=== PATIENT | female | born 1980 | race Caucasian/White ===

== ENCOUNTER 2017-07-16 12:34 | Emergency (ER) | END 2017-07-16 17:19 | disposition home or self-care (01) ==

== ENCOUNTER 2017-07-24 15:13 | Emergency (ER) | END 2017-07-25 06:53 | disposition home or self-care (01) ==

== ENCOUNTER 2017-08-10 16:30 | Inpatient (IN) | END 2017-08-13 14:40 | disposition home or self-care (01) | DRG 291 ==

== ENCOUNTER 2018-06-13 16:13 | Inpatient (IN) | payer OTHER ==
[~2018-06-13] VITALS: Ht 172.7 cm; Wt 102.1 kg
[~2018-06-13 16:13] MED LIST: BUME1TAB PO; CARV3.1260 PO; LISI-313 PO
[2018-06-13 18:35] VITALS: BP 118/83; PULSE 107; PULSE 109; RESP 19; Ht 172.7 cm; Wt 102.1 kg
[2018-06-13 20:00] VITALS: BP 113/80; PULSE 102; PULSE 103; RESP 18
[2018-06-13] MEDS ORDERED: ACETAMINOPHEN 325 MG TAB PO PRN (21:30)
[2018-06-13] MEDS ORDERED: ZOLPIDEM 5 MG TAB PO PRN (21:30)
[2018-06-13] MEDS ORDERED: traMADol 50 MG TAB PO PRN (21:30)
[2018-06-14] VITALS (10 sets, daily range): BP systolic 100–116; BP diastolic 61–76; PULSE 68–104; RESP 16–20
[2018-06-14] MEDS: BUMETANIDE 1 MG INJ IV SCH ×2 (05:51→18:11)
[2018-06-14] MEDS: ASPIRIN 81 MG TAB PO SCH (08:52)
[2018-06-14] MEDS: LISINOPRIL 5 MG TAB PO SCH (08:53)
[2018-06-14] MEDS: ENOXAPARIN 40 MG/0.4 ML SYG SC SCH (08:58)
--- NOTE | 2018-06-14 15:08 | QN ---
Documentation Comment [id number] EDDIE KANG MD Jun 14, 2018 15:08
--- NOTE | 2018-06-14 15:38 | HP ---
DATE OF ADMISSION: 06/13/2018 HISTORY OF PRESENT ILLNESS: The patient is a 38-year-old female with history of CHF, history of drug abuse, previously was discharged with diagnosis of acute on chronic systolic and diastolic heart sheron lure, ejection fraction of 40%, severe tricuspid regurgitation, severe right-sided enlargement heart failure from underlying pulmonary hypertension. The patient also has some artery pressure of 50 mmHg , history of methamphetamine use. Last use was 2 days ago. Previously, the patient went home on Bum ex 1 p.o. daily, Coreg 3.125 twice a day ____ daily, presented with anasarca, short of breath. Denie s any chest pain, palpitation and was transferred here for further management. The patient's pulse o x was recorded as 98. The patient's WBC was 6.7, hematocrit 37, amphetamine positive. The patient's rhythm strip is done which shows sinus rhythm. PAST MEDICAL HISTORY: As mentioned above, hypertension, anasarca, CHF systolic and diastolic, pulmon syd hypertension, ejection fraction of 40%. ALLERGY HISTORY: NEGATIVE. FAMILY HISTORY: Negative. SOCIAL HISTORY: Positive smoking, using drugs. Last use was 2 days ago. MEDICATIONS AT HOME: 1. Bumex. 2. Coreg. 3. Lisinopril. REVIEW OF SYSTEMS: HEENT: Unremarkable. RESPIRATORY: Short of breath, orthopnea, dyspnea, wheezing positive. ABDOMEN: Increasing abdominal size per patient. EXTREMITIES: Worsening edema. CENTRAL NERVOUS SYSTEMS: Unremarkable. PHYSICAL EXAMINATION: GENERAL: Anasarcic looking female. VITAL SIGNS: With pulse 95, blood pressure ____. HEENT: Head is atraumatic and normocephalic. Pupils are equal, reactive to light. NECK: Supple. JVD positive. LUNGS: Basilar rales, rhonchi noted. CARDIOVASCULAR: S1, S2 normal. ABDOMEN: Soft, obese. Bowel sounds positive. Ascites appreciated. EXTREMITIES: There is no cyanosis, clubbing. A 2+ edema of both lower extremities. CENTRAL NERVOUS SYSTEMS: The patient is awake, alert, moving both upper and lower extremities. LABORATORY DATA: Hematocrit 35. Sodium 141, potassium 3.8, BUN 22. IMPRESSION: 1. Anasarca. 2. Possible systolic and diastolic heart failure. 3. Lower extremity edema. 4. Drug abuse. 5. Cardiomyopathy with ejection fraction of 40%, systolic and diastolic heart failure. 6. Pulmonary hypertension. 7. Noncompliance. 8. Anemia. 9. Obesity. 10. Dyslipidemia. PLAN: Continue oxygen, diuretics, cardiac diet. Cardiology consultation. The patient will also hav e 2D echo. Dr. Alba has been notified to see this patient in consultation. Dictated By: EDDIE KANG MD BS/NTS Conf#: [id number] DID#: [id number]
[2018-06-14] MEDS ORDERED: NITROGLYCERIN (SL) 0.4 MG TAB SL PRN (17:30)
--- NOTE | 2018-06-14 18:11 | CONS ---
DATE OF ADMISSION: 06/13/2018 DATE OF CONSULTATION: 06/14/2018 TYPE OF CONSULTATION: Cardiology. REASON FOR CONSULTATION: Congestive heart failure exacerbation. REQUESTING PHYSICIAN: Jacobo Kang MD HISTORY OF PRESENT ILLNESS: Ms. Zuniga is a 38-year-old female with a history of congestive heart f ailure, hypertension, cardiomyopathy, decreased left ventricular ejection fraction, last known to be approximately 40% by echo in 08/2017, ongoing substance abuse with methamphetamines, last use approxi mately 2 days prior as well as cannabinoids and ongoing tobacco usage, who presents with complaints o f edema, shortness of breath. Denies chest pains. The patient initially went to outside hospital at [place] and over there was noted to have a tox screen positive for THC and amphetamines. The pat ient's chest x-ray revealed enlarged cardiac silhouette, no focal consolidation. The patient was roger ated with Bumex and transferred to [facility] due to insurance reasons. Additional ly, it was noted that patient had negative troponin x1. Since arrival here at [facility], the patient has stable vital signs with mild tach ycardia to low 100s, most recently 90s. The patient continues to complain of stabbing chest pain and ongoing shortness of breath. PAST MEDICAL HISTORY: As above in HPI. MEDICATIONS CURRENTLY IN HOSPITAL: 1. Aspirin 81 mg daily. 2. Carvedilol 3.125 mg p.o. b.i.d. 3. Zestril 5 mg daily. 4. Bumex 1 mg IV b.i.d. ALLERGIES: NO KNOWN DRUG ALLERGIES. SOCIAL HISTORY: Positive tobacco, positive substance abuse of methamphetamines and marijuana. FAMILY HISTORY: No history of sudden cardiac or early CAD. REVIEW OF SYSTEMS: As above in HPI. CONSTITUTIONAL: No fevers, chills. PULMONARY: Shortness of breath. CARDIOVASCULAR: Congestive heart failure, cardiomyopathy. GASTROINTESTINAL: No vomiting. GENITOURINARY: No hematuria. MUSCULOSKELETAL: Degenerative joint disease. PSYCHIATRIC: The patient denies depression. NEUROLOGIC: No documented history of CVA. PHYSICAL EXAMINATION: VITAL SIGNS: Temperature 97.9, blood pressure 105/65, pulse 93, respiratory rate 18, satting 100%. GENERAL: The patient is alert, awake, complaining of shortness of breath. NECK: JVP approximately is 9 to 10 cm water. CHEST: Decreased breath sounds at bases bilaterally. HEART: Regular rate and rhythm. Normal S1, S2, laterally displaced PMI. ABDOMEN: Positive bowel sounds, soft. EXTREMITIES: A 1+ edema bilaterally, 1+ pulses bilateral posterior tibial. LABORATORY DATA: As above in HPI with most recently from today, white blood cell count of 6.3, hemog lobin 11.6, platelet count of 221. Sodium 141, potassium 3.8, creatinine 0.9, BUN 22. Troponin nega tive. LDL 50, HDL 29. IMAGING STUDIES: No further imaging studies for my review at this time. ELECTROCARDIOGRAM: No further electrocardiograms for my review at this time. IMPRESSION: 1. Congestive heart failure exacerbation, systolic, acute on chronic by most recent echo. 2. Cardiomyopathy with decreased left ventricular ejection fraction, last EF approximately 40% by [facility] in 08/2017. 3. Hypertension. 4. Substance abuse of methamphetamines and marijuana. 5. Ongoing tobacco usage. 6. Chest pain, atypical with negative troponin x3 at this time. RECOMMENDATIONS: 1. At this time, we would maintain the patient on telemetry monitoring to follow rhythm and rate con trol closely. 2. Continue the patient's baseline carvedilol and lisinopril following blood pressure and heart rate closely. 3. We will write the patient for sublingual nitroglycerin for any recurrent episodes of chest pain. 4. Continue the patient's Bumex diuresis, following strict I's and O's to grade diuresis closely. 5. Check a 2D echo for reassessment of patient's ejection fraction, wall motion or rule out any jayjay r abnormalities. 6. Check a fasting lipid panel for general risk stratification and initiate lipid lowering medicatio ns as necessary. 7. Continue the patient's aspirin for prophylaxis against cardiovascular events. Thank you for allowing me to take part in the care of this patient. I will continue to follow her ve ry closely with you with further recommendations will be made as the patient progresses through her [facility] clinical course. Dictated By: JEFF MACKEY/NTS Conf#: [id number] DID#: [id number] CC: JACOBO KANG MD;*EndCC*
--- NOTE | 2018-06-14 18:20 | RADRPT ---
Echocardiogram Report Patient Name: Rebecca ED LA ROSAnt ID: [id number] : [id number] (38y 3m)Study Date: 06/14/2018 8:19:58 AM Gender: FAccession #: [id number] Tech: LE Location: Ref.Physician: EDDIE KANG Height(Cm): BSA: Weight(Kg): Quality: GoodAccount #: Procedures: Echocardiographic Report: Transthoracic echocardiogram with complete 2D, M-Mode, and doppler examination. Indications: Shortness of breath. Measurements: 2D/M Mode Doppler Measurement Value Normal Range Measurement Value Normal Range LVIDd 2D 4.1 [ 3.8 - 5.2 ] cm VIVIANA Vmax 2.4 [ 2.0 - 4.0 ] cm2 LVIDs 2D 3.0 [ 2.2 - 3.5 ] cm AV Mean Barry 0.7 [ 70.0 - 90.0 ] cm/sec LVPWd 2D 1.0 [ 0.6 - 0.9 ] cm AV Mean PG 2.0 [ 2.0 - 4.0 ] mmHg IVSd 2D 1.0 [ 0.6 - 0.9 ] cm AV Peak Barry 0.9 [ 100.0 - 170.0 ] cm/sec IVS/LVPW 2D 0.9 ratio AV Peak PG 4.0 [ 2.0 - 9.0 ] mmHg LVOT Diam 2.0 [ 2.1 - 2.5 ] cm AV VTI 13.9 cm LVOT Area 3.1 cm2 LVOT Peak Barry 0.7 [ 70.0 - 110.0 ] cm/sec LVOT Peak PG 2.0 [ 2.0 - 6.0 ] mmHg MV E Peak Barry 0.6 [ 60.0 - 130.0 ] cm/sec MV A Peak Barry 0.8 [ 100.0 - 120.0 ] cm/sec MV E/A 0.7 [ 0.8 - 1.5 ] ratio MV Decel Time 151 [ 104 - 258 ] msec Lat E` Barry 0.1 [ 10.0 - 15.0 ] cm/sec Med E` Barry 0.1 cm/sec MV E/A 0.7 [ 0.8 - 1.5 ] ratio TR Peak Barry 2.8 [ 100.0 - 280.0 ] cm/sec TR Peak PG 32.0 mmHg PV Peak Barry 0.6 [ 40.0 - 80.0 ] cm/sec PV Peak PG 1.0 mmHg Findings: Left Ventricle: Lower limits of normal systolic function. Normal left ventricular cavity size. Normal left ventricular wall thickness. Ejection fraction is visually estimated at 40-45 %. Tissue Doppler/Mitral Doppler indices are consistent with impaired relaxation (Stage I diastolic dysfunction). Right Ventricle: Moderate right ventricular systolic dysfunction. Severe enlargement of right ventricle. Left Atrium: Upper limit of normal left atrial size. Right Atrium: There is severe enlargement of right atrium. Mitral Valve: Normal appearance of the mitral valve. Mild mitral annular calcification. There is trace to mild mitral valve regurgitation. Aortic Valve: Normal appearance of the aortic valve. No significant aortic stenosis or insufficiency. Tricuspid Valve: Normal appearance of the tricuspid valve. Right ventricular systolic pressure is consistent with moderate pulmonary hypertension. Estimated peak PA systolic pressure 47 mmHg. There is severe tricuspid regurgitation. Pulmonic Valve: Normal pulmonic valve appearance. There is mild pulmonic regurgitation. Pericardium: Trivial pericardial effusion. No pleural effusion noted. Aorta: Normal aortic root. IVC: Dilated inferior vena cava with poor inspiratory collapse consistent with elevated right atrial pressures. Conclusions: Lower limits of normal systolic function. Normal left ventricular cavity size. Normal left ventricular wall thickness. Ejection fraction is visually estimated at 40-45 %. Tissue Doppler/Mitral Doppler indices are consistent with impaired relaxation (Stage I diastolic dysfunction). Moderate right ventricular systolic dysfunction. Severe enlargement of right ventricle. There is severe enlargement of right atrium. Normal appearance of the mitral valve. Mild mitral annular calcification. There is trace to mild mitral valve regurgitation. Normal appearance of the tricuspid valve. Right ventricular systolic pressure is consistent with moderate pulmonary hypertension. Estimated peak PA systolic pressure 47 mmHg. There is severe tricuspid regurgitation. Normal pulmonic valve appearance. There is mild pulmonic regurgitation. n. Trivial pericardial effusion. No pleural effusion noted. Electronically Signed By: Alexis Alba 2018-06-14 18:20:06 PDT
[2018-06-15] VITALS (12 sets, daily range): BP systolic 96–108; BP diastolic 57–76; PULSE 78–98; RESP 18–20
[2018-06-15] MEDS: BUMETANIDE 1 MG INJ IV SCH ×2 (05:39→17:58)
[2018-06-15] MEDS: ASPIRIN 81 MG TAB PO SCH (09:33)
[2018-06-15] MEDS: LISINOPRIL 5 MG TAB PO SCH (09:33)
[2018-06-15] MEDS: ENOXAPARIN 40 MG/0.4 ML SYG SC SCH (09:37)
--- NOTE | 2018-06-15 10:56 | PN ---
Date/Time of Note Date/Time of Note DATE: 06/15/18 TIME: 10:52 Assessment/Plan VTE Prophylaxis Risk score (from Ns)>0 risk: 3 SCD applied (from [facility] [place] No SCD contraindicated: low risk/ambulating Pharmacological prophylaxis: NA/contraindicated Pharm contraindication: low risk/ambulating Lines/Catheters IV [facility]from [facility] Saline Lock Assessment/Plan Assessment/Plan 38 y/o with 1 Anasarca. with LE edema 2. Congestive heart failure exacerbation, systolic, acute on chronic by most recent echo. 3 Drug abuse. 5. Cardiomyopathy with ejection fraction of 40%, systolic and diastolic heart failure. 6. Pulmonary hypertension. 7. Noncompliance. 8. Anemia. 9. Obesity. 10. Dyslipidemia. Plan - cw IV Bumex 1 twice daily -cw with aspirin statin Coreg, lisnopril -repeat chest x-ray -I's and O's -Follow with cardiac recs -Was advised against substance abuse cessation DC home soon Result Diagram: 06/14/18 0637 06/15/18 0629 Results 24hrs Laboratory Tests Test 06/14/18 12:18 06/15/18 06:29 Troponin I < 0.012 Sodium Level 139 Potassium Level 3.8 Chloride Level 99 Carbon Dioxide Level 30 Anion Gap 10 Blood Urea Nitrogen 26 H Creatinine 0.94 Est Glomerular Filtrat Rate mL/min > 60 Glucose Level 81 # Calcium Level 9.6 Triglycerides Level 52 Cholesterol Level 99 L LDL Cholesterol, Calculated 58 HDL Cholesterol 31 L Cholesterol/HDL Ratio 3.1 Subjective 24 Hr Interval Summary Free Text/Dictation A lot better today. Feels that the swelling has much improved Exam/Review of Systems Exam Vitals Vital Signs Date Temp Pulse Resp B/P (MAP) Pulse Ox O2 O2 Flow FiO2 Time Delivery Rate 06/15/18 94 08:44 06/15/18 97.6 18 108/76 94 Room Air 07:25 (87) 06/14/18 2.0 05:11 Intake and Output 06/14/18 06/14/18 06/15/18 1414:59 22:59 06:59 IntakeIntake Total 1200 ml BalanceBalance 1200 ml Exam GENERAL: The patient is alert, awake, complaining of shortness of breath. NECK: JVP +. CHEST: Decreased breath sounds at bases bilaterally. HEART: Regular rate and rhythm. Normal S1, S2, laterally displaced PMI. ABDOMEN: Positive bowel sounds, soft. EXTREMITIES: A 1+ edema bilaterally, 1+ pulses bilateral posterior tibial. Results Results 24hrs Laboratory Tests Test 06/14/18 12:18 06/15/18 06:29 Troponin I < 0.012 Sodium Level 139 Potassium Level 3.8 Chloride Level 99 Carbon Dioxide Level 30 Anion Gap 10 Blood Urea Nitrogen 26 H Creatinine 0.94 Est Glomerular Filtrat Rate mL/min > 60 Glucose Level 81 # Calcium Level 9.6 Triglycerides Level 52 Cholesterol Level 99 L LDL Cholesterol, Calculated 58 HDL Cholesterol 31 L Cholesterol/HDL Ratio 3.1 Medications Medication Current Medications Zolpidem Tartrate (Ambien) 5 mg HS PRN PO INSOMNIA; Start 06/13/18 at 21:30 Aspirin (Aspirin) 81 mg DAILY PO Last administered on 06/15/18at 09:33; Admin Dose 81 MG; Start 06/14/18 at 09:00 Bumetanide (Bumex) 1 mg BID DIURETICS IV Last administered on 06/15/18at 05:39; Admin Dose 1 MG; Start 06/14/18 at 06:00 Acetaminophen (Tylenol Tab) 650 mg Q6H PRN PO MILD PAIN(1-3)OR ELEVATED TEMP; Start 06/13/18 at 21:30 Enoxaparin Sodium (Lovenox) 40 mg DAILY SC Last administered on 06/15/18at 09:37; Admin Dose 40 MG; Start 06/14/18 at 09:00 Carvedilol (Coreg) 3.125 mg BID PO Last administered on 06/15/18at 09:33; Admin Dose 3.125 MG; Start 06/14/18 at 09:00 Lisinopril (Zestril) 5 mg DAILY PO Last administered on 06/15/18at 09:33; Admin Dose 5 MG; Start 06/14/18 at 09:00 Nitroglycerin (Nitroglycerin (Sl Tab) 0.4 Mg) 1 tab Q5M PRN SL ANGINA; Start 06/14/18 at 17:30 SHIN HAN MD Jun 15, 2018 10:56
--- NOTE | 2018-06-15 14:01 | CONS ---
Assessment/Plan Assessment/Plan Hospital Course (Demo Recall) IMPRESSION: 1. Congestive heart failure exacerbation, systolic, acute on chronic by most recent echo. 2. Cardiomyopathy with decreased left ventricular ejection fraction, last EF approximately 40% by echo in 08/2017. LVEF 40-45% by echo this admit with also dilated hypokinetic moderately RV 3. Hypertension. 4. Substance abuse of methamphetamines and marijuana. 5. Ongoing tobacco usage. 6. Chest pain, atypical with negative troponin x3 at this time. REcc: -Tele -serial ecg's -Continue BB/ACEI -Continue asa -Contineu bumex diuresis and follow volume status clsoely -Follow volume status and consider initiation of aldactone Consultation Date/Type/Reason Admit Date/Time Jun 13, 2018 at 18:10 Initial Consult Date 06/14/18 Type of Consult Cardiology Reason for Consultation CHF Requesting Provider: EDDIE KANG Date/Time of Note DATE: 06/15/18 TIME: 13:57 Exam/Review of Systems Vital Signs Vitals Vital Signs Date Temp Pulse Resp B/P (MAP) Pulse Ox O2 O2 Flow FiO2 Time Delivery Rate 06/15/18 93 12:26 06/15/18 98.2 18 99/64 (76) 95 Room Air 11:09 06/14/18 2.0 05:11 Intake and Output 06/14/18 06/14/18 06/15/18 1515:00 23:00 07:00 IntakeIntake Total 1200 ml BalanceBalance 1200 ml Exam Exam Review of Systems: CONSTITUTIONAL: No fevers, chills. PULMONARY: mild sob ongoing CARDIOVASCULAR: No chest pain/palpitations GASTROINTESTINAL: No nausea/vomiting. GENITOURINARY: No hematuria/dysuria. MUSCULOSKELETAL: No myagias/arthalgias. PSYCHIATRIC: The patient denies depression. NEUROLOGIC: No weakness Constitutional: alert Psych: no complaints Head: normocephalic ENMT: mucosa pink and moist Neck: supple, jvd (9 cm water) Respiratory: clear to auscultation Cardiovascular: regular rate and rhythm Gastrointestinal: soft, non-tender Musculoskeletal: muscle weakness (mild generalized) Extremities: edema (none) Labs Result Diagram: 06/14/18 0637 06/15/18 0629 Results 24hrs Laboratory Tests Test 06/15/18 06:29 Sodium Level 139 Potassium Level 3.8 Chloride Level 99 Carbon Dioxide Level 30 Anion Gap 10 Blood Urea Nitrogen 26 H Creatinine 0.94 Est Glomerular Filtrat Rate mL/min > 60 Glucose Level 81 # Calcium Level 9.6 Triglycerides Level 52 Cholesterol Level 99 L LDL Cholesterol, Calculated 58 HDL Cholesterol 31 L Cholesterol/HDL Ratio 3.1 Medications Medications Current Medications Zolpidem Tartrate (Ambien) 5 mg HS PRN PO INSOMNIA; Start 06/13/18 at 21:30 Aspirin (Aspirin) 81 mg DAILY PO Last administered on 06/15/18at 09:33; Admin Dose 81 MG; Start 06/14/18 at 09:00 Bumetanide (Bumex) 1 mg BID DIURETICS IV Last administered on 06/15/18at 05:39; Admin Dose 1 MG; Start 06/14/18 at 06:00 Acetaminophen (Tylenol Tab) 650 mg Q6H PRN PO MILD PAIN(1-3)OR ELEVATED TEMP; Start 06/13/18 at 21:30 Enoxaparin Sodium (Lovenox) 40 mg DAILY SC Last administered on 06/15/18at 09:37; Admin Dose 40 MG; Start 06/14/18 at 09:00 Carvedilol (Coreg) 3.125 mg BID PO Last administered on 06/15/18at 09:33; Admin Dose 3.125 MG; Start 06/14/18 at 09:00 Lisinopril (Zestril) 5 mg DAILY PO Last administered on 06/15/18 09:33; Admin Dose 5 MG; Start 06/14/18 at 09:00 Nitroglycerin (Nitroglycerin (Sl Tab) 0.4 Mg) 1 tab Q5M PRN SL ANGINA; Start 06/14/18 at 17:30 JEFF HARMON Jun 15, 2018 14:01
[2018-06-16] VITALS (11 sets, daily range): BP systolic 105–114; BP diastolic 60–79; PULSE 82–98; RESP 18–20
[2018-06-16] MEDS: BUMETANIDE 1 MG INJ IV SCH ×2 (06:15→18:25)
[2018-06-16] MEDS: ENOXAPARIN 40 MG/0.4 ML SYG SC SCH ×2 (09:00→10:13)
--- NOTE | 2018-06-16 09:03 | CONS ---
Consult Date/Type/Reason Admit Date/Time Jun 13, 2018 at 18:10 Initial Consult Date Requesting Provider: EDDIE KANG MD Date/Time of Note DATE: 06/16/18 TIME: 09:01 Subjective NO acute events - no CP - r/o Mi, improved SOB ROS: No fever, no chills, no nausea, no vomiting, no diarrhea/constipation No recent weight changes No chest pain, no PND, no orthopnea + SOB, chronic No dizziness, blurred vision No thirst, no heat or cold intolerance Objective Vitals Vital Signs Date Temp Pulse Resp B/P (MAP) Pulse Ox O2 O2 Flow FiO2 Time Delivery Rate 06/16/18 91 08:14 06/16/18 98.4 20 112/62 94 Room Air 07:25 (79) 06/14/18 2.0 05:11 Intake and Output 06/15/18 06/15/18 06/16/18 1515:00 23:00 07:00 OutputOutput Total 1000 ml 2000 ml BalanceBalance -1000 ml -2000 ml Exam General: WN/WD/NAD, AOx comfortbale HEENT: Unicetric/atraumatic/EOMI ( follow commands) NECK: JVD elevated, no thyromegaly Lymph: no lymphadenopathy HEART: regular with no S3, II/ systolic murmur at apex, PMI L LUNGS: Coarse sounds ABD: soft, NT, ND, +BS : Intact Neuro: non focal SKIN: chronic changes EXT: trace edema Results/Medications Result Diagram: 06/14/18 0637 06/16/18 0624 Results 24 hrs Laboratory Tests Test 06/16/18 06:24 Sodium Level 139 Potassium Level 3.9 Chloride Level 100 Carbon Dioxide Level 30 Anion Gap 9 Blood Urea Nitrogen 27 H Creatinine 0.91 Est Glomerular Filtrat Rate mL/min > 60 Glucose Level 89 Calcium Level 9.3 Home Meds Active Scripts Bumetanide* (Bumetanide*) 1 Mg Tablet, 1 MG PO DAILY for 30 Days, TAB Prov:SHIN HAN MD 08/13/17 Lisinopril* (Lisinopril*) 5 Mg Tablet, 5 MG PO DAILY for 30 Days, TAB Prov:SHIN HAN MD 08/13/17 Carvedilol* (Carvedilol*) 3.125 Mg Tablet, 3.125 MG PO BID for 30 Days, TAB Prov:SHIN HAN MD 08/13/17 Medications Current Medications Zolpidem Tartrate (Ambien) 5 mg HS PRN PO INSOMNIA; Start 06/13/18 at 21:30 Aspirin (Aspirin) 81 mg DAILY PO Last administered on 06/15/18at 09:33; Admin Dose 81 MG; Start 06/14/18 at 09:00 Bumetanide (Bumex) 1 mg BID DIURETICS IV Last administered on 06/16/18at 06:15; Admin Dose 1 MG; Start 06/14/18 at 06:00 Acetaminophen (Tylenol Tab) 650 mg Q6H PRN PO MILD PAIN(1-3)OR ELEVATED TEMP; Start 06/13/18 at 21:30 Enoxaparin Sodium (Lovenox) 40 mg DAILY SC Last administered on 06/15/18at 09:37; Admin Dose 40 MG; Start 06/14/18 at 09:00 Carvedilol (Coreg) 3.125 mg BID PO Last administered on 06/15/18at 21:00; Admin Dose 3.125 MG; Start 06/14/18 at 09:00 Lisinopril (Zestril) 5 mg DAILY PO Last administered on 06/15/18 09:33; Admin Dose 5 MG; Start 06/14/18 at 09:00 Nitroglycerin (Nitroglycerin (Sl Tab) 0.4 Mg) 1 tab Q5M PRN SL ANGINA; Start 06/14/18 at 17:30 Assessment/Plan Hospital Course (Demo Recall) 1. Congestive heart failure exacerbation, systolic, acute on chronic by most recent echo - no indication for ICD EF > 35%. 2. Cardiomyopathy with decreased left ventricular ejection fraction, last EF approximately 40% by echo in 08/2017. LVEF 040-45% by echo this admit with also dilated hypokinetic moderately RV - med rX and drug d/c advised 3. Hypertension - well mainatined now. 4. Substance abuse of methamphetamines and marijuana. 5. Ongoing tobacco usage. 6. Chest pain, atypical with negative troponin x3 at this time - r/o GA, doubt ischemia. SKYLAR BANUELOS MD Jun 16, 2018 09:03
[2018-06-16] MEDS: ASPIRIN 81 MG TAB PO SCH (09:39)
[2018-06-16] MEDS: LISINOPRIL 5 MG TAB PO SCH (09:40)
--- NOTE | 2018-06-16 11:51 | PN ---
Date/Time of Note Date/Time of Note DATE: 06/16/18 TIME: 11:48 Assessment/Plan VTE Prophylaxis Risk score (from Ns)>0 risk: 4 [place] [facility] [place] contraindicated: low risk/ambulating Pharmacological prophylaxis: NA/contraindicated Pharm contraindication: low risk/ambulating Lines/Catheters IV [facility]ter Type (from [facility] Saline Lock Assessment/Plan Hospital Course 1 Anasarca. with LE edema 2. Congestive heart failure exacerbation, systolic, acute on chronic by most recent echo. 3 Drug abuse. 5. Cardiomyopathy with ejection fraction of 40%, systolic and diastolic heart failure. 6. Pulmonary hypertension. 7. Noncompliance. 8. Anemia. 9. Obesity. 10. Dyslipidemia. Plan - cw bumex -cw with aspirin statin Coreg, lisnopril -repeat chest x-ray neg -I's and O's -Follow with cardiac recs -Was advised against substance abuse cessation Abdominal ultrasound if ascites is present might need paracentesis DC planning Result Diagram: 06/14/18 0637 06/16/18 0624 Results 24hrs Laboratory Tests Test 06/16/18 06:24 Sodium Level 139 Potassium Level 3.9 Chloride Level 100 Carbon Dioxide Level 30 Anion Gap 9 Blood Urea Nitrogen 27 H Creatinine 0.91 Est Glomerular Filtrat Rate mL/min > 60 Glucose Level 89 Calcium Level 9.3 Subjective 24 Hr Interval Summary Free Text/Dictation Feels better neg 3 l abdominal distention however according to the patient has always been there Exam/Review of Systems Exam Vitals Vital Signs Date Temp Pulse Resp B/P (MAP) Pulse Ox O2 O2 Flow FiO2 Time Delivery Rate 06/16/18 97.7 95 18 114/70 96 Room Air 11:45 (85) 06/14/18 2.0 05:11 Intake and Output 06/15/18 06/15/18 06/16/18 1515:00 23:00 07:00 OutputOutput Total 1000 ml 2000 ml BalanceBalance -1000 ml -2000 ml Exam GENERAL: The patient is alert, awake, complaining of shortness of breath. NECK: JVP +. CHEST: Decreased breath sounds at bases bilaterally. HEART: Regular rate and rhythm. Normal S1, S2, laterally displaced PMI. ABDOMEN: abdominal distension ? ascites EXTREMITIES: A 1+ edema bilaterally, 1+ pulses bilateral posterior tibial. Results Results 24hrs Laboratory Tests Test 06/16/18 06:24 Sodium Level 139 Potassium Level 3.9 Chloride Level 100 Carbon Dioxide Level 30 Anion Gap 9 Blood Urea Nitrogen 27 H Creatinine 0.91 Est Glomerular Filtrat Rate mL/min > 60 Glucose Level 89 Calcium Level 9.3 Medications Medication Current Medications Zolpidem Tartrate (Ambien) 5 mg HS PRN PO INSOMNIA; Start 06/13/18 at 21:30 Aspirin (Aspirin) 81 mg DAILY PO Last administered on 06/16/18at 09:39; Admin Dose 81 MG; Start 06/14/18 at 09:00 Bumetanide (Bumex) 1 mg BID DIURETICS IV Last administered on 06/16/18at 06:15; Admin Dose 1 MG; Start 06/14/18 at 06:00 Acetaminophen (Tylenol Tab) 650 mg Q6H PRN PO MILD PAIN(1-3)OR ELEVATED TEMP; Start 06/13/18 at 21:30 Enoxaparin Sodium (Lovenox) 40 mg DAILY SC Last administered on 06/16/18at 10:13; Admin Dose 40 MG; Start 06/14/18 at 09:00 Carvedilol (Coreg) 3.125 mg BID PO Last administered on 06/16/18at 09:39; Admin Dose 3.125 MG; Start 06/14/18 at 09:00 Lisinopril (Zestril) 5 mg DAILY PO Last administered on 06/16/18at 09:40; Admin Dose 5 MG; Start 06/14/18 at 09:00 Nitroglycerin (Nitroglycerin (Sl Tab) 0.4 Mg) 1 tab Q5M PRN SL ANGINA; Start 06/14/18 at 17:30 SHIN HAN MD Jun 16, 2018 11:51
[2018-06-16] MEDS ORDERED: ASPI-831 PO (11:53)
[2018-06-16] MEDS ORDERED: BUME1TAB PO (11:53)
--- NOTE | 2018-06-16 11:53 | PDOCDIS ---
Discharge Instructions DIAGNOSIS Discharge Diagnosis CHF rt sided heart failure, moderate pul htn CONDITION [id number] Patient Condition: Muhsu8k Fair HOME CARE INSTRUCTIONS: [id number] Diet Instructions: [id number] Modified Fat ACTIVITY: [id number] Activity Restrictions: [id number] Slowly Increase Activity Rest between Activity Avoid heavy lifting FOLLOW UP/APPOINTMENTS Follow-up Plan f/u PCP 1-2 weeks Follow-up with cardiology Dr. Alba in 1-2 weeks Patient will need an outpatient follow-up with pulmonary in 2-3 weeks for pulmonary hypertension SHIN HAN MD Jun 16, 2018 11:52
[2018-06-16] MEDS ORDERED: LIDOCAINE 1% (MPF) 5 ML VIAL ONE (18:14)
--- NOTE | 2018-06-17 19:00 | DS ---
DATE OF ADMISSION: 06/16/2018 DATE OF DISCHARGE: 06/16/2018 HISTORY OF PRESENT ILLNESS AND HOSPITAL COURSE: A 38-year-old female with a history of CHF, history of drug abuse. Previously discharged diagnoses are acute on chronic systolic and diastolic heart sheron lure, severe TR, EF of 40%, severe and right-sided enlargement from pulmonary hypertension, methamphe tamine use, presented to the emergency department at outside hospital secondary to shortness of breat h and lower extremity edema. The patient's last methamphetamine use was 2 days ago. According to th e patient, she ran out of her medications. On arrival, the patient had anasarca. Patient had bibasi lar rales and 2+ edema on the lower extremities. Sodium 141, potassium 3.8, BUN of 22. The patient was started on IV Bumex. Cardiology was consulted. Echocardiogram was done that showed EF of 40% to 45%, a severe TR, right ventricular systolic pressure is consider moderate pulmonary hypertension, s evere MR enlargement of right ventricle, moderate right ventricular systolic function. The patient w as seen by cardiology and their recommendations were followed. The patient was feeling better and sy mptomatically every day. The patient also had an abdominal ultrasound had showed some small to moder ate appearing ascites; however, the patient was scheduled for paracentesis, but only a small amount o f fluid was able to be aspirated. The patient was feeling much better. Vital signs are all stable a nd is stable to be discharged per cardiology recommendations. FINAL DISCHARGE DIAGNOSES: 1. Anasarca with lower extremity edema secondary to congestive heart failure, systolic, acute on chr onic. 2. Congestive heart failure, systolic, acute on chronic. 3. Drug abuse with amphetamine use. 4. Cardiomyopathy with ejection fraction of 40%. 5. Pulmonary hypertension. 6. Noncompliant. 7. Obesity. 8. Ascites. 9. Dyslipidemia. DISCHARGE CONDITION: Stable. The patient was instructed to follow up with PCP in 1 to 2 weeks, card iology in 1 to 2 weeks, also pulmonary 2 to 3 weeks. DISCHARGE MEDICATIONS: 1. Aspirin 81. 2. Bumex 1 mg p.o. daily. 3. Coreg 3.125 b.i.d. 4. Lisinopril. Dictated By: SHIN BARRETT/FARHAD Conf#: [id number] DID#: [id number] CC: EDDIE KANG MD;*EndCC*
== END 2018-06-16 19:43 | disposition home or self-care (01) | DRG 293 ==
LOC: TEL 18:10 → INTOOBSV 18:10 → OBSVTOIN 06-16 14:14
PROVIDERS: ADMIT Internal Medicine Nephrology; ATTEND Internal Medicine Nephrology
PROC: 0W9G3ZZ Drainage of Peritoneal Cavity, Percutaneous Approach (ICD-10-PCS; principal; 2018-06-16)
DX: I11.0 Hypertensive heart disease with heart failure (principal); I50.23 Acute on chronic systolic (congestive) heart failure; F17.210 Nicotine dependence, cigarettes, uncomplicated; I42.9 Cardiomyopathy, unspecified; E78.5 Hyperlipidemia, unspecified; I27.20 Pulmonary hypertension, unspecified; D64.9 Anemia, unspecified; F15.10 Other stimulant abuse, uncomplicated; F12.10 Cannabis abuse, uncomplicated; E66.9 Obesity, unspecified; Z68.34 Body mass index [BMI] 34.0-34.9, adult; Z79.82 Long term (current) use of aspirin; Z91.19 Patient's noncompliance with other medical treatment and regimen
CPT/HCPCS: 71045; 76705; 80048; 80061; 84484; 85025; 85049; 85610; 85670; 85730; 93306; 99217; G0378; J1650

== ENCOUNTER 2018-07-16 15:58 | Emergency (ER) | payer OTHER ==
[~2018-07-16] VITALS: Ht 170.2 cm; Wt 90.9 kg
[~2018-07-16 15:58] MED LIST changes: +ASPI-831 PO
[2018-07-16 16:03] VITALS: Ht 170.2 cm; Wt 90.9 kg
[2018-07-16] MEDS ORDERED: ONDANSETRON 4 MG INJ IV STA (16:23)
--- NOTE | 2018-07-16 16:29 | ERD ---
ER Documentation Chief Complaint Chief Complaint PT BIB AMBULANCE WITH C/O N/V/D, ONSET THIS AM, FLU-SYMPTOMS HPI 38-year-old female history of substance abuse, cardiomyopathy with EF of 40% who presents to the emergency room with less than 12 hours of symptoms that include nonbloody nonbilious emesis, loose watery stool and cramping abdominal discomfort. Patient also describes a baseline shortness of breath that is unchanged. Lower extremity pitting edema that is unchanged from baseline. She had a recent admission in June for CHF exacerbation. Occasionally she gets chest pain but none in the past 24 hours. She denies any exertional symptoms. ROS All systems reviewed and are negative except as per history of present illness. Medications Home Meds Active Scripts Dicyclomine HCl (Dicyclomine HCl) 10 Mg Capsule, 10 MG PO TID PRN for ABDOMINAL CRAMPING, #20 CAP Prov:JANET GONZALES MD 07/16/18 Ondansetron (Ondansetron Odt) 4 Mg Tab.rapdis, 4 MG PO Q6H PRN for NAUSEA AND/OR VOMITING, #20 TAB Prov:JANET GONZALES MD 07/16/18 Bumetanide* (Bumetanide*) 1 Mg Tablet, 1 MG PO DAILY for 30 Days, TAB Prov:SHIN HAN MD 06/16/18 Reported Medications Lisinopril* (Lisinopril*) 5 Mg Tablet, 5 MG PO DAILY, #30 TAB 07/16/18 Carvedilol* (Carvedilol*) 3.125 Mg Tablet, 3.125 MG PO BID, #60 TAB 07/16/18 Discontinued Scripts Aspirin (Aspirin) 81 Mg Chew, 81 MG PO DAILY for 30 Days, TAB Prov:SHIN HAN MD 06/16/18 Lisinopril* (Lisinopril*) 5 Mg Tablet, 5 MG PO DAILY for 30 Days, TAB Prov:SHIN HAN MD 08/13/17 Carvedilol* (Carvedilol*) 3.125 Mg Tablet, 3.125 MG PO BID for 30 Days, TAB Prov:SHIN HAN MD 08/13/17 Allergies Allergies: Coded Allergies: No Known Drug Allergies (Unverified Allergy, Unknown, 07/16/18) PMhx/Soc History of Surgery: Yes (APPY) Anesthesia Reaction: No Hx Neurological Disorder: No Hx Respiratory Disorders: No Hx Cardiac Disorders: Yes (HEART MURMUR) Hx Psychiatric Problems: No Hx Miscellaneous Medical Probl: No Hx Alcohol Use: No Hx Substance Use: Yes Hx Tobacco Use: Yes Smoking Status: Current every day smoker FmHx Family History: No diabetes Physical Exam Vitals Vital Signs Date Temp Pulse Resp B/P (MAP) Pulse Ox O2 O2 Flow FiO2 Time Delivery Rate 07/16/18 Nasal 2 16:53 Cannula 07/16/18 98.6 117 20 107/63 97 16:03 (78) Physical Exam General: Well developed, well nourished, no acute distress Head: Normocephalic, atraumatic. Eyes: Pupils equally reactive, EOM intact ENT: Moist mucous membranes Neck: Supple, no lymphadenopathy Respiratory: Lungs clear bilaterally, no distress Cardiovascular: RRR, no murmurs, rubs, or gallops Abdominal: Soft, protuberant, no fluid wave, nontender, no focal rebound or guarding, no tenderness to McBurney's point : Deferred MSK: Bilateral lower extremity pitting edema, no unilateral swelling, 5/5 strength Neurologic: Alert and oriented, moving all extremities, normal speech, no focal weakness, no cerebellar signs Skin: No rash Psych: Normal mood Result Diagram: 07/16/18 1634 07/16/18 1634 Results 24 hrs Laboratory Tests Test 07/16/18 16:34 07/16/18 16:57 White Blood Count 15.1 10^3/ul Red Blood Count 4.06 10^6/ul Hemoglobin 13.3 g/dl Hematocrit 39.9 % Mean Corpuscular Volume 98.3 fl Mean Corpuscular Hemoglobin 32.8 pg Mean Corpuscular Hemoglobin Concent 33.3 g/dl Red Cell Distribution Width 15.2 % Platelet Count 242 10^3/UL Mean Platelet Volume 10.4 fl Immature Granulocytes % 0.700 % Neutrophils % 89.1 % Lymphocytes % 4.8 % Monocytes % 5.0 % Eosinophils % 0.1 % Basophils % 0.3 % Nucleated Red Blood Cells % 0.0 /100WBC Immature Granulocytes # 0.100 10^3/ul Neutrophils # 13.5 10^3/ul Lymphocytes # 0.7 10^3/ul Monocytes # 0.8 10^3/ul Eosinophils # 0.0 10^3/ul Basophils # 0.1 10^3/ul Nucleated Red Blood Cells # 0.0 10^3/ul Sodium Level 141 mmol/L Potassium Level 4.9 mmol/L Chloride Level 101 mmol/L Carbon Dioxide Level 28 mmol/L Anion Gap 12 Blood Urea Nitrogen 18 mg/dl Creatinine 0.97 mg/dl Est Glomerular Filtrat Rate mL/min > 60 mL/min Glucose Level 110 mg/dl Calcium Level 9.9 mg/dl Troponin I < 0.012 ng/ml B-Type Natriuretic Peptide 4240 PG/ML POC Beta HCG, Qualitative NEGATIVE Current Medications Medications Dose Sig/Екатерина Start Time Status Last (Trade) Ordered Route PRN Stop Time Admin Dose Reason Admin Ondansetron 4 mg ONCE STAT 07/16/18 DC 07/16/18 HCl (Zofran IV 16:23 16:38 Inj) 07/16/18 16:25 Dicyclomine 10 mg ONCE ONCE 07/16/18 DC 07/16/18 HCl IM 16:30 16:54 (Bentyl) 07/16/18 16:31 Furosemide 40 mg ONCE ONCE 07/16/18 UNV (Lasix) PO 18:30 07/16/18 18:31 Procedures/MDM EKG, MONITORS, & DIAGNOSTIC IMAGING: EKG: I reviewed and interpreted a 12-lead EKG. Rhythm: Slight sinus tachycardia ST Changes: No contiguous ST segment elevations T waves: No contiguous T wave inversions Impression: No evidence of acute cardiac ischemia Chest x-ray: Chest x-ray: I reviewed and interpreted a 1 view of the chest Mediastinum: No enlargement Cardiac silhouette: Stable cardiomegaly Airspace: Clear lung holder bilaterally without evidence of pneumothorax Bones: No evidence of fracture LAB INTERPRETATION: I reviewed the laboratory testing and it shows BNP in the 4000 range but consistent with prior value, slight leukocytosis MEDICAL DECISION MAKING: The patient's presentation is consistent with likely viral process causing gastroenteritis. The patient is a mostly benign abdominal examination and is otherwise well-appearing in the ER setting. She however does have comorbidities including CHF. She does describe some shortness of breath that appears to be at her baseline. The patient does have some very mild evidence of volume overload but no significant rales at the bases or respiratory distress. Patient currently takes a diuretic. Screening for cardiac ischemia will be reasonable but low concern and low pretest probability for the process at this time. Given the patient's benign abdominal exam I do not believe CT imaging of the abdomen pelvis is necessary. Symptom control be appropriate. I will avoid IV fluids to prevent more significant volume overload. ER COURSE: * The patient's BMP is consistent with baseline. No evidence of significant volume overload or pulmonary edema that would warrant hospitalization. Single dose of Lasix provided. * Patient was slight leukocytosis but to be expected with the patient's nausea vomiting and diarrhea. Pain is well controlled. No indication for CT imaging. * At this point I believe outpatient management be most appropriate. The patient understands return precautions. CONSULTATION: None DISPOSITION PLAN: The patient does not have an identifiable emergent medical condition that warrants inpatient hospitalization at this time. The patient is deemed safe for discharge with outpatient follow-up. We discussed follow up with the patient's primary care doctor within 24 to 48 hours as needed. We also discussed return to the emergency room for worsening symptoms or worsening condition. Outpatient referral: None required Discharge Medications: Zofran and Bentyl Departure Diagnosis: Primary Impression: History of CHF (congestive heart failure) Additional Impressions: Nausea vomiting and diarrhea Anasarca Condition: Stable JANET GONZALES MD Jul 16, 2018 16:29
[2018-07-16] MEDS ORDERED: DICYCLOMINE 20 MG INJ IM ONE (16:30)
[2018-07-16] MEDS ORDERED: CARV3.1260 PO (17:22)
[2018-07-16] MEDS ORDERED: LISI-313 PO (17:22)
[2018-07-16] MEDS ORDERED: ONDA4TAB14 PO (18:13)
[2018-07-16] MEDS ORDERED: DICY10CA40 PO (18:13)
[2018-07-16] MEDS ORDERED: FUROSEMIDE 20 MG TAB PO ONE (18:30)
[2018-07-16 18:35] VITALS: BP 117/80; PULSE 102; RESP 20
== END 2018-07-16 18:36 | disposition home or self-care (01) ==
LOC: E/R 15:58
DX: I50.9 Heart failure, unspecified (principal); F17.210 Nicotine dependence, cigarettes, uncomplicated; R19.7 Diarrhea, unspecified; R07.9 Chest pain, unspecified
CPT/HCPCS: 36415; 71045; 80048; 81025; 83880; 84484; 85025; 93005; 96372; 96374; J0500; J2405; Z7502; Z7610

== ENCOUNTER 2018-08-17 20:19 | Inpatient (IN) | payer OTHER ==
[~2018-08-17] VITALS: Ht 165.1 cm; Wt 81.0 kg
[~2018-08-17 20:19] MED LIST changes: -ASPI-831 PO; +DICY10CA40 PO; +ONDA4TAB14 PO
[2018-08-17 21:19] VITALS: PULSE 103
[2018-08-17 22:00] VITALS: BP 100/64; PULSE 104; RESP 18; Ht 165.1 cm; Wt 81.0 kg
[2018-08-17] MEDS ORDERED: BISACODYL (EC) 5 MG TAB PO PRN ×2 (23:00→23:30)
[2018-08-17] MEDS ORDERED: ONDANSETRON 4 MG INJ IV PRN (23:30)
[2018-08-17] MEDS ORDERED: DEXTROSE 50% 50 ML SYRINGE IV PRN ×2 (23:45)
[2018-08-17] MEDS ORDERED: GLUCOSE GEL 15 GRAM TUBE PO PRN ×2 (23:45)
[2018-08-17] MEDS ORDERED: GLUCOSE GEL 15 GRAM TUBE BUCCAL PRN (23:45)
[2018-08-17] MEDS ORDERED: GLUCAGON 1 MG INJ IM PRN (23:45)
[2018-08-18] VITALS (12 sets, daily range): BP systolic 90–112; BP diastolic 59–75; PULSE 98–108; RESP 17–20
[2018-08-18] MEDS: ACCU-CHEK XX SCH (02:00)
[2018-08-18] MEDS: GUAIFENESIN/DM 5ML CUP PO PRN ×4 (02:18→15:22)
[2018-08-18] MEDS: ACETAMINOPHEN 325 MG TAB PO PRN ×4 (02:19→20:46)
[2018-08-18] MEDS: ALBUTEROL/IPRATROPIUM (NEB) 3 ML AMP HHN PRN ×4 (02:51→21:21)
[2018-08-18] MEDS: PANTOPRAZOLE (EC) 40 MG TAB PO SCH (05:51)
[2018-08-18] MEDS: INSULIN ASPART [NOVOLOG] 3 ML PEN SC SCH ×7 (08:00→20:56)
[2018-08-18] MEDS: ASPIRIN 81 MG TAB PO SCH (09:40)
[2018-08-18] MEDS: MUPIROCIN 2% 22 GM OINT TOP SCH ×2 (09:40→20:48)
[2018-08-18] MEDS: FUROSEMIDE 40 MG INJ IV SCH ×2 (09:41→20:48)
[2018-08-18] MEDS: ENOXAPARIN 40 MG/0.4 ML SYG SC SCH (09:50)
--- NOTE | 2018-08-18 17:13 | HP ---
Date/Time of Note Date/Time of Note DATE: 08/18/18 TIME: 16:33 Assessment/Plan VTE Prophylaxis [place] [facility] [place] risk: 1 SCD applied [place] [facility] [place] SCD contraindicated: other Pharmacological prophylaxis: NA/contraindicated Pharm contraindication: low risk/ambulating Lines/Catheters [facility] Saline Lock Urinary Cath still in place: No Assessment/Plan Assessment/Plan 1. Acute on chronic systolic heart failure - Cardiology consultation appreciated and repeat ECHO ordered - ECHO from [place] reviewed with EF 60% and severe right atrial enlargement, right ventricle dilation with reduced systolic function, severe TR - Continue on Lasix IV BID - Coreg and Antonio on board - monitor I/O and daily weights - supplemental O2 as needed 2. Severe pulmonary HTN - O2 as needed 3. h/o Large right pleural effusion - had thoracentesis with 1L removal on 08/14 at OSH - will recheck CXR given patient with new nonproductive cough - will consult Pulmonology 4. h/o Meth use - seen by student education specialist at [facility] - consulted for resources 5. Diet - Cardiac 6. Disposition - Admit to Telemetry for treatment of acute systolic heart failure and work up for possible recurrent pleural effusion Result Diagram: 08/18/18 0455 08/18/18 0455 Results 24hrs Laboratory Tests Test 08/18/18 04:55 08/18/18 08:06 08/18/18 11:34 White Blood Count 9.7 # Red Blood Count 3.85 L Hemoglobin 12.5 Hematocrit 37.2 Mean Corpuscular Volume 96.6 Mean Corpuscular Hemoglobin 32.5 Mean Corpuscular Hemoglobin Concent 33.6 Red Cell Distribution Width 16.0 H Platelet Count 231 Mean Platelet Volume 11.3 H Immature Granulocytes % 0.400 Neutrophils % 65.1 Lymphocytes % 23.8 Monocytes % 9.0 Eosinophils % 1.3 Basophils % 0.4 Nucleated Red Blood Cells % 0.0 Immature Granulocytes # 0.040 H Neutrophils # 6.3 Lymphocytes # 2.3 Monocytes # 0.9 Eosinophils # 0.1 Basophils # 0.0 Nucleated Red Blood Cells # 0.0 Sodium Level 138 Potassium Level 3.8 Chloride Level 97 Carbon Dioxide Level 27 Anion Gap 14 H Blood Urea Nitrogen 34 H Creatinine 0.89 Est Glomerular Filtrat Rate mL/min > 60 Glucose Level 107 Hemoglobin A1c 6.3 H Calcium Level 9.2 Bedside Glucose 104 123 HPI/ROS Admit Date/Time Admit Date/Time August 17, 2018 at 20:53 Hx of Present Illness 38 yo F with PMH meth use, systolic heart failure, cardiomyopathy secondary to substance abuse, obesity, and HLD presented as direct admission from [place]. Records from OSH were reviewed. Patient was admitted to [facility] on 08/13/18 for worsening shortness of breath and found with large right sided pleural effusion. She was taken for right thoracentesis on 08/14/18 with 1L removed. Fluid studies were negative. She was transferred to ICU given worsening shortness of breath and intolerance to diuretics given hypotension. She was started on pressor support and lasix infusion. At time of admission, she was found with +Utox for THC, methamphetamines, opiates, and amphetamines. Of note she was recently admitted to [facility] prior to presenting to [facility] after being treated for SOB, had thoracentesis performed, and discharged on diuretics which she did not take. Patient currently complains of nonproductive cough and states she feels like fluid may be building up. She is unable to "produce sputum" but denies any fevers, chills, nausea, vomiting, abdominal pain, or urinary issues. She was experiencing constipation but has resolved since admission. ROS All 12 systems reviewed and pertinent positives as per HPI. All others negative. Constitutional: No chills, No fatigue, No nausea Eyes: No discharge ENT: No congestion Respiratory: cough, shortness of breath, other (congestion); No sputum, No wheezing Cardiovascular: edema, lightheadedness; No chest pain, No palpitations Gastrointestinal: No pain, No constipation, No diarrhea, No nausea, No vomiting Genitourinary: no complaints Musculoskeletal: No restricted range of motion Skin: No bruising, No laceration, No rash Neurologic: No confusion, No focal-weakness, No syncope Endocrine: no complaints Lymphatic: no complaints Psychological: nl mood/affect Immunologic: no complaints PMH/Family/Social Past Medical History Medical History: congestive heart failure, high cholesterol, other (meth use) Medications Current Medications Furosemide (Lasix) 40 mg BID IV Last administered on 08/18/18at 09:41; Admin Dose 40 MG; Start 08/18/18 at 09:00 Acetaminophen (Tylenol Tab) 650 mg Q6H PRN PO MILD PAIN(1-3)OR ELEVATED TEMP Last administered on 08/18/18 16:19; Admin Dose 650 MG; Start 08/17/18 at 23:00 Pantoprazole (Protonix Tab) 40 mg DAILY@06 PO Last administered on 08/18/18at 05:51; Admin Dose 40 MG; Start 08/18/18 at 06:00 Aspirin (Aspirin) 81 mg DAILY PO Last administered on 08/18/18 09:40; Admin Dose 81 MG; Start 08/18/18 at 09:00 Zolpidem Tartrate (Ambien) 5 mg HS MAY REPEAT X 1 PRN PO INSOMNIA; Start 08/17/18 at 23:00 Enoxaparin Sodium (Lovenox) 40 mg DAILY SC Last administered on 08/18/18at 09:50; Admin Dose 40 MG; Start 08/18/18 at 09:00 Guaifenesin/ Dextromethorphan (Robitussin Dm Liquid Cup) 10 ml Q4H PRN PO COUGH Last administered on 08/18/18at 15:22; Admin Dose 10 ML; Start 08/17/18 at 23:30 Ondansetron HCl (Zofran Inj) 4 mg Q6H PRN IV NAUSEA AND/OR VOMITING; Start 08/17/18 at 23:30 Mupirocin (Bactroban) 1 applic BID TOP Last administered on 08/18/18at 09:40; Admin Dose 1 APPLIC; Start 08/18/18 at 09:00 Albuterol/ Ipratropium (Duoneb) 3 ml Q4H RESP THERAPY PRN HHN SHORTNESS OF TERRELL TH Last administered on 08/18/18at 13:50; Admin Dose 3 ML; Start 08/17/18 at 23:30 Bisacodyl (Dulcolax) 10 mg DAILY PRN PO CONSTIPATION; Start 08/17/18 at 23:30 Diagnostic Test (Pha) (Accu-Chek) 1 ea 02 XX ; Start 08/18/18 at 02:00 Insulin Aspart (Novolog Insulin Pen) 4 unit WITH MEALS SC ; Start 08/18/18 at 08:00 Miscellaneous Information 1 ea NOTE XX ; Start 08/17/18 at 23:45 Glucose (Glutose) 15 gm Q15M PRN PO DECREASED GLUCOSE; Start 08/17/18 at 23:45 Glucose (Glutose) 22.5 gm Q15M PRN PO DECREASED GLUCOSE; Start 08/17/18 at 23:45 Dextrose (D50w Syringe) 25 ml Q15M PRN IV DECREASED GLUCOSE; Start 08/17/18 at 23:45 Dextrose (D50w Syringe) 50 ml Q15M PRN IV DECREASED GLUCOSE; Start 08/17/18 at 23:45 Glucagon (Glucagen) 1 mg Q15M PRN IM DECREASED GLUCOSE; Start 08/17/18 at 23:45 Glucose (Glutose) 15 gm Q15M PRN BUCCAL DECREASED GLUCOSE; Start 08/17/18 at 23:45 Insulin Aspart (Novolog Insulin Pen) NOVOLOG *MILD* ALGORITHM WITH MEALS BEDTIME SC ; Start 08/18/18 at 08:00 Carvedilol (Coreg) 3.125 mg BID PO ; Start 08/18/18 at 21:00 Lisinopril (Zestril) 2.5 mg DAILY PO ; Start 08/19/18 at 09:00 Guaifenesin (Mucinex) 600 mg BID PO ; Start 08/18/18 at 21:00; Status UNV Coded Allergies: No Known Drug Allergies (Unverified Allergy, Unknown, 07/16/18) Past Surgical History Past Surgical Hx: appendectomy Family History Significant Family History: no pertinent family hx Social History Alcohol Use: none Smoking Status: Never smoker Drug Use: marijuana, other (methamphetamines) Exam/Review of Systems Vital Signs Vitals Vital Signs Date Temp Pulse Resp B/P (MAP) Pulse Ox O2 O2 Flow FiO2 Time Delivery Rate 08/18/18 97.4 98 20 112/75 100 15:50 (87) 08/18/18 3.0 13:54 08/18/18 Nasal 13:53 Cannula 08/18/18 10:09 Intake and Output 08/17/18 08/17/18 08/18/18 1515:00 23:00 07:00 IntakeIntake Total 360 ml OutputOutput Total 6 ml BalanceBalance 354 ml Exam Exam General: Patient is sitting up in chair at bedside. mild distress secondary to cough Mentation: Patient is alert and oriented 4, Head: Normocephalic atraumatic Eyes: EOMI, pupils reactive to light Neck: Supple, nontender, midline Respiratory: Diminished on RLL, no wheezing or crackles appreciated Cardiovascular: S1, S2, regular rate and rhythm, no obvious murmurs Gastrointestinal: soft, nontender to palpation, nondistended, bowel sounds heard. no rebound or guarding Ext: Moves all extremities spontaneously. trace edema lower extremities with tenderness to palpation bilaterally Skin: No new skin lesions Additional Comments Home medications reviewed DARINEL TURNER MD August 18, 2018 16:53
--- NOTE | 2018-08-18 17:18 | CONS ---
DATE OF ADMISSION: 08/17/2018 DATE OF CONSULTATION: 08/18/2018 TYPE OF CONSULTATION: Cardiology. REASON FOR CONSULTATION: Congestive heart failure exacerbation. REQUESTING PHYSICIAN: Fartun Han MD, from nephrology service and Daniela Turner MD, from the hosp italist service. HISTORY OF PRESENT ILLNESS: Ms. Zuniga is a very pleasant 38-year-old female with a history of mult iple medical problems including methamphetamine abuse, ongoing tobacco usage, recurrent bouts of augie estive heart failure, who had initially presented to an outside hospital with complaints of shortness of breath. The patient was discharged and transferred to [place] and presented on 08/13/2018 at [facility]. The patient on chest x-ray had large right pleural effusion. She underwent right thoracentesis removing 1 liter. She was transferred to the ICU on 08/16/2018 for vasopressor support with dopamine and had more diuresis and made significant improvement and has been transferred to [facility] on 08/18/2018 with ongoing shortness of breath. Additionally at outside hospital, the [facility] labs on 08/17/2018 showed creatinine of 0.84, potassium 4.3, sodium 137, a BNP of 529. The [facility] urine drug screen is positive for THC, methamphetamines, opiates. The patient underwent 2D echo interpreted as having preserved EF of 60% to 65% with severe mitral enlargement and right ventri cular dysfunction and RVSP of 62. Additionally, the patient has severe TR. Since arrival here at [facility], the patient with ongoing shortness of breath and orthopnea, but denies ch est pain or prior syncopal episodes. PAST MEDICAL HISTORY: As above in HPI. MEDICATIONS CURRENTLY IN HOSPITAL: 1. Lasix 40 mg IV b.i.d. 2. Aspirin 81 mg daily. 3. Lovenox 40 mg subcutaneously daily. 4. Bactroban. 5. Insulin. 6. Dulcolax. 7. Tylenol. 8. Ambien. ALLERGIES: NO KNOWN DRUG ALLERGIES. SOCIAL HISTORY: Positive tobacco. No EtOH. Positive illicit drug use, methamphetamines, marijuana. FAMILY HISTORY: No history of sudden cardiac or early CAD. REVIEW OF SYSTEMS: As above in HPI. CONSTITUTIONAL: No fevers, chills. PULMONARY: No current shortness of breath. CARDIOVASCULAR: No current chest pain. GASTROINTESTINAL: No vomiting. GENITOURINARY: No hematuria. MUSCULOSKELETAL: Degenerative joint disease. PSYCHIATRIC: Possible psych history. NEUROLOGIC: No documented history of CVA. ENDOCRINE: Positive history of diabetes mellitus. PHYSICAL EXAMINATION: VITAL SIGNS: Temperature 97.4, blood pressure 112/75, pulse 98, respiratory rate 20, satting 93%. GENERAL: The patient is alert, awake, complaining of shortness of breath. NECK: JVP is approximately 9 cm water. CHEST: Fair movement throughout with decreased breath sounds bilaterally. HEART: Regular rate and rhythm. Normal S1, S2. I/ systolic murmur. Nondisplaced PMI. ABDOMEN: Positive bowel sounds, soft. EXTREMITIES: A 1+ edema, 1+ pulses bilateral posterior tibial. LABORATORIES: Most recently from here: White blood cell count 9.7, hemoglobin 12.5, platelet count of 231. Sodium 138, potassium 3.8, creatinine 0.89, BUN 34. Hemoglobin A1c of 6.3. IMAGING STUDIES: As above in HPI. No further imaging studies for my review at this time. ELECTROCARDIOGRAM: No electrocardiograms for my review at this time. IMPRESSION: 1. Congestive heart failure exacerbation by outside hospital echo will be diastolic, acute on chroni c. 2. Right heart failure by outside hospital echo. 3. Tricuspid regurgitation, severe by outside hospital echo. 4. Shortness of breath and orthopnea secondary to #1. 5. Polysubstance abuse with marijuana and methamphetamines. 6. Tachycardia, borderline. 7. Pleural effusion at outside hospital, right-sided status post thoracentesis. RECOMMENDATIONS: 1. At this time, we would maintain the patient on telemetry monitoring to follow rhythm and rate con trol closely. 2. We would initiate patient on treatment with low dose beta tommy at this time and CINTHIA inhibitor as tolerated. 3. We will reassess the patient's EF on 2D echo. 4. We will continue the patient's Lasix diuresis. 5. Check fasting lipid panel for general risk stratification. 6. Check serial EKGs, assess for ongoing changes, EKG in the morning, EKG for any complaints of ches t pain or change in rhythm. 7. We will complete the patient's rule out for myocardial infarction. Thank you for allowing me to take part in the care of this patient. I will continue to follow her ve ry closely with you with further recommendations to be made as the [facility]. Dictated By: JEFF MACKEY/FARHAD Conf#: [id number] DID#: [id number] CC: EDDIE KANG MD; FARTUN HAN; DANIELA TURNER MD;*End*
[2018-08-18] MEDS: GUAIFENESIN LA 600 MG TABSR PO SCH (20:46)
[2018-08-18] MEDS: ZOLPIDEM 5 MG TAB PO PRN (20:46)
[2018-08-19] VITALS (10 sets, daily range): BP systolic 95–117; BP diastolic 55–72; PULSE 81–107; RESP 17–20
[2018-08-19] MEDS: ACCU-CHEK XX SCH (02:00)
[2018-08-19] MEDS ORDERED: BENZONATATE 100 MG CAP PO PRN (04:00)
[2018-08-19] MEDS: PANTOPRAZOLE (EC) 40 MG TAB PO SCH (05:40)
[2018-08-19] MEDS: GUAIFENESIN/DM 5ML CUP PO PRN ×2 (05:40→17:53)
[2018-08-19] MEDS: ACETAMINOPHEN 325 MG TAB PO PRN ×3 (05:41→17:53)
[2018-08-19] MEDS: ALBUTEROL/IPRATROPIUM (NEB) 3 ML AMP HHN PRN ×3 (05:46→23:04)
[2018-08-19] MEDS: INSULIN ASPART [NOVOLOG] 3 ML PEN SC SCH ×7 (08:00→20:11)
[2018-08-19] MEDS: FUROSEMIDE 40 MG INJ IV SCH ×2 (08:30→20:10)
[2018-08-19] MEDS: LISINOPRIL 5 MG TAB PO SCH (08:31)
[2018-08-19] MEDS: GUAIFENESIN LA 600 MG TABSR PO SCH ×2 (08:31→20:10)
[2018-08-19] MEDS: ASPIRIN 81 MG TAB PO SCH (08:31)
[2018-08-19] MEDS: ENOXAPARIN 40 MG/0.4 ML SYG SC SCH (09:15)
[2018-08-19] MEDS: MUPIROCIN 2% 22 GM OINT TOP SCH ×2 (09:45→20:11)
--- NOTE | 2018-08-19 10:15 | PN ---
Date/Time of Note Date/Time of Note DATE: 08/19/18 TIME: 10:15 Assessment/Plan VTE Prophylaxis Risk score (from [facility])>0 risk: 1 SCD applied (from [facility]): No SCD contraindicated: low risk/ambulating Pharmacological prophylaxis: NA/contraindicated Pharm contraindication: low risk/ambulating Lines/Catheters IV Catheter Type (from [facility]): Saline Lock Urinary Cath still in place: No Assessment/Plan Assessment/Plan 1. Acute on chronic systolic heart failure- improving - Cardiology consultation appreciated and will continue diuresing - ECHO results pending - ECHO from [place] reviewed with EF 60% and severe right atrial enlargement, right ventricle dilation with reduced systolic function, severe TR - Continue on Lasix IV BID - Coreg and Antonio on board - monitor I/O and daily weights - supplemental O2 as needed 2. Severe pulmonary HTN - O2 as needed - pulmonology consultation placed 3. h/o Large right pleural effusion - had thoracentesis with 1L removal on 08/14 at OSH - will order repeat thora given moderate effusion on CXR 4. h/o Meth use - seen by patient registration specialist at [place] - consulted for resources 5. Disposition - Plans for thoracentesis today for moderate right pleural effusion - continue current diuretics and may need to have medications delivered prior to discharge to ensure compliance Result Diagram: 08/19/18 0537 08/19/18 0536 Results 24hrs Laboratory Tests Test 08/18/18 11:34 08/18/18 17:18 08/18/18 17:45 08/18/18 20:53 Bedside Glucose 123 136 125 Troponin I < 0.012 B-Type Natriuretic 2440 H Peptide Test 08/19/18 00:41 08/19/18 05:36 08/19/18 05:37 08/19/18 08:27 Troponin I < 0.012 < 0.012 Sodium Level 139 Potassium Level 4.1 Chloride Level 97 Carbon Dioxide Level 30 Anion Gap 12 Blood Urea Nitrogen 36 H Creatinine 0.94 Glucose Level 107 Calcium Level 9.3 Phosphorus Level 4.9 Magnesium Level 2.2 Albumin 3.7 Triglycerides Level 132 Cholesterol Level 111 LDL Cholesterol, 63 Calculated HDL Cholesterol 22 L Cholesterol/HDL 5.0 Ratio White Blood Count 7.9 Red Blood Count 3.74 L Hemoglobin 12.1 Hematocrit 37.1 Mean Corpuscular 99.2 Volume Mean Corpuscular 32.4 Hemoglobin Mean Corpuscular 32.6 Hemoglobin Concent Red Cell 15.9 H Distribution Width Platelet Count 217 Mean Platelet Volume 10.7 H Immature 0.300 Granulocytes % Neutrophils % 61.9 Lymphocytes % 24.1 Monocytes % 11.2 H Eosinophils % 2.1 Basophils % 0.4 Nucleated Red Blood 0.0 Cells % Immature 0.020 Granulocytes # Neutrophils # 4.9 Lymphocytes # 1.9 Monocytes # 0.9 Eosinophils # 0.2 Basophils # 0.0 Nucleated Red Blood 0.0 Cells # Bedside Glucose 133 Subjective 24 Hr Interval Summary Free Text/Dictation Patient is complaining of pain in right hand at site of IV access. No acute overnight events. Plans for thoracentesis today. Exam/Review of Systems Exam Vitals Vital Signs Date Temp Pulse Resp B/P (MAP) Pulse Ox O2 O2 Flow FiO2 Time Delivery Rate 08/19/18 100 08:08 08/19/18 97.3 20 117/72 94 Room Air 07:12 (87) 08/19/18 2.0 05:46 08/19/18 21 05:46 Intake and Output 08/18/18 08/18/18 08/19/18 1515:00 23:00 07:00 IntakeIntake Total 1200 ml BalanceBalance 1200 ml Exam General: Patient is laying in bed, no acute distress Mentation: Patient is alert and oriented 4, Neck: Supple, nontender, midline Respiratory: Diminished on RLL, no wheezing or crackles appreciated Cardiovascular: S1, S2, regular rate and rhythm, no obvious murmurs Gastrointestinal: soft, nontender to palpation, nondistended, bowel sounds heard. no rebound or guarding Ext: Moves all extremities spontaneously. Skin: No new skin lesions Results Results 24hrs Laboratory Tests Test 08/18/18 11:34 08/18/18 17:18 08/18/18 17:45 08/18/18 20:53 Bedside Glucose 123 136 125 Troponin I < 0.012 B-Type Natriuretic 2440 H Peptide Test 08/19/18 00:41 08/19/18 05:36 08/19/18 05:37 08/19/18 08:27 Troponin I < 0.012 < 0.012 Sodium Level 139 Potassium Level 4.1 Chloride Level 97 Carbon Dioxide Level 30 Anion Gap 12 Blood Urea Nitrogen 36 H Creatinine 0.94 Glucose Level 107 Calcium Level 9.3 Phosphorus Level 4.9 Magnesium Level 2.2 Albumin 3.7 Triglycerides Level 132 Cholesterol Level 111 LDL Cholesterol, 63 Calculated HDL Cholesterol 22 L Cholesterol/HDL 5.0 Ratio White Blood Count 7.9 Red Blood Count 3.74 L Hemoglobin 12.1 Hematocrit 37.1 Mean Corpuscular 99.2 Volume Mean Corpuscular 32.4 Hemoglobin Mean Corpuscular 32.6 Hemoglobin Concent Red Cell 15.9 H Distribution Width Platelet Count 217 Mean Platelet Volume 10.7 H Immature 0.300 Granulocytes % Neutrophils % 61.9 Lymphocytes % 24.1 Monocytes % 11.2 H Eosinophils % 2.1 Basophils % 0.4 Nucleated Red Blood 0.0 Cells % Immature 0.020 Granulocytes # Neutrophils # 4.9 Lymphocytes # 1.9 Monocytes # 0.9 Eosinophils # 0.2 Basophils # 0.0 Nucleated Red Blood 0.0 Cells # Bedside Glucose 133 Medications Medication Current Medications Furosemide (Lasix) 40 mg BID IV Last administered on 08/19/18 08:30; Admin Dose 40 MG; Start 08/18/18 at 09:00 Acetaminophen (Tylenol Tab) 650 mg Q6H PRN PO MILD PAIN(1-3)OR ELEVATED TEMP Last administered on 08/19/18 05:41; Admin Dose 650 MG; Start 08/17/18 at 23:00 Pantoprazole (Protonix Tab) 40 mg DAILY@06 PO Last administered on 08/19/18 05:40; Admin Dose 40 MG; Start 08/18/18 at 06:00 Aspirin (Aspirin) 81 mg DAILY PO Last administered on 08/19/18 08:31; Admin Dose 81 MG; Start 08/18/18 at 09:00 Zolpidem Tartrate (Ambien) 5 mg HS MAY REPEAT X 1 PRN PO INSOMNIA Last administered on 08/18/18 20:46; Admin Dose 5 MG; Start 08/17/18 at 23:00 Enoxaparin Sodium (Lovenox) 40 mg DAILY SC Last administered on 08/19/18 09:15; Admin Dose 40 MG; Start 08/18/18 at 09:00 Guaifenesin/ Dextromethorphan (Robitussin Dm Liquid Cup) 10 ml Q4H PRN PO COUGH Last administered on 08/19/18 05:40; Admin Dose 10 ML; Start 08/17/18 at 23:30 Ondansetron HCl (Zofran Inj) 4 mg Q6H PRN IV NAUSEA AND/OR VOMITING; Start 08/17/18 at 23:30 Mupirocin (Bactroban) 1 applic BID TOP Last administered on 08/19/18at 09:45; Admin Dose 1 APPLIC; Start 08/18/18 at 09:00 Albuterol/ Ipratropium (Duoneb) 3 ml Q4H RESP THERAPY PRN HHN SHORTNESS OF BREATH Last administered on 08/19/18at 05:46; Admin Dose 3 ML; Start 08/17/18 at 23:30 Bisacodyl (Dulcolax) 10 mg DAILY PRN PO CONSTIPATION; Start 08/17/18 at 23:30 Diagnostic Test (Pha) (Accu-Chek) 1 ea 02 XX ; Start 08/18/18 at 02:00 Insulin Aspart (Novolog Insulin Pen) 4 unit WITH MEALS SC Last administered on 08/18/18at 17:23; Admin Dose 4 UNIT; Start 08/18/18 at 08:00 Miscellaneous Information 1 ea NOTE XX ; Start 08/17/18 at 23:45 Glucose (Glutose) 15 gm Q15M PRN PO DECREASED GLUCOSE; Start 08/17/18 at 23:45 Glucose (Glutose) 22.5 gm Q15M PRN PO DECREASED GLUCOSE; Start 08/17/18 at 23:45 Dextrose (D50w Syringe) 25 ml Q15M PRN IV DECREASED GLUCOSE; Start 08/17/18 at 23:45 Dextrose (D50w Syringe) 50 ml Q15M PRN IV DECREASED GLUCOSE; Start 08/17/18 at 23:45 Glucagon (Glucagen) 1 mg Q15M PRN IM DECREASED GLUCOSE; Start 08/17/18 at 23:45 Glucose (Glutose) 15 gm Q15M PRN BUCCAL DECREASED GLUCOSE; Start 08/17/18 at 23:45 Insulin Aspart (Novolog Insulin Pen) NOVOLOG *MILD* ALGORITHM WITH MEALS BEDTIME SC ; Start 08/18/18 at 08:00 Carvedilol (Coreg) 3.125 mg BID PO Last administered on 08/19/18at 08:31; Admin Dose 3.125 MG; Start 08/18/18 at 21:00 Lisinopril (Zestril) 2.5 mg DAILY PO Last administered on 08/19/18at 08:31; Admin Dose 2.5 MG; Start 08/19/18 at 09:00 Guaifenesin (Mucinex) 600 mg BID PO Last administered on 08/19/18at 08:31; Admin Dose 600 MG; Start 08/18/18 at 21:00 Benzonatate (Tessalon) 200 mg TID PRN PO COUGH; Start 08/19/18 at 04:00 DARINEL TURNER MD August 19, 2018 10:15
--- NOTE | 2018-08-19 14:16 | CONS ---
Assessment/Plan Assessment/Plan Hospital Course (Demo Recall) IMPRESSION: 1. Congestive heart failure exacerbation by most recent echo, diastolic, acute on chronic by OSH echo 2. Atrial fibrillation, rate controlled. 3. Positive troponin in the setting of renal failure, respiratory distress, likely type 2 demand infarct. 4. Chronic obstructive pulmonary disease. 5. Hypertension. 6. Hyponatremia. 7. Elevated BNP. 8. Leukocytosis. 9. RV failure-by OSH echo 10. PLeural effusion-r sided recurrent Recc: -Tele -serial ecg's -Continue asa -Continue coreg/zestril -Will f/u echo -pnding thoracentesis R side Consultation Date/Type/Reason Admit Date/Time August 19, 2018 at 10:15 Initial Consult Date 08/18/18 Type of Consult Cardiology Reason for Consultation CHF Requesting Provider: DARINEL TURNER MD Date/Time of Note DATE: 08/19/18 TIME: 14:12 Exam/Review of Systems Vital Signs Vitals Vital Signs Date Temp Pulse Resp B/P (MAP) Pulse Ox O2 O2 Flow FiO2 Time Delivery Rate 08/19/18 92 12:57 08/19/18 97.5 18 96/57 (70) 97 Nasal 11:04 Cannula 08/19/18 2.0 05:46 08/19/18 21 05:46 Intake and Output 08/18/18 08/18/18 08/19/18 1515:00 23:00 07:00 IntakeIntake Total 1200 ml BalanceBalance 1200 ml Exam Exam Review of Systems: CONSTITUTIONAL: No fevers, chills. PULMONARY: No sob CARDIOVASCULAR: No chest pain/palpitations GASTROINTESTINAL: No nausea/vomiting. GENITOURINARY: No hematuria/dysuria. MUSCULOSKELETAL: No myagias/arthalgias. PSYCHIATRIC: The patient denies depression. NEUROLOGIC: No weakness Constitutional: alert Psych: no complaints Head: normocephalic ENMT: mucosa pink and moist Neck: supple, jvd (9 cm water) Respiratory: diminished breath sounds (at bases/B) Cardiovascular: regular rate and rhythm Gastrointestinal: soft, non-tender Musculoskeletal: muscle tone (mormal) Extremities: pitting pedal edema (bilateral LE) Neurological: other (No focal deficits) Labs Result Diagram: 08/19/18 0537 08/19/18 0536 Results 24hrs Laboratory Tests Test 08/18/18 17:18 08/18/18 17:45 08/18/18 20:53 08/19/18 00:41 Bedside Glucose 136 125 Troponin I < 0.012 < 0.012 B-Type Natriuretic 2440 H Peptide Test 08/19/18 05:36 08/19/18 05:37 08/19/18 08:27 08/19/18 12:01 Sodium Level 139 Potassium Level 4.1 Chloride Level 97 Carbon Dioxide Level 30 Anion Gap 12 Blood Urea Nitrogen 36 H Creatinine 0.94 Glucose Level 107 Calcium Level 9.3 Phosphorus Level 4.9 Magnesium Level 2.2 Troponin I < 0.012 Albumin 3.7 Triglycerides Level 132 Cholesterol Level 111 LDL Cholesterol, 63 Calculated HDL Cholesterol 22 L Cholesterol/HDL 5.0 Ratio White Blood Count 7.9 Red Blood Count 3.74 L Hemoglobin 12.1 Hematocrit 37.1 Mean Corpuscular 99.2 Volume Mean Corpuscular 32.4 Hemoglobin Mean Corpuscular 32.6 Hemoglobin Concent Red Cell 15.9 H Distribution Width Platelet Count 217 Mean Platelet Volume 10.7 H Immature 0.300 Granulocytes % Neutrophils % 61.9 Lymphocytes % 24.1 Monocytes % 11.2 H Eosinophils % 2.1 Basophils % 0.4 Nucleated Red Blood 0.0 Cells % Immature 0.020 Granulocytes # Neutrophils # 4.9 Lymphocytes # 1.9 Monocytes # 0.9 Eosinophils # 0.2 Basophils # 0.0 Nucleated Red Blood 0.0 Cells # Bedside Glucose 133 Prothrombin Time 14.5 Prothrombin Time 1.1 Ratio INR International 1.12 Normalized Ratio Activated 36.8 H Partial Thromboplast Time Test 08/19/18 12:19 Bedside Glucose 103 Medications Medications Current Medications Furosemide (Lasix) 40 mg BID IV Last administered on 08/19/18at 08:30; Admin Dose 40 MG; Start 08/18/18 at 09:00 Acetaminophen (Tylenol Tab) 650 mg Q6H PRN PO MILD PAIN(1-3)OR ELEVATED TEMP Last administered on 08/19/18at 05:41; Admin Dose 650 MG; Start 08/17/18 at 23:00 Pantoprazole (Protonix Tab) 40 mg DAILY@06 PO Last administered on 08/19/18at 05:40; Admin Dose 40 MG; Start 08/18/18 at 06:00 Aspirin (Aspirin) 81 mg DAILY PO Last administered on 08/19/18 08:31; Admin Dose 81 MG; Start 08/18/18 at 09:00 Zolpidem Tartrate (Ambien) 5 mg HS MAY REPEAT X 1 PRN PO INSOMNIA Last administered on 08/18/18 20:46; Admin Dose 5 MG; Start 08/17/18 at 23:00 Enoxaparin Sodium (Lovenox) 40 mg DAILY SC Last administered on 08/19/18 09:15; Admin Dose 40 MG; Start 08/18/18 at 09:00 Guaifenesin/ Dextromethorphan (Robitussin Dm Liquid Cup) 10 ml Q4H PRN PO COUGH Last administered on 08/19/18 05:40; Admin Dose 10 ML; Start 08/17/18 at 23:30 Ondansetron HCl (Zofran Inj) 4 mg Q6H PRN IV NAUSEA AND/OR VOMITING; Start 08/17/18 at 23:30 Mupirocin (Bactroban) 1 applic BID TOP Last administered on 08/19/18 09:45; Admin Dose 1 APPLIC; Start 08/18/18 at 09:00 Albuterol/ Ipratropium (Duoneb) 3 ml Q4H RESP THERAPY PRN HHN SHORTNESS OF BREATH Last administered on 08/19/18 05:46; Admin Dose 3 ML; Start 08/17/18 at 23:30 Bisacodyl (Dulcolax) 10 mg DAILY PRN PO CONSTIPATION; Start 08/17/18 at 23:30 Diagnostic Test (Pha) (Accu-Chek) 1 ea 02 XX ; Start 08/18/18 at 02:00 Insulin Aspart (Novolog Insulin Pen) 4 unit WITH MEALS SC Last administered on 08/18/18at 17:23; Admin Dose 4 UNIT; Start 08/18/18 at 08:00 Miscellaneous Information 1 ea NOTE XX ; Start 08/17/18 at 23:45 Glucose (Glutose) 15 gm Q15M PRN PO DECREASED GLUCOSE; Start 08/17/18 at 23:45 Glucose (Glutose) 22.5 gm Q15M PRN PO DECREASED GLUCOSE; Start 08/17/18 at 23:45 Dextrose (D50w Syringe) 25 ml Q15M PRN IV DECREASED GLUCOSE; Start 08/17/18 at 23:45 Dextrose (D50w Syringe) 50 ml Q15M PRN IV DECREASED GLUCOSE; Start 08/17/18 at 23:45 Glucagon (Glucagen) 1 mg Q15M PRN IM DECREASED GLUCOSE; Start 08/17/18 at 23:45 Glucose (Glutose) 15 gm Q15M PRN BUCCAL DECREASED GLUCOSE; Start 08/17/18 at 23:45 Insulin Aspart (Novolog Insulin Pen) NOVOLOG *MILD* ALGORITHM WITH MEALS BEDTIME SC ; Start 08/18/18 at 08:00 Carvedilol (Coreg) 3.125 mg BID PO Last administered on 08/19/18 08:31; Admin Dose 3.125 MG; Start 08/18/18 at 21:00 Lisinopril (Zestril) 2.5 mg DAILY PO Last administered on 08/19/18 08:31; Admin Dose 2.5 MG; Start 08/19/18 at 09:00 Guaifenesin (Mucinex) 600 mg BID PO Last administered on 08/19/18 08:31; Admin Dose 600 MG; Start 08/18/18 at 21:00 Benzonatate (Tessalon) 200 mg TID PRN PO COUGH; Start 08/19/18 at 04:00 JEFF HARMON August 19, 2018 14:16
[2018-08-19] MEDS ORDERED: LIDOCAINE 1% (MPF) 5 ML VIAL ONE (16:44)
--- NOTE | 2018-08-19 17:33 | RADRPT ---
Echocardiogram Report Patient Name: Rebecca DE LA ROSAnt ID: [id number] : 1980 (38y 5m)Study Date: 08/19/2018 8:33:56 AM Gender: FAccession #: [id number] Tech: Merry Hsu [facility] Location: [facility] Ref.Physician: JEFF ALBA Height(Cm): BSA: Weight(Kg): Quality: AdequateOrder Physician: JEFF ALBA Account #: Procedures: Echocardiographic Report: Transthoracic echocardiogram with complete 2D, M-Mode, and doppler examination. Indications: Congestive Heart Failure. Measurements: 2D/M Mode Doppler Measurement Value Normal Range Measurement Value Normal Range LVIDd 2D 3.7 [ 3.8 - 5.2 ] cm AV Peak Barry 0.8 [ 100.0 - 170.0 ] cm/sec LVIDs 2D 1.9 [ 2.2 - 3.5 ] cm AV Peak PG 2.0 [ 2.0 - 9.0 ] mmHg LVPWd 2D 1.0 [ 0.6 - 0.9 ] cm LVOT Peak Barry 0.7 [ 70.0 - 110.0 ] cm/sec IVSd 2D 0.9 [ 0.6 - 0.9 ] cm LVOT Peak PG 2.0 [ 2.0 - 6.0 ] mmHg AoR Diam 2D 2.7 [ 2.3 - 3.1 ] cm MV E Peak Barry 0.4 [ 60.0 - 130.0 ] cm/sec EDV 2D 57.4 [ 46.0 - 106.0 ] ml MV A Peak Barry 0.6 [ 100.0 - 120.0 ] cm/sec ESV 2D 11.5 [ 14.0 - 42.0 ] ml MV E/A 0.7 [ 0.8 - 1.5 ] ratio EF 2D 80.0 [ 54.0 - 74.0 ] percent MV Decel Time 95 [ 104 - 258 ] msec LA Dimen 2D 2.9 [ 2.7 - 3.8 ] cm Lat E` Barry 0.1 [ 10.0 - 15.0 ] cm/sec Lateral E/E` 5.5 [ 1.0 - 2.0 ] ratio MV E/A 0.7 [ 0.8 - 1.5 ] ratio TR Peak Barry 3.6 [ 100.0 - 280.0 ] cm/sec TR Peak PG 52.0 mmHg RVSP 67.0 [ 10.0 - 36.0 ] mmHg RA Pressure 15.0 mmHg Findings: Left Ventricle: Lower limits of normal systolic function. Normal left ventricular cavity size. Normal left ventricular wall thickness. Ejection fraction is visually estimated at 50-55 %. Tissue Doppler/Mitral Doppler indices are consistent with impaired relaxation (Stage I diastolic dysfunction). Right Ventricle: Moderate right ventricular systolic dysfunction. Severe enlargement of right ventricle. Moderate right ventricular hypokinesis. Flattened septum in systole consistent with RV pressure overload. Left Atrium: The left atrium is normal in size. Right Atrium: There is severe enlargement of right atrium. Chiari network visualized in right atrium (normal variant). Mitral Valve: Mitral valve leaflets appear mildly thickened. Mild mitral annular calcification. Trace mitral regurgitation. Aortic Valve: No significant aortic stenosis or insufficiency. Aortic cusps appear mildly calcified. Tricuspid Valve: Normal appearance of the tricuspid valve. Estimated peak PA systolic pressure 67 mmHg. There is severe tricuspid regurgitation. Pulmonic Valve: Normal pulmonic valve appearance. There is mild pulmonic regurgitation. Pericardium: Normal pericardium with no significant pericardial effusion. Pleural effusion seen. Aorta: Normal aortic root. IVC: Dilated IVC without respiratory collapse consistent with elevated right atrial pressure. Conclusions: Lower limits of normal systolic function. Normal left ventricular cavity size. Normal left ventricular wall thickness. Ejection fraction is visually estimated at 50-55 %. Tissue Doppler/Mitral Doppler indices are consistent with impaired relaxation (Stage I diastolic dysfunction). Moderate right ventricular systolic dysfunction. Severe enlargement of right ventricle. Moderate right ventricular hypokinesis. Flattened septum in systole consistent with RV pressure overload. There is severe enlargement of right atrium. Chiari network visualized in right atrium (normal variant). Mitral valve leaflets appear mildly thickened. Mild mitral annular calcification. Trace mitral regurgitation. Normal appearance of the tricuspid valve. Estimated peak PA systolic pressure 67 mmHg. There is severe tricuspid regurgitation. Normal pulmonic valve appearance. There is mild pulmonic regurgitation. n. Electronically Signed By: Jeff Alba 2018-08-19 17:31:46 PDT
--- NOTE | 2018-08-19 17:36 | CONS ---
DATE OF ADMISSION: 08/19/2018 DATE OF CONSULTATION: TYPE OF CONSULTATION: Pulmonary. REASON FOR CONSULTATION: Shortness of breath, pleural effusion. Thank you, Dr. Betancourt, for this consultation. HISTORY OF PRESENT ILLNESS: This is an unfortunate 38-year-old lady with a history of methamphetamin e use and previous illicit substance abuse and subsequent diastolic heart failure with pulmonary hype rtension and tricuspid regurgitation. She was previously seen at [facility] and was found to obrien ve a large right pleural effusion on this admission. States she has had pleural effusion in the past . The patient is, however, a poor historian. PAST MEDICAL HISTORY: As above. MEDICATIONS: Include: 1. Lasix. 2. Aspirin. 3. Lovenox. 4. Bactroban. 5. Insulin. 6. Ambien. SOCIAL HISTORY: She has a positive tobacco history and history of illicit substance abuse including methamphetamines. SYSTEMS REVIEW: A 12-point review of systems was negative other than mentioned above. PHYSICAL EXAMINATION: GENERAL: Well-nourished, well-developed lady, comfortable at rest, in no acute distress. VITAL SIGNS: Currently afebrile, pulse is 92, blood pressure 95/57, O2 saturation 97% on room air. NECK: Supple. No JVD or lymphadenopathy. CARDIAC: S1, S2. No added sounds or murmurs. CHEST: Diminished air entry bilaterally. ABDOMEN: Soft, nontender. No guarding or rebound. EXTREMITIES: No cyanosis, clubbing, edema. NEUROLOGIC: Grossly intact. No focal deficits. LABORATORY DATA: White count 7.9, hemoglobin 12.1, platelets 217. BUN 36, creatinine 0.94. INR was 1.12. DIAGNOSTIC DATA: Chest x-ray shows moderate right pleural effusions. IMPRESSION AND PLAN: 1. History of valvular heart disease. 2. Pulmonary hypertension. 3. Possible diastolic dysfunction. 4. Moderate right pleural effusion. The patient will require ultrasound-guided thoracentesis with pleural fluid studies. Continue diuret ics and antihypertensives. Continue supplemental O2 as needed and advice on prior history of substan ce abuse cannabis. Dictated By: RAMIN JIMENEZ MD SV/NTS Conf#: [id number] DID#: [id number] CC: DARINEL BETANCOURT MD; EDDIE KANG MD; JEFF HARMON MD;*End*
--- NOTE | 2018-08-19 17:44 | RADRPT ---
Vent Rate: 98 bpm RR Interval: 616 msec RI Interval: 155 msec QRS Duration: 153 msec QT Interval: 415 msec QTC Interval: 529 msec P-R-T [place]: 82 - 7 - [id number] degrees Sinus rhythm...normal P axis, V-rate 50- 99 Right bundle branch block...QRSd>120, terminal axis(90,270) Electronically Signed By: Isma Flynn
[2018-08-19] MEDS: ZOLPIDEM 5 MG TAB PO PRN (22:25)
[2018-08-20] VITALS: BP 101/65; PULSE 78; PULSE 91; RESP 20
[2018-08-20] MEDS: ZOLPIDEM 5 MG TAB PO PRN (00:21)
[2018-08-20] MEDS: ACETAMINOPHEN 325 MG TAB PO PRN (00:21)
[2018-08-20] MEDS: ACCU-CHEK XX SCH (02:00)
[2018-08-20 04:00] VITALS: BP 105/64; PULSE 82; PULSE 95; RESP 20
[2018-08-20] MEDS: PANTOPRAZOLE (EC) 40 MG TAB PO SCH (05:43)
[2018-08-20 07:36] VITALS: BP 110/72; PULSE 83; RESP 18
[2018-08-20 08:00] VITALS: PULSE 92
[2018-08-20] MEDS: INSULIN ASPART [NOVOLOG] 3 ML PEN SC SCH ×4 (09:13→11:56)
[2018-08-20] MEDS: ASPIRIN 81 MG TAB PO SCH (10:01)
[2018-08-20] MEDS: FUROSEMIDE 40 MG INJ IV SCH (10:01)
[2018-08-20] MEDS: LISINOPRIL 5 MG TAB PO SCH (10:02)
[2018-08-20] MEDS: GUAIFENESIN LA 600 MG TABSR PO SCH (10:02)
[2018-08-20] MEDS: ENOXAPARIN 40 MG/0.4 ML SYG SC SCH (10:04)
[2018-08-20] MEDS: MUPIROCIN 2% 22 GM OINT TOP SCH (10:05)
--- NOTE | 2018-08-20 11:51 | CONS ---
Consult Date/Type/Reason Admit Date/Time August 19, 2018 at 10:15 Initial Consult Date Type of Consult Pulmonary Requesting Provider: DARINEL TURNER MD Date/Time of Note DATE: 08/20/18 TIME: 11:50 Subjective Comfortable following thoracentesis 1 L removed. No shortness of breath at present. Objective Vital Signs Date Temp Pulse Resp B/P (MAP) Pulse Ox O2 O2 Flow FiO2 Time Delivery Rate 08/20/18 98 2.0 10:30 08/20/18 94 18 Nasal 10:30 Cannula 08/20/18 98.7 110/72 07:36 (85) 08/19/18 21 23:04 Intake and Output 08/19/18 08/19/18 08/20/18 1515:00 23:00 07:00 IntakeIntake Total 800 ml 1200 ml 900 ml OutputOutput Total 1000 ml BalanceBalance 800 ml 200 ml 900 ml Vent Setting Fraction of Inspired Oxygen pe: 21 Results/Medications Result Diagram: 08/20/18 0543 08/20/18 0543 Results 24 hrs Laboratory Tests Test 08/19/18 12:01 08/19/18 12:19 08/19/18 16:30 08/19/18 18:00 Prothrombin Time 14.5 Prothrombin Time 1.1 Ratio INR International 1.12 Normalized Ratio Activated 36.[address] Time Bedside Glucose 103 136 Pathologist YES Review (Hematology ) Body Fluid Type PLEURAL FLUID Body Fluid Volume 1100.0 Body Fluid Color ORANGE Body Fluid SLIGHTLY CLOUDY Appearance Body Fluid WBC 964 Body Fluid RBC 83679 (Auto) Body Fluid 6.1 Polynuclear WBCs (%) Body Fluid 93.9 Mononuclear Cells % Auto Body Fluid Glucose 92 Body Fluid Total 5.0 Protein Body Fluid 563 Lactate Dehydrogen ase Test 08/19/18 20:06 08/20/18 05:43 08/20/18 08:14 Bedside Glucose 101 158 White Blood Count 9.0 Red Blood Count 3.87 L Hemoglobin 12.4 Hematocrit 37.8 Mean Corpuscular 97.7 Volume Mean Corpuscular 32.0 Hemoglobin Mean Corpuscular 32.8 Hemoglobin Concent Red Cell 15.9 H Distribution Width Platelet Count 213 Mean Platelet 10.9 H Volume Immature 0.300 Granulocytes % Neutrophils % 66.1 Lymphocytes % 21.7 Monocytes % 8.6 Eosinophils % 3.0 Basophils % 0.3 Nucleated Red 0.0 Blood Cells % Immature 0.030 Granulocytes # Neutrophils # 6.0 Lymphocytes # 2.0 Monocytes # 0.8 Eosinophils # 0.3 Basophils # 0.0 Nucleated Red 0.0 Blood Cells # Sodium Level 138 Potassium Level 3.9 Chloride Level 96 L Carbon Dioxide 31 Level Anion Gap 11 Blood Urea 48 #H Nitrogen Creatinine 1.02 H Glucose Level 93 Calcium Level 9.0 Phosphorus Level 4.4 Magnesium Level 2.2 Albumin 3.7 Medications Current Medications Furosemide (Lasix) 40 mg BID IV Last administered on 08/20/18 10:01; Admin Dose 40 MG; Start 08/18/18 at 09:00 Acetaminophen (Tylenol Tab) 650 mg Q6H PRN PO MILD PAIN(1-3)OR ELEVATED TEMP Last administered on 08/20/18 00:21; Admin Dose 650 MG; Start 08/17/18 at 23:00 Pantoprazole (Protonix Tab) 40 mg DAILY@06 PO Last administered on 08/20/18 05:43; Admin Dose 40 MG; Start 08/18/18 at 06:00 Aspirin (Aspirin) 81 mg DAILY PO Last administered on 08/20/18 10:01; Admin Dose 81 MG; Start 08/18/18 at 09:00 Zolpidem Tartrate (Ambien) 5 mg HS MAY REPEAT X 1 PRN PO INSOMNIA Last administered on 08/20/18 00:21; Admin Dose 5 MG; Start 08/17/18 at 23:00 Enoxaparin Sodium (Lovenox) 40 mg DAILY SC Last administered on 08/20/18 10:04; Admin Dose 40 MG; Start 08/18/18 at 09:00 Guaifenesin/ Dextromethorphan (Robitussin Dm Liquid Cup) 10 ml Q4H PRN PO COUGH Last administered on 08/19/18 17:53; Admin Dose 10 ML; Start 08/17/18 at 23:30 Ondansetron HCl (Zofran Inj) 4 mg Q6H PRN IV NAUSEA AND/OR VOMITING Last administered on 08/19/18 13:17; Admin Dose 4 MG; Start 08/17/18 at 23:30 Mupirocin (Bactroban) 1 applic BID TOP Last administered on 08/20/18 10:05; Admin Dose 1 APPLIC; Start 08/18/18 at 09:00 Albuterol/ Ipratropium (Duoneb) 3 ml Q4H RESP THERAPY PRN HHN SHORTNESS OF BREATH Last administered on 08/19/18at 23:04; Admin Dose 3 ML; Start 08/17/18 at 23:30 Bisacodyl (Dulcolax) 10 mg DAILY PRN PO CONSTIPATION; Start 08/17/18 at 23:30 Diagnostic Test (Pha) (Accu-Chek) 1 ea 02 XX ; Start 08/18/18 at 02:00 Insulin Aspart (Novolog Insulin Pen) 4 unit WITH MEALS SC Last administered on 08/20/18at 09:13; Admin Dose 4 UNIT; Start 08/18/18 at 08:00 Miscellaneous Information 1 ea NOTE XX ; Start 08/17/18 at 23:45 Glucose (Glutose) 15 gm Q15M PRN PO DECREASED GLUCOSE; Start 08/17/18 at 23:45 Glucose (Glutose) 22.5 gm Q15M PRN PO DECREASED GLUCOSE; Start 08/17/18 at 23:45 Dextrose (D50w Syringe) 25 ml Q15M PRN IV DECREASED GLUCOSE; Start 08/17/18 at 23:45 Dextrose (D50w Syringe) 50 ml Q15M PRN IV DECREASED GLUCOSE; Start 08/17/18 at 23:45 Glucagon (Glucagen) 1 mg Q15M PRN IM DECREASED GLUCOSE; Start 08/17/18 at 23:45 Glucose (Glutose) 15 gm Q15M PRN BUCCAL DECREASED GLUCOSE; Start 08/17/18 at 23:45 Insulin Aspart (Novolog Insulin Pen) NOVOLOG *MILD* ALGORITHM WITH MEALS BEDTIME SC Last administered on 08/20/18at 09:15; Admin Dose 1 UNIT; Start 08/18/18 at 08:00 Carvedilol (Coreg) 3.125 mg BID PO Last administered on 08/20/18 10:02; Admin Dose 3.125 MG; Start 08/18/18 at 21:00 Lisinopril (Zestril) 2.5 mg DAILY PO Last administered on 08/20/18 10:02; Admin Dose 2.5 MG; Start 08/19/18 at 09:00 Guaifenesin (Mucinex) 600 mg BID PO Last administered on 5/16/19at 10:02; Admin Dose 600 MG; Start 08/18/18 at 21:00 Benzonatate (Tessalon) 200 mg TID PRN PO COUGH Last administered on 08/19/18at 17:53; Admin Dose 200 MG; Start 08/19/18 at 04:00 Assessment/Plan Hospital Course (Demo Recall) IMPRESSION AND PLAN: 1. History of valvular heart disease. 2. Pulmonary hypertension. 3. Possible diastolic dysfunction. 4. Moderate right pleural effusion. Status post thoracentesis with almost complete resolution DC planning okay from pulmonary standpoint RAMIN JIMENEZ MD, [facility] August 20, 2018 11:51
[2018-08-20 12:00] VITALS: BP 101/65; PULSE 89; PULSE 93; RESP 16
--- NOTE | 2018-08-20 13:09 | CONS ---
Assessment/Plan Assessment/Plan Hospital Course (Demo Recall) IMPRESSION: 1. Congestive heart failure exacerbation by most recent echo, diastolic, acute on chronic by OSH echo. Echo here with NL LVEF but r sided systolic dysfunction and severe TR 2. Atrial fibrillation, rate controlled. 3. Positive troponin in the setting of renal failure, respiratory distress, likely type 2 demand infarct. 4. Chronic obstructive pulmonary disease. 5. Hypertension. 6. Hyponatremia. 7. Elevated BNP. 8. Leukocytosis. 9. RV failure-by OSH echo 10. PLeural effusion-r sided recurrent s/p thoracentesis 11.Dyslipidemia-low HDL Recc: -Tele -serial ecg's -Continue asa -Continue coreg/zestril -Continue lasix. OK to change to PO and continue as outpatient Consultation Date/Type/Reason Admit Date/Time August 19, 2018 at 10:15 Initial Consult Date 08/18/18 Type of Consult Cardiology Reason for Consultation CHF Requesting Provider: DARINEL TURNER MD Date/Time of Note DATE: 08/20/18 TIME: 13:06 Exam/Review of Systems Vital Signs Vitals Vital Signs Date Temp Pulse Resp B/P (MAP) Pulse Ox O2 O2 Flow FiO2 Time Delivery Rate 08/20/18 98.7 89 16 101/65 98 Nasal 12:00 (77) Cannula 08/20/18 2.0 10:30 08/19/18 21 23:04 Intake and Output 08/19/18 08/19/18 08/20/18 1515:00 23:00 07:00 IntakeIntake Total 800 ml 1200 ml 900 ml OutputOutput Total 1000 ml BalanceBalance 800 ml 200 ml 900 ml Exam Exam Review of Systems: CONSTITUTIONAL: No fevers, chills. PULMONARY: mild sob CARDIOVASCULAR: No chest pain/palpitations GASTROINTESTINAL: No nausea/vomiting. GENITOURINARY: No hematuria/dysuria. MUSCULOSKELETAL: No myagias/arthalgias. PSYCHIATRIC: The patient denies depression. NEUROLOGIC: No weakness Constitutional: alert Psych: no complaints Head: normocephalic ENMT: mucosa pink and moist Neck: supple, jvd (9 cm water) Respiratory: clear to auscultation Cardiovascular: regular rate and rhythm Gastrointestinal: soft, non-tender Musculoskeletal: muscle tone (normal) Extremities: pitting pedal edema (bilateral) Neurological: other (no focal deficits) Labs Result Diagram: 08/20/18 0543 08/20/18 0543 Results 24hrs Laboratory Tests Test 08/19/18 16:30 08/19/18 18:00 08/19/18 20:06 08/20/18 05:43 Pathologist YES Review (Hematology ) Body Fluid Type PLEURAL FLUID Body Fluid Volume 1100.0 Body Fluid Color ORANGE Body Fluid SLIGHTLY CLOUDY Appearance Body Fluid WBC 964 Body Fluid RBC 37349 (Auto) Body Fluid 6.1 Polynuclear WBCs (%) Body Fluid 93.9 Mononuclear Cells % Auto Body Fluid Glucose 92 Body Fluid Total 5.0 Protein Body Fluid 563 Lactate Dehydrogen ase Bedside Glucose 136 101 White Blood Count 9.0 Red Blood Count 3.87 L Hemoglobin 12.4 Hematocrit 37.8 Mean Corpuscular 97.7 Volume Mean Corpuscular 32.0 Hemoglobin Mean Corpuscular 32.8 Hemoglobin Concent Red Cell 15.9 H Distribution Width Platelet Count 213 Mean Platelet 10.9 H Volume Immature 0.300 Granulocytes % Neutrophils % 66.1 Lymphocytes % 21.7 Monocytes % 8.6 Eosinophils % 3.0 Basophils % 0.3 Nucleated Red 0.0 Blood Cells % Immature 0.030 Granulocytes # Neutrophils # 6.0 Lymphocytes # 2.0 Monocytes # 0.8 Eosinophils # 0.3 Basophils # 0.0 Nucleated Red 0.0 Blood Cells # Sodium Level 138 Potassium Level 3.9 Chloride Level 96 L Carbon Dioxide 31 Level Anion Gap 11 Blood Urea 48 #H Nitrogen Creatinine 1.02 H Glucose Level 93 Calcium Level 9.0 Phosphorus Level 4.4 Magnesium Level 2.2 Albumin 3.7 Test 08/20/18 08:14 08/20/18 11:50 Bedside Glucose 158 104 Medications Medications Current Medications Furosemide (Lasix) 40 mg BID IV Last administered on 08/20/18at 10:01; Admin Dose 40 MG; Start 08/18/18 at 09:00 Acetaminophen (Tylenol Tab) 650 mg Q6H PRN PO MILD PAIN(1-3)OR ELEVATED TEMP Last administered on 08/20/18at 00:21; Admin Dose 650 MG; Start 08/17/18 at 23:00 Pantoprazole (Protonix Tab) 40 mg DAILY@06 PO Last administered on 08/20/18at 05:43; Admin Dose 40 MG; Start 08/18/18 at 06:00 Aspirin (Aspirin) 81 mg DAILY PO Last administered on 08/20/18 10:01; Admin Dose 81 MG; Start 08/18/18 at 09:00 Zolpidem Tartrate (Ambien) 5 mg HS MAY REPEAT X 1 PRN PO INSOMNIA Last administered on 08/20/18 00:21; Admin Dose 5 MG; Start 08/17/18 at 23:00 Enoxaparin Sodium (Lovenox) 40 mg DAILY SC Last administered on 08/20/18at 10:04; Admin Dose 40 MG; Start 08/18/18 at 09:00 Guaifenesin/ Dextromethorphan (Robitussin Dm Liquid Cup) 10 ml Q4H PRN PO COUGH Last administered on 08/19/18 17:53; Admin Dose 10 ML; Start 08/17/18 at 23:30 Ondansetron HCl (Zofran Inj) 4 mg Q6H PRN IV NAUSEA AND/OR VOMITING Last administered on 08/19/18 13:17; Admin Dose 4 MG; Start 08/17/18 at 23:30 Mupirocin (Bactroban) 1 applic BID TOP Last administered on 08/20/18 10:05; A dmin Dose 1 APPLIC; Start 08/18/18 at 09:00 Albuterol/ Ipratropium (Duoneb) 3 ml Q4H RESP THERAPY PRN HHN SHORTNESS OF BREATH Last administered on 08/19/18 23:04; Admin Dose 3 ML; Start 08/17/18 at 23:30 Bisacodyl (Dulcolax) 10 mg DAILY PRN PO CONSTIPATION; Start 08/17/18 at 23:30 Diagnostic Test (Pha) (Accu-Chek) 1 ea 02 XX ; Start 08/18/18 at 02:00 Insulin Aspart (Novolog Insulin Pen) 4 unit WITH MEALS SC Last administered on 08/20/18at 11:56; Admin Dose 4 UNIT; Start 08/18/18 at 08:00 Miscellaneous Information 1 ea NOTE XX ; Start 08/17/18 at 23:45 Glucose (Glutose) 15 gm Q15M PRN PO DECREASED GLUCOSE; Start 08/17/18 at 23:45 Glucose (Glutose) 22.5 gm Q15M PRN PO DECREASED GLUCOSE; Start 08/17/18 at 23:45 Dextrose (D50w Syringe) 25 ml Q15M PRN IV DECREASED GLUCOSE; Start 08/17/18 at 23:45 Dextrose (D50w Syringe) 50 ml Q15M PRN IV DECREASED GLUCOSE; Start 08/17/18 at 23:45 Glucagon (Glucagen) 1 mg Q15M PRN IM DECREASED GLUCOSE; Start 08/17/18 at 23:45 Glucose (Glutose) 15 gm Q15M PRN BUCCAL DECREASED GLUCOSE; Start 08/17/18 at 23:45 Insulin Aspart (Novolog Insulin Pen) NOVOLOG *MILD* ALGORITHM WITH MEALS BEDTIME SC Last administered on 08/20/18 09:15; Admin Dose 1 UNIT; Start 08/18/18 at 08:00 Carvedilol (Coreg) 3.125 mg BID PO Last administered on 08/20/18at 10:02; Admin Dose 3.125 MG; Start 08/18/18 at 21:00 Lisinopril (Zestril) 2.5 mg DAILY PO Last administered on 08/20/18at 10:02; Admin Dose 2.5 MG; Start 08/19/18 at 09:00 Guaifenesin (Mucinex) 600 mg BID PO Last administered on 08/20/18 10:02; Admin Dose 600 MG; Start 08/18/18 at 21:00 Benzonatate (Tessalon) 200 mg TID PRN PO COUGH Last administered on 08/19/18at 17:53; Admin Dose 200 MG; Start 08/19/18 at 04:00 JEFF HARMON August 20, 2018 13:09
[2018-08-20] MEDS: ALBUTEROL/IPRATROPIUM (NEB) 3 ML AMP HHN PRN (13:11)
[2018-08-20] MEDS ORDERED: FURO-109 PO ×2 (13:44→15:50)
[2018-08-20] MEDS ORDERED: LISI2.5T59 PO ×2 (13:44→15:50)
[2018-08-20] MEDS ORDERED: CARV3.1260 PO ×2 (13:44→15:50)
--- NOTE | 2018-08-20 14:07 | PN ---
Date/Time of Note Date/Time of Note DATE: 08/20/18 TIME: 14:03 Assessment/Plan VTE Prophylaxis Risk score (from [facility])>0 risk: 3 SCD applied (from [facility]): No SCD contraindicated: low risk/ambulating Pharmacological prophylaxis: NA/contraindicated Pharm contraindication: low risk/ambulating Lines/Catheters IV C[facility]ter Type [facility]from [facility]): Saline Lock Urinary Cath still in place: No Assessment/Plan Assessment/Plan 1. Acute on chronic systolic heart failure- improving - Cardiology consultation appreciated and will transition to PO lasix - ECHO results noted - ECHO from [place] reviewed with EF 60% and severe right atrial enlargement, right ventricle dilation with reduced systolic function, severe TR - Coreg and Antonio on board - monitor I/O and daily weights 2. Severe pulmonary HTN - O2 as needed - pulmonology consultation appreciated 3. h/o Large right pleural effusion s/p thoracentesis - had thoracentesis on 08/19 with improvement in respiratory status 4. h/o Meth use - seen by appointment specialist at [place] - consulted for resources 5. Disposition - Medically stable for discharge after delivery of medications Result Diagram: 08/20/18 0543 08/20/18 0543 Results 24hrs Laboratory Tests Test 08/19/18 16:30 08/19/18 18:00 08/19/18 20:06 08/20/18 05:43 Pathologist YES Review (Hematology ) Body Fluid Type PLEURAL FLUID Body Fluid Volume 1100.0 Body Fluid Color ORANGE Body Fluid SLIGHTLY CLOUDY Appearance Body Fluid WBC 964 Body Fluid RBC 45704 (Auto) Body Fluid 6.1 Polynuclear WBCs (%) Body Fluid 93.9 Mononuclear Cells % Auto Body Fluid Glucose 92 Body Fluid Total 5.0 Protein Body Fluid 563 Lactate Dehydrogen ase Bedside Glucose 136 101 White Blood Count 9.0 Red Blood Count 3.87 L Hemoglobin 12.4 Hematocrit 37.8 Mean Corpuscular 97.7 Volume Mean Corpuscular 32.0 Hemoglobin Mean Corpuscular 32.8 Hemoglobin Concent Red Cell 15.9 H Distribution Width Platelet Count 213 Mean Platelet 10.9 H Volume Immature 0.300 Granulocytes % Neutrophils % 66.1 Lymphocytes % 21.7 Monocytes % 8.6 Eosinophils % 3.0 Basophils % 0.3 Nucleated Red 0.0 Blood Cells % Immature 0.030 Granulocytes # Neutrophils # 6.0 Lymphocytes # 2.0 Monocytes # 0.8 Eosinophils # 0.3 Basophils # 0.0 Nucleated Red 0.0 Blood Cells # Sodium Level 138 Potassium Level 3.9 Chloride Level 96 L Carbon Dioxide 31 Level Anion Gap 11 Blood Urea 48 #H Nitrogen Creatinine 1.02 H Glucose Level 93 Calcium Level 9.0 Phosphorus Level 4.4 Magnesium Level 2.2 Albumin 3.7 Test 08/20/18 08:14 08/20/18 11:50 Bedside Glucose 158 104 Subjective 24 Hr Interval Summary Free Text/Dictation Patient states shes feeling better and ready to go home. No acute overnight events. Exam/Review of Systems Exam Vitals Vital Signs Date Temp Pulse Resp B/P (MAP) Pulse Ox O2 O2 Flow FiO2 Time Delivery Rate 08/20/18 95 13:11 08/20/18 93 20 21 13:11 08/20/18 98.7 101/65 Nasal 12:00 (77) Cannula 08/20/18 2.0 10:30 Intake and Output 08/19/18 08/19/18 08/20/18 1515:00 23:00 07:00 IntakeIntake Total 800 ml 1200 ml 900 ml OutputOutput Total 1000 ml BalanceBalance 800 ml 200 ml 900 ml Exam General: Patient is laying in bed, no acute distress Mentation: Patient is alert and oriented 4, Neck: Supple, nontender, midline Respiratory: Clear bilaterally, improved aeration RLL, no wheezing or crackles appreciated Cardiovascular: S1, S2, regular rate and rhythm, no obvious murmurs Gastrointestinal: soft, nontender to palpation, nondistended, bowel sounds heard. no rebound or guarding Ext: Moves all extremities spontaneously. Skin: No new skin lesions Results Results 24hrs Laboratory Tests Test 08/19/18 16:30 08/19/18 18:00 08/19/18 20:06 08/20/18 05:43 Pathologist YES Review (Hematology ) Body Fluid Type PLEURAL FLUID Body Fluid Volume 1100.0 Body Fluid Color ORANGE Body Fluid SLIGHTLY CLOUDY Appearance Body Fluid WBC 964 Body Fluid RBC 42817 (Auto) Body Fluid 6.1 Polynuclear WBCs (%) Body Fluid 93.9 Mononuclear Cells % Auto Body Fluid Glucose 92 Body Fluid Total 5.0 Protein Body Fluid 563 Lactate Dehydrogen ase Bedside Glucose 136 101 White Blood Count 9.0 Red Blood Count 3.87 L Hemoglobin 12.4 Hematocrit 37.8 Mean Corpuscular 97.7 Volume Mean Corpuscular 32.0 Hemoglobin Mean Corpuscular 32.8 Hemoglobin Concent Red Cell 15.9 H Distribution Width Platelet Count 213 Mean Platelet 10.9 H Volume Immature 0.300 Granulocytes % Neutrophils % 66.1 Lymphocytes % 21.7 Monocytes % 8.6 Eosinophils % 3.0 Basophils % 0.3 Nucleated Red 0.0 Blood Cells % Immature 0.030 Granulocytes # Neutrophils # 6.0 Lymphocytes # 2.0 Monocytes # 0.8 Eosinophils # 0.3 Basophils # 0.0 Nucleated Red 0.0 Blood Cells # Sodium Level 138 Potassium Level 3.9 Chloride Level 96 L Carbon Dioxide 31 Level Anion Gap 11 Blood Urea 48 #H Nitrogen Creatinine 1.02 H Glucose Level 93 Calcium Level 9.0 Phosphorus Level 4.4 Magnesium Level 2.2 Albumin 3.7 Test 08/20/18 08:14 08/20/18 11:50 Bedside Glucose 158 104 Medications Medication Current Medications Furosemide (Lasix) 40 mg BID IV Last administered on 08/20/18 10:01; Admin Dose 40 MG; Start 08/18/18 at 09:00 Acetaminophen (Tylenol Tab) 650 mg Q6H PRN PO MILD PAIN(1-3)OR ELEVATED TEMP Last administered on 08/20/18 00:21; Admin Dose 650 MG; Start 08/17/18 at 23:00 Pantoprazole (Protonix Tab) 40 mg DAILY@06 PO Last administered on 08/20/18 05:43; Admin Dose 40 MG; Start 08/18/18 at 06:00 Aspirin (Aspirin) 81 mg DAILY PO Last administered on 08/20/18 10:01; Admin Dose 81 MG; Start 08/18/18 at 09:00 Zolpidem Tartrate (Ambien) 5 mg HS MAY REPEAT X 1 PRN PO INSOMNIA Last administered on 08/20/18 00:21; Admin Dose 5 MG; Start 08/17/18 at 23:00 Enoxaparin Sodium (Lovenox) 40 mg DAILY SC Last administered on 08/20/18 10:04; Admin Dose 40 MG; Start 08/18/18 at 09:00 Guaifenesin/ Dextromethorphan (Robitussin Dm Liquid Cup) 10 ml Q4H PRN PO COUGH Last administered on 08/19/18 17:53; Admin Dose 10 ML; Start 08/17/18 at 23:30 Ondansetron HCl (Zofran Inj) 4 mg Q6H PRN IV NAUSEA AND/OR VOMITING Last administered on 08/19/18at 13:17; Admin Dose 4 MG; Start 08/17/18 at 23:30 Mupirocin (Bactroban) 1 applic BID TOP Last administered on 08/20/18at 10:05; Admin Dose 1 APPLIC; Start 08/18/18 at 09:00 Albuterol/ Ipratropium (Duoneb) 3 ml Q4H RESP THERAPY PRN HHN SHORTNESS OF BREATH Last administered on 08/20/18 13:11; Admin Dose 3 ML; Start 08/17/18 at 23:30 Bisacodyl (Dulcolax) 10 mg DAILY PRN PO CONSTIPATION; Start 08/17/18 at 23:30 Diagnostic Test (Pha) (Accu-Chek) 1 ea 02 XX ; Start 08/18/18 at 02:00 Insulin Aspart (Novolog Insulin Pen) 4 unit WITH MEALS SC Last administered on 08/20/18at 11:56; Admin Dose 4 UNIT; Start 08/18/18 at 08:00 Miscellaneous Information 1 ea NOTE XX ; Start 08/17/18 at 23:45 Glucose (Glutose) 15 gm Q15M PRN PO DECREASED GLUCOSE; Start 08/17/18 at 23:45 Glucose (Glutose) 22.5 gm Q15M PRN PO DECREASED GLUCOSE; Start 08/17/18 at 23:45 Dextrose (D50w Syringe) 25 ml Q15M PRN IV DECREASED GLUCOSE; Start 08/17/18 at 23:45 Dextrose (D50w Syringe) 50 ml Q15M PRN IV DECREASED GLUCOSE; Start 08/17/18 at 23:45 Glucagon (Glucagen) 1 mg Q15M PRN IM DECREASED GLUCOSE; Start 08/17/18 at 23:45 Glucose (Glutose) 15 gm Q15M PRN BUCCAL DECREASED GLUCOSE; Start 08/17/18 at 23:45 Insulin Aspart (Novolog Insulin Pen) NOVOLOG *MILD* ALGORITHM WITH MEALS BEDTIME SC Last administered on 08/20/18at 09:15; Admin Dose 1 UNIT; Start 08/18/18 at 08:00 Carvedilol (Coreg) 3.125 mg BID PO Last administered on 08/20/18 10:02; Admin Dose 3.125 MG; Start 08/18/18 at 21:00 Lisinopril (Zestril) 2.5 mg DAILY PO Last administered on 08/20/18 10:02; Admin Dose 2.5 MG; Start 08/19/18 at 09:00 Guaifenesin (Mucinex) 600 mg BID PO Last administered on 08/20/18 10:02; Admin Dose 600 MG; Start 08/18/18 at 21:00 Benzonatate (Tessalon) 200 mg TID PRN PO COUGH Last administered on 08/19/18at 17:53; Admin Dose 200 MG; Start 08/19/18 at 04:00 DARINEL TURNER MD August 20, 2018 14:07
--- NOTE | 2018-08-20 14:10 | PDOCDIS ---
Discharge Instructions DIAGNOSIS Discharge Diagnosis 1. Acute on chronic right sided heart failure- improving 2. Severe pulmonary HTN- stable 3. h/o Large right pleural effusion- resolved 4. Substance abuse CONDITION [id number] Patient Condition: [id number] Stable HOME CARE INSTRUCTIONS: [id number] Diet Instructions: [id number] Regular ACTIVITY: [id number] Activity Restrictions: [id number] No Restrictions FOLLOW UP/APPOINTMENTS Follow-up Plan 1. Follow up with your primary care physician in 1- 2 weeks 2. You will need to continue on Lasix twice a day to prevent build up of fluid in your lungs and legs 3. Take Coreg and Lisinopril to keep blood pressure and heart rate controlled 4. It is important to no longer use any substances given it will affect your heart function 5. If experiencing any worsening symptoms, please go to your nearest emergency department for evaluation DARINEL TURNER MD August 20, 2018 14:10
--- NOTE | 2018-08-20 15:53 | DS ---
Date/Time of Note Date/Time of Note DATE: 08/20/18 TIME: 15:50 Discharge Summary Admission/Discharge Info Admit Date/Time August 19, 2018 at 10:15 Discharge Date/Time August 20, 2018 at 15:33 Discharge Diagnosis 1. Acute on chronic right sided heart failure- improving 2. Severe pulmonary HTN- stable 3. h/o Large right pleural effusion- resolved 4. Substance abuse Patient Condition: Stable Consults Cardiology- Dr. Alba Interventional Radiology Procedures PROCEDURE: US guided right thoracentesis. CLINICAL INDICATION: Shortness of breath. Right pleural effusion. TECHNIQUE: Prior to the procedure, informed consent was obtained. The risks, benefits, and alternatives were explained to the patient or the patient's family, including but not limited to bleeding, infection, pain, visceral or vascular damage, shock, pneumothorax, chest tube placement, air embolism, and . The patient or the patient's family understood the risks and the alternatives and wished to proceed with the study. Informed written consent was obtained. A procedural pause was performed. The patient's name, date of , and procedure to be performed were verified. Ultrasound of the right hemithorax was performed in the axial and sagittal planes. A right pleural effusion is noted. Utilizing ultrasound guidance, optimal location for entry to the pleural cavity was ascertained. The overlying skin was prepped and draped in the usual sterile fashion. Approximately 10 ml of 1% Xylocaine was injected locally for pain control. Using ultrasound guidance, a 5-Guyanese Yueh catheter was introduced into the right pleural space without difficulty. Fluid was aspirated. COMPARISON: None. FINDINGS: Initial ultrasound demonstrates fluid in the right pleural space. Approximately 1.0 liters of serous fluid was aspirated and sent to the laboratory. Specimens: Pleural fluid. Blood loss: 1 ml. Complications: None. Electrical Construction Project Manager: None. Anesthesia: Local. Graft/Implant: None. IMPRESSION: Satisfactory ultrasound-guided right thoracentesis. 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 Records from OSH were reviewed. Patient was admitted to [place] on 08/13/18 for worsening shortness of breath and found with large right sided pleural effusion. She was taken for right thoracentesis on 08/14/18 with 1L removed. Fluid studies were negative. She was transferred to ICU given worsening shortness of breath and intolerance to diuretics given hypotension. She was started on pressor support and lasix infusion. At time of admission, she was found with +Utox for THC, methamphetamines, opiates, and amphetamines. Of note she was recently admitted to [facility] prior to presenting to [place] after being treated for SOB, had thoracentesis performed, and discharged on diuretics which she did not take. Patient currently complains of nonproductive cough and states she feels like fluid may be building up. She is unable to "produce sputum" but denies any fevers, chills, nausea, vomiting, abdominal pain, or urinary issues. She was experiencing constipation but has resolved since admission. Hospital Course Patient was monitored in Telemetry for continued treatment of acute respiratory failure secondary to pleural effusions due to right sided heart failure. Cardiology was consulted for management of diuretics and started on lasix BID. Patient also underwent thoracentesis with 1L of fluid removed. ECHO findings reveals severe pulmonary HTN and pulmonology consultation was placed for further recommendations. Patients respiratory status improved after thoracentesis and vitals remained stable. Patient was given scripts for medications and discharged home in good condition Home Meds Active Scripts Furosemide* (Lasix*) 40 Mg Tablet, 40 MG PO BID for 30 Days, #60 TAB 1 Refill Prov:DARINEL TURNER MD 08/20/18 Lisinopril* (Lisinopril*) 2.5 Mg Tablet, 2.5 MG PO DAILY for 30 Days, #30 TAB 1 Refill Prov:DARINEL TURNER MD 08/20/18 Carvedilol* (Carvedilol*) 3.125 Mg Tablet, 3.125 MG PO BID for 30 Days, #60 TAB 1 Refill Prov:DARINEL TURNER MD 08/20/18 Discontinued Reported Medications Lisinopril* (Lisinopril*) 5 Mg Tablet, 5 MG PO DAILY, #30 TAB 07/16/18 Carvedilol* (Carvedilol*) 3.125 Mg Tablet, 3.125 MG PO BID, #60 TAB 07/16/18 Discontinued Scripts Dicyclomine HCl (Dicyclomine HCl) 10 Mg Capsule, 10 MG PO TID PRN for ABDOMINAL CRAMPING, #20 CAP Prov:JANET GONZALES MD 07/16/18 Ondansetron (Ondansetron Odt) 4 Mg Tab.rapdis, 4 MG PO Q6H PRN for NAUSEA AND/OR VOMITING, #20 TAB Prov:JANET GONZALES MD 07/16/18 Bumetanide* (Bumetanide*) 1 Mg Tablet, 1 MG PO DAILY for 30 Days, TAB Prov:SHIN HAN MD 06/16/18 Follow-up Plan 1. Follow up with your primary care physician in 1- 2 weeks 2. You will need to continue on Lasix twice a day to prevent build up of fluid in your lungs and legs 3. Take Coreg and Lisinopril to keep blood pressure and heart rate controlled 4. It is important to no longer use any substances given it will affect your heart function 5. If experiencing any worsening symptoms, please go to your nearest emergency department for evaluation Primary Care Provider Kyle Arteaga MD Time spent on discharge: > 30 minutes Pending Labs Laboratory Tests Test 08/19/18 16:30 08/19/18 18:00 08/19/18 20:06 08/20/18 05:43 Pathologist YES Review (Hematol ogy) Body Fluid Type PLEURAL FLUID Body Fluid 1100.0 ml Volume Body Fluid ORANGE Color Body Fluid SLIGHTLY CLOUDY Appearance Body Fluid WBC 964 /cmm Body Fluid RBC 56737 /uL (Auto) Body Fluid 6.1 % Polynuclear WBCs (%) Body Fluid 93.9 % Mononuclear Cells % Auto Body Fluid 92 mg/dl Glucose Body Fluid 5.0 g/dl Total Protein Body Fluid 563 U/L Lactate Dehydro genase Bedside 136 101 Glucose mg/dL (70-220) mg/dL (70-220) White Blood 9.0 Count 10^3/ul (4.8-1 0.8) Red Blood 3.87 Count 10^6/ul (4.20- 5.40) Hemoglobin 12.4 g/dl (12.0-16. 0) Hematocrit 37.8 % (37.0-47.0) Mean 97.7 Corpuscular fl (82.0-101.0 Volume ) Mean 32.0 Corpuscular pg (29.0-33.0) Hemoglobin Mean 32.8 Corpuscular g/dl (32.0-37. Hemoglobin Conc 0) ent Red Cell 15.9 Distribution % (11.5-14.5) Width Platelet Count 213 10^3/UL (140-4 15) Mean Platelet 10.9 Volume fl (7.4-10.4) Immature 0.300 Granulocytes % % (0.001-0.429 ) Neutrophils % 66.1 % (39.0-77.0) Lymphocytes % 21.7 % (15.0-51.0) Monocytes % 8.6 % (0.0-11.0) Eosinophils % 3.0 % (0.0-7.0) Basophils % 0.3 % (0.0-2.0) Nucleated Red 0.0 Blood Cells % /100WBC (0.0-0 .0) Immature 0.030 Granulocytes # 10^3/ul (0.0-0 .031) Neutrophils # 6.0 10^3/ul (1.6-7 .5) Lymphocytes # 2.0 10^3/ul (0.8-2 .9) Monocytes # 0.8 10^3/ul (0.3-0 .9) Eosinophils # 0.3 10^3/ul (0.0-0 .5) Basophils # 0.0 10^3/ul (0.0-0 .1) Nucleated Red 0.0 Blood Cells # 10^3/ul (0.0-0 .0) Sodium Level 138 mmol/L (135-14 4) Potassium 3.9 Level mmol/L (3.5-5. 1) Chloride Level 96 mmol/L (97-110 ) Carbon Dioxide 31 Level mmol/L (21-31) Anion Gap 11 (5-13) Blood Urea 48 Nitrogen mg/dl (7-20) Creatinine 1.02 mg/dl (0.44-1. 00) Glucose Level 93 mg/dl (70-220) Calcium Level 9.0 mg/dl (8.4-10. 2) Phosphorus 4.4 Level mg/dl (2.5-4.9 ) Magnesium 2.2 Level mg/dl (1.7-2.5 ) Albumin 3.7 g/dl (3.3-4.9) Test 08/20/18 08:14 08/20/18 11:50 Bedside 158 104 Glucose mg/dL (70-220) mg/dL (70-220) Microbiology Date/Time Source Procedure Growth Status 08/19/18 16:30 Thoracentesis Fluid Gram Stain - Final Resulted 08/19/18 16:30 Thoracentesis Fluid Body Fluid Culture - Preliminary Resulted DARINEL TURNER MD August 20, 2018 15:53
== END 2018-08-20 15:33 | disposition home or self-care (01) | DRG 281 ==
LOC: INTOOBSV 20:53 → 6WM 20:53 → OBSVTOIN 08-19 10:15
PROVIDERS: ADMIT Internal Medicine Nephrology; ATTEND Internal Medicine
PROC: 0W993ZZ Drainage of Right Pleural Cavity, Percutaneous Approach (ICD-10-PCS; principal; 2018-08-19)
DX: I11.0 Hypertensive heart disease with heart failure (principal); I21.A1 Myocardial infarction type 2; J90 Pleural effusion, not elsewhere classified; E87.1 Hypo-osmolality and hyponatremia; I50.33 Acute on chronic diastolic (congestive) heart failure; I27.20 Pulmonary hypertension, unspecified; F15.10 Other stimulant abuse, uncomplicated; I48.91 Unspecified atrial fibrillation; J44.9 Chronic obstructive pulmonary disease, unspecified; Z72.0 Tobacco use
CPT/HCPCS: 71045; 71046; 76942; 80048; 80061; 80069; 82945; 82962; 83036; 83615; 83735; 83880; 84157; 84484; 85025; 85610; 85730; 87070; 87102; 87116; 88104; 88305; 89051; 93005; 93306; 94640; 94664; 99217; G0378; J1650; J1815; J1940; J2405

== ENCOUNTER 2018-10-05 18:00 | Inpatient (IN) | payer OTHER ==
[~2018-10-05] VITALS: Ht 170.2 cm; Wt 90.0 kg
[~2018-10-05 18:00] MED LIST changes: -BUME1TAB PO; -DICY10CA40 PO; +FURO-109 PO; -LISI-313 PO; +LISI2.5T59 PO; -ONDA4TAB14 PO
--- NOTE | 2018-10-05 18:09 | ERD ---
ER Documentation Chief Complaint Chief Complaint sob HPI The patient is an 38-year-old female, presenting to the ER because of acute d yspnea, orthopnea, paroxysmal nocturnal dyspnea for the last couple days, had similar symptoms previously, denies fever, chills, complains of cough for the last 3 days, denies chest pain with vomiting/radiation/exertion/diaphoresis, complains of dyspnea on exertion, denies abdominal pain, vomiting, dysuria, diarrhea. She does smoke, denies drinking, has history of substance abuse She normally uses 4 L at bedtime but for the last couple days he has been using oxygen more frequently Past medical history: Hypertension, history of CHF, pulmonary hypertension, history of right pleural effusion, atrial fibrillation, COPD, dyslipidemia Past surgical history: Appendectomy, right thoracentesis ROS All systems reviewed and are negative except as per history of present illness. Medications Home Meds Active Scripts Furosemide* (Lasix*) 40 Mg Tablet, 40 MG PO BID for 30 Days, #60 TAB 1 Refill Prov:DARINEL TURNER MD 08/20/18 Lisinopril* (Lisinopril*) 2.5 Mg Tablet, 2.5 MG PO DAILY for 30 Days, #30 TAB 1 Refill Prov:DARINEL TURNER MD 08/20/18 Carvedilol* (Carvedilol*) 3.125 Mg Tablet, 3.125 MG PO BID for 30 Days, #60 TAB 1 Refill Prov:DARINEL TURNER MD 08/20/18 Allergies Allergies: Coded Allergies: No Known Drug Allergies (Unverified Allergy, Unknown, 07/16/18) PMhx/Soc History of Surgery: Yes (APPY) Anesthesia Reaction: No Hx Neurological Disorder: No Hx Respiratory Disorders: No Hx Cardiac Disorders: Yes (HEART MURMUR) Hx Psychiatric Problems: No Hx Miscellaneous Medical Probl: No Hx Alcohol Use: No Hx Substance Use: No Hx Tobacco Use: Yes Physical Exam Vitals Vital Signs Date Temp Pulse Resp B/P (MAP) Pulse Ox O2 O2 Flow FiO2 Time Delivery Rate 10/05/18 97.5 92 31 111/82 97 Nasal 2.0 19:01 (92) Cannula 10/05/18 Nasal 2 18:40 Cannula 10/05/18 Nasal 2.0 18:13 Cannula 10/05/18 97.5 94 16 106/71 94 18:08 (83) Physical Exam Const: No acute distress. Head: Atraumatic. Eyes: Normal Conjunctiva. ENT: Normal External Ears, Nose and Mouth. Neck: Full range of motion. No meningismus. Resp: Decreased breath sounds at the right base Cardio: Regular rate and rhythm. Abd: Soft, non distended, normal bowel sounds, non tender. Skin: No petechiae or rashes. Back: No midline or flank tenderness. Ext: Bilateral leg edema, no calf tenderness Neur: Awake and alert. No focal deficit Psych: Normal Mood and Affect. Result Diagram: 10/05/18183310/05/181833 Results 24 hrs Laboratory Tests Test 10/05/18 18:34 10/05/18 18:37 10/05/18 18:46 White Blood Count 7.2 10^3/ul Red Blood Count 4.42 10^6/ul Hemoglobin 14.4 g/dl Hematocrit 42.4 % Mean Corpuscular Volume 95.9 fl Mean Corpuscular Hemoglobin 32.6 pg Mean Corpuscular Hemoglobin Concent 34.0 g/dl Red Cell Distribution Width 14.7 % Platelet Count 245 10^3/UL Mean Platelet Volume 10.4 fl Immature Granulocytes % 0.300 % Neutrophils % 51.0 % Lymphocytes % 38.8 % Monocytes % 7.8 % Eosinophils % 1.8 % Basophils % 0.3 % Nucleated Red Blood Cells % 0.0 /100WBC Immature Granulocytes # 0.020 10^3/ul Neutrophils # 3.7 10^3/ul Lymphocytes # 2.8 10^3/ul Monocytes # 0.6 10^3/ul Eosinophils # 0.1 10^3/ul Basophils # 0.0 10^3/ul Nucleated Red Blood Cells # 0.0 10^3/ul Prothrombin Time 14.5 Sec Prothrombin Time Ratio 1.1 INR International Normalized Ratio 1.12 Activated Partial Thromboplast Time 29.2 Sec Sodium Level 141 mmol/L Potassium Level 3.4 mmol/L Chloride Level 103 mmol/L Carbon Dioxide Level 27 mmol/L Anion Gap 11 Blood Urea Nitrogen 14 mg/dl Creatinine 0.77 mg/dl Est Glomerular Filtrat Rate mL/min > 60 mL/min Glucose Level 114 mg/dl Calcium Level 9.2 mg/dl Magnesium Level 1.6 mg/dl Troponin I < 0.012 ng/ml B-Type Natriuretic Peptide 2470 PG/ML Ethyl Alcohol Level < 10.0 mg/dl Urine Opiates Screen Negative Urine Barbiturates Negative Urine Amphetamines Screen Positive Urine Benzodiazepines Screen Negative Urine Cocaine Screen Negative Urine Cannabinoids Negative POC Beta HCG, Qualitative NEGATIVE Current Medications Medications Dose Sig/Екатерина Start Time Status Last (Trade) Ordered Route PRN Stop Time Admin Dose Reason Admin Furosemide 20 mg ONCE ONCE 10/05/18 DC (Lasix) IV 19:30 10/05/18 19:31 Magnesium 800 mg ONCE ONCE 10/05/18 DC Oxide PO 19:30 10/05/18 (Mag-Ox 400) 19:31 Potassium 40 meq ONCE STAT 10/05/18 DC Chloride PO 19:29 10/05/18 (Klor-Con 20) 19:31 Procedures/MDM Portable chest x-ray radiologist's report is pending EKG: Read by emergency physician Rate/Rhythm: Normal Sinus Rhythm 100 beats/min QRS, ST, T-waves: No ST elevation, no T inversion, LAD, RBBB Impression: Abnormal EKG MEDICAL MAKING DECISION: The patient is a 38-year-old female, presenting with acute CHF exacerbation, acute recurrent right pleural effusion, acute hy pomagnesemia, acute hypokalemia, amphetamine abuse. She was treated with Lasix 20 mg IV for acute CHF exacerbation, magnesium oxide 800 mg p.o. for acute hypomagnesemia, potassium chloride 40 mEq p.o. for acute hypokalemia The differential diagnoses considered include but are not limited to asthma, COPD, pneumonia, pulmonary embolus, pleural effusion, congestive heart failure. Departure Diagnosis: Primary Impression: CHF (congestive heart failure) Additional Impressions: Recurrent pleural effusion on right Hypokalemia Hypomagnesemia Amphetamine abuse Condition: Stable Comments I discussed the findings with the patient. I discussed the patient with the hospitalist Dr. Moses at 7:30 PM, who was made aware of the lab, the treatment, the patient condition. The patient is admitted to [facility] Disclaimer: Inadvertent spelling and grammatical errors are likely due to EHR/dictation software use and do not reflect on the overall quality of patient care. Also, please note that the electronic time recorded on this note does not necessarily reflect the actual time of the patient encounter. NEERAJ ROLLINS MD Oct 05, 2018 18:09
[2018-10-05] MEDS ORDERED: POTASSIUM CHLORIDE (SR) 20 MEQ TAB PO STA (19:29)
[2018-10-05] MEDS ORDERED: MAGNESIUM OXIDE 400 MG TAB PO ONE (19:30)
[2018-10-05] MEDS ORDERED: FUROSEMIDE 20 MG INJ IV ONE (19:30)
[2018-10-06] MEDS: HYDROCODONE/APAP (5/325) TAB PO PRN ×3 (00:56→19:47)
[2018-10-06] MEDS ORDERED: ONDANSETRON 4 MG INJ IV PRN (01:00)
[2018-10-06] MEDS ORDERED: NITROGLYCERIN (SL) 0.4 MG TAB SL PRN (01:00)
[2018-10-06] MEDS ORDERED: ACETAMINOPHEN 325 MG TAB PO PRN (01:00)
[2018-10-06] MEDS ORDERED: NACL 0.9% 3 ML SYG IV SCH (01:00)
--- NOTE | 2018-10-06 05:49 | HP ---
Date/Time of Note Date/Time of Note DATE: 10/06/18 TIME: 05:44 Assessment/Plan VTE Prophylaxis Pharmacological prophylaxis: heparin Lines/Catheters IV Catheter Type (from Nrsg): Peripheral IV Assessment/Plan Assessment/Plan 38-year-old female with a history of cardiomyopathy with right-sided heart failure, pulmonary hypertension, polysubstance abuse, large right-sided pleural effusion status post thoracentesis about 6 weeks ago presents with shortness of breath and found to have large right-sided pleural effusion, significantly worsening from prior study PLAN -Telemetry monitoring -Will diurese with IV Lasix -Ultrasound-guided thoracentesis ordered -Continue cardiac meds -Cardiology consult Result Diagram: 10/06/18 0527 10/05/18 1834 Results 24hrs Laboratory Tests Test 10/05/18 18:34 10/05/18 18:37 10/05/18 18:46 10/06/18 05:27 White Blood Count 7.2 7.8 Red Blood Count 4.42 4.43 Hemoglobin 14.4 14.1 Hematocrit 42.4 42.8 Mean Corpuscular Volume 95.9 96.6 Mean Corpuscular 32.6 31.8 Hemoglobin Mean Corpuscular 34.0 32.9 Hemoglobin Concent Red Cell Distribution 14.7 H 14.8 H Width Platelet Count 245 237 Mean Platelet Volume 10.4 10.1 Immature Granulocytes % 0.300 0.300 Neutrophils % 51.0 50.9 Lymphocytes % 38.8 38.0 Monocytes % 7.8 8.4 Eosinophils % 1.8 2.0 Basophils % 0.3 0.4 Nucleated Red Blood 0.0 0.0 Cells % Immature Granulocytes # 0.020 0.020 Neutrophils # 3.7 4.0 Lymphocytes # 2.8 3.0 H Monocytes # 0.6 0.7 Eosinophils # 0.1 0.2 Basophils # 0.0 0.0 Nucleated Red Blood 0.0 0.0 Cells # Prothrombin Time 14.5 Prothrombin Time Ratio 1.1 INR International 1.12 Normalized Ratio Activated 29.2 Partial Thromboplast Time Sodium Level 141 Potassium Level 3.4 L Chloride Level 103 Carbon Dioxide Level 27 Anion Gap 11 Blood Urea Nitrogen 14 Creatinine 0.77 Est Glomerular Filtrat > 60 Rate mL/min Glucose Level 114 Calcium Level 9.2 Magnesium Level 1.6 L Troponin I < 0.012 B-Type Natriuretic 2470 H Peptide Ethyl Alcohol Level < 10.0 H Urine Opiates Screen Negative Urine Barbiturates Negative Urine Amphetamines Positive Screen Urine Benzodiazepines Negative Screen Urine Cocaine Screen Negative Urine Cannabinoids Negative POC Beta HCG, NEGATIVE Qualitative HPI/ROS Admit Date/Time Admit Date/Time Hx of Present Illness Patient is a 38-year-old female with a history of cardiomyopathy with right- sided heart failure, pulmonary hypertension, polysubstance abuse, large right- sided pleural effusion status post thoracentesis. Patient presented to ER complaining of shortness of breath worsening for the past 2 to 3 days. She was admitted here in August of this year for shortness of breath. At that time 2D echo shows EF of 50 to 55% with right heart dysfunction as well as pulmonary hypertension. She she was found to have a large right-sided pleural effusion and as such she underwent thoracentesis with removal of 1 L. When she presented to the ER today, she was at times tachypneic with a respiratory rate as high as 31 otherwise vitals were stable. EKG without ST elevation or depression. First troponin negative. Chest x-ray shows the following. 1. The cardiomediastinal silhouette remains moderately enlarged and somewhat globular in configuration compatible with cardiomyopathy or possibly pericardial effusion. There is a prominent main pulmonary artery but the peripheral pulmonary vasculature appears unremarkable. 2. Large right pleural fluid accumulation, significantly increased over the previous. Underlying infiltrate or atelectasis involving the right mid to lower lung zone is suspected. No pneumothorax is identified. PMH/Family/Social Past Medical History Medical History: other Medications Current Medications IV Flush (NS 3 ml) 3 ml PER PROTOCOL IV ; Start 10/06/18 at 01:00 Ondansetron HCl (Zofran Inj) 4 mg Q6H PRN IV NAUSEA/VOMITING; Start 10/06/18 at 01:00 Nitroglycerin (Nitroglycerin (Sl Tab) 0.4 Mg) 1 tab Q5M PRN SL .CHEST PAIN; Start 10/06/18 at 01:00 Acetaminophen (Tylenol Tab) 650 mg Q6H PRN PO .PAIN 1-3 OR TEMP; Start 10/06/18 at 01:00 Acetaminophen/ Hydrocodone Bitart ([place] (5/325)) 1 tab Q6H PRN PO .PAIN 4-6 Last administered on 10/06/18at 00:56; Admin Dose 1 TAB; Start 10/06/18 at 01:00 Albuterol/ Ipratropium (Duoneb) 3 ml Q2H RESP THERAPY PRN HHN SHORTNESS OF BREATH; Start 10/06/18 at 01:00 Carvedilol (Coreg) 3.125 mg BID PO ; Start 10/06/18 at 09:00 Furosemide (Lasix) 40 mg BID DIURETICS PO ; Start 10/06/18 at 09:00 Lisinopril (Zestril) 2.5 mg DAILY PO ; Start 10/06/18 at 09:00 Coded Allergies: No Known Drug Allergies (Unverified Allergy, Unknown, 10/05/18) Past Surgical History Past Surgical Hx: appendectomy Family History Significant Family History: no pertinent family hx Social History Smoking Status: Current every day smoker Exam/Review of Systems Vital Signs Vitals Vital Signs Date Temp Pulse Resp B/P (MAP) Pulse Ox O2 O2 Flow FiO2 Time Delivery Rate 10/06/18 82 18 110/86 96 Nasal 2.0 05:23 (94) Cannula 10/05/18 97.5 19:01 Intake and Output 10/05/18 10/05/18 10/06/18 1515:00 23:00 07:00 OutputOutput Total 400 ml BalanceBalance -400 ml Exam Exam Constitutional: other (No acute distress) Head: normocephalic, atraumatic Eyes: EOMI, PERRL Respiratory: clear to auscultation, normal air movement Cardiovascular: regular rate and rhythm Gastrointestinal: soft Extremities: normal pulses MICHEAL STEVENS MD Oct 06, 2018 05:49
[2018-10-06] MEDS: FUROSEMIDE 40 MG TAB PO SCH ×2 (10:44→18:57)
[2018-10-06] MEDS: LISINOPRIL 5 MG TAB PO SCH (10:45)
[2018-10-06] MEDS ORDERED: CEPASTAT LOZENGE MT PRN (12:00)
--- NOTE | 2018-10-06 12:00 | PN ---
Date/Time of Note Date/Time of Note DATE: 10/06/18 TIME: 11:55 Assessment/Plan VTE Prophylaxis SCD applied (from Nsg): Yes Pharmacological prophylaxis: other Lines/Catheters IV Catheter Type (from Nrsg): Peripheral IV Assessment/Plan Hospital Course S: Patient having occasional coughing, still waiting for thoracentesis to be performed. Still on supplemental oxygen but with good saturations 3 L nasal cannula. O: VS- see below PE: Gen: Lying in bed, no acute distress. Head: Atraumatic. Eyes: Normal Conjunctiva. ENT: Normal External Ears, Nose and Mouth. Neck: Full range of motion. No meningismus. Resp: Decreased breath sounds at the right base Cardio: Regular rate and rhythm. Abd: Soft, non distended, normal bowel sounds, non tender. Ext: Bilateral leg edema, no calf tenderness Neuro: Awake and alert. No focal deficit Assessment/Plan: 38-year-old female with a history of cardiomyopathy with right- sided heart failure, pulmonary hypertension, polysubstance abuse, large right- sided pleural effusion status post thoracentesis about 6 weeks ago presents with shortness of breath and found to have large right-sided pleural effusion, s ignificantly worsening from prior study PLAN -For now continue telemetry monitoring -Will diurese with Lasix -Again, awaiting ultrasound-guided thoracentesis ordered -Continue cardiac meds -Follow-up further recommendations from cardiology consult Result Diagram: 10/06/18 0527 10/06/1827 Results 24hrs Laboratory Tests Test 10/05/18 18:34 10/05/18 18:37 10/05/18 18:46 10/06/18 05:27 White Blood Count 7.2 7.8 Red Blood Count 4.42 4.43 Hemoglobin 14.4 14.1 Hematocrit 42.4 42.8 Mean Corpuscular Volume 95.9 96.6 Mean Corpuscular 32.6 31.8 Hemoglobin Mean Corpuscular 34.0 32.9 Hemoglobin Concent Red Cell Distribution 14.7 H 14.8 H Width Platelet Count 245 237 Mean Platelet Volume 10.4 10.1 Immature Granulocytes % 0.300 0.300 Neutrophils % 51.0 50.9 Lymphocytes % 38.8 38.0 Monocytes % 7.8 8.4 Eosinophils % 1.8 2.0 Basophils % 0.3 0.4 Nucleated Red Blood 0.0 0.0 Cells % Immature Granulocytes # 0.020 0.020 Neutrophils # 3.7 4.0 Lymphocytes # 2.8 3.0 H Monocytes # 0.6 0.7 Eosinophils # 0.1 0.2 Basophils # 0.0 0.0 Nucleated Red Blood 0.0 0.0 Cells # Prothrombin Time 14.5 Prothrombin Time Ratio 1.1 INR International 1.12 Normalized Ratio Activated 29.2 Partial Thromboplast Time Sodium Level 141 143 Potassium Level 3.4 L 3.7 Chloride Level 103 105 Carbon Dioxide Level 27 26 Anion Gap 11 12 Blood Urea Nitrogen 14 16 Creatinine 0.77 0.90 Est Glomerular Filtrat > 60 > 60 Rate mL/min Glucose Level 114 81 Calcium Level 9.2 8.8 Magnesium Level 1.6 L 1.7 Troponin I < 0.012 B-Type Natriuretic 2470 H Peptide Ethyl Alcohol Level < 10.0 H Urine Opiates Screen Negative Urine Barbiturates Negative Urine Amphetamines Positive Screen Urine Benzodiazepines Negative Screen Urine Cocaine Screen Negative Urine Cannabinoids Negative POC Beta HCG, NEGATIVE Qualitative Total Bilirubin 0.8 Direct Bilirubin 0.00 Indirect Bilirubin 0.8 Aspartate Amino 57 H Transf (AST/SGOT) Alanine 31 Aminotransferase (ALT/SG PT) Alkaline Phosphatase 139 H Total Protein 7.2 Albumin 3.7 Globulin 3.50 H Albumin/Globulin Ratio 1.05 Exam/Review of Systems Exam Vitals Vital Signs Date Temp Pulse Resp B/P (MAP) Pulse Ox O2 O2 Flow FiO2 Time Delivery Rate 10/06/18 82 18 110/86 96 Nasal 2.0 05:23 (94) Cannula 10/05/18 97.5 19:01 Intake and Output 10/05/18 10/05/18 10/06/18 1515:00 23:00 07:00 OutputOutput Total 400 ml BalanceBalance -400 ml Results Results 24hrs Laboratory Tests Test 10/05/18 18:34 10/05/18 18:37 10/05/18 18:46 10/06/18 05:27 White Blood Count 7.2 7.8 Red Blood Count 4.42 4.43 Hemoglobin 14.4 14.1 Hematocrit 42.4 42.8 Mean Corpuscular Volume 95.9 96.6 Mean Corpuscular 32.6 31.8 Hemoglobin Mean Corpuscular 34.0 32.9 Hemoglobin Concent Red Cell Distribution 14.7 H 14.8 H Width Platelet Count 245 237 Mean Platelet Volume 10.4 10.1 Immature Granulocytes % 0.300 0.300 Neutrophils % 51.0 50.9 Lymphocytes % 38.8 38.0 Monocytes % 7.8 8.4 Eosinophils % 1.8 2.0 Basophils % 0.3 0.4 Nucleated Red Blood 0.0 0.0 Cells % Immature Granulocytes # 0.020 0.020 Neutrophils # 3.7 4.0 Lymphocytes # 2.8 3.0 H Monocytes # 0.6 0.7 Eosinophils # 0.1 0.2 Basophils # 0.0 0.0 Nucleated Red Blood 0.0 0.0 Cells # Prothrombin Time 14.5 Prothrombin Time Ratio 1.1 INR International 1.12 Normalized Ratio Activated 29.2 Partial Thromboplast Time Sodium Level 141 143 Potassium Level 3.4 L 3.7 Chloride Level 103 105 Carbon Dioxide Level 27 26 Anion Gap 11 12 Blood Urea Nitrogen 14 16 Creatinine 0.77 0.90 Est Glomerular Filtrat > 60 > 60 Rate mL/min Glucose Level 114 81 Calcium Level 9.2 8.8 Magnesium Level 1.6 L 1.7 Troponin I < 0.012 B-Type Natriuretic 2470 H Peptide Ethyl Alcohol Level < 10.0 H Urine Opiates Screen Negative Urine Barbiturates Negative Urine Amphetamines Positive Screen Urine Benzodiazepines Negative Screen Urine Cocaine Screen Negative Urine Cannabinoids Negative POC Beta HCG, NEGATIVE Qualitative Total Bilirubin 0.8 Direct Bilirubin 0.00 Indirect Bilirubin 0.8 Aspartate Amino 57 H Transf (AST/SGOT) Alanine 31 Aminotransferase (ALT/SG PT) Alkaline Phosphatase 139 H Total Protein 7.2 Albumin 3.7 Globulin 3.50 H Albumin/Globulin Ratio 1.05 Medications Medication Current Medications IV Flush (NS 3 ml) 3 ml PER PROTOCOL IV ; Start 10/06/18 at 01:00 Ondansetron HCl (Zofran Inj) 4 mg Q6H PRN IV NAUSEA/VOMITING; Start 10/06/18 at 01:00 Nitroglycerin (Nitroglycerin (Sl Tab) 0.4 Mg) 1 tab Q5M PRN SL .CHEST PAIN; Start 10/06/18 at 01:00 Acetaminophen (Tylenol Tab) 650 mg Q6H PRN PO .PAIN 1-3 OR TEMP; Start 10/06/18 at 01:00 Acetaminophen/ Hydrocodone Bitart ([place] (5/325)) 1 tab Q6H PRN PO .PAIN 4-6 Last administered on 10/06/18at 07:04; Admin Dose 1 TAB; Start 10/06/18 at 01:00 Albuterol/ Ipratropium (Duoneb) 3 ml Q2H RESP THERAPY PRN HHN SHORTNESS OF BREATH; Start 10/06/18 at 01:00 Carvedilol (Coreg) 3.125 mg BID PO ; Start 10/06/18 at 09:00 Furosemide (Lasix) 40 mg BID DIURETICS PO ; Start 10/06/18 at 09:00 Lisinopril (Zestril) 2.5 mg DAILY PO ; Start 10/06/18 at 09:00 SHAKIRA LEGGETT Oct 06, 2018 12:00
[2018-10-06] MEDS ORDERED: LIDOCAINE 1% (MPF) 5 ML VIAL ONE (16:40)
[2018-10-06 17:35] VITALS: BP 119/79; PULSE 81; RESP 17
[2018-10-06 17:45] VITALS: Ht 170.2 cm; Wt 90.0 kg
[2018-10-06 19:19] VITALS: BP 115/79; PULSE 84; RESP 18
[2018-10-07] VITALS (7 sets, daily range): BP systolic 94–111; BP diastolic 55–79; PULSE 75–85; RESP 18–20
[2018-10-07] MEDS: HYDROCODONE/APAP (5/325) TAB PO PRN ×3 (04:11→22:39)
[2018-10-07] MEDS: FUROSEMIDE 40 MG TAB PO SCH ×2 (05:59→18:58)
[2018-10-07] MEDS: ALBUTEROL/IPRATROPIUM (NEB) 3 ML AMP HHN PRN ×2 (08:49→22:16)
[2018-10-07] MEDS: LISINOPRIL 5 MG TAB PO SCH (09:26)
--- NOTE | 2018-10-07 10:17 | PN ---
Date/Time of Note Date/Time of Note DATE: 10/07/18 TIME: 10:16 Assessment/Plan VTE Prophylaxis Risk score (from Nsg)>0 risk: 3 SCD applied (from Nsg): Yes Pharmacological prophylaxis: other Lines/Catheters IV Catheter Type (from Nrsg): Saline Lock Urinary Cath still in place: No Assessment/Plan Hospital Course S: Patient had thoracentesis performed, has slightly less shortness of breath symptoms now. Still on 3 L oxygen nasal cannula with good saturations. O: VS- see below PE: Gen: Lying in bed, no acute distress. Head: Atraumatic. Eyes: Normal Conjunctiva. ENT: Normal External Ears, Nose and Mouth. Neck: Full range of motion. No meningismus. Resp: Decreased breath sounds at the right base Cardio: Regular rate and rhythm. Abd: Soft, non distended, normal bowel sounds, non tender. Ext: Bilateral leg edema, no calf tenderness Neuro: Awake and alert. No focal deficit Assessment/Plan: 38-year-old female with a history of cardiomyopathy with right- sided heart failure, pulmonary hypertension, polysubstance abuse, large right- sided pleural effusion status post thoracentesis about 6 weeks ago presents with shortness of breath and found to have large right-sided pleural effusion, significantly worsening from prior study PLAN -Again status post thoracentesis yesterday for right pleural effusion, for now continue telemetry monitoring -Will diurese with Lasix -Continue cardiac meds -We will obtain PT evaluation -Drug screen positive for methamphetamine: Counseled on cessation Result Diagram: 10/07/18 0510 10/07/18 0510 Results 24hrs Laboratory Tests Test 10/07/18 05:10 White Blood Count 7.3 Red Blood Count 4.13 L Hemoglobin 13.4 Hematocrit 39.9 Mean Corpuscular Volume 96.6 Mean Corpuscular Hemoglobin 32.4 Mean Corpuscular Hemoglobin Concent 33.6 Red Cell Distribution Width 14.8 H Platelet Count 239 Mean Platelet Volume 10.6 H Immature Granulocytes % 0.300 Neutrophils % 46.4 Lymphocytes % 41.8 Monocytes % 8.6 Eosinophils % 2.5 Basophils % 0.4 Nucleated Red Blood Cells % 0.0 Immature Granulocytes # 0.020 Neutrophils # 3.4 Lymphocytes # 3.0 H Monocytes # 0.6 Eosinophils # 0.2 Basophils # 0.0 Nucleated Red Blood Cells # 0.0 Sodium Level 139 Potassium Level 4.0 Chloride Level 103 Carbon Dioxide Level 26 Anion Gap 10 Blood Urea Nitrogen 22 H Creatinine 0.83 Est Glomerular Filtrat Rate mL/min > 60 Glucose Level 112 Calcium Level 8.7 Phosphorus Level 4.4 Magnesium Level 1.5 L Exam/Review of Systems Exam Vitals Vital Signs Date Temp Pulse Resp B/P (MAP) Pulse Ox O2 O2 Flow FiO2 Time Delivery Rate 10/07/18 93 3.0 08:40 10/07/18 85 20 Nasal 08:40 Cannula 10/07/18 98.4 111/77 07:39 (88) Intake and Output 10/06/18 10/06/18 10/07/18 1515:00 23:00 07:00 IntakeIntake Total 320 ml 450 ml BalanceBalance 320 ml 450 ml Results Results 24hrs Laboratory Tests Test 10/07/18 05:10 White Blood Count 7.3 Red Blood Count 4.13 L Hemoglobin 13.4 Hematocrit 39.9 Mean Corpuscular Volume 96.6 Mean Corpuscular Hemoglobin 32.4 Mean Corpuscular Hemoglobin Concent 33.6 Red Cell Distribution Width 14.8 H Platelet Count 239 Mean Platelet Volume 10.6 H Immature Granulocytes % 0.300 Neutrophils % 46.4 Lymphocytes % 41.8 Monocytes % 8.6 Eosinophils % 2.5 Basophils % 0.4 Nucleated Red Blood Cells % 0.0 Immature Granulocytes # 0.020 Neutrophils # 3.4 Lymphocytes # 3.0 H Monocytes # 0.6 Eosinophils # 0.2 Basophils # 0.0 Nucleated Red Blood Cells # 0.0 Sodium Level 139 Potassium Level 4.0 Chloride Level 103 Carbon Dioxide Level 26 Anion Gap 10 Blood Urea Nitrogen 22 H Creatinine 0.83 Est Glomerular Filtrat Rate mL/min > 60 Glucose Level 112 Calcium Level 8.7 Phosphorus Level 4.4 Magnesium Level 1.5 L Medications Medication Current Medications IV Flush (NS 3 ml) 3 ml PER PROTOCOL IV ; Start 10/06/18 at 01:00 Ondansetron HCl (Zofran Inj) 4 mg Q6H PRN IV NAUSEA/VOMITING; Start 10/06/18 at 01:00 Nitroglycerin (Nitroglycerin (Sl Tab) 0.4 Mg) 1 tab Q5M PRN SL .CHEST PAIN; Start 10/06/18 at 01:00 Acetaminophen (Tylenol Tab) 650 mg Q6H PRN PO .PAIN 1-3 OR TEMP; Start 10/06/18 at 01:00 Acetaminophen/ Hydrocodone Bitart ([place] (5/325)) 1 tab Q6H PRN PO .PAIN 4-6 Last administered on 10/07/18at 04:11; Admin Dose 1 TAB; Start 10/06/18 at 01:00 Albuterol/ Ipratropium (Duoneb) 3 ml Q2H RESP THERAPY PRN HHN SHORTNESS OF BREATH Last administered on 10/07/18at 08:49; Admin Dose 3 ML; Start 10/06/18 at 01:00 Carvedilol (Coreg) 3.125 mg BID PO Last administered on 10/07/18at 09:28; Admin Dose 3.125 MG; Start 10/06/18 at 09:00 Furosemide (Lasix) 40 mg BID DIURETICS PO Last administered on 10/07/18at 05:59; Admin Dose 40 MG; Start 10/06/18 at 09:00 Lisinopril (Zestril) 2.5 mg DAILY PO Last administered on 10/07/18at 09:26; Admin Dose 2.5 MG; Start 10/06/18 at 09:00 Phenol (Cepastat Lozenge) 1 lozenge Q1H PRN MT COUGH; Start 10/06/18 at 12:00 Guaifenesin (Robitussin Liquid Cup) 200 mg Q4H PRN PO COUGH; Start 10/06/18 at 12:00 Magnesium Sulfate 50 ml @ 25 mls/hr ONCE ONCE IVPB ; Start 10/07/18 at 10:30; Stop 10/07/18 at 12:29 SHAKIRA LEGGETT Oct 07, 2018 10:17
[2018-10-07] MEDS ORDERED: MAGNESIUM SULFATE 2 GM/50 ML 50 ML IVPB ONE (10:30)
[2018-10-08 00:20] VITALS: BP 99/68; PULSE 70; RESP 20
[2018-10-08 04:11] VITALS: BP 115/64; PULSE 83; RESP 20
[2018-10-08] MEDS: HYDROCODONE/APAP (5/325) TAB PO PRN ×2 (05:40→13:47)
[2018-10-08] MEDS: FUROSEMIDE 40 MG TAB PO SCH (05:41)
[2018-10-08 08:09] VITALS: BP 119/76; PULSE 94
[2018-10-08] MEDS: LISINOPRIL 5 MG TAB PO SCH (08:30)
--- NOTE | 2018-10-08 10:23 | PN ---
Date/Time of Note Date/Time of Note DATE: 10/08/18 TIME: 10:22 Assessment/Plan VTE Prophylaxis Risk score (from Nsg)>0 risk: 1 SCD applied (from Nsg): Yes Pharmacological prophylaxis: other Lines/Catheters IV Catheter Type (from Nrsg): Saline Lock Urinary Cath still in place: No Assessment/Plan Hospital Course S: Patient states she is having less shortness of breath symptoms overall since admission. No acute events overnight. O: VS- see below PE: Gen: Lying in bed, no acute distress. Head: Atraumatic. Eyes: Normal Conjunctiva. ENT: Normal External Ears, Nose and Mouth. Neck: Full range of motion. No meningismus. Resp: Decreased breath sounds at the right base Cardio: Regular rate and rhythm. Abd: Soft, non distended, normal bowel sounds, non tender. Ext: Trace bilateral leg edema to mid calves, no calf tenderness Neuro: Awake and alert. No focal deficits Assessment/Plan: 38-year-old female with a history of cardiomyopathy with right- sided heart failure, pulmonary hypertension, polysubstance abuse, large right- sided pleural effusion status post thoracentesis about 6 weeks ago presents with shortness of breath and found to have large right-sided pleural effusion, significantly worsening from prior study PLAN -Again status post thoracentesis 2 days ago for right pleural effusion, for now continue telemetry monitoring, of note patient states she uses home oxygen, continue current settings for now -Will diurese with today IV Lasix -Continue cardiac meds -Follow-up further recommendations from PT evaluation -Drug screen positive for methamphetamine: Counseled on cessation Result Diagram: 10/07/18 0510 10/07/18 0510 Exam/Review of Systems Exam Vitals Vital Signs Date Temp Pulse Resp B/P (MAP) Pulse Ox O2 O2 Flow FiO2 Time Delivery Rate 10/08/18 98.8 94 119/76 97 Room Air 08:09 (90) 10/08/18 3.0 08:02 10/08/18 20 04:11 10/07/18 36 22:17 Intake and Output 10/07/18 10/07/18 10/08/18 1515:00 23:00 07:00 IntakeIntake Total 550 ml 360 ml BalanceBalance 550 ml 360 ml Medications Medication Current Medications IV Flush (NS 3 ml) 3 ml PER PROTOCOL IV ; Start 10/06/18 at 01:00 Ondansetron HCl (Zofran Inj) 4 mg Q6H PRN IV NAUSEA/VOMITING; Start 10/06/18 at 01:00 Nitroglycerin (Nitroglycerin (Sl Tab) 0.4 Mg) 1 tab Q5M PRN SL .CHEST PAIN; Start 10/06/18 at 01:00 Acetaminophen (Tylenol Tab) 650 mg Q6H PRN PO .PAIN 1-3 OR TEMP; Start 10/06/18 at 01:00 Acetaminophen/ Hydrocodone Bitart ([place] (5/325)) 1 tab Q6H PRN PO .PAIN 4-6 Last administered on 10/08/18at 05:40; Admin Dose 1 TAB; Start 10/06/18 at 01:00 Albuterol/ Ipratropium (Duoneb) 3 ml Q2H RESP THERAPY PRN HHN SHORTNESS OF BREATH Last administered on 10/07/18at 22:16; Admin Dose 3 ML; Start 10/06/18 at 01:00 Carvedilol (Coreg) 3.125 mg BID PO Last administered on 10/08/18at 08:30; Admin Dose 3.125 MG; Start 10/06/18 at 09:00 Lisinopril (Zestril) 2.5 mg DAILY PO Last administered on 10/08/18at 08:30; Admin Dose 2.5 MG; Start 10/06/18 at 09:00 Phenol (Cepastat Lozenge) 1 lozenge Q1H PRN MT COUGH; Start 10/06/18 at 12:00 Guaifenesin (Robitussin Liquid Cup) 200 mg Q4H PRN PO COUGH; Start 10/06/18 at 12:00 Furosemide (Lasix) 10 mg ONCE ONCE IV ; Start 10/08/18 at 10:30; Stop 10/08/18 at 10:31; Status UNV Furosemide (Lasix) 40 mg BID DIURETICS IV ; Start 10/08/18 at 18:00; Status UNV SHAKIRA LEGGETT Oct 08, 2018 10:23
[2018-10-08] MEDS ORDERED: FUROSEMIDE 20 MG INJ IV ONE (10:30)
[2018-10-08 10:52] VITALS: BP 86/53; PULSE 86
[2018-10-08] MEDS ORDERED: MAGNESIUM SULFATE 2 GM/50 ML 50 ML IVPB ONE (12:00)
[2018-10-08] MEDS: GUAIFENESIN 20 MG/ML 5ML CUP PO PRN ×2 (13:44→21:24)
[2018-10-08 15:18] VITALS: BP 89/78; PULSE 78; RESP 20
[2018-10-08] MEDS: FUROSEMIDE 40 MG INJ IV SCH (17:26)
[2018-10-08 20:00] VITALS: BP 101/94; PULSE 87
[2018-10-08] MEDS: ALBUTEROL/IPRATROPIUM (NEB) 3 ML AMP HHN PRN (21:01)
[2018-10-09] VITALS: BP 103/68; PULSE 86; RESP 18
[2018-10-09] MEDS: HYDROCODONE/APAP (5/325) TAB PO PRN ×2 (01:53→15:58)
[2018-10-09 04:23] VITALS: BP 101/58; PULSE 84; RESP 20
[2018-10-09] MEDS: FUROSEMIDE 40 MG INJ IV SCH ×2 (06:00→17:21)
[2018-10-09 07:34] VITALS: BP 111/69; PULSE 98; RESP 20
[2018-10-09] MEDS: LISINOPRIL 5 MG TAB PO SCH (08:26)
--- NOTE | 2018-10-09 09:27 | PN ---
Date/Time of Note Date/Time of Note DATE: 10/09/18 TIME: 09:24 Assessment/Plan VTE Prophylaxis Risk score (from Nsg)>0 risk: 3 SCD applied (from Nsg): Yes Pharmacological prophylaxis: other Lines/Catheters IV Catheter Type (from Nrsg): Saline Lock Urinary Cath still in place: No Assessment/Plan Hospital Course S: Patient asking for chest x-ray, but denies any significant shortness of breath. IV Lasix not given today because of low blood pressure. Otherwise tolerating diet. O: VS- see below PE: Gen: Lying in bed, no acute distress. Head: Atraumatic. Eyes: Normal Conjunctiva. ENT: Normal External Ears, Nose and Mouth. Neck: Full range of motion. No meningismus. Resp: Decreased breath sounds at the right base Cardio: Regular rate and rhythm. Abd: Soft, non distended, normal bowel sounds, non tender. Ext: Trace bilateral leg edema to mid calves, no calf tenderness Neuro: Awake and alert. No focal deficits Assessment/Plan: 38-year-old female with a history of cardiomyopathy with right-sided heart failure, pulmonary hypertension, polysubstance abuse, large right-sided pleural effusion status post thoracentesis about 6 weeks ago presents with shortness of breath and found to have large right-sided pleural effusion, significantly worsening from prior study PLAN -Again status post thoracentesis 3 days ago for right pleural effusion, for now continue telemetry monitoring, of note patient states she uses home oxygen, continue current settings for now -Will recheck chest x-ray today -Continue for now IV Lasix -Because of slight abdominal distention will check abdominal ultrasound. Apparently patient has had paracentesis in the past for a ascites. -Continue cardiac meds -Follow-up further recommendations from PT evaluation -Drug screen positive for methamphetamine: Counseled on cessation Result Diagram: 10/08/18 1031 10/08/18 1031 Results 24hrs Laboratory Tests Test 10/08/18 10:31 White Blood Count 8.0 Red Blood Count 4.07 L Hemoglobin 13.0 Hematocrit 39.6 Mean Corpuscular Volume 97.3 Mean Corpuscular Hemoglobin 31.9 Mean Corpuscular Hemoglobin Concent 32.8 Red Cell Distribution Width 15.1 H Platelet Count 259 Mean Platelet Volume 10.1 Immature Granulocytes % 0.400 Neutrophils % 59.4 Lymphocytes % 29.9 Monocytes % 8.0 Eosinophils % 1.9 Basophils % 0.4 Nucleated Red Blood Cells % 0.0 Immature Granulocytes # 0.030 Neutrophils # 4.8 Lymphocytes # 2.4 Monocytes # 0.6 Eosinophils # 0.2 Basophils # 0.0 Nucleated Red Blood Cells # 0.0 Sodium Level 139 Potassium Level 4.0 Chloride Level 100 Carbon Dioxide Level 29 Anion Gap 10 Blood Urea Nitrogen 20 Creatinine 0.83 Est Glomerular Filtrat Rate mL/min > 60 Glucose Level 81 Calcium Level 8.5 Phosphorus Level 4.5 Magnesium Level 1.5 L Exam/Review of Systems Exam Vitals Vital Signs Date Temp Pulse Resp B/P (MAP) Pulse Ox O2 O2 Flow FiO2 Time Delivery Rate 10/09/18 Nasal 3.0 07:39 Cannula 10/09/18 98.0 98 20 111/69 92 07:34 (83) 10/08/18 21 21:01 Intake and Output 10/08/18 10/08/18 10/09/18 1515:00 23:00 07:00 IntakeIntake Total 410 ml 800 ml 600 ml BalanceBalance 410 ml 800 ml 600 ml Results Results 24hrs Laboratory Tests Test 10/08/18 10:31 White Blood Count 8.0 Red Blood Count 4.07 L Hemoglobin 13.0 Hematocrit 39.6 Mean Corpuscular Volume 97.3 Mean Corpuscular Hemoglobin 31.9 Mean Corpuscular Hemoglobin Concent 32.8 Red Cell Distribution Width 15.1 H Platelet Count 259 Mean Platelet Volume 10.1 Immature Granulocytes % 0.400 Neutrophils % 59.4 Lymphocytes % 29.9 Monocytes % 8.0 Eosinophils % 1.9 Basophils % 0.4 Nucleated Red Blood Cells % 0.0 Immature Granulocytes # 0.030 Neutrophils # 4.8 Lymphocytes # 2.4 Monocytes # 0.6 Eosinophils # 0.2 Basophils # 0.0 Nucleated Red Blood Cells # 0.0 Sodium Level 139 Potassium Level 4.0 Chloride Level 100 Carbon Dioxide Level 29 Anion Gap 10 Blood Urea Nitrogen 20 Creatinine 0.83 Est Glomerular Filtrat Rate mL/min > 60 Glucose Level 81 Calcium Level 8.5 Phosphorus Level 4.5 Magnesium Level 1.5 L Medications Medication Current Medications IV Flush (NS 3 ml) 3 ml PER PROTOCOL IV ; Start 10/06/18 at 01:00 Ondansetron HCl (Zofran Inj) 4 mg Q6H PRN IV NAUSEA/VOMITING; Start 10/06/18 at 01:00 Nitroglycerin (Nitroglycerin (Sl Tab) 0.4 Mg) 1 tab Q5M PRN SL .CHEST PAIN; Start 10/06/18 at 01:00 Acetaminophen (Tylenol Tab) 650 mg Q6H PRN PO .PAIN 1-3 OR TEMP; Start 10/06/18 at 01:00 Acetaminophen/ Hydrocodone Bitart ([place] (5/325)) 1 tab Q6H PRN PO .PAIN 4-6 Last administered on 10/09/18 01:53; Admin Dose 1 TAB; Start 10/06/18 at 01:00 Albuterol/ Ipratropium (Duoneb) 3 ml Q2H RESP THERAPY PRN HHN SHORTNESS OF BREATH Last administered on 10/08/18 21:01; Admin Dose 3 ML; Start 10/06/18 at 01:00 Carvedilol (Coreg) 3.125 mg BID PO Last administered on 10/08/18 08:30; Admin Dose 3.125 MG; Start 10/06/18 at 09:00 Lisinopril (Zestril) 2.5 mg DAILY PO Last administered on 10/09/18 08:26; Admin Dose 2.5 MG; Start 10/06/18 at 09:00 Phenol (Cepastat Lozenge) 1 lozenge Q1H PRN MT COUGH; Start 10/06/18 at 12:00 Guaifenesin (Robitussin Liquid Cup) 200 mg Q4H PRN PO COUGH Last administered on 10/08/18 21:24; Admin Dose 200 MG; Start 10/06/18 at 12:00 Furosemide (Lasix) 40 mg BID DIURETICS IV Last administered on 10/08/18 17:26; Admin Dose 40 MG; Start 10/08/18 at 18:00 Furosemide (Lasix) 20 mg ONCE ONCE IV ; Start 10/09/18 at 09:30; Stop 10/09/18 at 09:31; Status SHAKIAR ARMAS. Oct 09, 2018 09:27
[2018-10-09] MEDS ORDERED: FUROSEMIDE 20 MG INJ IV ONE (09:30)
[2018-10-09 11:32] VITALS: BP 108/74; PULSE 94; RESP 20
[2018-10-09 15:45] VITALS: BP 114/59; PULSE 85; RESP 20
[2018-10-09] MEDS: GUAIFENESIN 20 MG/ML 5ML CUP PO PRN (15:58)
[2018-10-09 19:55] VITALS: BP 100/58; PULSE 84; RESP 18
[2018-10-10] MEDS: HYDROCODONE/APAP (5/325) TAB PO PRN (00:38)
[2018-10-10 00:44] VITALS: BP 95/51; PULSE 81; RESP 18
[2018-10-10] MEDS: ALBUTEROL/IPRATROPIUM (NEB) 3 ML AMP HHN PRN (00:50)
[2018-10-10 04:11] VITALS: BP 96/53; PULSE 84; RESP 18
[2018-10-10] MEDS: FUROSEMIDE 40 MG INJ IV SCH (06:39)
[2018-10-10 07:30] VITALS: BP 122/80; PULSE 88; RESP 20
[2018-10-10] MEDS: LISINOPRIL 5 MG TAB PO SCH (08:37)
--- NOTE | 2018-10-10 10:18 | PDOCDIS ---
Discharge Instructions CONDITION [id number] Patient Condition: [id number] Stable HOME CARE INSTRUCTIONS: [id number] Diet Instructions: [id number] Low Fat /Cholesterol ACTIVITY: [id number] Activity Restrictions: [id number] Slowly Increase Activity Rest between Activity Avoid heavy lifting FOLLOW UP/APPOINTMENTS Follow-up Plan Please take your medications as prescribed, see your doctor in the clinic in the next 1 to 2 weeks. SHAKIRA LEGGETT Oct 10, 2018 10:18
--- NOTE | 2018-10-10 10:22 | DS ---
Date/Time of Note Date/Time of Note DATE: 10/10/18 TIME: 10:19 Discharge Summary Admission/Discharge Info Admit Date/Time Oct 05, 2018 at 19:33 Discharge Date/Time 1. Acute on chronic right sided heart failure 2. Severe pulmonary HTN 3. h/o Large right pleural effusion-ordered for thoracentesis this admission 4. Substance abuse -counseled on cessation Patient Condition: Stable Hx of Present Illness 38-year-old female with a history of cardiomyopathy with right-sided heart failure, pulmonary hypertension, polysubstance abuse, large right-sided pleural effusion status post thoracentesis. Patient presented to ER complaining of shortness of breath worsening for the past 2 to 3 days. She was admitted here in August of this year for shortness of breath. At that time 2D echo shows EF of 50 to 55% with right heart dysfunction as well as pulmonary hypertension. She she was found to have a large right-sided pleural effusion and as such she underwent thoracentesis with removal of 1 L. When she presented to the ER today, she was at times tachypneic with a respiratory rate as high as 31 otherwise vitals were stable. EKG without ST elevation or depression. First troponin negative. Chest x-ray shows the following. 1. The cardiomediastinal silhouette remains moderately enlarged and somewhat globular in configuration compatible with cardiomyopathy or possibly pericardial effusion. There is a prominent main pulmonary artery but the peripheral pulmonary vasculature appears unremarkable. 2. Large right pleural fluid accumulation, significantly increased over the previous. Underlying infiltrate or atelectasis involving the right mid to lower lung zone is suspected. No pneumothorax is identified. Hospital Course Patient was admitted and underwent thoracentesis successfully. Afterwards she was placed on diuresis for her heart failure symptoms. She was continued on low dose beta-tommy as well. Over the course of her hospital stay she was continued on low flow oxygen as well, she was able to ambulate, tolerated p.o. diet. After shortness of breath symptoms improved and her labs and vital signs are stable, she will be discharged home today improved condition. She is encouraged to follow-up with her regular doctor in clinic in the next 1 week. See below for full list of discharge medications. Home Meds Active Scripts Furosemide* (Lasix*) 40 Mg Tablet, 40 MG PO BID for 30 Days, #60 TAB 1 Refill Prov:DARINEL TURNER MD 08/20/18 Lisinopril* (Lisinopril*) 2.5 Mg Tablet, 2.5 MG PO DAILY for 30 Days, #30 TAB 1 Refill Prov:DARINEL TURNER MD 08/20/18 Carvedilol* (Carvedilol*) 3.125 Mg Tablet, 3.125 MG PO BID for 30 Days, #60 TAB 1 Refill Prov:DARINEL TURNER MD 08/20/18 Follow-up Plan Please take your medications as prescribed, see your doctor in the clinic in the next 1 to 2 weeks. Primary Care Provider Kyle Arteaga MD Time spent on discharge: > 30 minutes SHAKIRA LEGGETT Oct 10, 2018 10:22
[2018-10-10 11:03] VITALS: BP 110/68; PULSE 55; RESP 19
== END 2018-10-10 11:54 | disposition home or self-care (01) | DRG 292 ==
LOC: E/R 18:00 → 6WM 19:33
PROVIDERS: ADMIT Internal Medicine; ATTEND Hospitalist
PROC: 0W993ZX Drainage of Right Pleural Cavity, Percutaneous Approach, Diagnostic (ICD-10-PCS; principal; 2018-10-06)
DX: I11.0 Hypertensive heart disease with heart failure (principal); J90 Pleural effusion, not elsewhere classified; I27.20 Pulmonary hypertension, unspecified; Z99.81 Dependence on supplemental oxygen; E83.42 Hypomagnesemia; I42.9 Cardiomyopathy, unspecified; I50.813 Acute on chronic right heart failure; E87.6 Hypokalemia; F17.200 Nicotine dependence, unspecified, uncomplicated; F15.10 Other stimulant abuse, uncomplicated
CPT/HCPCS: 36415; 71045; 76705; 76942; 80048; 80053; 80307; 81025; 83735; 83880; 84100; 84484; 85025; 85610; 85730; 93005; 94640; 94664; 97161; J1940; J3475

== ENCOUNTER 2018-10-28 18:04 | Inpatient (IN) | payer OTHER ==
[~2018-10-28] VITALS: Ht 172.7 cm; Wt 88.2 kg
[~2018-10-28 18:04] MED LIST changes: +BUME1TAB PO; +CARV12.579 PO; +CEPH500C PO; +GABA300C16 PO; +POTA20TA15 PO
--- NOTE | 2018-10-28 19:10 | ERD ---
ER Documentation Chief Complaint Chief Complaint EDGAR NELSON SINCE THIS AM, HX OF CHF, O2 SAT=90%; GIVEN NEBULIZER BY EMS HPI History of CHF and pulmonary hypertension with recent thoracentesis of right lung presenting with acute shortness of breath brought in by ambulance. Patient denies any infectious symptoms. Denies any chest pain. No recent travel, surgery, estrogen use. No history of coagulopathy. Patient states this is similar to her previous presentation when she had a pleural effusion on the right side. Is compliant with her medications including 80 mg of Lasix per day . decreased urine output over the past 24 hours. ROS All systems reviewed and are negative except as per history of present illness. Medications Home Meds Active Scripts Furosemide* (Lasix*) 40 Mg Tablet, 40 MG PO BID for 30 Days, #60 TAB 1 Refill Prov:DARINEL TURNER MD 08/20/18 Lisinopril* (Lisinopril*) 2.5 Mg Tablet, 2.5 MG PO DAILY for 30 Days, #30 TAB 1 Refill Prov:DARINEL TURNER MD 08/20/18 Carvedilol* (Carvedilol*) 3.125 Mg Tablet, 3.125 MG PO BID for 30 Days, #60 TAB 1 Refill Prov:DARINEL TURNER MD 08/20/18 Allergies Allergies: Coded Allergies: No Known Drug Allergies (Unverified Allergy, Unknown, 10/05/18) PMhx/Soc History of Surgery: Yes (appendicitis) Anesthesia Reaction: No Hx Neurological Disorder: No Hx Respiratory Disorders: Yes Hx Cardiac Disorders: Yes (CHF) Hx Psychiatric Problems: No Hx Miscellaneous Medical Probl: Yes (cardiomyopathy with R-sided heart failure, pulmonary HTN, polysubstance abu) Hx Alcohol Use: No Hx Substance Use: Yes (in the past) Hx Tobacco Use: Yes Smoking Status: Never smoker Physical Exam Vitals Vital Signs Date Temp Pulse Resp B/P (MAP) Pulse Ox O2 O2 Flow FiO2 Time Delivery Rate 10/28/18 25 100 40 18:26 10/28/18 Non 18:20 Rebreather 10/28/18 98.7 97 20 116/105 93 18:10 (109) Physical Exam Const: mild acute distress Head: Atraumatic Eyes: Normal Conjunctiva ENT: Normal External Ears, Nose and Mouth. Neck: Full range of motion. No meningismus. Resp: Diminished lung sounds to the right side crackles to the left. Tripoding. Cardio: Regular tachycardia and rhythm, no murmurs Abd: Soft, non tender, non distended. Normal bowel sounds Skin: No petechiae or rashes Back: No midline or flank tenderness Ext: No cyanosis, or edema Neur: Awake and alert Psych: Normal Mood and Affect Result Diagram: 10/28/18 1820 10/28/18 1820 Results 24 hrs Laboratory Tests Test 10/28/18 18:16 10/28/18 18:20 Blood Gas Specimen Source Blood venous Arterial Blood Date Drawn 10/28/2018 6:30:53 PM Arterial Blood Gas Puncture Site VENOUS LINE Luke Test N/A Venous Blood pH 7.422 Venous Blood pCO2 (Temp Corrected) 34.4 mmHG Venous Blood pO2 (Temp Corrected) 71.6 mmHG Venous Blood HCO3 21.9 mmol/L Venous Blood Oxygen Saturation 93.4 mmHG Venous Blood Base Excess -1.8 mmol/L Venous Blood Total Hemoglobin 14.6 g/dl Venous Blood Oxyhemoglobin 92.7 % Venous Blood Methemoglobin 0.2 % Carboxyhemoglobin 0.6 % Blood Gas Temperature 37.0 C Blood Gas Respiration Rate 14.0 Blood Gas Actual Respiration Rate 25 Blood Gas Modality MASK - BIPAP FiO2 40.0 % Blood Gas Inspiratory Time 0.9 Blood Gas Pressure Support 10 Blood Gas IPAP/EPAP Ratio 15/5 Blood Gas Notified Jana Pastrana Blood Gas Notified Time 10/28/2018 6:40:02 PM White Blood Count 9.5 10^3/ul Red Blood Count 4.21 10^6/ul Hemoglobin 13.7 g/dl Hematocrit 41.6 % Mean Corpuscular Volume 98.8 fl Mean Corpuscular Hemoglobin 32.5 pg Mean Corpuscular Hemoglobin Concent 32.9 g/dl Red Cell Distribution Width 15.9 % Platelet Count 336 10^3/UL Mean Platelet Volume 10.1 fl Immature Granulocytes % 0.400 % Neutrophils % 61.9 % Lymphocytes % 27.2 % Monocytes % 8.3 % Eosinophils % 1.7 % Basophils % 0.5 % Nucleated Red Blood Cells % 0.0 /100WBC Immature Granulocytes # 0.040 10^3/ul Neutrophils # 5.9 10^3/ul Lymphocytes # 2.6 10^3/ul Monocytes # 0.8 10^3/ul Eosinophils # 0.2 10^3/ul Basophils # 0.1 10^3/ul Nucleated Red Blood Cells # 0.0 10^3/ul Prothrombin Time 14.8 Sec Prothrombin Time Ratio 1.2 INR International Normalized Ratio 1.15 Activated Partial Thromboplast Time 28.4 Sec Sodium Level 139 mmol/L Potassium Level 3.7 mmol/L Chloride Level 107 mmol/L Carbon Dioxide Level 22 mmol/L Anion Gap 10 Blood Urea Nitrogen 20 mg/dl Creatinine 0.73 mg/dl Est Glomerular Filtrat Rate mL/min > 60 mL/min Glucose Level 136 mg/dl Calcium Level 9.0 mg/dl Troponin I Pending Procedures/MDM Patient's history of CHF presenting with shortness of breath. Low suspicion for PE given no major risk factors. Chest x-ray is consistent with pulmonary edema and pleural effusion on the right side as etiology of shortness of breath. Will admit patient for thoracentesis. Patient is on BiPAP and has had improvement in symptoms. Lasix also administered. Otherwise vitals are stable. Chest X-ray 1V Interpreted by me: Soft Tissue: No acute abnormalities Bones: No acute abnormalities Mediastinum/Cardiac Silhouette/Lungs: significant right-sided pleural effusion Impression: Right-sided pleural effusion NEERAJ MCKEON MD Oct 28, 2018 19:10
[2018-10-28] MEDS ORDERED: FUROSEMIDE 40 MG INJ IV ONE (19:30)
[2018-10-28] MEDS ORDERED: ACETAMINOPHEN 325 MG TAB PO PRN (20:00)
[2018-10-28] MEDS ORDERED: ONDANSETRON 4 MG INJ IV PRN ×2 (20:00→22:30)
[2018-10-28 21:42] VITALS: PULSE 102
[2018-10-28 21:46] VITALS: BP 101/69; PULSE 102; RESP 20
[2018-10-28] MEDS: ACETAMINOPHEN 325 MG TAB PO PRN (22:24)
[2018-10-28 22:25] VITALS: BMI 29.6
--- NOTE | 2018-10-28 23:21 | QN ---
Documentation Comment [id number] EDDIE KANG MD Oct 28, 2018 23:21
[2018-10-28 23:45] VITALS: PULSE 98
[2018-10-29] VITALS (14 sets, daily range): BP systolic 93–124; BP diastolic 60–81; PULSE 77–99; RESP 14–24; Ht 172.7 cm; Wt 88.2 kg
[2018-10-29] MEDS: CEFTRIAXONE 500 MG in SOD CHLORIDE 0.9% 50 ML IVPB SCH ×2 (01:05→22:20)
[2018-10-29] MEDS: PANTOPRAZOLE (EC) 40 MG TAB PO SCH (05:09)
[2018-10-29] MEDS ORDERED: FUROSEMIDE 40 MG TAB PO SCH (06:00)
--- NOTE | 2018-10-29 07:04 | HP ---
DATE OF ADMISSION: 10/28/2018 HISTORY OF PRESENT ILLNESS: The patient, Pierre Zuniga is a 38-year-old female who was recently admitted. The patient has history of acute and chronic right-sided heart failure, severe pulmonary hypertension, history of large right pleural effusion, history of thoracentesis, substance abuse. The patient presented again with recurrent pleural effusion and is being admitted for further management. The patient is denying any chest pain, palpitation at this point, ____. PAST MEDICAL HISTORY: As mentioned above. Positive for acute and chronic right heart failure, pul hypertension, pleurocentesis, substance abuse history. ALLERGIES: NEGATIVE. FAMILY HISTORY: Negative. SOCIAL HISTORY: Positive for drug abuse per patien MEDICATION HISTORY: Includes: 1. Coreg. 2. Lisinopril. REVIEW OF SYSTEMS: RESPIRATORY: Cough, short of breath. CARDIOVASCULAR: No chest pain. ABDOMEN: Dyspepsia. edema legs PHYSICAL EXAMINATION: GENERAL: Anasarcic female. VITAL SIGNS: Pulse 102, blood pressure 101/69. HEAD: Atraumatic, normocephalic. Pupils are equal, reactive to light. NECK: Supple. JVD positive. LUNGS: Decreased air entry both bases, with dullness to percussion. CARDIOVASCULAR: S1, S2 is normal. Systolic murmur noted. ABDOMEN: Soft, positive bowel sounds, ____ palpable. EXTREMITIES: ____ or clubbing. Edema positive. CENTRAL NERVOUS SYSTEM: The patient is awake, alert with no focal deficits. LABORATORY DATA: IMPRESSION: 1. The patient has recurrent pleural effusions, rule out lung infiltrate, pulmonary hypertension, status post thoracentesis, history of drug abuse. s/p thoracentesis _ plan . Continue o2. antibiotics.,diuretic and thoracentesis Dictated By: EDDIE KANG MD BS/NTS Conf#: [id number] DID#: [id number] MTDD
[2018-10-29] MEDS: LISINOPRIL 5 MG TAB PO SCH (09:00)
[2018-10-29] MEDS: ENOXAPARIN 40 MG/0.4 ML SYG SC SCH (09:00)
[2018-10-29] MEDS ORDERED: LIDOCAINE 1% (MPF) 5 ML VIAL ONE (09:49)
[2018-10-29] MEDS ORDERED: POTASSIUM CHLORIDE (SR) 20 MEQ TAB PO STA (11:30)
[2018-10-29] MEDS: ACETAMINOPHEN 325 MG TAB PO PRN (13:47)
--- NOTE | 2018-10-29 15:42 | PN ---
Date/Time of Note Date/Time of Note DATE: 10/29/18 TIME: 15:39 Assessment/Plan VTE Prophylaxis Risk score (from [facility] [place])>0 risk: 1 SCD applied (from [facility] [place]): No SCD contraindicated: low risk/ambulating Pharmacological prophylaxis: NA/contraindicated Pharm contraindication: low risk/ambulating Lines/Catheters IV Catheter Type (from [facility]): Saline Lock Assessment/Plan Assessment/Plan assessment/Plan 1. Acute on chronic systolic heart failure-- ECHO reviewed with EF 60% and severe right atrial enlargement, right ventricle dilation with reduced systolic function, severe TR 2. Severe pulmonary HTN 3. Large right pleural effusion s/p thoracentesis 4. h/o Meth use Plan -change lasix to bumex for diureiss -cards and pul consult - cw mTP and lisnopril - CT chest ? mass - drug sessation - on BIPAP - -Potassium replacement Result Diagram: 10/29/18 0448 10/29/18 0448 Results 24hrs Laboratory Tests Test 10/28/18 18:16 10/28/18 18:20 10/29/18 04:48 10/29/18 09:30 Blood Gas Blood venous Specimen Source Arterial Blood 10/28/2018 6:30: Date Drawn 53 PM Arterial Blood VENOUS LINE Gas Puncture Site Luke Test N/A Venous Blood pH 7.422 Venous Blood 34.4 L pCO2 (Temp Corrected) Venous Blood pO2 71.6 H (Temp Corrected) Venous Blood 21.9 L HCO3 Venous Blood 93.4 H Oxygen Saturation Venous Blood -1.8 Base Excess Venous Blood 14.6 Total Hemoglobin Venous Blood 92.7 Oxyhemoglobin Venous Blood 0.2 Methemoglobin Carboxyhemoglobi 0.6 n Blood Gas 37.0 Temperature Blood Gas 14.0 Respiration Rate Blood Gas Actual 25 Respiration Rate Blood Gas MASK - BIPAP Modality FiO2 40.0 Blood Gas 0.9 Inspiratory Time Blood Gas 10 Pressure Support Blood Gas 15/5 IPAP/EPAP Ratio Blood Gas M.D. Notified Whom Blood Gas 10/28/2018 6:40: Notified Time 02 PM White Blood 9.5 9.4 Count Red Blood Count 4.21 4.09 L Hemoglobin 13.7 13.3 Hematocrit 41.6 40.2 Mean Corpuscular 98.8 98.3 Volume Mean Corpuscular 32.5 32.5 Hemoglobin Mean Corpuscular 32.9 33.1 Hemoglobin Dara nt Red Cell 15.9 H 15.9 H Distribution Width Platelet Count 336 # 319 Mean Platelet 10.1 10.0 Volume Immature 0.400 0.300 Granulocytes % Neutrophils % 61.9 56.1 Lymphocytes % 27.2 31.0 Monocytes % 8.3 10.0 Eosinophils % 1.7 2.1 Basophils % 0.5 0.5 Nucleated Red 0.0 0.0 Blood Cells % Immature 0.040 H 0.030 Granulocytes # Neutrophils # 5.9 5.3 Lymphocytes # 2.6 2.9 Monocytes # 0.8 0.9 Eosinophils # 0.2 0.2 Basophils # 0.1 0.1 Nucleated Red 0.0 0.0 Blood Cells # Prothrombin Time 14.8 Prothrombin Time 1.2 Ratio INR 1.15 International Normalized Ratio Activated 28.4 Partial Thrombop last Time Sodium Level 139 141 Potassium Level 3.7 3.4 L Chloride Level 107 104 Carbon Dioxide 22 28 Level Anion Gap 10 9 Blood Urea 20 19 Nitrogen Creatinine 0.73 0.91 Est Glomerular > 60 > 60 Filtrat Rate mL/min Glucose Level 136 105 Calcium Level 9.0 8.9 Troponin I < 0.012 Total Bilirubin 0.7 Direct Bilirubin 0.00 Indirect 0.7 Bilirubin Aspartate Amino 46 Transf (AST/SGOT ) Alanine 34 Aminotransferase (ALT/SGPT) Alkaline 148 H Phosphatase Total Protein 6.8 Albumin 3.3 Globulin 3.50 H Albumin/Globulin 0.94 Ratio Pathologist YES Review (Hematolo gy) Body Fluid Type THORACENTESIS F LUID Body Fluid 1050.0 Volume Body Fluid Color YELLOW Body Fluid CLOUDY Appearance Body Fluid WBC 355 Body Fluid RBC 7000 (Auto) Body Fluid 10.7 Polynuclear WBCs (%) Body Fluid 89.3 Mononuclear Cells % Auto Body Fluid 103 Glucose Body Fluid Total 4.3 Protein Body Fluid 301 Lactate Dehydrog enase Subjective 24 Hr Interval Summary Free Text/Dictation This post thoracentesis today with removal of 1 L still on BiPAP BLateral lower extremity edema Exam/Review of Systems Exam Vitals Vital Signs Date Temp Pulse Resp B/P (MAP) Pulse Ox O2 O2 Flow FiO2 Time Delivery Rate 10/29/18 98.0 77 14 117/81 94 BIPAP 15:18 (93) 10/29/18 3.0 07:32 10/29/18 40 05:34 Exam Awake alert oriented on BiPAP Neck supple + JVD decreased breath sounds on rt RRR 2+edema Results Results 24hrs Laboratory Tests Test 10/28/18 18:16 10/28/18 18:20 10/29/18 04:48 10/29/18 09:30 Blood Gas Blood venous Specimen Source Arterial Blood 10/28/2018 6:30: Date Drawn 53 PM Arterial Blood VENOUS LINE Gas Puncture Site Luke Test N/A Venous Blood pH 7.422 Venous Blood 34.4 L pCO2 (Temp Corrected) Venous Blood pO2 71.6 H (Temp Corrected) Venous Blood 21.9 L HCO3 Venous Blood 93.4 H Oxygen Saturation Venous Blood -1.8 Base Excess Venous Blood 14.6 Total Hemoglobin Venous Blood 92.7 Oxyhemoglobin Venous Blood 0.2 Methemoglobin Carboxyhemoglobi 0.6 n Blood Gas 37.0 Temperature Blood Gas 14.0 Respiration Rate Blood Gas Actual 25 Respiration Rate Blood Gas MASK - BIPAP Modality FiO2 40.0 Blood Gas 0.9 Inspiratory Time Blood Gas 10 Pressure Support Blood Gas 15/5 IPAP/EPAP Ratio Blood Gas M.D. Notified Whom Blood Gas 10/28/2018 6:40: Notified Time 02 PM White Blood 9.5 9.4 Count Red Blood Count 4.21 4.09 L Hemoglobin 13.7 13.3 Hematocrit 41.6 40.2 Mean Corpuscular 98.8 98.3 Volume Mean Corpuscular 32.5 32.5 Hemoglobin Mean Corpuscular 32.9 33.1 Hemoglobin Adra nt Red Cell 15.9 H 15.9 H Distribution Width Platelet Count 336 # 319 Mean Platelet 10.1 10.0 Volume Immature 0.400 0.300 Granulocytes % Neutrophils % 61.9 56.1 Lymphocytes % 27.2 31.0 Monocytes % 8.3 10.0 Eosinophils % 1.7 2.1 Basophils % 0.5 0.5 Nucleated Red 0.0 0.0 Blood Cells % Immature 0.040 H 0.030 Granulocytes # Neutrophils # 5.9 5.3 Lymphocytes # 2.6 2.9 Monocytes # 0.8 0.9 Eosinophils # 0.2 0.2 Basophils # 0.1 0.1 Nucleated Red 0.0 0.0 Blood Cells # Prothrombin Time 14.8 Prothrombin Time 1.2 Ratio INR 1.15 International Normalized Ratio Activated 28.4 Partial Thrombop last Time Sodium Level 139 141 Potassium Level 3.7 3.4 L Chloride Level 107 104 Carbon Dioxide 22 28 Level Anion Gap 10 9 Blood Urea 20 19 Nitrogen Creatinine 0.73 0.91 Est Glomerular > 60 > 60 Filtrat Rate mL/min Glucose Level 136 105 Calcium Level 9.0 8.9 Troponin I < 0.012 Total Bilirubin 0.7 Direct Bilirubin 0.00 Indirect 0.7 Bilirubin Aspartate Amino 46 Transf (AST/SGOT ) Alanine 34 Aminotransferase (ALT/SGPT) Alkaline 148 H Phosphatase Total Protein 6.8 Albumin 3.3 Globulin 3.50 H Albumin/Globulin 0.94 Ratio Pathologist YES Review (Hematolo gy) Body Fluid Type THORACENTESIS F LUID Body Fluid 1050.0 Volume Body Fluid Color YELLOW Body Fluid CLOUDY Appearance Body Fluid WBC 355 Body Fluid RBC 7000 (Auto) Body Fluid 10.7 Polynuclear WBCs (%) Body Fluid 89.3 Mononuclear Cells % Auto Body Fluid 103 Glucose Body Fluid Total 4.3 Protein Body Fluid 301 Lactate Dehydrog enase Medications Medication Current Medications Carvedilol (Coreg) 3.125 mg BID PO ; Start 10/29/18 at 09:00 Lisinopril (Zestril) 2.5 mg DAILY PO ; Start 10/29/18 at 09:00 Pantoprazole (Protonix Tab) 40 mg DAILY@06 PO Last administered on 10/29/18at 05:09; Admin Dose 40 MG; Start 10/29/18 at 06:00 Enoxaparin Sodium (Lovenox) 40 mg DAILY SC ; Start 10/29/18 at 09:00 Acetaminophen (Tylenol Tab) 650 mg Q6H PRN PO MILD PAIN(1-3)OR ELEVATED TEMP Last administered on 10/29/18at 13:47; Admin Dose 650 MG; Start 10/28/18 at 22:30 Ondansetron HCl (Zofran Inj) 4 mg Q6H PRN IV NAUSEA AND/OR VOMITING; Start 10/28/18 at 22:30 Albuterol/ Ipratropium (Duoneb) 3 ml Q6H RESP THERAPY PRN HHN SHORTNESS OF BREATH; Start 10/28/18 at 22:30 Ceftriaxone Sodium 500 mg/ Sodium Chloride 50 ml @ 100 mls/hr Q24H IVPB Last administered on 10/29/18at 01:05; Admin Dose 100 MLS/HR; Start 10/28/18 at 23:30 Bumetanide (Bumex) 1 mg BID DIURETICS IV ; Start 10/29/18 at 18:00 SHIN HAN MD Oct 29, 2018 15:42
[2018-10-29] MEDS: ALBUTEROL/IPRATROPIUM (NEB) 3 ML AMP HHN PRN (16:29)
[2018-10-29] MEDS: BUMETANIDE 1 MG INJ IV SCH (17:07)
--- NOTE | 2018-10-29 22:38 | CONS ---
DATE OF ADMISSION: 10/28/2018 DATE OF CONSULTATION: 10/29/2018 REASON FOR CONSULTATION: Congestive heart failure exacerbation, shortness of breath. REQUESTING PHYSICIAN: Fartun Combs MD HISTORY OF PRESENT ILLNESS: This is a 38-year-old female with a history of right-sided congestive heart failure, acute on chronic. 1. Pulmonary hypertension, last RVSP of 67 with severe tricuspid regurgitation, polysubstance abuse. Notably with methamphetamines, who states that she was just admitted to an outside hospital and discharged to outpatient followup. Returned home and noted that she continued to have problems breathing and symptoms consistent with orthopnea, significant lower extremity edema. Upon arrival, temperature 98.7, blood pressure 116/105, pulse 93, respiratory rate 20, satting 98%. The patient's labs, a white count 9.5, hemoglobin 13.7, platelet count 336. Sodium 139, potassium 3.7, creatinine 0.7, BUN 20, AST 46, ALT 34. Troponin negative. INR 1.1. ABG revealing a pH of 7.422, a PaO2 of 71, a pCO2 of 34, and a venous line. Patient's chest x-ray revealed a large right pleural effusion with right middle lobe and right upper lobe collapse. The patient does not have electrocardiogram in chart for my review at this time. The patient is admitted to the floor and since admit to floor, underwent thoracentesis -1 liter of fluid. PAST MEDICAL HISTORY: As above in HPI. MEDICATIONS CURRENTLY IN HOSPITAL: 1. Azmacort daily. 2. Bumex 1 mg IV b.i.d. 3. Carvedilol 3.125 mg p.o. b.i.d. 4. Lisinopril 2.5 mg daily. 5. Lovenox subQ daily. 6. Protonix 40 mg daily. 8. Ceftriaxone. 9. Tylenol. 10. Zofran. 11. DuoNeb. ALLERGIES: NO KNOWN DRUG ALLERGIES. SOCIAL HISTORY: Positive history of polysubstance abuse per patient, has not used methamphetamines since before her last hospitalization, so several weeks. FAMILY HISTORY: No history of sudden cardiac or early CAD. REVIEW OF SYSTEMS: As above in HPI. CONSTITUTIONAL: No fevers, chills. PULMONARY: Shortness of breath. CARDIOVASCULAR: Congestive heart failure. GASTROINTESTINAL: No vomiting. GENITOURINARY: No hematuria, dysuria. MUSCULOSKELETAL: No significant myalgias or arthralgias. ENDOCRINE: No documented diagnosed thyroid disease. PHYSICAL EXAMINATION: VITAL SIGNS: Temperature of 98, blood pressure most recently 117/81, pulse 77, respiratory rate 14, satting 94%, off BiPAP. GENERAL: The patient is alert, awake, complaining of shortness of breath. NECK: JVP approximately 10 to 11 cm water but also has a large V wave therefore causing some discrepancy with the assessment of jugular venous distention. HEART: Regular rate and rhythm. Normal S1, increased S2, 1/6 systolic murmur. CHEST: Decreased breath sounds at bases bilaterally. ABDOMEN: Positive bowel sounds, soft. EXTREMITIES: 2 to 3+ edema bilaterally. LABORATORY DATA: Most recently from today, sodium 141, potassium 3.4, creatinine of 5.9, BUN 19. Troponin negative x2. White blood cell count of 9.4, hemoglobin 13.3, platelet count 319. IMAGING STUDIES: Chest x-ray from today revealing large right pleural effusion, associated right upper lobe field consolidation, there may be a layering left pleural effusion. ECG: No electrocardiograms for my review at this time. IMPRESSION: 1. Congestive heart failure exacerbation. Patient with both left and right- sided findings with the left having at least by previous echo, preserved EF and the right having significant RV dysfunction. 2. Tricuspid regurgitation, severe. 3. Hypotension, borderline. 4. Shortness of breath secondary to #1. 5. Pleural effusion, right side large, status post thoracentesis -1 liter. 6. Polysubstance abuse, most notably with methamphetamines. RECOMMENDATIONS: 1. At this time, we would maintain the patient on telemetry monitoring to follow rhythm and rate control closely. 2. We would continue the patient's Bumex diuresis, following strict I's and O's to grade diuresis closely and for now, will continue the patient's low dose carvedilol and lisinopril and will write for hold parameters. They have been held today and patient with actually reasonable blood pressures should tolerate them. 3. Continue patient's antibiotics and follow up all culture data. 4. Will consider a repeat echo to reassess patient's left ventricular ejection fraction and reassess the pulmonary pressures. 5. After significant diuresis when patient's volume status is near euvolemia would reassess patient's right ventricular systolic pressure and if found to be elevated and more consistent with true primary pulmonary hypertension then will treat the patient for pulmonary hypertension and to possibly improve her right- sided failure. Thank you for allowing me to take part in the care of this patient. I will continue to follow her very closely with you with recommendations to be made as the patient progresses through her inpatient hospital course. Dictated By: JEFF MACKEY/FARHAD Conf#: [id number] DID#: [id number] CC: FARTUN COMBS; EDDIE KANG MD;*EndCC* MTDD
[2018-10-30] VITALS (10 sets, daily range): BP systolic 89–119; BP diastolic 54–74; PULSE 70–100; RESP 17–20
[2018-10-30] MEDS: ACETAMINOPHEN 325 MG TAB PO PRN ×2 (02:54→20:18)
[2018-10-30] MEDS: PANTOPRAZOLE (EC) 40 MG TAB PO SCH (05:38)
[2018-10-30] MEDS: BUMETANIDE 1 MG INJ IV SCH ×2 (05:38→17:08)
[2018-10-30] MEDS: POTASSIUM CHLORIDE (SR) 20 MEQ TAB PO SCH (08:08)
[2018-10-30] MEDS: LISINOPRIL 5 MG TAB PO SCH (08:08)
[2018-10-30] MEDS: ENOXAPARIN 40 MG/0.4 ML SYG SC SCH (08:18)
[2018-10-30] MEDS ORDERED: BUMETANIDE 1 MG INJ IV ONE (10:00)
--- NOTE | 2018-10-30 12:40 | CONS ---
Assessment/Plan Assessment/Plan Hospital Course (Demo Recall) IMPRESSION: 1. Congestive heart failure exacerbation. Patient with both left and right-sided findings with the left having at least by previous echo, preserved EF and the right having significant RV dysfunction. 2. Tricuspid regurgitation, severe. 3. Hypotension, borderline. 4. Shortness of breath secondary to #1. 5. Pleural effusion, right side large, status post thoracentesis -1 liter. 6. Polysubstance abuse, most notably with methamphetamines. Recc: -Tele -Continue coreg/.ACEI -Contineu bumex and follow volume status -Continue abx's and f/u cx data Consultation Date/Type/Reason Admit Date/Time Oct 28, 2018 at 19:39 Initial Consult Date Lauryn Type of Consult Cardiology Reason for Consultation CHF Requesting Provider: SHIN HAN MD Date/Time of Note DATE: 10/30/18 TIME: 12:31 Exam/Review of Systems Vital Signs Vitals Vital Signs Date Temp Pulse Resp B/P (MAP) Pulse Ox O2 O2 Flow FiO2 Time Delivery Rate 10/30/18 98.0 99 20 119/71 99 Nasal 11:25 (87) Cannula 10/30/18 6.0 10:08 10/30/18 30 03:09 Intake and Output 10/29/18 10/29/18 10/30/18 1515:00 23:00 07:00 IntakeIntake Total 400 ml 1700 ml 400 ml OutputOutput Total 7 ml BalanceBalance 400 ml 1693 ml 400 ml Exam Exam Review of Systems: CONSTITUTIONAL: No fevers, chills. PULMONARY: No sob CARDIOVASCULAR: No chest pain/palpitations GASTROINTESTINAL: No nausea/vomiting. GENITOURINARY: No hematuria/dysuria. MUSCULOSKELETAL: No myagias/arthalgias. PSYCHIATRIC: The patient denies depression. NEUROLOGIC: No weakness Constitutional: alert Psych: no complaints Head: normocephalic ENMT: mucosa pink and moist Neck: supple, jvd (9) Respiratory: diminished breath sounds Cardiovascular: regular rate and rhythm Gastrointestinal: soft, non-tender Musculoskeletal: muscle tone (normal) Extremities: pitting pedal edema (bilateral LE) Labs Result Diagram: 10/29/18 0448 10/30/18 0440 Results 24hrs Laboratory Tests Test 10/29/18 16:40 10/29/18 17:10 10/30/18 04:40 Troponin I < 0.012 < 0.012 Urine Color JOSEFINA Urine Clarity CLEAR Urine pH 5.0 Urine Specific [place] 1.019 Urine Ketones NEGATIVE Urine Nitrite NEGATIVE Urine Bilirubin NEGATIVE Urine Urobilinogen 2+ H Urine Leukocyte Esterase NEGATIVE Urine Hemoglobin NEGATIVE Urine Glucose NEGATIVE Urine Total Protein NEGATIVE Sodium Level 141 Potassium Level 4.3 Chloride Level 102 Carbon Dioxide Level 28 Anion Gap 11 Blood Urea Nitrogen 15 Creatinine 0.77 Est Glomerular Filtrat Rate mL/min > 60 Glucose Level 88 Calcium Level 9.0 Triglycerides Level 88 Cholesterol Level 122 LDL Cholesterol, Calculated 81 HDL Cholesterol 23 L Cholesterol/HDL Ratio 5.3 Medications Medications Current Medications Carvedilol (Coreg) 3.125 mg BID PO Last administered on 10/30/18 08:08; Admin Dose 3.125 MG; Start 10/29/18 at 09:00 Lisinopril (Zestril) 2.5 mg DAILY PO Last administered on 10/30/18 08:08; Admin Dose 2.5 MG; Start 10/29/18 at 09:00 Pantoprazole (Protonix Tab) 40 mg DAILY@06 PO Last administered on 10/30/18at 05:38; Admin Dose 40 MG; Start 10/29/18 at 06:00 Enoxaparin Sodium (Lovenox) 40 mg DAILY SC Last administered on 10/30/18at 08:18; Admin Dose 40 MG; Start 10/29/18 at 09:00 Acetaminophen (Tylenol Tab) 650 mg Q6H PRN PO MILD PAIN(1-3)OR ELEVATED TEMP Last administered on 10/30/18at 02:54; Admin Dose 650 MG; Start 10/28/18 at 22:30 Ondansetron HCl (Zofran Inj) 4 mg Q6H PRN IV NAUSEA AND/OR VOMITING; Start 10/28/18 at 22:30 Albuterol/ Ipratropium (Duoneb) 3 ml Q6H RESP THERAPY PRN HHN SHORTNESS OF BREATH Last administered on 10/29/18at 16:29; Admin Dose 3 ML; Start 10/28/18 at 22:30 Ceftriaxone Sodium 500 mg/ Sodium Chloride 50 ml @ 100 mls/hr Q24H IVPB Last administered on 10/29/18at 22:20; Admin Dose 100 MLS/HR; Start 10/28/18 at 23:30 Potassium Chloride (Klor-Con 20) 20 meq DAILY PO Last administered on 10/30/18at 08:08; Admin Dose 20 MEQ; Start 10/30/18 at 09:00 Bumetanide (Bumex) 2 mg BID DIURETICS IV ; Start 10/30/18 at 18:00 JEFF HARMON Oct 30, 2018 12:40
--- NOTE | 2018-10-30 13:04 | CONS ---
DATE OF ADMISSION: 10/28/2018 DATE OF CONSULTATION: 10/30/2018 REASON FOR CONSULTATION: Shortness of breath. Thank you, Dr. Kang, for this consultation. HISTORY OF PRESENT ILLNESS: This is a 38-year-old lady with history of severe pulmonary hypertension , right heart failure, who presented with increasing shortness of breath, orthopnea, PND. In [facility], has a history of methamphetamine abuse, found to have moderate to large pleural effusion and under went thoracentesis, 1 liter removed. States she is still sort of breath. Denies any fever, chills, chest pain, no palpitations are present. PAST MEDICAL HISTORY: 1. Methamphetamine abuse. 2. Right heart failure. 3. Incomplete data. MEDICATIONS: Per chart. ALLERGIES: NONE. SOCIAL HISTORY: She is a current nonsmoker. ETOH and illicit drug history as above. PHYSICAL EXAMINATION: GENERAL: Well-nourished, well-developed lady, comfortable at rest, no acute distress. VITAL SIGNS: Currently afebrile, pulse is 95, blood pressure 109/74, O2 saturation 96%, FIO2 of 4 li ters. NECK: Supple. No JVD or lymphadenopathy. CARDIAC: S1, S2, no added sounds or murmurs. CHEST: Diminished air entry bilaterally. No rales or wheezes. ABDOMEN: Soft, nontender. No guarding or rebound. EXTREMITIES: No cyanosis, clubbing or edema. NEUROLOGIC: Grossly intact. No focal deficits. IMPRESSION AND PLAN: 1. Right pleural effusion. Initial pleural fluid studies consistent with an exudative effusion. 2. History of right heart failure. 3. History of substance abuse with methamphetamine. The patient will require: 1. Repeat chest x-ray. 2. Agree with increasing diuretics. 3. Possibly repeat thoracentesis to remove remaining fluid. 4. Close and tighter management of her heart failure. Dictated By: RAMIN JIMENEZ MD SV/NTS Conf#: [id number] DID#: [id number] CC: EDDIE KANG MD;*EndCC*
--- NOTE | 2018-10-30 16:19 | PN ---
Date/Time of Note Date/Time of Note DATE: 10/30/18 TIME: 16:02 Assessment/Plan VTE Prophylaxis Risk score (from [facility] [place])>0 risk: 2 SCD applied (from [facility] [place]): No SCD contraindicated: patient refusal Pharmacological prophylaxis: LMWH Lines/Catheters IV Catheter Type (from [facility]): Saline Lock Assessment/Plan Hospital Course 1. Acute on chronic systolic heart failure-- ECHO reviewed with EF 60% and severe right atrial enlargement, right ventricle dilation with reduced systolic function, severe TR 2. Severe pulmonary HTN 3. Large right pleural effusion s/p thoracentesis 07/30/2018. Pathology: Left thoracentesis fluid for cytology: -- Negative for malignant cells. 4. h/o Meth use 5. Overweight 6. hyperlipidemia 7. Hypotension 8. S.p appendectomy 9. Back pain Assessment/Plan -DVT proph. Lovenox -GI proph. Protonix -for hypotension start Midodrine and Albumin 12.5 G prn -c/w bumex for diuresis BID -cards and pul consult are appreciated. - cw MTP and Lisinopril. - CT chest ? mass - drug cessation. -pain control - supplemental oxygen --Potassium replacement Result Diagram: 10/29/188 10/30/18 0440 Results 24hrs Laboratory Tests Test 10/29/18 16:40 10/29/18 17:10 10/30/18 04:40 Troponin I < 0.012 < 0.012 Urine Color JOSEFINA Urine Clarity CLEAR Urine pH 5.0 Urine Specific [place] 1.019 Urine Ketones NEGATIVE Urine Nitrite NEGATIVE Urine Bilirubin NEGATIVE Urine Urobilinogen 2+ H Urine Leukocyte Esterase NEGATIVE Urine Hemoglobin NEGATIVE Urine Glucose NEGATIVE Urine Total Protein NEGATIVE Sodium Level 141 Potassium Level 4.3 Chloride Level 102 Carbon Dioxide Level 28 Anion Gap 11 Blood Urea Nitrogen 15 Creatinine 0.77 Est Glomerular Filtrat Rate mL/min > 60 Glucose Level 88 Calcium Level 9.0 Triglycerides Level 88 Cholesterol Level 122 LDL Cholesterol, Calculated 81 HDL Cholesterol 23 L Cholesterol/HDL Ratio 5.3 Subjective 24 Hr Interval Summary Free Text/Dictation Constitutional: No fever, cough or chills. EYE: No eye disease. No visual problems. CARDIOVASCULAR: No chest pain. No tachycardia. No Palpitation. RESPIRATORY: SOB, on oxygen GASTROINTESTINAL: painLLQ Endocrine: No excessive thirst, No polyuria, No hot intolerance. No cold intolerance. MUSCULO-SKELETAL: . Feet are tight when standing, back pain 5.10 NEUROLOGICAL: Alert oriented in person, place, time and situation. No Headache, Confusion. No Seizures. No problem with balance. unable to feel lower extremities some places, Exam/Review of Systems Exam Vitals Vital Signs Date Temp Pulse Resp B/P (MAP) Pulse Ox O2 O2 Flow FiO2 Time Delivery Rate 10/30/18 98.0 73 19 89/57 (68) 99 Nasal 15:33 Cannula 10/30/18 3.0 12:42 10/30/18 30 03:09 Intake and Output 10/29/18 10/29/18 10/30/18 1515:00 23:00 07:00 IntakeIntake Total 400 ml 1700 ml 400 ml OutputOutput Total 7 ml BalanceBalance 400 ml 1693 ml 400 ml Exam No acute distress, no events overnight. Eyes: anicteric, EOM's intact, no pallor Nose: no rhinorrhea Neck: supple, no thyromegaly, no carotid bruits, JVD 3-4 cm Lungs: rales bilaterally, decreased., on oxygen via nasal cannula 4 l/min CVS: regular rate and rhythm, no murmurs Abdomen: distended, LLQ painful on palpation Rectal: differed. External genitalia: no lesions. Extremities: DP pulses are palpable, weak Neuro: alert and oriented x 3 Gait: abnormal, need help Motor strenght: 5+/5+ Sensory exam: BLE are decreased in sensation, has spots of decreased sensation Deep tendon reflexes: normal, Babisky reflexes are absent bilaterally Skin: no lesions, Anasarca, edema 2+ Results Results 24hrs Laboratory Tests Test 10/29/18 16:40 10/29/18 17:10 10/30/18 04:40 Troponin I < 0.012 < 0.012 Urine Color JOSEFINA Urine Clarity CLEAR Urine pH 5.0 Urine Specific [place] 1.019 Urine Ketones NEGATIVE Urine Nitrite NEGATIVE Urine Bilirubin NEGATIVE Urine Urobilinogen 2+ H Urine Leukocyte Esterase NEGATIVE Urine Hemoglobin NEGATIVE Urine Glucose NEGATIVE Urine Total Protein NEGATIVE Sodium Level 141 Potassium Level 4.3 Chloride Level 102 Carbon Dioxide Level 28 Anion Gap 11 Blood Urea Nitrogen 15 Creatinine 0.77 Est Glomerular Filtrat Rate mL/min > 60 Glucose Level 88 Calcium Level 9.0 Triglycerides Level 88 Cholesterol Level 122 LDL Cholesterol, Calculated 81 HDL Cholesterol 23 L Cholesterol/HDL Ratio 5.3 Medications Medication Current Medications Carvedilol (Coreg) 3.125 mg BID PO Last administered on 10/30/18 08:08; Admin Dose 3.125 MG; Start 10/29/18 at 09:00 Lisinopril (Zestril) 2.5 mg DAILY PO Last administered on 10/30/18 08:08; Admin Dose 2.5 MG; Start 10/29/18 at 09:00 Pantoprazole (Protonix Tab) 40 mg DAILY@06 PO Last administered on 10/30/18 05:38; Admin Dose 40 MG; Start 10/29/18 at 06:00 Enoxaparin Sodium (Lovenox) 40 mg DAILY SC Last administered on 10/30/18 08:18; Admin Dose 40 MG; Start 10/29/18 at 09:00 Acetaminophen (Tylenol Tab) 650 mg Q6H PRN PO MILD PAIN(1-3)OR ELEVATED TEMP Last administered on 10/30/18 02:54; Admin Dose 650 MG; Start 10/28/18 at 22:30 Ondansetron HCl (Zofran Inj) 4 mg Q6H PRN IV NAUSEA AND/OR VOMITING; Start 10/28/18 at 22:30 Albuterol/ Ipratropium (Duoneb) 3 ml Q6H RESP THERAPY PRN HHN SHORTNESS OF BREATH Last administered on 10/29/18 16:29; Admin Dose 3 ML; Start 10/28/18 at 22:30 Ceftriaxone Sodium 500 mg/ Sodium Chloride 50 ml @ 100 mls/hr Q24H IVPB Last administered on 10/29/18 22:20; Admin Dose 100 MLS/HR; Start 10/28/18 at 23:30 Potassium Chloride (Klor-Con 20) 20 meq DAILY PO Last administered on 10/30/18 08:08; Admin Dose 20 MEQ; Start 10/30/18 at 09:00 Bumetanide (Bumex) 2 mg BID DIURETICS IV ; Start 10/30/18 at 18:00 VEGA TEIXEIRA NP Oct 30, 2018 16:12
[2018-10-30] MEDS: MIDODRINE 2.5 MG TAB PO SCH (17:08)
[2018-10-30] MEDS: ALBUMIN HUMAN 25% 100 ML IV SCH ×2 (17:08→23:55)
[2018-10-30] MEDS: CEFTRIAXONE 500 MG in SOD CHLORIDE 0.9% 50 ML IVPB SCH (22:59)
[2018-10-31 04:00] VITALS: BP 107/65; PULSE 96; RESP 19
[2018-10-31] MEDS: PANTOPRAZOLE (EC) 40 MG TAB PO SCH (06:06)
[2018-10-31] MEDS: BUMETANIDE 1 MG INJ IV SCH ×2 (06:06→16:53)
[2018-10-31 07:27] VITALS: BP 98/57; PULSE 60; RESP 20
[2018-10-31] MEDS: LISINOPRIL 5 MG TAB PO SCH (07:35)
[2018-10-31] MEDS: MIDODRINE 2.5 MG TAB PO SCH (08:10)
[2018-10-31] MEDS: ALBUMIN HUMAN 25% 100 ML IV SCH (08:10)
[2018-10-31] MEDS: POTASSIUM CHLORIDE (SR) 20 MEQ TAB PO SCH (08:10)
[2018-10-31] MEDS: ENOXAPARIN 40 MG/0.4 ML SYG SC SCH (08:30)
[2018-10-31] MEDS: ACETAMINOPHEN 325 MG TAB PO PRN ×3 (10:44→20:50)
[2018-10-31 11:07] VITALS: BP 102/70; PULSE 89; RESP 18
--- NOTE | 2018-10-31 14:41 | CONS ---
Assessment/Plan Assessment/Plan Hospital Course (Demo Recall) IMPRESSION: 1. Congestive heart failure exacerbation. Patient with both left and right-sided findings with the left having at least by previous echo, preserved EF and the right having significant RV dysfunction. 2. Tricuspid regurgitation, severe. 3. Hypotension, borderline. 4. Shortness of breath secondary to #1. 5. Pleural effusion, right side large, status post thoracentesis -1 liter. 6. Polysubstance abuse, most notably with methamphetamines. Recc: -Tele -Continue coreg/ACEI as tolerated only -Contineu bumex s/p increase and follow volume status -Continue abx's and f/u cx data -? need for repeat thoracentesis and then consider pleurodesis/decortication as necessary -will repeat echo after diuresis to reassess PAP and need for treament -would hold on midodrine at this time and continue ACEI/BB as tolearted only Consultation Date/Type/Reason Admit Date/Time Oct 28, 2018 at 19:39 Initial Consult Date Lauryn Type of Consult Cardiology Reason for Consultation CHF Requesting Provider: SHIN HAN MD Date/Time of Note DATE: 10/31/18 TIME: 14:38 Exam/Review of Systems Vital Signs Vitals Vital Signs Date Temp Pulse Resp B/P (MAP) Pulse Ox O2 O2 Flow FiO2 Time Delivery Rate 10/31/18 98.0 89 18 102/70 93 Nasal 11:07 (81) Cannula 10/31/18 6.0 07:37 10/30/18 30 23:47 Intake and Output 10/30/18 10/30/18 10/31/18 1515:00 23:00 07:00 IntakeIntake Total 1000 ml 840 ml OutputOutput Total 4100 ml 1700 ml 700 ml BalanceBalance -4100 ml -700 ml 140 ml Exam Exam Review of Systems: CONSTITUTIONAL: No fevers, chills. PULMONARY: ongoing sob CARDIOVASCULAR: No chest pain/palpitations GASTROINTESTINAL: No nausea/vomiting. GENITOURINARY: No hematuria/dysuria. MUSCULOSKELETAL: No myagias/arthalgias. PSYCHIATRIC: The patient denies depression. NEUROLOGIC: No weakness Constitutional: alert Psych: no complaints Head: normocephalic ENMT: mucosa pink and moist Neck: supple, jvd (9 cm water) Respiratory: diminished breath sounds (at bases R>L) Cardiovascular: regular rate and rhythm Gastrointestinal: soft, non-tender Musculoskeletal: muscle tone (normal) Extremities: pitting pedal edema (bilateral LE) Neurological: other (No focal deficits) Labs Result Diagram: 10/31/1844610/31/18446 Results 24hrs Laboratory Tests Test 10/31/18 04:47 White Blood Count 7.5 # Red Blood Count 3.90 L Hemoglobin 12.7 Hematocrit 38.6 Mean Corpuscular Volume 99.0 Mean Corpuscular Hemoglobin 32.6 Mean Corpuscular Hemoglobin Concent 32.9 Red Cell Distribution Width 15.9 H Platelet Count 312 Mean Platelet Volume 10.3 Immature Granulocytes % 0.300 Neutrophils % 56.1 Lymphocytes % 30.4 Monocytes % 10.3 Eosinophils % 2.4 Basophils % 0.5 Nucleated Red Blood Cells % 0.0 Immature Granulocytes # 0.020 Neutrophils # 4.2 Lymphocytes # 2.3 Monocytes # 0.8 Eosinophils # 0.2 Basophils # 0.0 Nucleated Red Blood Cells # 0.0 Sodium Level 140 Potassium Level 3.6 Chloride Level 99 Carbon Dioxide Level 32 H Anion Gap 9 Blood Urea Nitrogen 20 Creatinine 0.85 Est Glomerular Filtrat Rate mL/min > 60 Glucose Level 82 Calcium Level 9.2 Medications Medications Current Medications Carvedilol (Coreg) 3.125 mg BID PO Last administered on 10/30/18at 08:08; Admin Dose 3.125 MG; Start 10/29/18 at 09:00 Lisinopril (Zestril) 2.5 mg DAILY PO Last administered on 10/30/18at 08:08; Admin Dose 2.5 MG; Start 10/29/18 at 09:00 Pantoprazole (Protonix Tab) 40 mg DAILY@06 PO Last administered on 10/31/18at 06:06; Admin Dose 40 MG; Start 10/29/18 at 06:00 Enoxaparin Sodium (Lovenox) 40 mg DAILY SC Last administered on 10/31/18at 08:30; Admin Dose 40 MG; Start 10/29/18 at 09:00 Acetaminophen (Tylenol Tab) 650 mg Q6H PRN PO MILD PAIN(1-3)OR ELEVATED TEMP Last administered on 10/31/18at 10:44; Admin Dose 650 MG; Start 10/28/18 at 22:30 Ondansetron HCl (Zofran Inj) 4 mg Q6H PRN IV NAUSEA AND/OR VOMITING; Start 10/28/18 at 22:30 Albuterol/ Ipratropium (Duoneb) 3 ml Q6H RESP THERAPY PRN HHN SHORTNESS OF BREATH Last administered on 10/29/18 16:29; Admin Dose 3 ML; Start 10/28/18 at 22:30 Ceftriaxone Sodium 500 mg/ Sodium Chloride 50 ml @ 100 mls/hr Q24H IVPB Last administered on 10/30/18at 22:59; Admin Dose 100 MLS/HR; Start 10/28/18 at 23:30 Potassium Chloride (Klor-Con 20) 20 meq DAILY PO Last administered on 10/31/18 08:10; Admin Dose 20 MEQ; Start 10/30/18 at 09:00 Bumetanide (Bumex) 2 mg BID DIURETICS IV Last administered on 10/31/18 06:06; Admin Dose 2 MG; Start 10/30/18 at 18:00 Midodrine (Proamatine) 2.5 mg BID@09,17 PO Last administered on 10/31/18 08:10; Admin Dose 2.5 MG; Start 10/30/18 at 17:00 JEFF HARMON Oct 31, 2018 14:41
[2018-10-31 15:20] VITALS: BP 100/59; PULSE 93; RESP 18
[2018-10-31] MEDS: ALBUTEROL/IPRATROPIUM (NEB) 3 ML AMP HHN PRN (15:51)
--- NOTE | 2018-10-31 16:30 | PN ---
Date/Time of Note Date/Time of Note DATE: 10/31/18 TIME: 16:25 Assessment/Plan VTE Prophylaxis Risk score (from Ns)>0 risk: 2 SCD applied (from [facility]): No SCD contraindicated: other (edema) Pharmacological prophylaxis: LMWH Lines/Catheters IV [facility] (from [facility] Saline Lock Assessment/Plan Hospital Course 1. Acute on chronic systolic heart failure-- ECHO reviewed with EF 60% and severe right atrial enlargement, right ventricle dilation with reduced systolic function, severe TR 2. Severe pulmonary HTN 3. Large right pleural effusion s/p thoracentesis 07/30/2018. Pathology: Left thoracentesis fluid for cytology: -- Negative for malignant cells.. Pt might need pleurodesis. 4. h/o Meth use 5. Overweight 6. hyperlipidemia 7. Hypotension, resolved 8. S.p appendectomy 9. Back pain 10. dyslipidemia Assessment/Plan -per nursing pt is non compliant with fluid restriction -no hypotension -negative balance -DVT proph. Lovenox -GI proph. Protonix -for hypotension c/w Midodrine prn and Albumin 12.5 G prn -c/w bumex for diuresis BID -cards and pul consult are appreciated. - cw MTP and Lisinopril , they are on hold sometimes -pain control - supplemental oxygen --Potassium replacement Result Diagram: 10/31/1844610/31/18446 Results 24hrs Laboratory Tests Test 10/31/18 04:47 White Blood Count 7.5 # Red Blood Count 3.90 L Hemoglobin 12.7 Hematocrit 38.6 Mean Corpuscular Volume 99.0 Mean Corpuscular Hemoglobin 32.6 Mean Corpuscular Hemoglobin Concent 32.9 Red Cell Distribution Width 15.9 H Platelet Count 312 Mean Platelet Volume 10.3 Immature Granulocytes % 0.300 Neutrophils % 56.1 Lymphocytes % 30.4 Monocytes % 10.3 Eosinophils % 2.4 Basophils % 0.5 Nucleated Red Blood Cells % 0.0 Immature Granulocytes # 0.020 Neutrophils # 4.2 Lymphocytes # 2.3 Monocytes # 0.8 Eosinophils # 0.2 Basophils # 0.0 Nucleated Red Blood Cells # 0.0 Sodium Level 140 Potassium Level 3.6 Chloride Level 99 Carbon Dioxide Level 32 H Anion Gap 9 Blood Urea Nitrogen 20 Creatinine 0.85 Est Glomerular Filtrat Rate mL/min > 60 Glucose Level 82 Calcium Level 9.2 Subjective 24 Hr Interval Summary Free Text/Dictation Constitutional: No fever, cough or chills. CARDIOVASCULAR: No chest pain. No tachycardia. No Palpitation. RESPIRATORY: SOB, on oxygen GASTROINTESTINAL: No Nausea. No Vomiting. No constipation. Endocrine: feel thirsty all the time. MUSCULO-SKELETAL: decreased sensation LE, pain sometimes, back pain NEUROLOGICAL: Alert oriented in person, place, time and situation. No Headache, Confusion. No Seizures. No problem with balance. Exam/Review of Systems Exam Vitals Vital Signs Date Temp Pulse Resp B/P (MAP) Pulse Ox O2 O2 Flow FiO2 Time Delivery Rate 10/31/18 97 4.0 15:51 10/31/18 97 20 Nasal 15:51 Cannula 10/31/18 98.0 100/59 15:20 (73) 10/30/18 30 23:47 Intake and Output 10/30/18 10/30/18 10/31/18 1515:00 23:00 07:00 IntakeIntake Total 1000 ml 840 ml OutputOutput Total 4100 ml 1700 ml 700 ml BalanceBalance -4100 ml -700 ml 140 ml Exam pt is on fluid rest 1.1 l Eyes: anicteric, EOM's intact, no pallor Nose: no rhinorrhea Neck: supple, no thyromegaly Lungs: clear bilaterally, decreased. CVS: regular rate and rhythm, no murmurs Abdomen: soft, bowel sounds present, no hepatosplenomegally, no masses, no rebound or guarding. Rectal: differed. External genitalia: no lesions. Extremities: no edema, DP pulses are palpable Neuro: alert and oriented x 3 Gait: normal Motor strenght: 5+/5+ Sensory exam: decreased sensation lower extr. Deep tendon reflexes: normal, Babisky reflexes are absent bilaterally Skin: no lesions Results Results 24hrs Laboratory Tests Test 10/31/18 04:47 White Blood Count 7.5 # Red Blood Count 3.90 L Hemoglobin 12.7 Hematocrit 38.6 Mean Corpuscular Volume 99.0 Mean Corpuscular Hemoglobin 32.6 Mean Corpuscular Hemoglobin Concent 32.9 Red Cell Distribution Width 15.9 H Platelet Count 312 Mean Platelet Volume 10.3 Immature Granulocytes % 0.300 Neutrophils % 56.1 Lymphocytes % 30.4 Monocytes % 10.3 Eosinophils % 2.4 Basophils % 0.5 Nucleated Red Blood Cells % 0.0 Immature Granulocytes # 0.020 Neutrophils # 4.2 Lymphocytes # 2.3 Monocytes # 0.8 Eosinophils # 0.2 Basophils # 0.0 Nucleated Red Blood Cells # 0.0 Sodium Level 140 Potassium Level 3.6 Chloride Level 99 Carbon Dioxide Level 32 H Anion Gap 9 Blood Urea Nitrogen 20 Creatinine 0.85 Est Glomerular Filtrat Rate mL/min > 60 Glucose Level 82 Calcium Level 9.2 Medications Medication Current Medications Carvedilol (Coreg) 3.125 mg BID PO Last administered on 10/30/18 08:08; Admin Dose 3.125 MG; Start 10/29/18 at 09:00 Lisinopril (Zestril) 2.5 mg DAILY PO Last administered on 10/30/18 08:08; Admin Dose 2.5 MG; Start 10/29/18 at 09:00 Pantoprazole (Protonix Tab) 40 mg DAILY@06 PO Last administered on 10/31/18 06:06; Admin Dose 40 MG; Start 10/29/18 at 06:00 Enoxaparin Sodium (Lovenox) 40 mg DAILY SC Last administered on 10/31/18 08:30; Admin Dose 40 MG; Start 10/29/18 at 09:00 Acetaminophen (Tylenol Tab) 650 mg Q6H PRN PO MILD PAIN(1-3)OR ELEVATED TEMP Last administered on 10/31/18 10:44; Admin Dose 650 MG; Start 10/28/18 at 22:30 Ondansetron HCl (Zofran Inj) 4 mg Q6H PRN IV NAUSEA AND/OR VOMITING; Start 10/28/18 at 22:30 Albuterol/ Ipratropium (Duoneb) 3 ml Q6H RESP THERAPY PRN HHN SHORTNESS OF BREATH Last administered on 10/31/18 15:51; Admin Dose 3 ML; Start 10/28/18 at 22:30 Ceftriaxone Sodium 500 mg/ Sodium Chloride 50 ml @ 100 mls/hr Q24H IVPB Last administered on 10/30/18 22:59; Admin Dose 100 MLS/HR; Start 10/28/18 at 23:30 Potassium Chloride (Klor-Con 20) 20 meq DAILY PO Last administered on 10/31/18 08:10; Admin Dose 20 MEQ; Start 10/30/18 at 09:00 Bumetanide (Bumex) 2 mg BID DIURETICS IV Last administered on 10/31/18at 06:06; Admin Dose 2 MG; Start 10/30/18 at 18:00 Midodrine (Proamatine) 2.5 mg BID@09,17 PRN PO SBP>85; Start 10/31/18 at 17:00 VEGA TEIXEIRA NP Oct 31, 2018 16:30
[2018-10-31] MEDS ORDERED: MIDODRINE 2.5 MG TAB PO PRN (17:00)
--- NOTE | 2018-10-31 17:12 | CONS ---
Consult Date/Type/Reason Admit Date/Time Oct 28, 2018 at 19:39 Initial Consult Date Type of Consultation: Pulm Requesting Provider: SHIN HAN MD Date/Time of Note DATE: 10/31/18 TIME: 17:07 Subjective Patient feels dyspneic though maybe slightly improved. Objective Vitals Vital Signs Date Temp Pulse Resp B/P (MAP) Pulse Ox O2 O2 Flow FiO2 Time Delivery Rate 10/31/18 97 4.0 15:51 10/31/18 97 20 Nasal 15:51 Cannula 10/31/18 98.0 100/59 15:20 (73) 10/30/18 30 23:47 Intake and Output 10/30/18 10/30/18 10/31/18 1515:00 23:00 07:00 IntakeIntake Total 1000 ml 840 ml OutputOutput Total 4100 ml 1700 ml 700 ml BalanceBalance -4100 ml -700 ml 140 ml Exam HEENT: Neck supple; no JVD; no LAD CVS: RRR, S1 and S2, loud P2 CHEST: Decreased BS left base ABD: Soft, NT, + BS EXT: No c/c; + edema Results/Medications Result Diagram: 10/31/1844610/31/18446 Results 24 hrs Laboratory Tests Test 10/31/18 04:47 White Blood Count 7.5 # Red Blood Count 3.90 L Hemoglobin 12.7 Hematocrit 38.6 Mean Corpuscular Volume 99.0 Mean Corpuscular Hemoglobin 32.6 Mean Corpuscular Hemoglobin Concent 32.9 Red Cell Distribution Width 15.9 H Platelet Count 312 Mean Platelet Volume 10.3 Immature Granulocytes % 0.300 Neutrophils % 56.1 Lymphocytes % 30.4 Monocytes % 10.3 Eosinophils % 2.4 Basophils % 0.5 Nucleated Red Blood Cells % 0.0 Immature Granulocytes # 0.020 Neutrophils # 4.2 Lymphocytes # 2.3 Monocytes # 0.8 Eosinophils # 0.2 Basophils # 0.0 Nucleated Red Blood Cells # 0.0 Sodium Level 140 Potassium Level 3.6 Chloride Level 99 Carbon Dioxide Level 32 H Anion Gap 9 Blood Urea Nitrogen 20 Creatinine 0.85 Est Glomerular Filtrat Rate mL/min > 60 Glucose Level 82 Calcium Level 9.2 Home Meds Active Scripts Furosemide* (Lasix*) 40 Mg Tablet, 40 MG PO BID for 30 Days, #60 TAB 1 Refill Prov:DARINEL TURNER MD 08/20/18 Lisinopril* (Lisinopril*) 2.5 Mg Tablet, 2.5 MG PO DAILY for 30 Days, #30 TAB 1 Refill Prov:DARINEL TURNER MD 08/20/18 Carvedilol* (Carvedilol*) 3.125 Mg Tablet, 3.125 MG PO BID for 30 Days, #60 TAB 1 Refill Prov:DARINEL TURNER MD 08/20/18 Medications Current Medications Carvedilol (Coreg) 3.125 mg BID PO Last administered on 10/30/18 08:08; Admin Dose 3.125 MG; Start 10/29/18 at 09:00 Lisinopril (Zestril) 2.5 mg DAILY PO Last administered on 10/30/18 08:08; Admin Dose 2.5 MG; Start 10/29/18 at 09:00 Pantoprazole (Protonix Tab) 40 mg DAILY@06 PO Last administered on 10/31/18 06:06; Admin Dose 40 MG; Start 10/29/18 at 06:00 Enoxaparin Sodium (Lovenox) 40 mg DAILY SC Last administered on 10/31/18at 0 8:30; Admin Dose 40 MG; Start 10/29/18 at 09:00 Acetaminophen (Tylenol Tab) 650 mg Q6H PRN PO MILD PAIN(1-3)OR ELEVATED TEMP Last administered on 10/31/18 16:53; Admin Dose 650 MG; Start 10/28/18 at 22:30 Ondansetron HCl (Zofran Inj) 4 mg Q6H PRN IV NAUSEA AND/OR VOMITING; Start 10/28/18 at 22:30 Albuterol/ Ipratropium (Duoneb) 3 ml Q6H RESP THERAPY PRN HHN SHORTNESS OF BREATH Last administered on 10/31/18 15:51; Admin Dose 3 ML; Start 10/28/18 at 22:30 Ceftriaxone Sodium 500 mg/ Sodium Chloride 50 ml @ 100 mls/hr Q24H IVPB Last administered on 10/30/18 22:59; Admin Dose 100 MLS/HR; Start 10/28/18 at 23:30 Potassium Chloride (Klor-Con 20) 20 meq DAILY PO Last administered on 7/27/19at 08:10; Admin Dose 20 MEQ; Start 10/30/18 at 09:00 Bumetanide (Bumex) 2 mg BID DIURETICS IV Last administered on 10/31/18at 16:53; Admin Dose 2 MG; Start 10/30/18 at 18:00 Midodrine (Proamatine) 2.5 mg BID@09,17 PRN PO SBP>85; Start 10/31/18 at 17:00 Assessment/Plan Assessment/Plan (Daily) IMP: 1. Recurrent large left-sided lymphocytic predominant exudative pleural effusion--etiology remains unclear. Can represent multifactorial processes though malignancy cannot be excluded. 2. ADHF 3. 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 Add triglycerides to pleural fluid in lab 2. Would discuss in a multidisciplinary setting possible left VATS pleural biopsy and pleurodesis. High PA pressures make her a moderate to high risk surgical candidate and would benefit from tertiary care center with RHC and pulm vasodilators perioperatively. Will discuss with PMD. DONALDO MIXON MD Oct 31, 2018 17:12
[2018-10-31 19:56] VITALS: BP 100/62; PULSE 98; RESP 19
[2018-10-31] MEDS: CEFTRIAXONE 500 MG in SOD CHLORIDE 0.9% 50 ML IVPB SCH (22:49)
[2018-11-01 04:00] VITALS: BP 101/53; PULSE 65; RESP 18
[2018-11-01] MEDS: BUMETANIDE 1 MG INJ IV SCH (05:52)
[2018-11-01] MEDS: PANTOPRAZOLE (EC) 40 MG TAB PO SCH (05:52)
[2018-11-01 07:17] VITALS: BP 90/58; PULSE 90; RESP 20
[2018-11-01] MEDS: LISINOPRIL 5 MG TAB PO SCH (08:07)
[2018-11-01] MEDS: POTASSIUM CHLORIDE (SR) 20 MEQ TAB PO SCH (08:07)
[2018-11-01] MEDS: ENOXAPARIN 40 MG/0.4 ML SYG SC SCH (09:46)
--- NOTE | 2018-11-01 11:15 | CONS ---
Assessment/Plan Assessment/Plan Hospital Course (Demo Recall) IMPRESSION: 1. Congestive heart failure exacerbation. Patient with both left and right-sided findings with the left having at least by previous echo, preserved EF and the right having significant RV dysfunction. 2. Tricuspid regurgitation, severe. 3. Hypotension, borderline. 4. Shortness of breath secondary to #1. 5. Pleural effusion, right side large, status post thoracentesis -1 liter. 6. Polysubstance abuse, most notably with methamphetamines. Recc: -Tele -Continue coreg/ACEI as tolerated only -Contineu bumex s/p increase and follow volume status -Continue abx's and f/u cx data -? need for repeat thoracentesis and then would consider VATS/pleurodesis/decortication as necessary -will repeat echo after diuresis to reassess PAPressures and need for treatment -midodrine PRN only at this time Consultation Date/Type/Reason Admit Date/Time Oct 28, 2018 at 19:39 Initial Consult Date Lauryn Type of Consult Cardiology Reason for Consultation CHF Requesting Provider: SHIN HAN MD Date/Time of Note DATE: 11/01/18 TIME: 11:11 Exam/Review of Systems Vital Signs Vitals Vital Signs Date Temp Pulse Resp B/P (MAP) Pulse Ox O2 O2 Flow FiO2 Time Delivery Rate 11/01/18 Nasal 2.0 07:24 Cannula 11/01/18 98.5 90 20 90/58 (69) 98 07:17 10/30/18 30 23:47 Intake and Output 10/31/18 10/31/18 11/01/18 1515:00 23:00 07:00 IntakeIntake Total 800 ml 650 ml OutputOutput Total 3000 ml 300 ml BalanceBalance -3000 ml 500 ml 650 ml Exam Exam Review of Systems: CONSTITUTIONAL: No fevers, chills. PULMONARY: ongoing sob CARDIOVASCULAR: No chest pain/palpitations GASTROINTESTINAL: No nausea/vomiting. GENITOURINARY: No hematuria/dysuria. MUSCULOSKELETAL: No myagias/arthalgias. PSYCHIATRIC: The patient denies depression. NEUROLOGIC: No weakness Constitutional: alert Psych: no complaints Head: normocephalic ENMT: mucosa pink and moist Neck: supple, jvd (9 cm water) Respiratory: diminished breath sounds (at bases/B) Cardiovascular: regular rate and rhythm Gastrointestinal: soft, non-tender Musculoskeletal: muscle tone (normal) Extremities: edema (trace/B LE) Neurological: other (NO focal deficits) Labs Result Diagram: 11/01/1845411/01/18454 Results 24hrs Laboratory Tests Test 11/01/18 04:55 White Blood Count 7.9 Red Blood Count 3.90 L Hemoglobin 12.5 Hematocrit 38.8 Mean Corpuscular Volume 99.5 Mean Corpuscular Hemoglobin 32.1 Mean Corpuscular Hemoglobin Concent 32.2 Red Cell Distribution Width 15.9 H Platelet Count 296 Mean Platelet Volume 10.1 Immature Granulocytes % 0.300 Neutrophils % 59.0 Lymphocytes % 28.8 Monocytes % 9.9 Eosinophils % 1.7 Basophils % 0.3 Nucleated Red Blood Cells % 0.0 Immature Granulocytes # 0.020 Neutrophils # 4.6 Lymphocytes # 2.3 Monocytes # 0.8 Eosinophils # 0.1 Basophils # 0.0 Nucleated Red Blood Cells # 0.0 Sodium Level 140 Potassium Level 3.6 Chloride Level 96 L Carbon Dioxide Level 35 H Anion Gap 9 Blood Urea Nitrogen 22 H Creatinine 0.83 Est Glomerular Filtrat Rate mL/min > 60 Glucose Level 72 Calcium Level 9.5 Medications Medications Current Medications Carvedilol (Coreg) 3.125 mg BID PO Last administered on 10/30/18at 08:08; Admin Dose 3.125 MG; Start 10/29/18 at 09:00 Lisinopril (Zestril) 2.5 mg DAILY PO Last administered on 10/30/18at 08:08; Admin Dose 2.5 MG; Start 10/29/18 at 09:00 Pantoprazole (Protonix Tab) 40 mg DAILY@06 PO Last administered on 11/01/18at 05:52; Admin Dose 40 MG; Start 10/29/18 at 06:00 Enoxaparin Sodium (Lovenox) 40 mg DAILY SC Last administered on 11/01/18at 09:46; Admin Dose 40 MG; Start 10/29/18 at 09:00 Acetaminophen (Tylenol Tab) 650 mg Q6H PRN PO MILD PAIN(1-3)OR ELEVATED TEMP Last administered on 10/31/18at 20:50; Admin Dose 650 MG; Start 10/28/18 at 22:30 Ondansetron HCl (Zofran Inj) 4 mg Q6H PRN IV NAUSEA AND/OR VOMITING; Start 10/28/18 at 22:30 Albuterol/ Ipratropium (Duoneb) 3 ml Q6H RESP THERAPY PRN HHN SHORTNESS OF BREATH Last administered on 10/31/18at 15:51; Admin Dose 3 ML; Start 10/28/18 at 22:30 Ceftriaxone Sodium 500 mg/ Sodium Chloride 50 ml @ 100 mls/hr Q24H IVPB Last administered on 10/31/18at 22:49; Admin Dose 100 MLS/HR; Start 10/28/18 at 23:30 Potassium Chloride (Klor-Con 20) 20 meq DAILY PO Last administered on 11/01/18at 08:07; Admin Dose 20 MEQ; Start 10/30/18 at 09:00 Bumetanide (Bumex) 2 mg BID DIURETICS IV Last administered on 11/01/18at 05:52; Admin Dose 2 MG; Start 10/30/18 at 18:00 Midodrine (Proamatine) 2.5 mg BID@09,17 PRN PO SBP>85; Start 10/31/18 at 17:00 JEFF HARMON Nov 01, 2018 11:15
[2018-11-01 11:16] VITALS: BP 100/72; PULSE 67; RESP 20
[2018-11-01] MEDS: ACETAMINOPHEN 325 MG TAB PO PRN ×2 (13:45→21:57)
[2018-11-01 15:11] VITALS: BP 97/70; PULSE 60; RESP 20
--- NOTE | 2018-11-01 15:22 | CONS ---
Consult Date/Type/Reason Admit Date/Time Oct 28, 2018 at 19:39 Initial Consult Date Type of Consultation: Pulm Requesting Provider: SHIN HAN MD Date/Time of Note DATE: 11/01/18 TIME: 15:20 Subjective No events. Increasing dyspnea noted. Objective Vitals Vital Signs Date Temp Pulse Resp B/P (MAP) Pulse Ox O2 O2 Flow FiO2 Time Delivery Rate 11/01/18 98.2 60 20 97/70 (79) 97 15:11 11/01/18 Nasal 2.0 07:24 Cannula 10/30/18 30 23:47 Intake and Output 10/31/18 10/31/18 11/01/18 1515:00 23:00 07:00 IntakeIntake Total 800 ml 650 ml OutputOutput Total 3000 ml 300 ml BalanceBalance -3000 ml 500 ml 650 ml Exam HEENT: Neck supple; no JVD; no LAD CVS: RRR, S1 and S2, loud P2 CHEST: Decreased BS left base ABD: Soft, NT, + BS EXT: No c/c; + edema Results/Medications Result Diagram: 11/01/18 0455 11/01/18 0455 Results 24 hrs Laboratory Tests Test 11/01/18 04:55 White Blood Count 7.9 Red Blood Count 3.90 L Hemoglobin 12.5 Hematocrit 38.8 Mean Corpuscular Volume 99.5 Mean Corpuscular Hemoglobin 32.1 Mean Corpuscular Hemoglobin Concent 32.2 Red Cell Distribution Width 15.9 H Platelet Count 296 Mean Platelet Volume 10.1 Immature Granulocytes % 0.300 Neutrophils % 59.0 Lymphocytes % 28.8 Monocytes % 9.9 Eosinophils % 1.7 Basophils % 0.3 Nucleated Red Blood Cells % 0.0 Immature Granulocytes # 0.020 Neutrophils # 4.6 Lymphocytes # 2.3 Monocytes # 0.8 Eosinophils # 0.1 Basophils # 0.0 Nucleated Red Blood Cells # 0.0 Sodium Level 140 Potassium Level 3.6 Chloride Level 96 L Carbon Dioxide Level 35 H Anion Gap 9 Blood Urea Nitrogen 22 H Creatinine 0.83 Est Glomerular Filtrat Rate mL/min > 60 Glucose Level 72 Calcium Level 9.5 Home Meds Active Scripts Furosemide* (Lasix*) 40 Mg Tablet, 40 MG PO BID for 30 Days, #60 TAB 1 Refill Prov:DARINEL TURNER MD 5/16/19 Lisinopril* (Lisinopril*) 2.5 Mg Tablet, 2.5 MG PO DAILY for 30 Days, #30 TAB 1 Refill Prov:DARINEL TURNER MD 08/20/18 Carvedilol* (Carvedilol*) 3.125 Mg Tablet, 3.125 MG PO BID for 30 Days, #60 TAB 1 Refill Prov:DARINEL TURNER MD 08/20/18 Medications Current Medications Carvedilol (Coreg) 3.125 mg BID PO Last administered on 10/30/18 08:08; Admin Dose 3.125 MG; Start 10/29/18 at 09:00 Lisinopril (Zestril) 2.5 mg DAILY PO Last administered on 10/30/18 08:08; Admin Dose 2.5 MG; Start 10/29/18 at 09:00 Pantoprazole (Protonix Tab) 40 mg DAILY@06 PO Last administered on 11/01/18 05:52; Admin Dose 40 MG; Start 10/29/18 at 06:00 Enoxaparin Sodium (Lovenox) 40 mg DAILY SC Last administered on 11/01/18 09:46; Admin Dose 40 MG; Start 10/29/18 at 09:00 Acetaminophen (Tylenol Tab) 650 mg Q6H PRN PO MILD PAIN(1-3)OR ELEVATED TEMP Last administered on 11/01/18at 13:45; Admin Dose 650 MG; Start 10/28/18 at 22:30 Ondansetron HCl (Zofran Inj) 4 mg Q6H PRN IV NAUSEA AND/OR VOMITING; Start 10/28/18 at 22:30 Albuterol/ Ipratropium (Duoneb) 3 ml Q6H RESP THERAPY PRN HHN SHORTNESS OF BREATH Last administered on 10/31/18at 15:51; Admin Dose 3 ML; Start 10/28/18 at 22:30 Ceftriaxone Sodium 500 mg/ Sodium Chloride 50 ml @ 100 mls/hr Q24H IVPB Last administered on 10/31/18 22:49; Admin Dose 100 MLS/HR; Start 10/28/18 at 23:30 Potassium Chloride (Klor-Con 20) 20 meq DAILY PO Last administered on 11/01/18 08:07; Admin Dose 20 MEQ; Start 7/26/19 at 09:00 Bumetanide (Bumex) 2 mg BID DIURETICS IV Last administered on 11/01/18at 05:52; Admin Dose 2 MG; Start 10/30/18 at 18:00 Midodrine (Proamatine) 2.5 mg BID@09,17 PRN PO SBP>85; Start 10/31/18 at 17:00 Assessment/Plan Assessment/Plan (Daily) IMP: 1. Recurrent large left-sided lymphocytic predominant exudative pleural effusion--etiology remains unclear. Can represent multifactorial processes though malignancy cannot be excluded. 2. ADHF 3. 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 Add triglycerides to pleural fluid in lab 2. Would discuss in a multidisciplinary setting possible left VATS pleural biopsy and pleurodesis. High PA pressures make her a moderate to high risk surgical candidate and would benefit from tertiary care center with RHC and pulm vasodilators perioperatively. Will discuss with PMD. DONALDO MIXON MD Nov 01, 2018 15:22
--- NOTE | 2018-11-01 16:01 | PN ---
Date/Time of Note Date/Time of Note DATE: 11/01/18 TIME: 15:57 Assessment/Plan VTE Prophylaxis Risk score (from Ns)>0 risk: 3 [place] [facility] [place] contraindicated: low risk/ambulating Pharmacological prophylaxis: LMWH Lines/Catheters IV Catheter Type (from [facility] Saline Lock Assessment/Plan Hospital Course 1. Acute on chronic systolic heart failure-- ECHO reviewed with EF 60% and severe right atrial enlargement, right ventricle dilation with reduced systolic function, severe TR 2. Severe pulmonary HTN 3. Large right pleural effusion s/p thoracentesis 07/30/2018. Pathology: Left thoracentesis fluid for cytology: -- Negative for malignant cells.. Pt might need pleurodesis. 4. h/o Meth use 5. Overweight 6. hyperlipidemia 7. Hypotension, resolved 8. S.p appendectomy 9. Back pain 10. dyslipidemia Assessment/Plan -keep fluid restriction -c/w LAsix -no hypotensive episode -increased uremia Result Diagram: 11/01/18 0455 11/01/18 0455 Results 24hrs Laboratory Tests Test 11/01/18 04:55 White Blood Count 7.9 Red Blood Count 3.90 L Hemoglobin 12.5 Hematocrit 38.8 Mean Corpuscular Volume 99.5 Mean Corpuscular Hemoglobin 32.1 Mean Corpuscular Hemoglobin Concent 32.2 Red Cell Distribution Width 15.9 H Platelet Count 296 Mean Platelet Volume 10.1 Immature Granulocytes % 0.300 Neutrophils % 59.0 Lymphocytes % 28.8 Monocytes % 9.9 Eosinophils % 1.7 Basophils % 0.3 Nucleated Red Blood Cells % 0.0 Immature Granulocytes # 0.020 Neutrophils # 4.6 Lymphocytes # 2.3 Monocytes # 0.8 Eosinophils # 0.1 Basophils # 0.0 Nucleated Red Blood Cells # 0.0 Sodium Level 140 Potassium Level 3.6 Chloride Level 96 L Carbon Dioxide Level 35 H Anion Gap 9 Blood Urea Nitrogen 22 H Creatinine 0.83 Est Glomerular Filtrat Rate mL/min > 60 Glucose Level 72 Calcium Level 9.5 Subjective 24 Hr Interval Summary Free Text/Dictation pt requested more pain meds Exam/Review of Systems Exam Vitals Vital Signs Date Temp Pulse Resp B/P (MAP) Pulse Ox O2 O2 Flow FiO2 Time Delivery Rate 11/01/18 98.2 60 20 97/70 (79) 97 15:11 11/01/18 Nasal 2.0 07:24 Cannula 10/30/18 30 23:47 Intake and Output 10/31/18 10/31/18 11/01/18 1515:00 23:00 07:00 IntakeIntake Total 800 ml 650 ml OutputOutput Total 3000 ml 300 ml BalanceBalance -3000 ml 500 ml 650 ml Constitutional: alert, oriented Head: normocephalic Eyes: nl conjunctiva ENMT: nl external ears & nose, nl lips & teeth Neck: supple, masses, thyromegaly; No non-tender, No jvd, No bruits, No nuchal rigidity, No other Respiratory: normal air movement, crackles/rales, diminished breath sounds Cardiovascular: regular rate and rhythm, edema (LE) Gastrointestinal: soft Genitourinary - Female: CMT; No nl adnexae, No nl external genitalia, No CVA tenderness, No uterus, No other Neurological: C[employer] II-XII intact, nl mental status Results Results 24hrs Laboratory Tests Test 11/01/18 04:55 White Blood Count 7.9 Red Blood Count 3.90 L Hemoglobin 12.5 Hematocrit 38.8 Mean Corpuscular Volume 99.5 Mean Corpuscular Hemoglobin 32.1 Mean Corpuscular Hemoglobin Concent 32.2 Red Cell Distribution Width 15.9 H Platelet Count 296 Mean Platelet Volume 10.1 Immature Granulocytes % 0.300 Neutrophils % 59.0 Lymphocytes % 28.8 Monocytes % 9.9 Eosinophils % 1.7 Basophils % 0.3 Nucleated Red Blood Cells % 0.0 Immature Granulocytes # 0.020 Neutrophils # 4.6 Lymphocytes # 2.3 Monocytes # 0.8 Eosinophils # 0.1 Basophils # 0.0 Nucleated Red Blood Cells # 0.0 Sodium Level 140 Potassium Level 3.6 Chloride Level 96 L Carbon Dioxide Level 35 H Anion Gap 9 Blood Urea Nitrogen 22 H Creatinine 0.83 Est Glomerular Filtrat Rate mL/min > 60 Glucose Level 72 Calcium Level 9.5 Medications Medication Current Medications Carvedilol (Coreg) 3.125 mg BID PO Last administered on 10/30/18at 08:08; Admin Dose 3.125 MG; Start 10/29/18 at 09:00 Lisinopril (Zestril) 2.5 mg DAILY PO Last administered on 10/30/18at 08:08; Admin Dose 2.5 MG; Start 10/29/18 at 09:00 Pantoprazole (Protonix Tab) 40 mg DAILY@06 PO Last administered on 11/01/18 05:52; Admin Dose 40 MG; Start 10/29/18 at 06:00 Enoxaparin Sodium (Lovenox) 40 mg DAILY SC Last administered on 11/01/18 09:46; Admin Dose 40 MG; Start 10/29/18 at 09:00 Acetaminophen (Tylenol Tab) 650 mg Q6H PRN PO MILD PAIN(1-3)OR ELEVATED TEMP Last administered on 11/01/18 13:45; Admin Dose 650 MG; Start 10/28/18 at 22:30 Ondansetron HCl (Zofran Inj) 4 mg Q6H PRN IV NAUSEA AND/OR VOMITING; Start 10/28/18 at 22:30 Albuterol/ Ipratropium (Duoneb) 3 ml Q6H RESP THERAPY PRN HHN SHORTNESS OF BREATH Last administered on 10/31/18 15:51; Admin Dose 3 ML; Start 10/28/18 at 22:30 Ceftriaxone Sodium 500 mg/ Sodium Chloride 50 ml @ 100 mls/hr Q24H IVPB Last administered on 10/31/18 22:49; Admin Dose 100 MLS/HR; Start 10/28/18 at 23:30 Potassium Chloride (Klor-Con 20) 20 meq DAILY PO Last administered on 11/01/18 08:07; Admin Dose 20 MEQ; Start 10/30/18 at 09:00 Bumetanide (Bumex) 2 mg BID DIURETICS IV Last administered on 11/01/18 05:52; Admin Dose 2 MG; Start 10/30/18 at 18:00 Midodrine (Proamatine) 2.5 mg BID@09,17 PRN PO SBP>85; Start 10/31/18 at 17:00 VEGA TEIXEIRA NP Nov 01, 2018 16:01
[2018-11-01] MEDS: BUMETANIDE 1 MG TAB PO SCH (17:26)
[2018-11-01 19:33] VITALS: BP 105/63; PULSE 81; RESP 21
[2018-11-01] MEDS: GABAPENTIN 100 MG CAP PO SCH (20:05)
[2018-11-01] MEDS: CEFTRIAXONE 500 MG in SOD CHLORIDE 0.9% 50 ML IVPB SCH (21:57)
[2018-11-01 23:36] VITALS: BP 101/61; PULSE 69; RESP 18
[2018-11-02 03:51] VITALS: BP 95/53; PULSE 98; RESP 21
[2018-11-02] MEDS: BUMETANIDE 1 MG TAB PO SCH ×2 (05:41→18:42)
[2018-11-02] MEDS: PANTOPRAZOLE (EC) 40 MG TAB PO SCH (05:41)
[2018-11-02 07:21] VITALS: BP 110/70; PULSE 94; RESP 20
--- NOTE | 2018-11-02 09:12 | RADRPT ---
Vent Rate: 89 bpm RR Interval: 672 msec MS Interval: 124 msec QRS Duration: 157 msec QT Interval: 413 msec QTC Interval: 504 msec P-R-T [place]: 96 - 6 - 241 degrees Sinus rhythm...normal P axis, V-rate 50- 99 Right bundle branch block...QRSd>120, terminal axis(90,270) Electronically Signed By: Castillo Winslow
[2018-11-02] MEDS: POTASSIUM CHLORIDE (SR) 20 MEQ TAB PO SCH (09:43)
[2018-11-02] MEDS: GABAPENTIN 100 MG CAP PO SCH ×3 (09:43→21:22)
[2018-11-02] MEDS: LISINOPRIL 5 MG TAB PO SCH (09:44)
[2018-11-02] MEDS: ENOXAPARIN 40 MG/0.4 ML SYG SC SCH (10:07)
[2018-11-02 11:38] VITALS: BP 90/58; PULSE 86; RESP 20
--- NOTE | 2018-11-02 11:38 | PN ---
Date/Time of Note Date/Time of Note DATE: 11/02/18 TIME: 11:35 Assessment/Plan VTE Prophylaxis Risk score (from Ns)>0 risk: 1 SCD applied (from [facility] [place]): No SCD contraindicated: low risk/ambulating Pharmacological prophylaxis: NA/contraindicated Pharm contraindication: low risk/ambulating Lines/Catheters IV Catheter Type (from [facility]): Saline Lock Assessment/Plan Assessment/Plan 38 y/o with 1 Acute on chronic systolic heart failure-- ECHO reviewed with EF 60% and severe right atrial enlargement, right ventricle dilation with reduced systolic function, severe TR 2. pulmonary HTN 3. Large right pleural effusion s/p thoracentesis 07/30/2018. Pathology: Left thoracentesis fluid for cytology: -- Negative for malignant cells.. Pt might need pleurodesis. 4. h/o Meth use 5. Overweight 6. hyperlipidemia 7. Hypotension, resolved 8. S.p appendectomy 9. Back pain 10. dyslipidemia Assessment/Plan -keep fluid restriction -Patient was switched to Bumex p.o. 2 mg p.o. twice daily -Repeat chest x-ray and labs today -cw with Coreg/lisinopril -Repeat echo to check for PA pressures -Patient keeps on having recurrent right-sided pleural effusion which is exudative in nature. Spoke to the patient about possible Pleurx which she adamantly refused. Had a multi-discussion with Dr. Celeste , and Dr. Alba will check echo for PA pressures, patient will likely needs VATS/pl eurodesis/pleural biopsy, left a message for Dr. Singh to see the patient -cw with Midodrin per cards Result Diagram: 11/01/18 0455 11/01/18 0455 Subjective 24 Hr Interval Summary Free Text/Dictation Patient feels better today. Oxygenation is better Exam/Review of Systems Exam Vitals Vital Signs Date Temp Pulse Resp B/P (MAP) Pulse Ox O2 O2 Flow FiO2 Time Delivery Rate 11/02/18 Nasal 2.0 08:05 Cannula 11/02/18 97.4 94 20 110/70 97 07:21 (83) 10/30/18 30 23:47 Intake and Output 11/01/18 11/01/18 11/02/18 1515:00 23:00 07:00 IntakeIntake Total 760 ml 500 ml 700 ml OutputOutput Total 607 ml 530 ml BalanceBalance 153 ml -30 ml 700 ml Exam Constitutional: alert Head: normocephalic ENMT: mucosa pink and moist Neck: supple, jvd (9 cm water) Respiratory: diminished breath sounds (at bases/B more on right Cardiovascular: regular rate and rhythm Gastrointestinal: soft, non-tender Musculoskeletal: muscle tone (normal) Extremities: edema (trace/B LE) Neurological: other (NO focal deficits) Medications Medication Current Medications Carvedilol (Coreg) 3.125 mg BID PO Last administered on 11/02/18 09:44; Admin Dose 3.125 MG; Start 10/29/18 at 09:00 Lisinopril (Zestril) 2.5 mg DAILY PO Last administered on 11/02/18 09:44; Admin Dose 2.5 MG; Start 10/29/18 at 09:00 Pantoprazole (Protonix Tab) 40 mg DAILY@06 PO Last administered on 11/02/18 05:41; Admin Dose 40 MG; Start 10/29/18 at 06:00 Enoxaparin Sodium (Lovenox) 40 mg DAILY SC Last administered on 11/02/18 10:07; Admin Dose 40 MG; Start 10/29/18 at 09:00 Acetaminophen (Tylenol Tab) 650 mg Q6H PRN PO MILD PAIN(1-3)OR ELEVATED TEMP Last administered on 11/01/18 21:57; Admin Dose 650 MG; Start 10/28/18 at 22:30 Ondansetron HCl (Zofran Inj) 4 mg Q6H PRN IV NAUSEA AND/OR VOMITING; Start 10/28/18 at 22:30 Albuterol/ Ipratropium (Duoneb) 3 ml Q6H RESP THERAPY PRN HHN SHORTNESS OF BREATH Last administered on 10/31/18 15:51; Admin Dose 3 ML; Start 10/28/18 at 22:30 Ceftriaxone Sodium 500 mg/ Sodium Chloride 50 ml @ 100 mls/hr Q24H IVPB Last administered on 11/01/18 21:57; Admin Dose 100 MLS/HR; Start 10/28/18 at 23:30 Potassium Chloride (Klor-Con 20) 20 meq DAILY PO Last administered on 11/02/18 09:43; Admin Dose 20 MEQ; Start 10/30/18 at 09:00 Midodrine (Proamatine) 2.5 mg BID@09,17 PRN PO SBP>85; Start 10/31/18 at 17:00 Gabapentin (Neurontin) 100 mg TID PO Last administered on 11/02/18at 09:43; Admin Dose 100 MG; Start 11/01/18 at 21:00 Bumetanide (Bumex) 2 mg BID DIURETICS PO Last administered on 11/02/18at 05:41; Admin Dose 2 MG; Start 11/01/18 at 18:00 SHIN HAN MD Nov 02, 2018 11:38
--- NOTE | 2018-11-02 11:41 | CONS ---
Consult Date/Type/Reason Admit Date/Time Oct 28, 2018 at 19:39 Initial Consult Date Type of Consult Pulmonary Requesting Provider: SHIN HAN MD Date/Time of Note DATE: 11/02/18 TIME: 11:40 Subjective Patient comfortable this morning no respiratory distress. Objective Vital Signs Date Temp Pulse Resp B/P (MAP) Pulse Ox O2 O2 Flow FiO2 Time Delivery Rate 11/02/18 98.0 86 20 90/58 (69) 98 11:38 11/02/18 Nasal 2.0 08:05 Cannula 10/30/18 30 23:47 Intake and Output 11/01/18 11/01/18 11/02/18 1515:00 23:00 07:00 IntakeIntake Total 760 ml 500 ml 700 ml OutputOutput Total 607 ml 530 ml BalanceBalance 153 ml -30 ml 700 ml Exam GENERAL: Well-nourished well-developed lady comfortable at rest VITAL SIGNS: per chart NECK: Supple. No JVD or lymphadenopathy. CARDIAC EXAM: S1, S2. No added sounds or murmurs. CHEST: Diminished air entry bilaterally ABDOMEN: Soft, nontender. No guarding or rebound. EXTREMITIES: No cyanosis, clubbing or edema. NEUROLOGIC: Generalized weakness. No focal deficits. Results/Medications Result Diagram: 11/01/1845411/01/18 045 Medications Current Medications Carvedilol (Coreg) 3.125 mg BID PO Last administered on 11/02/18 09:44; Admin Dose 3.125 MG; Start 10/29/18 at 09:00 Lisinopril (Zestril) 2.5 mg DAILY PO Last administered on 11/02/18 09:44; Admin Dose 2.5 MG; Start 10/29/18 at 09:00 Pantoprazole (Protonix Tab) 40 mg DAILY@06 PO Last administered on 11/02/18 05:41; Admin Dose 40 MG; Start 10/29/18 at 06:00 Enoxaparin Sodium (Lovenox) 40 mg DAILY SC Last administered on 11/02/18 10:07; Admin Dose 40 MG; Start 10/29/18 at 09:00 Acetaminophen (Tylenol Tab) 650 mg Q6H PRN PO MILD PAIN(1-3)OR ELEVATED TEMP Last administered on 7/28/19at 21:57; Admin Dose 650 MG; Start 10/28/18 at 22:30 Ondansetron HCl (Zofran Inj) 4 mg Q6H PRN IV NAUSEA AND/OR VOMITING; Start 10/28/18 at 22:30 Albuterol/ Ipratropium (Duoneb) 3 ml Q6H RESP THERAPY PRN HHN SHORTNESS OF BREATH Last administered on 10/31/18at 15:51; Admin Dose 3 ML; Start 10/28/18 at 22:30 Ceftriaxone Sodium 500 mg/ Sodium Chloride 50 ml @ 100 mls/hr Q24H IVPB Last administered on 11/01/18at 21:57; Admin Dose 100 MLS/HR; Start 10/28/18 at 23:30 Potassium Chloride (Klor-Con 20) 20 meq DAILY PO Last administered on 11/02/18at 09:43; Admin Dose 20 MEQ; Start 10/30/18 at 09:00 Midodrine (Proamatine) 2.5 mg BID@09,17 PRN PO SBP>85; Start 10/31/18 at 17:00 Gabapentin (Neurontin) 100 mg TID PO Last administered on 11/02/18at 09:43; Admin Dose 100 MG; Start 11/01/18 at 21:00 Bumetanide (Bumex) 2 mg BID DIURETICS PO Last administered on 11/02/18at 05:41; Admin Dose 2 MG; Start 11/01/18 at 18:00 Assessment/Plan Hospital Course (Demo Recall) IMP: 1. Recurrent large left-sided lymphocytic predominant exudative pleural effusion--etiology remains unclear. Can represent multifactorial processes though malignancy cannot be excluded. 2. ADHF 3. 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 Add triglycerides to pleural fluid in lab 2. Thoracic surgery evaluation for possible pleural biopsy and pleurodesis. RAMIN JIMENEZ MD, [facility] Nov 02, 2018 11:41
--- NOTE | 2018-11-02 11:42 | CONS ---
Assessment/Plan Assessment/Plan Hospital Course (Demo Recall) IMPRESSION: 1. Congestive heart failure exacerbation. Patient with both left and right-sided findings with the left having at least by previous echo, preserved EF and the right having significant RV dysfunction. 2. Tricuspid regurgitation, severe. 3. Hypotension, borderline. 4. Shortness of breath secondary to #1. 5. Pleural effusion, right side large, status post thoracentesis -1 liter. Now recurrent 6. Polysubstance abuse, most notably with methamphetamines. Recc: -Tele -Continue coreg/ACEI as tolerated only -Contineu bumex now PO and follow volume status -Continue abx's and f/u cx data -? need for repeat thoracentesis and then would consider VATS/pleurodesis/decortication as necessary -will repeat echo after to reassess PAPressures and need for treatment -midodrine PRN only at this time Consultation Date/Type/Reason Admit Date/Time Oct 28, 2018 at 19:39 Initial Consult Date Lauryn Type of Consult Cardiology Reason for Consultation CHF Requesting Provider: SHIN HAN MD Date/Time of Note DATE: 11/02/18 TIME: 11:40 Exam/Review of Systems Vital Signs Vitals Vital Signs Date Temp Pulse Resp B/P (MAP) Pulse Ox O2 O2 Flow FiO2 Time Delivery Rate 11/02/18 98.0 86 20 90/58 (69) 98 11:38 11/02/18 Nasal 2.0 08:05 Cannula 10/30/18 30 23:47 Intake and Output 11/01/18 11/01/18 11/02/18 1515:00 23:00 07:00 IntakeIntake Total 760 ml 500 ml 700 ml OutputOutput Total 607 ml 530 ml BalanceBalance 153 ml -30 ml 700 ml Exam Exam Review of Systems: CONSTITUTIONAL: No fevers, chills. PULMONARY: ongoing sob CARDIOVASCULAR: No chest pain/palpitations GASTROINTESTINAL: No nausea/vomiting. GENITOURINARY: No hematuria/dysuria. MUSCULOSKELETAL: No myagias/arthalgias. PSYCHIATRIC: The patient denies depression. NEUROLOGIC: No weakness Constitutional: alert, oriented Psych: no complaints Head: normocephalic ENMT: mucosa pink and moist Neck: supple, jvd (9 cm water) Respiratory: clear to auscultation Cardiovascular: regular rate and rhythm Gastrointestinal: soft, non-tender Musculoskeletal: muscle tone (normal) Extremities: edema (trace/B) Neurological: other (No focal deficits) Labs Result Diagram: 11/01/1845411/01/18454 Medications Medications Current Medications Carvedilol (Coreg) 3.125 mg BID PO Last administered on 11/02/18 09:44; Admin Dose 3.125 MG; Start 10/29/18 at 09:00 Lisinopril (Zestril) 2.5 mg DAILY PO Last administered on 11/02/18 09:44; Admin Dose 2.5 MG; Start 10/29/18 at 09:00 Pantoprazole (Protonix Tab) 40 mg DAILY@06 PO Last administered on 11/02/18 05:41; Admin Dose 40 MG; Start 10/29/18 at 06:00 Enoxaparin Sodium (Lovenox) 40 mg DAILY SC Last administered on 11/02/18 10:07; Admin Dose 40 MG; Start 10/29/18 at 09:00 Acetaminophen (Tylenol Tab) 650 mg Q6H PRN PO MILD PAIN(1-3)OR ELEVATED TEMP Last administered on 11/01/18 21:57; Admin Dose 650 MG; Start 10/28/18 at 22:30 Ondansetron HCl (Zofran Inj) 4 mg Q6H PRN IV NAUSEA AND/OR VOMITING; Start 10/28/18 at 22:30 Albuterol/ Ipratropium (Duoneb) 3 ml Q6H RESP THERAPY PRN HHN SHORTNESS OF BREATH Last administered on 10/31/18 15:51; Admin Dose 3 ML; Start 10/28/18 at 22:30 Ceftriaxone Sodium 500 mg/ Sodium Chloride 50 ml @ 100 mls/hr Q24H IVPB Last administered on 11/01/18 21:57; Admin Dose 100 MLS/HR; Start 10/28/18 at 23:30 Potassium Chloride (Klor-Con 20) 20 meq DAILY PO Last administered on 11/02/18 09:43; Admin Dose 20 MEQ; Start 10/30/18 at 09:00 Midodrine (Proamatine) 2.5 mg BID@09,17 PRN PO SBP>85; Start 10/31/18 at 17:00 Gabapentin (Neurontin) 100 mg TID PO Last administered on 11/02/18at 09:43; Admin Dose 100 MG; Start 11/01/18 at 21:00 Bumetanide (Bumex) 2 mg BID DIURETICS PO Last administered on 11/02/18at 05:41; Admin Dose 2 MG; Start 11/01/18 at 18:00 JEFF HARMON Nov 02, 2018 11:42
[2018-11-02 15:47] VITALS: BP 85/52; PULSE 65; RESP 20
[2018-11-02] MEDS: ACETAMINOPHEN 325 MG TAB PO PRN (18:42)
[2018-11-02 20:17] VITALS: BP 98/56; PULSE 89; RESP 18
--- NOTE | 2018-11-02 22:03 | CONS ---
DATE OF ADMISSION: 10/28/2018 DATE OF CONSULTATION: 11/02/2018 TYPE OF CONSULTATION: Infectious Disease. REASON FOR CONSULTATION: Antibiotic management. HISTORY OF PRESENT ILLNESS: Pierre Zuniga is a 38-year-old black female who comes in with shortn ess of breath with oxygen saturation at 98%. The patient has a history of CHF, pulmonary hypertensio n with recent thoracentesis of the right lung. She presents with acute shortness of breath, brought in by ambulance. She denies any infectious symptoms. She presented with a large right pleural effus ion, was compliant with her medication of 80 mg of Lasix per day. She is a patient of Dr. Jacobo bartlett and Dr. Hassan. She has cardiomyopathy with a right-sided heart failure, pulmonary hypertension, p olysubstance abuse. SURGICAL HISTORY: Positive for appendicitis. FAMILY HISTORY: Noncontributory. SOCIAL HISTORY: She may have smoked in the past, but she does not smoke now, and she does not abuse drugs. She did abuse drugs in the past. She does not use alcohol. ANCILLARY LABORATORY DATA: On admission, the , her white count was 9.5, H and H of 13.7 and 41.6 , platelet count 336,000. BUN and creatinine 20/0.73, glucose of 136. The patient has recurrent pleural effusions, rule out infiltrate, pulmonary hypertension, status post thoracentesis. She was seen by Dr. Jacobo Kurtz and then by Dr. Fartun Combs, acute on chronic sy stolic heart failure. Echo reviewed with ejection fraction of 60%, severe right atrial enlargement, right ventricular dilatation with reduced systolic function, severe tricuspid regurgitation, severe p ulmonary hypertension, large pleural effusion, status post thoracentesis. The thoracentesis on the 05 12 yielded 1050 mL, 355 white cells, 89% mononuclear, glucose 103, protein 4.3, clearly an exudate. Cultures are pending. No organisms were seen. Cytology is negative for malignant cells. Chest x-r ay: Large right pleural effusion with right middle lobe and right lower lobe collapse, partial colla pse of the right upper lobe. A CT scan of the chest showed large right pleural effusion, moderate to severe cardiomegaly, no pericardial effusion. She had a thoracentesis and then subsequently today s he has a large pleural effusion still which is unchanged. The etiology of her pleural effusion is un clear. PHYSICAL EXAMINATION: GENERAL: She is a well-nourished, well-developed female who is alert, responsive, in no acute distre ss. VITAL SIGNS: Stable. She is afebrile. SKIN: Without generalized rash. HEENT: Within normal limits. NECK: Supple. LYMPH NODES: None palpable. CHEST: Decreased breath sounds at the bases, right greater than left. HEART: Without murmur or gallop. ABDOMEN: Soft, nontender, though she complains of some tenderness generalized. There is no rebound or guarding. EXTREMITIES: Without cyanosis, clubbing, or edema. RECTAL AND GENITAL: Deferred. NEUROLOGIC: No focal neurological abnormalities. IMPRESSION AND PLAN: The patient is currently on ceftriaxone. The source of her effusion is probabl y congestive heart failure rather than a bacterial process. She could have a process causing lymphoc ytosis such as tuberculosis. She should have a QuantiFERON Gold test done, if that was not done. Celi tijerina should probably have a pleural biopsy to try to delineate the source of her effusion. I would cons ider a VATS as well, although since she does not have loculated effusion, I think a thoracentesis or pleural biopsy would be adequate. I will dictate my findings to Dr. Combs and Dr. Kurtz, as well as Dr. Celeste and Dr. Alba. Dictated By: DEAN GUILLORY MD, JD/FARHAD Conf#: [id number] DID#: [id number]
[2018-11-03 00:09] VITALS: BP 94/54; PULSE 90; RESP 18
[2018-11-03 04:24] VITALS: BP 98/52; PULSE 94; RESP 18
[2018-11-03] MEDS: BUMETANIDE 1 MG TAB PO SCH ×2 (06:59→17:20)
[2018-11-03] MEDS: PANTOPRAZOLE (EC) 40 MG TAB PO SCH (06:59)
--- NOTE | 2018-11-03 07:14 | CONS ---
Assessment/Plan Assessment/Plan Assessment/Plan (Daily) 38 year old female with recurrent right effusion secondary to heart failure. I discussed pleurx vs VATs pleurodesis. She does not want a pleurx catheter. Will plan on VATs or Friday. Consultation Date/Type/Reason Admit Date/Time Oct 28, 2018 at 19:39 Date of Consultation: Nov 03, [address] surgery Reason for Consultation recurrent right effusion Date/Time of Note DATE: 11/03/18 TIME: 07:10 Hx of Present Illness 38 year old female with history of substance abuse, severe pulm htn, right sided heart failure and recurrent right effusions requiring multiple thoracentesis. We are asked to see regarding management. Constitutional: no complaints, improved Eyes: no complaints ENT: no complaints Respiratory: cough, pleuritic pain, shortness of breath Cardiovascular: edema Gastrointestinal: no complaints Genitourinary: no complaints Musculoskeletal: no complaints Skin: no complaints Neurologic: no complaints Endocrine: No no complaints, No polyuria, No polydypsia, No dry skin, No temp intolerance, No other Lymphatic: No no complaints, No adenopathy, No tender nodes, No lymphadema, No other Psychological: No no complaints, No nl mood/affect, No anxiety, No confusion, No depression, No suicidal, No other Immunologic: No no complaints, No immunodeficiency, No pruritis, No rhinitis, No urticaria, No other Past Medical History Medical History: congestive heart failure Home Meds Active Scripts Furosemide* (Lasix*) 40 Mg Tablet, 40 MG PO BID for 30 Days, #60 TAB 1 Refill Prov:DARINEL TURNER MD 08/20/18 Lisinopril* (Lisinopril*) 2.5 Mg Tablet, 2.5 MG PO DAILY for 30 Days, #30 TAB 1 Refill Prov:DARINEL TURNER MD 08/20/18 Carvedilol* (Carvedilol*) 3.125 Mg Tablet, 3.125 MG PO BID for 30 Days, #60 TAB 1 Refill Prov:DARINEL TURNER MD 08/20/18 Medications Current Medications Carvedilol (Coreg) 3.125 mg BID PO Last administered on 11/02/18at 09:44; Admin Dose 3.125 MG; Start 10/29/18 at 09:00 Lisinopril (Zestril) 2.5 mg DAILY PO Last administered on 11/02/18 09:44; Admin Dose 2.5 MG; Start 10/29/18 at 09:00 Pantoprazole (Protonix Tab) 40 mg DAILY@06 PO Last administered on 11/03/18 06:59; Admin Dose 40 MG; Start 10/29/18 at 06:00 Enoxaparin Sodium (Lovenox) 40 mg DAILY SC Last administered on 11/02/18 10:07; Admin Dose 40 MG; Start 10/29/18 at 09:00 Acetaminophen (Tylenol Tab) 650 mg Q6H PRN PO MILD PAIN(1-3)OR ELEVATED TEMP Last administered on 11/02/18 18:42; Admin Dose 650 MG; Start 10/28/18 at 22:30 Ondansetron HCl (Zofran Inj) 4 mg Q6H PRN IV NAUSEA AND/OR VOMITING; Start 10/28/18 at 22:30 Albuterol/ Ipratropium (Duoneb) 3 ml Q6H RESP THERAPY PRN HHN SHORTNESS OF BREATH Last administered on 10/31/18 15:51; Admin Dose 3 ML; Start 10/28/18 at 22:30 Potassium Chloride (Klor-Con 20) 20 meq DAILY PO Last administered on 11/02/18 09:43; Admin Dose 20 MEQ; Start 10/30/18 at 09:00 Midodrine (Proamatine) 2.5 mg BID@09,17 PRN PO SBP>85; Start 10/31/18 at 17:00 Gabapentin (Neurontin) 100 mg TID PO Last administered on 11/02/18 21:22; Admin Dose 100 MG; Start 11/01/18 at 21:00 Bumetanide (Bumex) 2 mg BID DIURETICS PO Last administered on 11/03/18 06:59; Admin Dose 2 MG; Start 11/01/18 at 18:00 Allergies: Coded Allergies: No Known Drug Allergies (Unverified Allergy, Unknown, 10/05/18) Past Surgical History Past Surgical Hx: no surgical history, appendectomy Family History Significant Family History: no pertinent family hx Social History Alcohol Use: occasionally Smoking Status: Former smoker Drug Use: other Other Social History used metamphetamin Exam/Review of Systems Exam Vitals Vital Signs Date Temp Pulse Resp B/P (MAP) Pulse Ox O2 O2 Flow FiO2 Time Delivery Rate 11/03/18 2.0 06:15 11/03/18 98.1 94 18 98/52 (67) 95 04:24 11/02/18 Nasal 19:00 Cannula 10/30/18 30 23:47 Intake and Output 11/02/18 11/02/18 11/03/18 1515:00 23:00 07:00 IntakeIntake Total 2400 ml 500 ml BalanceBalance 2400 ml 500 ml Constitutional: alert, oriented, well developed Psych: no complaints, nl mood/affect Head: normocephalic, atraumatic Eyes: nl conjunctiva, EOMI, nl lids, nl sclera, PERRL ENMT: nl external ears & nose, nl lips & teeth, nl nasal mucosa & septum Neck: supple, non-tender Respiratory: diminished breath sounds Cardiovascular: regular rate and rhythm, nl pulses Gastrointestinal: soft, nl liver, spleen, non-tender Musculoskeletal: nl extremities to inspection, nl gait and stance Extremities: normal pulses Neurological: MONORAIL HOOKER II-XII intact, nl mental status, nl speech, nl strength Skin: nl turgor; No rash or lesions Lymph: nl lymph nodes Results Result Diagram: 11/03/18 0507 11/03/18 0507 Results 24hrs Laboratory Tests Test 11/02/18 11:01 11/03/18 05:07 Sodium Level 141 137 Potassium Level 3.3 L 3.8 Chloride Level 93 L 96 L Carbon Dioxide Level 38 H 32 H Anion Gap 10 9 Blood Urea Nitrogen 22 H 29 H Creatinine 0.80 0.82 Est Glomerular Filtrat Rate mL/min > 60 > 60 Glucose Level 71 90 Calcium Level 9.6 9.7 White Blood Count 8.5 Red Blood Count 3.89 L Hemoglobin 12.5 Hematocrit 37.5 Mean Corpuscular Volume 96.4 Mean Corpuscular Hemoglobin 32.1 Mean Corpuscular Hemoglobin Concent 33.3 Red Cell Distribution Width 15.8 H Platelet Count 252 Mean Platelet Volume 10.1 Immature Granulocytes % 0.400 Neutrophils % 60.9 Lymphocytes % 26.7 Monocytes % 9.3 Eosinophils % 2.2 Basophils % 0.5 Nucleated Red Blood Cells % 0.0 Immature Granulocytes # 0.030 Neutrophils # 5.2 Lymphocytes # 2.3 Monocytes # 0.8 Eosinophils # 0.2 Basophils # 0.0 Nucleated Red Blood Cells # 0.0 Medications Medication Current Medications Carvedilol (Coreg) 3.125 mg BID PO Last administered on 11/02/18 09:44; Admin Dose 3.125 MG; Start 10/29/18 at 09:00 Lisinopril (Zestril) 2.5 mg DAILY PO Last administered on 11/02/18 09:44; Admi n Dose 2.5 MG; Start 10/29/18 at 09:00 Pantoprazole (Protonix Tab) 40 mg DAILY@06 PO Last administered on 11/03/18 06:59; Admin Dose 40 MG; Start 10/29/18 at 06:00 Enoxaparin Sodium (Lovenox) 40 mg DAILY SC Last administered on 11/02/18 10:07; Admin Dose 40 MG; Start 10/29/18 at 09:00 Acetaminophen (Tylenol Tab) 650 mg Q6H PRN PO MILD PAIN(1-3)OR ELEVATED TEMP Last administered on 11/02/18 18:42; Admin Dose 650 MG; Start 10/28/18 at 22:30 Ondansetron HCl (Zofran Inj) 4 mg Q6H PRN IV NAUSEA AND/OR VOMITING; Start 10/28/18 at 22:30 Albuterol/ Ipratropium (Duoneb) 3 ml Q6H RESP THERAPY PRN HHN SHORTNESS OF BREATH Last administered on 10/31/18 15:51; Admin Dose 3 ML; Start 10/28/18 at 22:30 Potassium Chloride (Klor-Con 20) 20 meq DAILY PO Last administered on 11/02/18 09:43; Admin Dose 20 MEQ; Start 10/30/18 at 09:00 Midodrine (Proamatine) 2.5 mg BID@,17 PRN PO SBP>85; Start 10/31/18 at 17:00 Gabapentin (Neurontin) 100 mg TID PO Last administered on 11/02/18 21:22; Admin Dose 100 MG; Start 11/01/18 at 21:00 Bumetanide (Bumex) 2 mg BID DIURETICS PO Last administered on 11/03/18 06:59; Admin Dose 2 MG; Start 11/01/18 at 18:00 JESSICA BELLO MD Nov 03, 2018 07:14
[2018-11-03 07:15] VITALS: BP 98/57; PULSE 89; RESP 20
[2018-11-03] MEDS: LISINOPRIL 5 MG TAB PO SCH (09:00)
--- NOTE | 2018-11-03 09:26 | CONS ---
Consult Date/Type/Reason Admit Date/Time Oct 28, 2018 at 19:39 Initial Consult Date 11/03/18 Type of Consultation: Pulm Requesting Provider: SHIN HAN MD Date/Time of Note DATE: 11/03/18 TIME: 09:23 Subjective NO acute events - pt still in CHF, but feels better now - denies CP- improved with diuresis -ambulator now - con't to monitor. ROS: No fever, no chills, no nausea, no vomiting, no diarrhea/constipation No recent weight changes No chest pain, no PND, no orthopnea - mild SOB + PADILLA No dizziness, blurred vision No thirst, no heat or cold intolerance Objective Vitals Vital Signs Date Temp Pulse Resp B/P (MAP) Pulse Ox O2 O2 Flow FiO2 Time Delivery Rate 11/03/18 98.0 89 20 98/57 (71) 99 07:15 11/03/18 2.0 06:15 11/02/18 Nasal 19:00 Cannula 10/30/18 30 23:47 Intake and Output 11/02/18 11/02/18 11/03/18 1515:00 23:00 07:00 IntakeIntake Total 2400 ml 500 ml BalanceBalance 2400 ml 500 ml Exam General: WN/WD/NAD, AOx 3 HEENT: Unicetric/atraumatic/EOMI (follow commands) NECK: JVD elevated, no thyromegaly Lymph: no lymphadenopathy HEART: regular II/ systolic murmur at apex, S3+ PMI L LUNGS: Coarse sounds ABD: soft, NT, ND, +BS : Intact Neuro: non focal SKIN: chronic changes EXT: 1+ edema Results/Medications Result Diagram: 11/03/18 0507 11/03/18 0507 Results 24 hrs Laboratory Tests Test 11/02/18 11:01 11/03/18 05:07 Sodium Level 141 137 Potassium Level 3.3 L 3.8 Chloride Level 93 L 96 L Carbon Dioxide Level 38 H 32 H Anion Gap 10 9 Blood Urea Nitrogen 22 H 29 H Creatinine 0.80 0.82 Est Glomerular Filtrat Rate mL/min > 60 > 60 Glucose Level 71 90 Calcium Level 9.6 9.7 White Blood Count 8.5 Red Blood Count 3.89 L Hemoglobin 12.5 Hematocrit 37.5 Mean Corpuscular Volume 96.4 Mean Corpuscular Hemoglobin 32.1 Mean Corpuscular Hemoglobin Concent 33.3 Red Cell Distribution Width 15.8 H Platelet Count 252 Mean Platelet Volume 10.1 Immature Granulocytes % 0.400 Neutrophils % 60.9 Lymphocytes % 26.7 Monocytes % 9.3 Eosinophils % 2.2 Basophils % 0.5 Nucleated Red Blood Cells % 0.0 Immature Granulocytes # 0.030 Neutrophils # 5.2 Lymphocytes # 2.3 Monocytes # 0.8 Eosinophils # 0.2 Basophils # 0.0 Nucleated Red Blood Cells # 0.0 Phosphorus Level 5.0 H Magnesium Level 1.6 L Home Meds Active Scripts Furosemide* (Lasix*) 40 Mg Tablet, 40 MG PO BID for 30 Days, #60 TAB 1 Refill Prov:DARINEL TURNER MD 08/20/18 Lisinopril* (Lisinopril*) 2.5 Mg Tablet, 2.5 MG PO DAILY for 30 Days, #30 TAB 1 Refill Prov:DARINEL TURNER MD 08/20/18 Carvedilol* (Carvedilol*) 3.125 Mg Tablet, 3.125 MG PO BID for 30 Days, #60 TAB 1 Refill Prov:DARINEL TURNER MD 08/20/18 Medications Current Medications Carvedilol (Coreg) 3.125 mg BID PO Last administered on 11/02/18at 09:44; Admin Dose 3.125 MG; Start 10/29/18 at 09:00 Lisinopril (Zestril) 2.5 mg DAILY PO Last administered on 11/02/18 09:44; Admin Dose 2.5 MG; Start 10/29/18 at 09:00 Pantoprazole (Protonix Tab) 40 mg DAILY@06 PO Last administered on 11/03/18at 06:59; Admin Dose 40 MG; Start 10/29/18 at 06:00 Enoxaparin Sodium (Lovenox) 40 mg DAILY SC Last administered on 11/02/18at 10:07; Admin Dose 40 MG; Start 10/29/18 at 09:00 Acetaminophen (Tylenol Tab) 650 mg Q6H PRN PO MILD PAIN(1-3)OR ELEVATED TEMP Last administered on 11/02/18at 18:42; Admin Dose 650 MG; Start 10/28/18 at 22:30 Ondansetron HCl (Zofran Inj) 4 mg Q6H PRN IV NAUSEA AND/OR VOMITING; Start 10/28/18 at 22:30 Albuterol/ Ipratropium (Duoneb) 3 ml Q6H RESP THERAPY PRN HHN SHORTNESS OF BREATH Last administered on 10/31/18at 15:51; Admin Dose 3 ML; Start 10/28/18 at 22:30 Potassium Chloride (Klor-Con 20) 20 meq DAILY PO Last administered on 11/02/18at 09:43; Admin Dose 20 MEQ; Start 10/30/18 at 09:00 Midodrine (Proamatine) 2.5 mg BID@,17 PRN PO SBP>85; Start 10/31/18 at 17:00 Gabapentin (Neurontin) 100 mg TID PO Last administered on 11/02/18at 21:22; Admin Dose 100 MG; Start 11/01/18 at 21:00 Bumetanide (Bumex) 2 mg BID DIURETICS PO Last administered on 11/03/18at 06:59; Admin Dose 2 MG; Start 11/01/18 at 18:00 Assessment/Plan Hospital Course (Demo Recall) 1. Congestive heart failure exacerbation. Patient with both left and right- sided findings with the left having at least by previous echo, preserved EF and the right having significant RV dysfunction- con't gentle diuresis, on bumex now, 2. Tricuspid regurgitation, severe - con't to keep euvolemic. 3. Hypotension, borderline - not dizzy - able to ambulate. 4. Shortness of breath secondary to #1- treated. 5. Pleural effusion, right side large, status post thoracentesis -1 liter. Now recurrent - better now. 6. Polysubstance abuse, most notably with methamphetamines. SKYLAR BANUELOS MD Nov 03, 2018 09:26
[2018-11-03] MEDS: POTASSIUM CHLORIDE (SR) 20 MEQ TAB PO SCH (09:37)
[2018-11-03] MEDS: GABAPENTIN 100 MG CAP PO SCH ×3 (09:37→22:09)
[2018-11-03] MEDS: ENOXAPARIN 40 MG/0.4 ML SYG SC SCH (09:48)
[2018-11-03 11:19] VITALS: BP 85/53; PULSE 91; RESP 20
--- NOTE | 2018-11-03 11:28 | CONS ---
Consult Date/Type/Reason Admit Date/Time Oct 28, 2018 at 19:39 Initial Consult Date Type of Consult Pulmonary Requesting Provider: SHIN HAN MD Date/Time of Note DATE: 11/03/18 TIME: 11:28 Subjective Patient comfortable no respiratory distress Objective Vital Signs Date Temp Pulse Resp B/P (MAP) Pulse Ox O2 O2 Flow FiO2 Time Delivery Rate 11/03/18 2.0 11:19 11/03/18 98.0 91 20 85/53 (64) 98 11:19 11/02/18 Nasal 19:00 Cannula 10/30/18 30 23:47 Intake and Output 11/02/18 11/02/18 11/03/18 1515:00 23:00 07:00 IntakeIntake Total 2400 ml 500 ml BalanceBalance 2400 ml 500 ml Exam GENERAL: Well-nourished well-developed lady comfortable at rest VITAL SIGNS: per chart NECK: Supple. No JVD or lymphadenopathy. CARDIAC EXAM: S1, S2. No added sounds or murmurs. CHEST: Diminished air entry bilaterally ABDOMEN: Soft, nontender. No guarding or rebound. EXTREMITIES: No cyanosis, clubbing or edema. NEUROLOGIC: Generalized weakness. No focal deficits. Results/Medications Result Diagram: 11/03/18 0507 11/03/18 0507 Results 24 hrs Laboratory Tests Test 11/03/18 05:07 White Blood Count 8.5 Red Blood Count 3.89 L Hemoglobin 12.5 Hematocrit 37.5 Mean Corpuscular Volume 96.4 Mean Corpuscular Hemoglobin 32.1 Mean Corpuscular Hemoglobin Concent 33.3 Red Cell Distribution Width 15.8 H Platelet Count 252 Mean Platelet Volume 10.1 Immature Granulocytes % 0.400 Neutrophils % 60.9 Lymphocytes % 26.7 Monocytes % 9.3 Eosinophils % 2.2 Basophils % 0.5 Nucleated Red Blood Cells % 0.0 Immature Granulocytes # 0.030 Neutrophils # 5.2 Lymphocytes # 2.3 Monocytes # 0.8 Eosinophils # 0.2 Basophils # 0.0 Nucleated Red Blood Cells # 0.0 Sodium Level 137 Potassium Level 3.8 Chloride Level 96 L Carbon Dioxide Level 32 H Anion Gap 9 Blood Urea Nitrogen 29 H Creatinine 0.82 Est Glomerular Filtrat Rate mL/min > 60 Glucose Level 90 Calcium Level 9.7 Phosphorus Level 5.0 H Magnesium Level 1.6 L Medications Current Medications Carvedilol (Coreg) 3.125 mg BID PO Last administered on 11/02/18 09:44; Admin Dose 3.125 MG; Start 10/29/18 at 09:00 Lisinopril (Zestril) 2.5 mg DAILY PO Last administered on 11/02/18 09:44; Admin Dose 2.5 MG; Start 10/29/18 at 09:00 Pantoprazole (Protonix Tab) 40 mg DAILY@06 PO Last administered on 11/03/18 06:59; Admin Dose 40 MG; Start 10/29/18 at 06:00 Enoxaparin Sodium (Lovenox) 40 mg DAILY SC Last administered on 11/03/18 09:48; Admin Dose 40 MG; Start 10/29/18 at 09:00 Acetaminophen (Tylenol Tab) 650 mg Q6H PRN PO MILD PAIN(1-3)OR ELEVATED TEMP Last administered on 11/02/18 18:42; Admin Dose 650 MG; Start 10/28/18 at 22:30 Ondansetron HCl (Zofran Inj) 4 mg Q6H PRN IV NAUSEA AND/OR VOMITING; Start 10/28/18 at 22:30 Albuterol/ Ipratropium (Duoneb) 3 ml Q6H RESP THERAPY PRN HHN SHORTNESS OF BREATH Last administered on 10/31/18 15:51; Admin Dose 3 ML; Start 10/28/18 at 22:30 Potassium Chloride (Klor-Con 20) 20 meq DAILY PO Last administered on 11/03/18 09:37; Admin Dose 20 MEQ; Start 10/30/18 at 09:00 Midodrine (Proamatine) 2.5 mg BID@09,17 PRN PO SBP>85; Start 10/31/18 at 17:00 Gabapentin (Neurontin) 100 mg TID PO Last administered on 11/03/18 09:37; Admin Dose 100 MG; Start 11/01/18 at 21:00 Bumetanide (Bumex) 2 mg BID DIURETICS PO Last administered on 11/03/18 06:59; Admin Dose 2 MG; Start 11/01/18 at 18:00 Assessment/Plan Hospital Course (Demo Recall) IMP: 1. Recurrent large left-sided lymphocytic predominant exudative pleural effusion--etiology remains unclear. Can represent multifactorial processes though malignancy cannot be excluded. 2. ADHF 3. 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 Add triglycerides to pleural fluid in lab 2. Appreciate thoracic surgery evaluation. Scheduled for video-assisted thoracic surgery RAM[facility]ENEZ MD[facility] Nov 03, 2018 11:28
--- NOTE | 2018-11-03 12:41 | PN ---
Date/Time of Note Date/Time of Note DATE: 11/03/18 TIME: 12:38 Assessment/Plan VTE Prophylaxis [place] [facility] [place]: 1 [place]CD [place] [facility] [place] SCD contraindicated: low risk/ambulating Pharmacological prophylaxis: NA/contraindicated Pharm contraindication: low risk/ambulating Lines/Catheters IV [facility]atheter Type (from [facility] Saline Lock Urinary Cath still in place: No Assessment/Plan Assessment/Plan 1Acute on chronic systolic heart failure-- ECHO reviewed with EF 60% and severe right atrial enlargement, right ventricle dilation with reduced systolic function, severe TR 2. pulmonary HTN 3. Large right pleural effusion s/p thoracentesis 07/30/2018. Pathology: Left thoracentesis fluid for cytology: -- Negative for malignant cells.. Pt might need pleurodesis. 4. h/o Meth use 5. Overweight 6. hyperlipidemia 7. Hypotension, resolved 8. S.p appendectomy 9. Back pain 10. dyslipidemia Assessment/Plan -keep fluid restriction -Patient was switched to Bumex p.o. 2 mg p.o. twice daily -Repeat chest x-ray persistent right-sided effusion -cw with Coreg/lisinopril -Does not want the Pleurx catheter so is going for pleurodesis on this with Dr Darrell ashton consult -She was seen by ID and QuantiFERON-TB was added -cw with Midodrin per cards Result Diagram: 11/03/18 0507 11/03/18 0507 Results 24hrs Laboratory Tests Test 11/03/18 05:07 White Blood Count 8.5 Red Blood Count 3.89 L Hemoglobin 12.5 Hematocrit 37.5 Mean Corpuscular Volume 96.4 Mean Corpuscular Hemoglobin 32.1 Mean Corpuscular Hemoglobin Concent 33.3 Red Cell Distribution Width 15.8 H Platelet Count 252 Mean Platelet Volume 10.1 Immature Granulocytes % 0.400 Neutrophils % 60.9 Lymphocytes % 26.7 Monocytes % 9.3 Eosinophils % 2.2 Basophils % 0.5 Nucleated Red Blood Cells % 0.0 Immature Granulocytes # 0.030 Neutrophils # 5.2 Lymphocytes # 2.3 Monocytes # 0.8 Eosinophils # 0.2 Basophils # 0.0 Nucleated Red Blood Cells # 0.0 Sodium Level 137 Potassium Level 3.8 Chloride Level 96 L Carbon Dioxide Level 32 H Anion Gap 9 Blood Urea Nitrogen 29 H Creatinine 0.82 Est Glomerular Filtrat Rate mL/min > 60 Glucose Level 90 Calcium Level 9.7 Phosphorus Level 5.0 H Magnesium Level 1.6 L Subjective 24 Hr Interval Summary Free Text/Dictation Feels better today. lessS shortness of breath Exam/Review of Systems Exam Vitals Vital Signs Date Temp Pulse Resp B/P (MAP) Pulse Ox O2 O2 Flow FiO2 Time Delivery Rate 11/03/18 2.0 11:19 11/03/18 98.0 91 20 85/53 (64) 98 11:19 11/02/18 Nasal 19:00 Cannula 10/30/18 30 23:47 Intake and Output 11/02/18 11/02/18 11/03/18 1515:00 23:00 07:00 IntakeIntake Total 2400 ml 500 ml BalanceBalance 2400 ml 500 ml Exam onstitutional: alert Head: normocephalic ENMT: mucosa pink and moist Neck: supple, jvd (9 cm water) Respiratory: diminished breath sounds (at bases/B more on right Cardiovascular: regular rate and rhythm Gastrointestinal: soft, non-tender Musculoskeletal: muscle tone (normal) Extremities: edema (trace/B LE) Neurological: other (NO focal deficits) Results Results 24hrs Laboratory Tests Test 11/03/18 05:07 White Blood Count 8.5 Red Blood Count 3.89 L Hemoglobin 12.5 Hematocrit 37.5 Mean Corpuscular Volume 96.4 Mean Corpuscular Hemoglobin 32.1 Mean Corpuscular Hemoglobin Concent 33.3 Red Cell Distribution Width 15.8 H Platelet Count 252 Mean Platelet Volume 10.1 Immature Granulocytes % 0.400 Neutrophils % 60.9 Lymphocytes % 26.7 Monocytes % 9.3 Eosinophils % 2.2 Basophils % 0.5 Nucleated Red Blood Cells % 0.0 Immature Granulocytes # 0.030 Neutrophils # 5.2 Lymphocytes # 2.3 Monocytes # 0.8 Eosinophils # 0.2 Basophils # 0.0 Nucleated Red Blood Cells # 0.0 Sodium Level 137 Potassium Level 3.8 Chloride Level 96 L Carbon Dioxide Level 32 H Anion Gap 9 Blood Urea Nitrogen 29 H Creatinine 0.82 Est Glomerular Filtrat Rate mL/min > 60 Glucose Level 90 Calcium Level 9.7 Phosphorus Level 5.0 H Magnesium Level 1.6 L Medications Medication Current Medications Carvedilol (Coreg) 3.125 mg BID PO Last administered on 11/02/18 09:44; Admin Dose 3.125 MG; Start 10/29/18 at 09:00 Lisinopril (Zestril) 2.5 mg DAILY PO Last administered on 11/02/18 09:44; Admin Dose 2.5 MG; Start 10/29/18 at 09:00 Pantoprazole (Protonix Tab) 40 mg DAILY@06 PO Last administered on 11/03/18 06:59; Admin Dose 40 MG; Start 10/29/18 at 06:00 Enoxaparin Sodium (Lovenox) 40 mg DAILY SC Last administered on 11/03/18 09:48; Admin Dose 40 MG; Start 10/29/18 at 09:00 Acetaminophen (Tylenol Tab) 650 mg Q6H PRN PO MILD PAIN(1-3)OR ELEVATED TEMP Last administered on 11/02/18 18:42; Admin Dose 650 MG; Start 10/28/18 at 22:30 Ondansetron HCl (Zofran Inj) 4 mg Q6H PRN IV NAUSEA AND/OR VOMITING; Start 10/28/18 at 22:30 Albuterol/ Ipratropium (Duoneb) 3 ml Q6H RESP THERAPY PRN HHN SHORTNESS OF BR EATH Last administered on 10/31/18 15:51; Admin Dose 3 ML; Start 10/28/18 at 22:30 Potassium Chloride (Klor-Con 20) 20 meq DAILY PO Last administered on 11/03/18 09:37; Admin Dose 20 MEQ; Start 10/30/18 at 09:00 Midodrine (Proamatine) 2.5 mg BID@09,17 PRN PO SBP>85; Start 10/31/18 at 17:00 Gabapentin (Neurontin) 100 mg TID PO Last administered on 11/03/18 09:37; Admin Dose 100 MG; Start 11/01/18 at 21:00 Bumetanide (Bumex) 2 mg BID DIURETICS PO Last administered on 11/03/18 06:59; Admin Dose 2 MG; Start 11/01/18 at 18:00 Magnesium Sulfate 50 ml @ 25 mls/hr ONCE ONCE IVPB ; Start 11/03/18 at 13:00; Stop 11/03/18 at 14:59; Status SHIN MARES MD Nov 03, 2018 12:41
[2018-11-03] MEDS ORDERED: MAGNESIUM SULFATE 2 GM/50 ML 50 ML IVPB ONE (13:00)
[2018-11-03 15:27] VITALS: BP 90/57; PULSE 93; RESP 20
--- NOTE | 2018-11-03 16:30 | PN ---
DATE: 11/03/2018 SUBJECTIVE: Patient is alert, feels good, looks comfortable on nasal cannula. No fevers overnight. She is off antibiotics. WBC 8.5, no shift, no bands. BUN 29, creatinine 0.82. PHYSICAL EXAMINATION: GENERAL: Well-developed, middle-aged woman who is awake, in no distress. HEENT: Head atraumatic, normocephalic. NECK: Supple. CHEST: Rise symmetrical. Breath sounds diminished bilaterally. HEART: S1, S2. ABDOMEN: Soft, bowel sounds present. EXTREMITIES: Without cyanosis. ASSESSMENT: 1. Recurrent large left-sided exudative pleural effusion. 2. Pulmonary hypertension. 3. History of and methamphetamine use. PLAN: The patient is stable off antibiotics. She was seen by cardiothoracic surgery who recommends PleurX catheter. Plan for video-assisted thoracotomy on . Dictated By: SHANNA AMARAL HEAD LIBRARIAN for DEAN GUILLORY MD NI/NTS Conf#: [id number] DID#: [id number] CC: EDDIE KANG MD;*EndCC*
[2018-11-03 20:17] VITALS: BP 95/59; PULSE 95; RESP 18
[2018-11-04] VITALS (7 sets, daily range): BP systolic 91–123; BP diastolic 52–97; PULSE 53–95; RESP 16–21
[2018-11-04] MEDS: PANTOPRAZOLE (EC) 40 MG TAB PO SCH (07:03)
[2018-11-04] MEDS: BUMETANIDE 1 MG TAB PO SCH ×2 (07:03→18:52)
[2018-11-04] MEDS: ENOXAPARIN 40 MG/0.4 ML SYG SC SCH (09:00)
[2018-11-04] MEDS: GABAPENTIN 100 MG CAP PO SCH ×3 (09:55→20:18)
[2018-11-04] MEDS: LISINOPRIL 5 MG TAB PO SCH (09:56)
[2018-11-04] MEDS: POTASSIUM CHLORIDE (SR) 20 MEQ TAB PO SCH (09:56)
[2018-11-04] MEDS ORDERED: POTASSIUM CHLORIDE (SR) 20 MEQ TAB PO STA (10:38)
--- NOTE | 2018-11-04 11:35 | CONS ---
Consult Date/Type/Reason Admit Date/Time Oct 28, 2018 at 19:39 Initial Consult Date Type of Consult Pulmonary Requesting Provider: SHIN HAN MD Date/Time of Note DATE: 11/04/18 TIME: 11:33 Subjective Patient comfortable this morning no respiratory distress. Objective Vital Signs Date Temp Pulse Resp B/P (MAP) Pulse Ox O2 O2 Flow FiO2 Time Delivery Rate 11/04/18 97.6 95 16 101/67 99 07:24 (78) 11/04/18 3.0 01:48 11/03/18 Nasal 08:22 Cannula Intake and Output 11/03/18 11/03/18 11/04/18 1515:00 23:00 07:00 IntakeIntake Total 2300 ml 200 ml BalanceBalance 2300 ml 200 ml Exam GENERAL: Well-nourished well-developed lady comfortable at rest VITAL SIGNS: per chart NECK: Supple. No JVD or lymphadenopathy. CARDIAC EXAM: S1, S2. No added sounds or murmurs. CHEST: Diminished air entry bilaterally ABDOMEN: Soft, nontender. No guarding or rebound. EXTREMITIES: No cyanosis, clubbing or edema. NEUROLOGIC: Generalized weakness. No focal deficits. Results/Medications Result Diagram: 11/03/18 0507 11/04/18 0524 Results 24 hrs Laboratory Tests Test 11/04/18 05:24 Sodium Level 138 Potassium Level 3.3 L Chloride Level 96 L Carbon Dioxide Level 31 Anion Gap 11 Blood Urea Nitrogen 27 H Creatinine 0.77 Est Glomerular Filtrat Rate mL/min > 60 Glucose Level 129 Calcium Level 9.3 Medications Current Medications Carvedilol (Coreg) 3.125 mg BID PO Last administered on 11/04/18at 09:57; Admin Dose 3.125 MG; Start 10/29/18 at 09:00 Lisinopril (Zestril) 2.5 mg DAILY PO Last administered on 11/04/18at 09:56; Admin Dose 2.5 MG; Start 10/29/18 at 09:00 Pantoprazole (Protonix Tab) 40 mg DAILY@06 PO Last administered on 11/04/18at 07:03; Admin Dose 40 MG; Start 10/29/18 at 06:00 Enoxaparin Sodium (Lovenox) 40 mg DAILY SC Last administered on 11/04/18at 09:00; Admin Dose 40 MG; Start 10/29/18 at 09:00 Acetaminophen (Tylenol Tab) 650 mg Q6H PRN PO MILD PAIN(1-3)OR ELEVATED TEMP Last administered on 11/02/18at 18:42; Admin Dose 650 MG; Start 10/28/18 at 22:30 Ondansetron HCl (Zofran Inj) 4 mg Q6H PRN IV NAUSEA AND/OR VOMITING; Start 10/28/18 at 22:30 Albuterol/ Ipratropium (Duoneb) 3 ml Q6H RESP THERAPY PRN HHN SHORTNESS OF BREATH Last administered on 10/31/18at 15:51; Admin Dose 3 ML; Start 10/28/18 at 22:30 Potassium Chloride (Klor-Con 20) 20 meq DAILY PO Last administered on 11/04/18at 09:56; Admin Dose 20 MEQ; Start 10/30/18 at 09:00 Midodrine (Proamatine) 2.5 mg BID@09,17 PRN PO SBP>85; Start 10/31/18 at 17:00 Gabapentin (Neurontin) 100 mg TID PO Last administered on 11/04/18at 09:55; Admin Dose 100 MG; Start 11/01/18 at 21:00 Bumetanide (Bumex) 2 mg BID DIURETICS PO Last administered on 11/04/18at 07:03; Admin Dose 2 MG; Start 11/01/18 at 18:00 Assessment/Plan Hospital Course (Demo Recall) IMP: 1. Recurrent large left-sided lymphocytic predominant exudative pleural effusion--etiology remains unclear. Can represent multifactorial processes though malignancy cannot be excluded. 2. ADHF 3. 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 Encourage out of bed 2. Appreciate thoracic surgery evaluation. Scheduled for video-assisted thoracic surgery RAMIN JIMENEZ [facility], [facility] Nov 04, 2018 11:35
--- NOTE | 2018-11-04 13:25 | CONS ---
Assessment/Plan Assessment/Plan Hospital Course (Demo Recall) IMPRESSION: 1. Congestive heart failure exacerbation. Patient with both left and right-sided findings with the left having at least by previous echo, preserved EF and the right having significant RV dysfunction. 2. Tricuspid regurgitation, severe. 3. Hypotension, borderline. 4. Shortness of breath secondary to #1. 5. Pleural effusion, right side large, status post thoracentesis -1 liter. Now recurrent 6. Polysubstance abuse, most notably with methamphetamines. Recc: -Tele -Continue coreg/ACEI as tolerated only -Contineu bumex diuresis now PO and follow volume status -s/p abx's, f/u cx data -Appreciate CT surgical input with patient to undergo VATS/pleurodesis this /tomorrow -will f/u repeat echo after to reassess PAPressures and need for treatment and tricuspid valve degree of regurgitation -midodrine PRN only at this time Consultation Date/Type/Reason Admit Date/Time Oct 28, 2018 at 19:39 Initial Consult Date Lauryn Type of Consult Cardiology Reason for Consultation CHF Requesting Provider: SHIN HAN MD Date/Time of Note DATE: 11/04/18 TIME: 13:21 Exam/Review of Systems Vital Signs Vitals Vital Signs Date Temp Pulse Resp B/P (MAP) Pulse Ox O2 O2 Flow FiO2 Time Delivery Rate 11/04/18 97.6 95 16 101/67 99 07:24 (78) 11/04/18 3.0 01:48 11/03/18 Nasal 08:22 Cannula Intake and Output 11/03/18 11/03/18 11/04/18 1515:00 23:00 07:00 IntakeIntake Total 2300 ml 200 ml BalanceBalance 2300 ml 200 ml Exam Exam Review of Systems: CONSTITUTIONAL: No fevers, chills. PULMONARY: No sob CARDIOVASCULAR: No chest pain/palpitations GASTROINTESTINAL: No nausea/vomiting. GENITOURINARY: No hematuria/dysuria. MUSCULOSKELETAL: No myagias/arthalgias. PSYCHIATRIC: The patient denies depression. NEUROLOGIC: No weakness Constitutional: alert, oriented Psych: no complaints Head: normocephalic ENMT: mucosa pink and moist Neck: supple, jvd (9 cm water) Respiratory: diminished breath sounds (R>L) Cardiovascular: regular rate and rhythm Gastrointestinal: soft, non-tender Musculoskeletal: muscle tone (normal) Extremities: edema (none) Neurological: other (No focal deficits) Labs Result Diagram: 11/03/18 0507 11/04/18 0524 Results 24hrs Laboratory Tests Test 11/04/18 05:24 Sodium Level 138 Potassium Level 3.3 L Chloride Level 96 L Carbon Dioxide Level 31 Anion Gap 11 Blood Urea Nitrogen 27 H Creatinine 0.77 Est Glomerular Filtrat Rate mL/min > 60 Glucose Level 129 Calcium Level 9.3 Medications Medications Current Medications Carvedilol (Coreg) 3.125 mg BID PO Last administered on 11/04/18 09:57; Admin Dose 3.125 MG; Start 10/29/18 at 09:00 Lisinopril (Zestril) 2.5 mg DAILY PO Last administered on 11/04/18 09:56; Admin Dose 2.5 MG; Start 10/29/18 at 09:00 Pantoprazole (Protonix Tab) 40 mg DAILY@06 PO Last administered on 11/04/18 07:03; Admin Dose 40 MG; Start 10/29/18 at 06:00 Enoxaparin Sodium (Lovenox) 40 mg DAILY SC Last administered on 11/04/18 09:00; Admin Dose 40 MG; Start 10/29/18 at 09:00 Acetaminophen (Tylenol Tab) 650 mg Q6H PRN PO MILD PAIN(1-3)OR ELEVATED TEMP Last administered on 11/02/18at 18:42; Admin Dose 650 MG; Start 10/28/18 at 22:30 Ondansetron HCl (Zofran Inj) 4 mg Q6H PRN IV NAUSEA AND/OR VOMITING; Start 10/28/18 at 22:30 Albuterol/ Ipratropium (Duoneb) 3 ml Q6H RESP THERAPY PRN HHN SHORTNESS OF BREATH Last administered on 10/31/18at 15:51; Admin Dose 3 ML; Start 10/28/18 at 22:30 Potassium Chloride (Klor-Con 20) 20 meq DAILY PO Last administered on 11/04/18 09:56; Admin Dose 20 MEQ; Start 10/30/18 at 09:00 Midodrine (Proamatine) 2.5 mg BID@17 PRN PO SBP>85; Start 10/31/18 at 17:00 Gabapentin (Neurontin) 100 mg TID PO Last administered on 11/04/18at 09:55; Admin Dose 100 MG; Start 11/01/18 at 21:00 Bumetanide (Bumex) 2 mg BID DIURETICS PO Last administered on 11/04/18at 07:03; Admin Dose 2 MG; Start 11/01/18 at 18:00 JEFF HARMON Nov 04, 2018 13:25
--- NOTE | 2018-11-04 14:01 | CONS ---
Assessment/Plan Assessment/Plan Hospital Course (Demo Recall) SUBJECTIVE: Patient is alert, feels good, looks comfortable on nasal cannula. PHYSICAL EXAMINATION: GENERAL: Well-developed, middle-aged woman who is awake, in no distress. HEENT: Head atraumatic, normocephalic. NECK: Supple. CHEST: Rise symmetrical. Breath sounds diminished bilaterally. HEART: S1, S2. ABDOMEN: Soft, bowel sounds present. EXTREMITIES: Without cyanosis. ASSESSMENT: 1. Recurrent large left-sided exudative pleural effusion. 2. Pulmonary hypertension. 3. History of and methamphetamine use. PLAN: The patient is stable off antibiotics. Plan for video-assisted thoracotomy Consultation Date/Type/Reason Admit Date/Time Oct 28, 2018 at 19:39 Initial Consult Date 11/03/18 Type of Consult id Requesting Provider: SHIN HAN MD Date/Time of Note DATE: 11/04/18 TIME: 14:01 Exam/Review of Systems Exam Vitals Vital Signs Date Temp Pulse Resp B/P (MAP) Pulse Ox O2 O2 Flow FiO2 Time Delivery Rate 11/04/18 97.6 95 16 101/67 99 07:24 (78) 11/04/18 3.0 01:48 11/03/18 Nasal 08:22 Cannula Intake and Output 11/03/18 11/03/18 11/04/18 1515:00 23:00 07:00 IntakeIntake Total 2300 ml 200 ml BalanceBalance 2300 ml 200 ml Results Result Diagram: 11/03/18 0507 11/04/18 0524 Results 24hrs Laboratory Tests Test 11/04/18 05:24 Sodium Level 138 Potassium Level 3.3 L Chloride Level 96 L Carbon Dioxide Level 31 Anion Gap 11 Blood Urea Nitrogen 27 H Creatinine 0.77 Est Glomerular Filtrat Rate mL/min > 60 Glucose Level 129 Calcium Level 9.3 Medications Medication Current Medications Carvedilol (Coreg) 3.125 mg BID PO Last administered on 11/04/18at 09:57; Admin Dose 3.125 MG; Start 10/29/18 at 09:00 Lisinopril (Zestril) 2.5 mg DAILY PO Last administered on 11/04/18at 09:56; Admin Dose 2.5 MG; Start 10/29/18 at 09:00 Pantoprazole (Protonix Tab) 40 mg DAILY@06 PO Last administered on 11/04/18 07:03; Admin Dose 40 MG; Start 10/29/18 at 06:00 Enoxaparin Sodium (Lovenox) 40 mg DAILY SC Last administered on 11/04/18 09:00; Admin Dose 40 MG; Start 10/29/18 at 09:00 Acetaminophen (Tylenol Tab) 650 mg Q6H PRN PO MILD PAIN(1-3)OR ELEVATED TEMP Last administered on 11/02/18 18:42; Admin Dose 650 MG; Start 10/28/18 at 22:30 Ondansetron HCl (Zofran Inj) 4 mg Q6H PRN IV NAUSEA AND/OR VOMITING; Start 10/28/18 at 22:30 Albuterol/ Ipratropium (Duoneb) 3 ml Q6H RESP THERAPY PRN HHN SHORTNESS OF BREATH Last administered on 10/31/18 15:51; Admin Dose 3 ML; Start 10/28/18 at 22:30 Potassium Chloride (Klor-Con 20) 20 meq DAILY PO Last administered on 11/04/18 09:56; Admin Dose 20 MEQ; Start 10/30/18 at 09:00 Midodrine (Proamatine) 2.5 mg BID@09,17 PRN PO SBP>85; Start 10/31/18 at 17:00 Gabapentin (Neurontin) 100 mg TID PO Last administered on 11/04/18 13:27; Admin Dose 100 MG; Start 11/01/18 at 21:00 Bumetanide (Bumex) 2 mg BID DIURETICS PO Last administered on 11/04/18 07:03; Admin Dose 2 MG; Start 11/01/18 at 18:00 SHANNA AMARAL NP Nov 04, 2018 14:01
--- NOTE | 2018-11-04 16:38 | PN ---
Date/Time of Note Date/Time of Note DATE: 11/04/18 TIME: 16:37 Assessment/Plan VTE Prophylaxis [place] [facility] [place]: 1 [place]CD applied [place] [facility] [place] No SCD contraindicated: low risk/ambulating Pharmacological prophylaxis: NA/contraindicated Pharm contraindication: low risk/ambulating Lines/Catheters [facility] Saline Lock Urinary Cath still in place: No Assessment/Plan Assessment/Plan Assessment/Plan 1 Acute on chronic systolic heart failure-- ECHO reviewed with EF 60% and severe right atrial enlargement, right ventricle dilation with reduced systolic function, severe TR 2. pulmonary HTN 3. Large right pleural effusion s/p thoracentesis 07/30/2018. Pathology: Left thoracentesis fluid for cytology: -- Negative for malignant cells.. Pt might need pleurodesis. 4. h/o Meth use 5. Overweight 6. hyperlipidemia 7. Hypotension, resolved 8. S.p appendectomy 9. Back pain 10. dyslipidemia Assessment/Plan -keep fluid restriction -Patient was switched to Bumex p.o. 2 mg p.o. twice dailyc for now -Repeat chest x-ray persistent right-sided effusion for VATS tomorrow and patient refused Pleurx catheter -cw with Coreg/lisinopril -quant TB was negative -cw with Midodrin per cards prn Result Diagram: Result Diagram: 11/03/18 0507 11/04/18 0524 Results 24hrs Laboratory Tests Test 11/04/18 05:24 Sodium Level 138 Potassium Level 3.3 L Chloride Level 96 L Carbon Dioxide Level 31 Anion Gap 11 Blood Urea Nitrogen 27 H Creatinine 0.77 Est Glomerular Filtrat Rate mL/min > 60 Glucose Level 129 Calcium Level 9.3 Subjective 24 Hr Interval Summary Free Text/Dictation It is feeling much better today VATS possibly tomorrow Exam/Review of Systems Exam Vitals Vital Signs Date Temp Pulse Resp B/P (MAP) Pulse Ox O2 O2 Flow FiO2 Time Delivery Rate 11/04/18 98.2 91 16 96/60 (72) 99 15:19 11/04/18 3.0 01:48 11/03/18 Nasal 08:22 Cannula Intake and Output 11/03/18 11/03/18 11/04/18 1515:00 23:00 07:00 IntakeIntake Total 2300 ml 200 ml BalanceBalance 2300 ml 200 ml Exam onstitutional: alert Head: normocephalic ENMT: mucosa pink and moist Neck: supple, jvd (9 cm water) Respiratory: diminished breath sounds (at bases/B more on right Cardiovascular: regular rate and rhythm Gastrointestinal: soft, non-tender Musculoskeletal: muscle tone (normal) Extremities: 1+ edema (trace/B LE) Neurological: other (NO focal deficits) Results Results 24hrs Laboratory Tests Test 11/04/18 05:24 Sodium Level 138 Potassium Level 3.3 L Chloride Level 96 L Carbon Dioxide Level 31 Anion Gap 11 Blood Urea Nitrogen 27 H Creatinine 0.77 Est Glomerular Filtrat Rate mL/min > 60 Glucose Level 129 Calcium Level 9.3 Medications Medication Current Medications Carvedilol (Coreg) 3.125 mg BID PO Last administered on 11/04/18 09:57; Admin Dose 3.125 MG; Start 10/29/18 at 09:00 Lisinopril (Zestril) 2.5 mg DAILY PO Last administered on 11/04/18 09:56; Admin Dose 2.5 MG; Start 10/29/18 at 09:00 Pantoprazole (Protonix Tab) 40 mg DAILY@06 PO Last administered on 11/04/18 07:03; Admin Dose 40 MG; Start 10/29/18 at 06:00 Enoxaparin Sodium (Lovenox) 40 mg DAILY SC Last administered on 11/04/18 09:00; Admin Dose 40 MG; Start 10/29/18 at 09:00 Acetaminophen (Tylenol Tab) 650 mg Q6H PRN PO MILD PAIN(1-3)OR ELEVATED TEMP Last administered on 11/02/18 18:42; Admin Dose 650 MG; Start 10/28/18 at 22:30 Ondansetron HCl (Zofran Inj) 4 mg Q6H PRN IV NAUSEA AND/OR VOMITING; Start 10/28/18 at 22:30 Albuterol/ Ipratropium (Duoneb) 3 ml Q6H RESP THERAPY PRN HHN SHORTNESS OF BREATH Last administered on 10/31/18 15:51; Admin Dose 3 ML; Start 10/28/18 at 22:30 Potassium Chloride (Klor-Con 20) 20 meq DAILY PO Last administered on 7/31/19at 09:56; Admin Dose 20 MEQ; Start 10/30/18 at 09:00 Midodrine (Proamatine) 2.5 mg BID@09,17 PRN PO SBP>85; Start 10/31/18 at 17:00 Gabapentin (Neurontin) 100 mg TID PO Last administered on 11/04/18at 13:27; Admin Dose 100 MG; Start 11/01/18 at 21:00 Bumetanide (Bumex) 2 mg BID DIURETICS PO Last administered on 11/04/18at 07:03; Admin Dose 2 MG; Start 11/01/18 at 18:00 SHIN HAN MD Nov 04, 2018 16:38
--- NOTE | 2018-11-04 17:42 | RADRPT ---
Echocardiogram Report Patient Name: Manav DE LA ROSA ID: [id number] : 1980 (38y 7m)Study Date: 11/02/2018 2:17:16 PM Gender: FAccession #: [id number] Tech: Rishi Cristina [facility] Location: [address] Ref.Physician: SHIN HAN Height(Cm): BSA: Weight(Kg): Quality: AdequateOrder Physician: SHIN HAN Account #: Procedures: Echocardiographic Report: Transthoracic echocardiogram examination. Indications: Eval PA pressure. Measurements: Doppler Measurement Value Normal Range TR Peak Barry 4.7 [ 100.0 - 280.0 ] cm/sec TR Peak PG 87.0 mmHg RVSP 102.0 [ 10.0 - 36.0 ] mmHg Findings: Left Ventricle: Reduced left ventricular cavity size. Normal left ventricular systolic function. Left ventricular wall thickness upper limits of normal. The left ventricular ejection fraction is visually estimated at 55 %. Right Ventricle: Severe enlargement of right ventricle. Moderate right ventricular hypokinesis. Abnormal (paradoxical) septal motion consistent with RV volume overload and/or elevated RV end-diastolic pressure. Flattened septum in systole and diastole consistent with increased RV pressure and volume overload. Left Atrium: The left atrium is normal in size and appearance. Right Atrium: Severely enlarged that measures >50mm. Mitral Valve: Mild mitral annular calcification. Calcified Leaflets Mitral valve leaflet appear mildly clacified. Aortic Valve: Aortic cusps appear mildly calcified. Tricuspid Valve: The estimated Peak RVSP is 102 mmHg. Tricuspid valve appears mildly thickened. There is severe tricuspid regurgitation. Pericardium: Trivial effusion. Bilateral pleural effusion seen. IVC: Dilated inferior vena cava with no respiratory collapse. Conclusions: Reduced left ventricular cavity size. Normal left ventricular systolic function. Left ventricular wall thickness upper limits of normal. The left ventricular ejection fraction is visually estimated at 55 %. Severe enlargement of right ventricle. Moderate to severe right ventricular hypokinesis. Abnormal (paradoxical) septal motion consistent with RV volume overload and/or elevated RV end-diastolic pressure. Flattened septum in systole and diastole consistent with increased RV pressure and volume overload. Severely enlarged that measures >50mm. Mild mitral annular calcification. Calcified Leaflets Mitral valve leaflet appear mildly clacified. The estimated Peak RVSP is 102 mmHg. Tricuspid valve appears mildly thickened. There is severe tricuspid regurgitation. Trivial effusion. PLeural Effusion. Electronically Signed By: Alexis Alba 2018-11-04 17:41:01 PDT
[2018-11-04] MEDS: ACETAMINOPHEN 325 MG TAB PO PRN (18:57)
[2018-11-05 03:30] VITALS: BP 87/52; PULSE 93; RESP 18
[2018-11-05] MEDS: BUMETANIDE 1 MG TAB PO SCH ×2 (06:00→17:25)
[2018-11-05] MEDS: PANTOPRAZOLE (EC) 40 MG TAB PO SCH (06:28)
[2018-11-05 07:40] VITALS: BP 107/75; PULSE 81; RESP 16
[2018-11-05] MEDS: POTASSIUM CHLORIDE (SR) 20 MEQ TAB PO SCH (09:12)
[2018-11-05] MEDS: LISINOPRIL 5 MG TAB PO SCH (09:12)
[2018-11-05] MEDS: GABAPENTIN 100 MG CAP PO SCH ×3 (09:12→21:31)
[2018-11-05] MEDS: ENOXAPARIN 40 MG/0.4 ML SYG SC SCH (09:19)
--- NOTE | 2018-11-05 10:11 | PN ---
Date/Time of Note Date/Time of Note DATE: 11/05/18 TIME: 10:11 Assessment/Plan VTE Prophylaxis Risk score (from [facility])>0 risk: 1 SCD applied (from [facility]): No SCD contraindicated: low risk/ambulating Pharmacological prophylaxis: NA/contraindicated Pharm contraindication: low risk/ambulating Lines/Catheters IV Catheter Type (from [facility] [place] Urinary Cath still in place: No Assessment/Plan Assessment/Plan 1 Acute on chronic systolic heart failure-- ECHO reviewed with EF 60% and severe right atrial enlargement, right ventricle dilation with reduced systolic function, severe TR 2. pulmonary HTN 3. Large right pleural effusion s/p thoracentesis 07/30/2018. Pathology: Left thoracentesis fluid for cytology: -- Negative for malignant cells.. Pt might need pleurodesis. 4. h/o Meth use 5. Overweight 6. hyperlipidemia 7. Hypotension, resolved 8. S.p appendectomy 9. Back pain 10. dyslipidemia Assessment/Plan -keep fluid restriction strict -Patient was switched to Bumex p.o. 2 mg p.o. twice dailyc for now -Repeat chest x-ray persistent right-sided effusion for VATS tomorrow and patient refused Pleurx catheter -cw with Coreg/lisinopril -quant TB was negative -cw with Midodrin per cards prn - still on 4-5 l oxygen Result Diagram: 11/05/188 11/05/18 0448 Results 24hrs Laboratory Tests Test 11/05/18 04:48 White Blood Count 6.7 # Red Blood Count 3.69 L Hemoglobin 12.2 Hematocrit 36.2 L Mean Corpuscular Volume 98.1 Mean Corpuscular Hemoglobin 33.1 H Mean Corpuscular Hemoglobin Concent 33.7 Red Cell Distribution Width 15.9 H Platelet Count 223 Mean Platelet Volume 10.4 Immature Granulocytes % 0.300 Neutrophils % 55.5 Lymphocytes % 30.5 Monocytes % 9.8 Eosinophils % 3.3 Basophils % 0.6 Nucleated Red Blood Cells % 0.0 Immature Granulocytes # 0.020 Neutrophils # 3.7 Lymphocytes # 2.0 Monocytes # 0.7 Eosinophils # 0.2 Basophils # 0.0 Nucleated Red Blood Cells # 0.0 Sodium Level 139 Potassium Level 3.7 Chloride Level 96 L Carbon Dioxide Level 34 H Anion Gap 9 Blood Urea Nitrogen 28 H Creatinine 0.79 Est Glomerular Filtrat Rate mL/min > 60 Glucose Level 89 # Calcium Level 9.4 Phosphorus Level 4.4 Magnesium Level 1.8 Subjective 24 Hr Interval Summary Free Text/Dictation VATS tmw still requiring high oxygen fluid intake was > 2l Exam/Review of Systems Exam Vitals Vital Signs Date Temp Pulse Resp B/P (MAP) Pulse Ox O2 O2 Flow FiO2 Time Delivery Rate 11/05/18 Nasal 2.0 08:09 Cannula 11/05/18 98.0 81 16 107/75 95 07:40 (86) Intake and Output 11/04/18 11/04/18 11/05/18 1515:00 23:00 07:00 IntakeIntake Total 240 ml 1850 ml 240 ml OutputOutput Total 1000 ml 2350 ml 1000 ml BalanceBalance -760 ml -500 ml -760 ml Exam onstitutional: alert Head: normocephalic ENMT: mucosa pink and moist Neck: supple, jvd (9 cm water) Respiratory: diminished breath sounds (at bases/B more on right Cardiovascular: regular rate and rhythm Gastrointestinal: soft, non-tender Musculoskeletal: muscle tone (normal) Extremities: 1+ edema (trace/B LE) Neurological: other (NO focal deficits) Results Results 24hrs Laboratory Tests Test 11/05/18 04:48 White Blood Count 6.7 # Red Blood Count 3.69 L Hemoglobin 12.2 Hematocrit 36.2 L Mean Corpuscular Volume 98.1 Mean Corpuscular Hemoglobin 33.1 H Mean Corpuscular Hemoglobin Concent 33.7 Red Cell Distribution Width 15.9 H Platelet Count 223 Mean Platelet Volume 10.4 Immature Granulocytes % 0.300 Neutrophils % 55.5 Lymphocytes % 30.5 Monocytes % 9.8 Eosinophils % 3.3 Basophils % 0.6 Nucleated Red Blood Cells % 0.0 Immature Granulocytes # 0.020 Neutrophils # 3.7 Lymphocytes # 2.0 Monocytes # 0.7 Eosinophils # 0.2 Basophils # 0.0 Nucleated Red Blood Cells # 0.0 Sodium Level 139 Potassium Level 3.7 Chloride Level 96 L Carbon Dioxide Level 34 H Anion Gap 9 Blood Urea Nitrogen 28 H Creatinine 0.79 Est Glomerular Filtrat Rate mL/min > 60 Glucose Level 89 # Calcium Level 9.4 Phosphorus Level 4.4 Magnesium Level 1.8 Medications Medication Current Medications Carvedilol (Coreg) 3.125 mg BID PO Last administered on 11/05/18 09:12; Admin Dose 3.125 MG; Start 10/29/18 at 09:00 Lisinopril (Zestril) 2.5 mg DAILY PO Last administered on 11/05/18 09:12; Admin Dose 2.5 MG; Start 10/29/18 at 09:00 Pantoprazole (Protonix Tab) 40 mg DAILY@06 PO Last administered on 11/05/18 06:28; Admin Dose 40 MG; Start 10/29/18 at 06:00 Enoxaparin Sodium (Lovenox) 40 mg DAILY SC Last administered on 11/05/18 09:19; Admin Dose 40 MG; Start 10/29/18 at 09:00 Acetaminophen (Tylenol Tab) 650 mg Q6H PRN PO MILD PAIN(1-3)OR ELEVATED TEMP Last administered on 11/04/18 18:57; Admin Dose 650 MG; Start 10/28/18 at 22:30 Ondansetron HCl (Zofran Inj) 4 mg Q6H PRN IV NAUSEA AND/OR VOMITING Last administered on 11/05/18 03:41; Admin Dose 4 MG; Start 10/28/18 at 22:30 Albuterol/ Ipratropium (Duoneb) 3 ml Q6H RESP THERAPY PRN HHN SHORTNESS OF BREATH Last administered on 10/31/18 15:51; Admin Dose 3 ML; Start 10/28/18 at 22:30 Potassium Chloride (Klor-Con 20) 20 meq DAILY PO Last administered on 11/05/18 09:12; Admin Dose 20 MEQ; Start 10/30/18 at 09:00 Midodrine (Proamatine) 2.5 mg BID@09,17 PRN PO SBP>85 Last administered on 11/05/18 03:41; Admin Dose 2.5 MG; Start 10/31/18 at 17:00 Gabapentin (Neurontin) 100 mg TID PO Last administered on 11/05/18 09:12; Admin Dose 100 MG; Start 11/01/18 at 21:00 Bumetanide (Bumex) 2 mg BID DIURETICS PO Last administered on 11/04/18 18:52; Admin Dose 2 MG; Start 11/01/18 at 18:00 SHIN HAN MD Nov 05, 2018 10:11
--- NOTE | 2018-11-05 10:53 | CONS ---
Consult Date/Type/Reason Admit Date/Time Oct 28, 2018 at 19:39 Initial Consult Date Type of Consult Pulmonary Requesting Provider: SHIN HAN MD Date/Time of Note DATE: 11/05/18 TIME: 10:52 Subjective No significant changes. Remains relatively stable. Objective Vital Signs Date Temp Pulse Resp B/P (MAP) Pulse Ox O2 O2 Flow FiO2 Time Delivery Rate 11/05/18 Nasal 2.0 08:09 Cannula 11/05/18 98.0 81 16 107/75 95 07:40 (86) Intake and Output 11/04/18 11/04/18 11/05/18 1515:00 23:00 07:00 IntakeIntake Total 240 ml 1850 ml 240 ml OutputOutput Total 1000 ml 2350 ml 1000 ml BalanceBalance -760 ml -500 ml -760 ml Exam GENERAL: Well-nourished well-developed lady comfortable at rest VITAL SIGNS: per chart NECK: Supple. No JVD or lymphadenopathy. CARDIAC EXAM: S1, S2. No added sounds or murmurs. CHEST: Diminished air entry bilaterally ABDOMEN: Soft, nontender. No guarding or rebound. EXTREMITIES: No cyanosis, clubbing or edema. NEUROLOGIC: Generalized weakness. No focal deficits. Results/Medications Result Diagram: 11/05/188 11/05/188 Results 24 hrs Laboratory Tests Test 11/05/18 04:48 White Blood Count 6.7 # Red Blood Count 3.69 L Hemoglobin 12.2 Hematocrit 36.2 L Mean Corpuscular Volume 98.1 Mean Corpuscular Hemoglobin 33.1 H Mean Corpuscular Hemoglobin Concent 33.7 Red Cell Distribution Width 15.9 H Platelet Count 223 Mean Platelet Volume 10.4 Immature Granulocytes % 0.300 Neutrophils % 55.5 Lymphocytes % 30.5 Monocytes % 9.8 Eosinophils % 3.3 Basophils % 0.6 Nucleated Red Blood Cells % 0.0 Immature Granulocytes # 0.020 Neutrophils # 3.7 Lymphocytes # 2.0 Monocytes # 0.7 Eosinophils # 0.2 Basophils # 0.0 Nucleated Red Blood Cells # 0.0 Sodium Level 139 Potassium Level 3.7 Chloride Level 96 L Carbon Dioxide Level 34 H Anion Gap 9 Blood Urea Nitrogen 28 H Creatinine 0.79 Est Glomerular Filtrat Rate mL/min > 60 Glucose Level 89 # Calcium Level 9.4 Phosphorus Level 4.4 Magnesium Level 1.8 Medications Current Medications Carvedilol (Coreg) 3.125 mg BID PO Last administered on 11/05/18 09:12; Admin Dose 3.125 MG; Start 10/29/18 at 09:00 Lisinopril (Zestril) 2.5 mg DAILY PO Last administered on 11/05/18 09:12; Admin Dose 2.5 MG; Start 10/29/18 at 09:00 Pantoprazole (Protonix Tab) 40 mg DAILY@06 PO Last administered on 11/05/18 06:28; Admin Dose 40 MG; Start 10/29/18 at 06:00 Enoxaparin Sodium (Lovenox) 40 mg DAILY SC Last administered on 11/05/18 09:19; Admin Dose 40 MG; Start 10/29/18 at 09:00 Acetaminophen (Tylenol Tab) 650 mg Q6H PRN PO MILD PAIN(1-3)OR ELEVATED TEMP Last administered on 11/04/18 18:57; Admin Dose 650 MG; Start 10/28/18 at 22:30 Ondansetron HCl (Zofran Inj) 4 mg Q6H PRN IV NAUSEA AND/OR VOMITING Last administered on 11/05/18 03:41; Admin Dose 4 MG; Start 10/28/18 at 22:30 Albuterol/ Ipratropium (Duoneb) 3 ml Q6H RESP THERAPY PRN HHN SHORTNESS OF BREATH Last administered on 10/31/18 15:51; Admin Dose 3 ML; Start 10/28/18 at 22:30 Potassium Chloride (Klor-Con 20) 20 meq DAILY PO Last administered on 11/05/18 09:12; Admin Dose 20 MEQ; Start 10/30/18 at 09:00 Midodrine (Proamatine) 2.5 mg BID@,17 PRN PO SBP>85 Last administered on 11/05/18 03:41; Admin Dose 2.5 MG; Start 10/31/18 at 17:00 Gabapentin (Neurontin) 100 mg TID PO Last administered on 11/05/18 09:12; Admin Dose 100 MG; Start 11/01/18 at 21:00 Bumetanide (Bumex) 2 mg BID DIURETICS PO Last administered on 11/04/18 18:52; Admin Dose 2 MG; Start 11/01/18 at 18:00 Assessment/Plan Hospital Course (Demo Recall) IMP: 1. Recurrent large left-sided lymphocytic predominant exudative pleural effusion--etiology remains unclear. Can represent multifactorial processes though malignancy cannot be excluded. 2. ADHF 3. 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 Encourage out of bed 2. Appreciate thoracic surgery evaluation. Scheduled for video-assisted thoracic surgery 3. Continue diuretics RAMIN JIMENEZ MD, [facility] Nov 05, 2018 10:53
--- NOTE | 2018-11-05 11:12 | CONS ---
Assessment/Plan Assessment/Plan Hospital Course (Demo Recall) IMPRESSION: 1. Congestive heart failure exacerbation. Patient with both left and right-sided findings with the left having at least by previous echo, preserved EF and the right having significant RV dysfunction.-again by repeat echo with severely elevated RVSP>100 2. Tricuspid regurgitation, severe. 3. Hypotension, borderline. 4. Shortness of breath secondary to #1. 5. Pleural effusion, right side large, status post thoracentesis -1 liter. Now recurrent 6. Polysubstance abuse, most notably with methamphetamines. Recc: -Tele -Continue coreg/ACEI as tolerated only -Contineu bumex diuresis now PO and follow volume status -s/p course of abx's, f/u cx data -Appreciate CT surgical input with patient to undergo VATS/pleurodesis ?tomorrow -midodrine PRN only at this time -would consider initiation treatment for elevated PAP's Consultation Date/Type/Reason Admit Date/Time Oct 28, 2018 at 19:39 Initial Consult Date Lauryn Type of Consult Cardiology Reason for Consultation CHF Requesting Provider: SHIN HAN MD Date/Time of Note DATE: 11/05/18 TIME: 11:04 Exam/Review of Systems Vital Signs Vitals Vital Signs Date Temp Pulse Resp B/P (MAP) Pulse Ox O2 O2 Flow FiO2 Time Delivery Rate 11/05/18 Nasal 2.0 08:09 Cannula 11/05/18 98.0 81 16 107/75 95 07:40 (86) Intake and Output 11/04/18 11/04/18 11/05/18 1515:00 23:00 07:00 IntakeIntake Total 240 ml 1850 ml 240 ml OutputOutput Total 1000 ml 2350 ml 1000 ml BalanceBalance -760 ml -500 ml -760 ml Exam Exam Review of Systems: CONSTITUTIONAL: No fevers, chills. PULMONARY: No sob CARDIOVASCULAR: No chest pain/palpitations GASTROINTESTINAL: No nausea/vomiting. GENITOURINARY: No hematuria/dysuria. MUSCULOSKELETAL: No myagias/arthalgias. PSYCHIATRIC: The patient denies depression. NEUROLOGIC: No weakness Constitutional: alert Psych: no complaints Head: normocephalic ENMT: mucosa pink and moist Neck: supple, jvd (9 cm water) Respiratory: diminished breath sounds (at bases/B) Cardiovascular: regular rate and rhythm Gastrointestinal: soft, non-tender Musculoskeletal: muscle tone (normal) Extremities: edema (none) Neurological: other (No focal deficits) Labs Result Diagram: 11/05/1844711/05/18447 Results 24hrs Laboratory Tests Test 11/05/18 04:48 White Blood Count 6.7 # Red Blood Count 3.69 L Hemoglobin 12.2 Hematocrit 36.2 L Mean Corpuscular Volume 98.1 Mean Corpuscular Hemoglobin 33.1 H Mean Corpuscular Hemoglobin Concent 33.7 Red Cell Distribution Width 15.9 H Platelet Count 223 Mean Platelet Volume 10.4 Immature Granulocytes % 0.300 Neutrophils % 55.5 Lymphocytes % 30.5 Monocytes % 9.8 Eosinophils % 3.3 Basophils % 0.6 Nucleated Red Blood Cells % 0.0 Immature Granulocytes # 0.020 Neutrophils # 3.7 Lymphocytes # 2.0 Monocytes # 0.7 Eosinophils # 0.2 Basophils # 0.0 Nucleated Red Blood Cells # 0.0 Sodium Level 139 Potassium Level 3.7 Chloride Level 96 L Carbon Dioxide Level 34 H Anion Gap 9 Blood Urea Nitrogen 28 H Creatinine 0.79 Est Glomerular Filtrat Rate mL/min > 60 Glucose Level 89 # Calcium Level 9.4 Phosphorus Level 4.4 Magnesium Level 1.8 Medications Medications Current Medications Carvedilol (Coreg) 3.125 mg BID PO Last administered on 11/05/18at 09:12; Admin Dose 3.125 MG; Start 10/29/18 at 09:00 Lisinopril (Zestril) 2.5 mg DAILY PO Last administered on 11/05/18at 09:12; Admin Dose 2.5 MG; Start 10/29/18 at 09:00 Pantoprazole (Protonix Tab) 40 mg DAILY@06 PO Last administered on 11/05/18at 06:28; Admin Dose 40 MG; Start 10/29/18 at 06:00 Enoxaparin Sodium (Lovenox) 40 mg DAILY SC Last administered on 11/05/18 09:19; Admin Dose 40 MG; Start 10/29/18 at 09:00 Acetaminophen (Tylenol Tab) 650 mg Q6H PRN PO MILD PAIN(1-3)OR ELEVATED TEMP Last administered on 11/04/18at 18:57; Admin Dose 650 MG; Start 10/28/18 at 22:30 Ondansetron HCl (Zofran Inj) 4 mg Q6H PRN IV NAUSEA AND/OR VOMITING Last administered on 11/05/18 03:41; Admin Dose 4 MG; Start 10/28/18 at 22:30 Albuterol/ Ipratropium (Duoneb) 3 ml Q6H RESP THERAPY PRN HHN SHORTNESS OF BREATH Last administered on 10/31/18 15:51; Admin Dose 3 ML; Start 10/28/18 at 22:30 Potassium Chloride (Klor-Con 20) 20 meq DAILY PO Last administered on 11/05/18 09:12; Admin Dose 20 MEQ; Start 10/30/18 at 09:00 Midodrine (Proamatine) 2.5 mg BID@09,17 PRN PO SBP>85 Last administered on 11/05/18 03:41; Admin Dose 2.5 MG; Start 10/31/18 at 17:00 Gabapentin (Neurontin) 100 mg TID PO Last administered on 11/05/18 09:12; Admin Dose 100 MG; Start 11/01/18 at 21:00 Bumetanide (Bumex) 2 mg BID DIURETICS PO Last administered on 11/04/18 18:52; Admin Dose 2 MG; Start 11/01/18 at 18:00 JEFF HARMON Nov 05, 2018 11:12
[2018-11-05 11:21] VITALS: BP 112/59; PULSE 88; RESP 18
[2018-11-05 15:37] VITALS: BP 91/59; PULSE 84; RESP 18
[2018-11-05] MEDS: ACETAMINOPHEN 325 MG TAB PO PRN (17:30)
[2018-11-05 20:24] VITALS: BP 97/55; PULSE 81; RESP 20
[2018-11-05 23:30] VITALS: BP 101/56; PULSE 84; RESP 21
[2018-11-06] VITALS (32 sets, daily range): BP systolic 76–107; BP diastolic 47–70; PULSE 71–90; RESP 18–62
[2018-11-06] MEDS: ACETAMINOPHEN 325 MG TAB PO PRN ×2 (01:05→08:49)
[2018-11-06] MEDS: BUMETANIDE 1 MG TAB PO SCH ×2 (05:58→17:12)
[2018-11-06] MEDS: PANTOPRAZOLE (EC) 40 MG TAB PO SCH (05:58)
[2018-11-06] MEDS: POTASSIUM CHLORIDE (SR) 20 MEQ TAB PO SCH (08:49)
[2018-11-06] MEDS: GABAPENTIN 100 MG CAP PO SCH ×2 (08:49→13:22)
[2018-11-06] MEDS: LISINOPRIL 5 MG TAB PO SCH (08:50)
[2018-11-06] MEDS: ENOXAPARIN 40 MG/0.4 ML SYG SC SCH (09:53)
[2018-11-06] MEDS: DEXTROSE 5%-0.45% NACL 1,000 ML IV SCH (10:04)
--- NOTE | 2018-11-06 10:36 | CONS ---
Consultation Date/Type/Reason Admit Date/Time Oct 28, 2018 at 19:39 Initial Consult Date 11/03/18 Type of Consult Pulmonary Patient's condition is stable. Denies any shortness of breath at rest. Any coughing chest pain or wheezing. General exam; young female, awake alert, currently no distress. HEENT exam; supple neck, no JVD. No lymphadenopathy. Midline trachea. No thyromegaly. Patient has good dentition. No neck masses. Chest exam; diminished breath sounds right lung. Left lung is clear. S1-S2 audible, no murmurs. Regular rhythm. Abdomen exam; soft, nontender. Bowel sounds audible. No organomegaly. Extremity exam; no peripheral edema clubbing. [employer] exam; no focal deficit. Assessment and recommendations; 1. patient admitted with a large right pleural effusion which is exudative in character. Etiology is unclear. Possibly related to CHF. Continue current supportive care. Patient scheduled for VATS pleurodesis and possibly pleural biopsy. Requesting Provider: SHIN HAN MD Date/Time of Note DATE: 11/06/18 TIME: 10:34 Exam/Review of Systems Exam Vitals Vital Signs Date Temp Pulse Resp B/P (MAP) Pulse Ox O2 O2 Flow FiO2 Time Delivery Rate 11/06/18 97.4 82 18 107/65 97 Nasal 07:09 (79) Cannula 11/06/18 3.0 04:02 Intake and Output 11/05/18 11/05/18 11/06/18 1515:00 23:00 07:00 IntakeIntake Total 600 ml OutputOutput Total 500 ml 650 ml BalanceBalance -500 ml -650 ml 600 ml Results Result Diagram: 11/06/18 0516 11/06/18 0516 Results 24hrs Laboratory Tests Test 11/05/18 15:00 11/06/18 05:16 Urine Test NEGATIVE White Blood Count 8.7 # Red Blood Count 3.80 L Hemoglobin 12.3 Hematocrit 37.5 Mean Corpuscular Volume 98.7 Mean Corpuscular Hemoglobin 32.4 Mean Corpuscular Hemoglobin Concent 32.8 Red Cell Distribution Width 15.9 H Platelet Count 220 Mean Platelet Volume 10.4 Immature Granulocytes % 0.300 Neutrophils % 65.5 Lymphocytes % 21.2 Monocytes % 10.5 Eosinophils % 2.0 Basophils % 0.5 Nucleated Red Blood Cells % 0.0 Immature Granulocytes # 0.030 Neutrophils # 5.7 Lymphocytes # 1.8 Monocytes # 0.9 Eosinophils # 0.2 Basophils # 0.0 Nucleated Red Blood Cells # 0.0 Sodium Level 137 Potassium Level 3.9 Chloride Level 95 L Carbon Dioxide Level 33 H Anion Gap 9 Blood Urea Nitrogen 32 H Creatinine 0.93 Est Glomerular Filtrat Rate mL/min > 60 Glucose Level 92 Calcium Level 9.4 Phosphorus Level 4.7 Magnesium Level 1.8 Medications Medication Current Medications Carvedilol (Coreg) 3.125 mg BID PO Last administered on 11/06/18 08:51; Admin Dose 3.125 MG; Start 10/29/18 at 09:00 Lisinopril (Zestril) 2.5 mg DAILY PO Last administered on 11/06/18 08:50; Admin Dose 2.5 MG; Start 10/29/18 at 09:00 Pantoprazole (Protonix Tab) 40 mg DAILY@06 PO Last administered on 11/06/18 05:58; Admin Dose 40 MG; Start 10/29/18 at 06:00 Enoxaparin Sodium (Lovenox) 40 mg DAILY SC Last administered on 11/06/18 09:53; Admin Dose 40 MG; Start 10/29/18 at 09:00 Acetaminophen (Tylenol Tab) 650 mg Q6H PRN PO MILD PAIN(1-3)OR ELEVATED TEMP [place] [facility] administered on 11/06/18 08:49; Admin Dose 650 MG; Start 10/28/18 at 22:30 Ondansetron HCl (Zofran Inj) 4 mg Q6H PRN IV NAUSEA AND/OR VOMITING Last administered on 11/05/18 03:41; Admin Dose 4 MG; Start 10/28/18 at 22:30 Albuterol/ Ipratropium (Duoneb) 3 ml Q6H RESP THERAPY PRN HHN SHORTNESS OF BREATH Last administered on 10/31/18 15:51; Admin Dose 3 ML; Start 10/28/18 at 22:30 Potassium Chloride (Klor-Con 20) 20 meq DAILY PO Last administered on 11/06/18 08:49; Admin Dose 20 MEQ; Start 10/30/18 at 09:00 Midodrine (Proamatine) 2.5 mg BID@,17 PRN PO SBP<85 Last administered on 11/05/18 03:41; Admin Dose 2.5 MG; Start 10/31/18 at 17:00 Gabapentin (Neurontin) 100 mg TID PO Last administered on 11/06/18at 08:49; Admin Dose 100 MG; Start 11/01/18 at 21:00 Bumetanide (Bumex) 2 mg BID DIURETICS PO Last administered on 11/06/18at 05:58; Admin Dose 2 MG; Start 11/01/18 at 18:00 Dextrose/Sodium Chloride 1,000 ml @ 20 mls/hr Q24H IV Last administered on 11/06/18at 10:04; Admin Dose 20 MLS/HR; Start 11/06/18 at 10:00 NEAL ANGUIANO Nov 06, 2018 10:36
--- NOTE | 2018-11-06 12:37 | CONS ---
Assessment/Plan Assessment/Plan Hospital Course (Demo Recall) IMPRESSION: 1. Congestive heart failure exacerbation. Patient with both left and right-sided findings with the left having at least by previous echo, preserved EF and the right having significant RV dysfunction.-again by repeat echo with severely elevated RVSP>100 2. Tricuspid regurgitation, severe. 3. Hypotension, borderline. 4. Shortness of breath secondary to #1. 5. Pleural effusion, right side large, status post thoracentesis -1 liter. Now recurrent 6. Polysubstance abuse, most notably with methamphetamines. Recc: -Tele -Continue coreg/ACEI as tolerated only -Contineu bumex diuresis now PO and follow volume status -s/p course of abx's, f/u cx data -Appreciate CT surgical input with patient to undergo VATS/pleurodesis ?today -midodrine PRN only at this time -would consider initiation treatment for elevated PAP's Consultation Date/Type/Reason Admit Date/Time Oct 28, 2018 at 19:39 Initial Consult Date Lauryn Type of Consult Cardiology Reason for Consultation CHF Requesting Provider: SHIN HAN MD Date/Time of Note DATE: 11/06/18 TIME: 12:33 Exam/Review of Systems Vital Signs Vitals Vital Signs Date Temp Pulse Resp B/P (MAP) Pulse Ox O2 O2 Flow FiO2 Time Delivery Rate 11/06/18 97.4 71 18 91/50 (64) 100 Nasal 11:05 Cannula 11/06/18 3.0 04:02 Intake and Output 11/05/18 11/05/18 11/06/18 1515:00 23:00 07:00 IntakeIntake Total 600 ml OutputOutput Total 500 ml 650 ml BalanceBalance -500 ml -650 ml 600 ml Exam Exam Review of Systems: CONSTITUTIONAL: No fevers, chills. PULMONARY: No sob CARDIOVASCULAR: No chest pain/palpitations GASTROINTESTINAL: No nausea/vomiting. GENITOURINARY: No hematuria/dysuria. MUSCULOSKELETAL: No myagias/arthalgias. PSYCHIATRIC: The patient denies depression. NEUROLOGIC: lethargic somewhat Constitutional: alert Psych: no complaints Head: normocephalic ENMT: mucosa pink and moist Neck: supple, jvd (9 cm water) Respiratory: diminished breath sounds (at bases/B) Cardiovascular: regular rate and rhythm Gastrointestinal: soft, non-tender Musculoskeletal: muscle weakness (mild generalized weakness) Extremities: edema (none) Neurological: other (No focal deficits) Labs Result Diagram: 11/06/1816 11/06/1816 Results 24hrs Laboratory Tests Test 11/05/18 15:00 11/06/18 05:16 Urine Test NEGATIVE White Blood Count 8.7 # Red Blood Count 3.80 L Hemoglobin 12.3 Hematocrit 37.5 Mean Corpuscular Volume 98.7 Mean Corpuscular Hemoglobin 32.4 Mean Corpuscular Hemoglobin Concent 32.8 Red Cell Distribution Width 15.9 H Platelet Count 220 Mean Platelet Volume 10.4 Immature Granulocytes % 0.300 Neutrophils % 65.5 Lymphocytes % 21.2 Monocytes % 10.5 Eosinophils % 2.0 Basophils % 0.5 Nucleated Red Blood Cells % 0.0 Immature Granulocytes # 0.030 Neutrophils # 5.7 Lymphocytes # 1.8 Monocytes # 0.9 Eosinophils # 0.2 Basophils # 0.0 Nucleated Red Blood Cells # 0.0 Sodium Level 137 Potassium Level 3.9 Chloride Level 95 L Carbon Dioxide Level 33 H Anion Gap 9 Blood Urea Nitrogen 32 H Creatinine 0.93 Est Glomerular Filtrat Rate mL/min > 60 Glucose Level 92 Calcium Level 9.4 Phosphorus Level 4.7 Magnesium Level 1.8 Medications Medications Current Medications Carvedilol (Coreg) 3.125 mg BID PO Last administered on 11/06/18 08:51; Admin Dose 3.125 MG; Start 10/29/18 at 09:00 Lisinopril (Zestril) 2.5 mg DAILY PO Last administered on 11/06/18at 08:50; Admin Dose 2.5 MG; Start 10/29/18 at 09:00 Pantoprazole (Protonix Tab) 40 mg DAILY@06 PO Last administered on 11/06/18 05:58; Admin Dose 40 MG; Start 10/29/18 at 06:00 Enoxaparin Sodium (Lovenox) 40 mg DAILY SC Last administered on 11/06/18 09:53; Admin Dose 40 MG; Start 10/29/18 at 09:00 Acetaminophen (Tylenol Tab) 650 mg Q6H PRN PO MILD PAIN(1-3)OR ELEVATED TEMP Last administered on 11/06/18at 08:49; Admin Dose 650 MG; Start 10/28/18 at 22:30 Ondansetron HCl (Zofran Inj) 4 mg Q6H PRN IV NAUSEA AND/OR VOMITING Last administered on 11/05/18 03:41; Admin Dose 4 MG; Start 10/28/18 at 22:30 Albuterol/ Ipratropium (Duoneb) 3 ml Q6H RESP THERAPY PRN HHN SHORTNESS OF BREATH Last administered on 10/31/18 15:51; Admin Dose 3 ML; Start 10/28/18 at 22:30 Potassium Chloride (Klor-Con 20) 20 meq DAILY PO Last administered on 11/06/18 08:49; Admin Dose 20 MEQ; Start 10/30/18 at 09:00 Midodrine (Proamatine) 2.5 mg BID@09,17 PRN PO SBP<85 Last administered on 11/05/18 03:41; Admin Dose 2.5 MG; Start 10/31/18 at 17:00 Gabapentin (Neurontin) 100 mg TID PO Last administered on 11/06/18 08:49; Admin Dose 100 MG; Start 11/01/18 at 21:00 Bumetanide (Bumex) 2 mg BID DIURETICS PO Last administered on 11/06/18 05:58; Admin Dose 2 MG; Start 11/01/18 at 18:00 Dextrose/Sodium Chloride 1,000 ml @ 20 mls/hr Q24H IV Last administered on 11/06/18 10:04; Admin Dose 20 MLS/HR; Start 11/06/18 at 10:00 JEFF HAMRON Nov 06, 2018 12:37
--- NOTE | 2018-11-06 14:51 | PN ---
Date/Time of Note Date/Time of Note DATE: 11/06/18 TIME: 14:49 Assessment/Plan VTE Pro[place]axis [place] [facility] [place]: 1 [place]CD [place] [facility] [place] SCD contraindicated: low risk/ambulating Pharmacological prophylaxis: NA/contraindicated Pharm contraindication: low risk/ambulating Lines/Catheters IV Catheter Type (from [facility] Saline Lock Urinary Cath still in place: No Assessment/Plan Assessment/Plan Assessment/Plan 1 Acute on chronic systolic heart failure-- ECHO reviewed with EF 60% and severe right atrial enlargement, right ventricle dilation with reduced systolic function, severe TR 2. pulmonary HTN 3. Recurrent Large right pleural effusion s/p thoracentesis 07/30/2018. Pathology: Left thoracentesis fluid for cytology: -- Negative for malignant CELLS 4. h/o Meth use 5. Overweight 6. hyperlipidemia 7. Hypotension, resolved 8. S.p appendectomy 9. Back pain 10. dyslipidemia Assessment/Plan -keep fluid restriction strict -Patient was switched to Bumex p.o. 2 mg p.o. twice dailyc for now -Repeat chest x-ray persistent right-sided effusion for VATS today and patient refused Pleurx catheter -cw with Coreg/lisinopril -quant TB was negative -cw with Midodrin per cards prn - still on 4-5 l oxygen - gentle fluids when NPO Result Diagram: 11/06/18 0516 11/06/18 0516 Results 24hrs Laboratory Tests Test 11/05/18 15:00 11/06/18 05:16 Urine Test NEGATIVE White Blood Count 8.7 # Red Blood Count 3.80 L Hemoglobin 12.3 Hematocrit 37.5 Mean Corpuscular Volume 98.7 Mean Corpuscular Hemoglobin 32.4 Mean Corpuscular Hemoglobin Concent 32.8 Red Cell Distribution Width 15.9 H Platelet Count 220 Mean Platelet Volume 10.4 Immature Granulocytes % 0.300 Neutrophils % 65.5 Lymphocytes % 21.2 Monocytes % 10.5 Eosinophils % 2.0 Basophils % 0.5 Nucleated Red Blood Cells % 0.0 Immature Granulocytes # 0.030 Neutrophils # 5.7 Lymphocytes # 1.8 Monocytes # 0.9 Eosinophils # 0.2 Basophils # 0.0 Nucleated Red Blood Cells # 0.0 Sodium Level 137 Potassium Level 3.9 Chloride Level 95 L Carbon Dioxide Level 33 H Anion Gap 9 Blood Urea Nitrogen 32 H Creatinine 0.93 Est Glomerular Filtrat Rate mL/min > 60 Glucose Level 92 Calcium Level 9.4 Phosphorus Level 4.7 Magnesium Level 1.8 Subjective 24 Hr Interval Summary Free Text/Dictation Pt was seen in am , scheduled for VATS Exam/Review of Systems Exam Vitals Vital Signs Date Temp Pulse Resp B/P (MAP) Pulse Ox O2 O2 Flow FiO2 Time Delivery Rate 11/06/18 97.4 71 18 91/50 (64) 100 Nasal 11:05 Cannula 11/06/18 3.0 04:02 Intake and Output 11/05/18 11/05/18 11/06/18 1515:00 23:00 07:00 IntakeIntake Total 600 ml OutputOutput Total 500 ml 650 ml BalanceBalance -500 ml -650 ml 600 ml Exam onstitutional: alert Head: normocephalic ENMT: mucosa pink and moist Neck: supple, jvd (9 cm water) Respiratory: diminished breath sounds (at bases/B more on right Cardiovascular: regular rate and rhythm Gastrointestinal: soft, non-tender Musculoskeletal: muscle tone (normal) Extremities: 1+ edema (trace/B LE) Neurological: other (NO focal deficits) Results Results 24hrs Laboratory Tests Test 11/05/18 15:00 11/06/18 05:16 Urine Test NEGATIVE White Blood Count 8.7 # Red Blood Count 3.80 L Hemoglobin 12.3 Hematocrit 37.5 Mean Corpuscular Volume 98.7 Mean Corpuscular Hemoglobin 32.4 Mean Corpuscular Hemoglobin Concent 32.8 Red Cell Distribution Width 15.9 H Platelet Count 220 Mean Platelet Volume 10.4 Immature Granulocytes % 0.300 Neutrophils % 65.5 Lymphocytes % 21.2 Monocytes % 10.5 Eosinophils % 2.0 Basophils % 0.5 Nucleated Red Blood Cells % 0.0 Immature Granulocytes # 0.030 Neutrophils # 5.7 Lymphocytes # 1.8 Monocytes # 0.9 Eosinophils # 0.2 Basophils # 0.0 Nucleated Red Blood Cells # 0.0 Sodium Level 137 Potassium Level 3.9 Chloride Level 95 L Carbon Dioxide Level 33 H Anion Gap 9 Blood Urea Nitrogen 32 H Creatinine 0.93 Est Glomerular Filtrat Rate mL/min > 60 Glucose Level 92 Calcium Level 9.4 Phosphorus Level 4.7 Magnesium Level 1.8 Medications Medication Current Medications Carvedilol (Coreg) 3.125 mg BID PO Last administered on 11/06/18 08:51; Admin Dose 3.125 MG; Start 10/29/18 at 09:00 Lisinopril (Zestril) 2.5 mg DAILY PO Last administered on 11/06/18 08:50; Admin Dose 2.5 MG; Start 10/29/18 at 09:00 Pantoprazole (Protonix Tab) 40 mg DAILY@06 PO Last administered on 11/06/18 05:58; Admin Dose 40 MG; Start 10/29/18 at 06:00 Enoxaparin Sodium (Lovenox) 40 mg DAILY SC Last administered on 11/06/18 09:53; Admin Dose 40 MG; Start 10/29/18 at 09:00 Acetaminophen (Tylenol Tab) 650 mg Q6H PRN PO MILD PAIN(1-3)OR ELEVATED TEMP Last administered on 11/06/18 08:49; Admin Dose 650 MG; Start 10/28/18 at 22:30 Ondansetron HCl (Zofran Inj) 4 mg Q6H PRN IV NAUSEA AND/OR VOMITING Last administered on 11/05/18 03:41; Admin Dose 4 MG; Start 10/28/18 at 22:30 Albuterol/ Ipratropium (Duoneb) 3 ml Q6H RESP THERAPY PRN HHN SHORTNESS OF BREATH Last administered on 10/31/18 15:51; Admin Dose 3 ML; Start 10/28/18 at 22:30 Potassium Chloride (Klor-Con 20) 20 meq DAILY PO Last administered on 11/06/18 08:49; Admin Dose 20 MEQ; Start 10/30/18 at 09:00 Midodrine (Proamatine) 2.5 mg BID@,17 PRN PO SBP<85 Last administered on 11/05/18 03:41; Admin Dose 2.5 MG; Start 10/31/18 at 17:00 Gabapentin (Neurontin) 100 mg TID PO Last administered on 11/06/18 13:22; Admin Dose 100 MG; Start 11/01/18 at 21:00 Bumetanide (Bumex) 2 mg BID DIURETICS PO Last administered on 11/06/18 05:58; Admin Dose 2 MG; Start 7/28/19 at 18:00 Dextrose/Sodium Chloride 1,000 ml @ 20 mls/hr Q24H IV Last administered on 11/06/18at 10:04; Admin Dose 20 MLS/HR; Start 11/06/18 at 10:00 SHIN HAN MD Nov 06, 2018 14:51
--- NOTE | 2018-11-06 15:31 | PN ---
Date/Time of Note Date/Time of Note DATE: 11/06/18 TIME: 15:25 Assessment/Plan VTE Prophylaxis Risk score (from [facility])>0 risk: 1 SCD applied [place] [facility] [place] No SCD contraindicated: other Pharmacological prophylaxis: LMWH Lines/Catheters IV Catheter Type (from [facility] Saline Lock Urinary Cath still in place: No Assessment/Plan Hospital Course 1. Acute on chronic systolic heart failure-- ECHO reviewed with EF 60% and severe right atrial enlargement, right ventricle dilation with reduced systolic function, severe TR 2. Severe pulmonary HTN 3. Large right pleural effusion s/p thoracentesis 07/30/2018. Pathology: Left thoracentesis fluid for cytology: -- Negative for malignant cells.. Pt might need pleurodesis. 4. h/o Meth use 5. Overweight 6. hyperlipidemia 7. Hypotension, resolved 8. S.p appendectomy 9. Back pain 10. dyslipidemia Assessment/Plan -VATS today ABG on room air -assistant case manager evaluate for home oxygen -neuropathies LE improved, increase to 300 -c/w Bumex p.o. 2 mg p.o. twice daily -cw with Coreg/lisinopril -cw with Midodrin per cards prn - still on 5 l oxygen - gentle fluids when NPO Result Diagram: 11/06/18 0516 11/06/18 0516 Results 24hrs Laboratory Tests Test 11/06/18 05:16 White Blood Count 8.7 # Red Blood Count 3.80 L Hemoglobin 12.3 Hematocrit 37.5 Mean Corpuscular Volume 98.7 Mean Corpuscular Hemoglobin 32.4 Mean Corpuscular Hemoglobin Concent 32.8 Red Cell Distribution Width 15.9 H Platelet Count 220 Mean Platelet Volume 10.4 Immature Granulocytes % 0.300 Neutrophils % 65.5 Lymphocytes % 21.2 Monocytes % 10.5 Eosinophils % 2.0 Basophils % 0.5 Nucleated Red Blood Cells % 0.0 Immature Granulocytes # 0.030 Neutrophils # 5.7 Lymphocytes # 1.8 Monocytes # 0.9 Eosinophils # 0.2 Basophils # 0.0 Nucleated Red Blood Cells # 0.0 Sodium Level 137 Potassium Level 3.9 Chloride Level 95 L Carbon Dioxide Level 33 H Anion Gap 9 Blood Urea Nitrogen 32 H Creatinine 0.93 Est Glomerular Filtrat Rate mL/min > 60 Glucose Level 92 Calcium Level 9.4 Phosphorus Level 4.7 Magnesium Level 1.8 Subjective 24 Hr Interval Summary Free Text/Dictation no overnight events, pt is NPO, requested pain control Exam/Review of Systems Exam Vitals Vital Signs Date Temp Pulse Resp B/P (MAP) Pulse Ox O2 O2 Flow FiO2 Time Delivery Rate 11/06/18 97.4 71 18 91/50 (64) 100 Nasal 11:05 Cannula 11/06/18 3.0 04:02 Intake and Output 11/05/18 11/05/18 11/06/18 1515:00 23:00 07:00 IntakeIntake Total 600 ml OutputOutput Total 500 ml 650 ml BalanceBalance -500 ml -650 ml 600 ml Exam No acute distress, no events overnight. Eyes: anicteric, EOM's intact, no pallor Nose: no rhinorrhea Neck: supple, no thyromegaly, no carotid bruits Lungs: clear bilaterally, decreased. CVS: regular rate and rhythm, no murmurs Abdomen: soft, bowel sounds present, no hepatosplenomegally, no masses, no rebound or guarding. Rectal: differed. External genitalia: no lesions. Extremities: 1plus edema, DP pulses are palpable Neuro: alert and oriented x 3 Results Results 24hrs Laboratory Tests Test 11/06/18 05:16 White Blood Count 8.7 # Red Blood Count 3.80 L Hemoglobin 12.3 Hematocrit 37.5 Mean Corpuscular Volume 98.7 Mean Corpuscular Hemoglobin 32.4 Mean Corpuscular Hemoglobin Concent 32.8 Red Cell Distribution Width 15.9 H Platelet Count 220 Mean Platelet Volume 10.4 Immature Granulocytes % 0.300 Neutrophils % 65.5 Lymphocytes % 21.2 Monocytes % 10.5 Eosinophils % 2.0 Basophils % 0.5 Nucleated Red Blood Cells % 0.0 Immature Granulocytes # 0.030 Neutrophils # 5.7 Lymphocytes # 1.8 Monocytes # 0.9 Eosinophils # 0.2 Basophils # 0.0 Nucleated Red Blood Cells # 0.0 Sodium Level 137 Potassium Level 3.9 Chloride Level 95 L Carbon Dioxide Level 33 H Anion Gap 9 Blood Urea Nitrogen 32 H Creatinine 0.93 Est Glomerular Filtrat Rate mL/min > 60 Glucose Level 92 Calcium Level 9.4 Phosphorus Level 4.7 Magnesium Level 1.8 Medications Medication Current Medications Carvedilol (Coreg) 3.125 mg BID PO Last administered on 11/06/18 08:51; Admin Dose 3.125 MG; Start 10/29/18 at 09:00 Lisinopril (Zestril) 2.5 mg DAILY PO Last administered on 11/06/18 08:50; Admin Dose 2.5 MG; Start 10/29/18 at 09:00 Pantoprazole (Protonix Tab) 40 mg DAILY@06 PO Last administered on 11/06/18 05:58; Admin Dose 40 MG; Start 10/29/18 at 06:00 Enoxaparin Sodium (Lovenox) 40 mg DAILY SC Last administered on 11/06/18 09:53; Admin Dose 40 MG; Start 10/29/18 at 09:00 Acetaminophen (Tylenol Tab) 650 mg Q6H PRN PO MILD PAIN(1-3)OR ELEVATED TEMP Last administered on 11/06/18 08:49; Admin Dose 650 MG; Start 10/28/18 at 22:30 Ondansetron HCl (Zofran Inj) 4 mg Q6H PRN IV NAUSEA AND/OR VOMITING Last administered on 11/05/18 03:41; Admin Dose 4 MG; Start 10/28/18 at 22:30 Albuterol/ Ipratropium (Duoneb) 3 ml Q6H RESP THERAPY PRN HHN SHORTNESS OF BREATH Last administered on 10/31/18 15:51; Admin Dose 3 ML; Start 10/28/18 at 22:30 Potassium Chloride (Klor-Con 20) 20 meq DAILY PO Last administered on 11/06/18 08:49; Admin Dose 20 MEQ; Start 10/30/18 at 09:00 Midodrine (Proamatine) 2.5 mg BID@09,17 PRN PO SBP<85 Last administered on 11/05/18 03:41; Admin Dose 2.5 MG; Start 10/31/18 at 17:00 Gabapentin (Neurontin) 100 mg TID PO Last administered on 11/06/18 13:22; Admin Dose 100 MG; Start 11/01/18 at 21:00 Bumetanide (Bumex) 2 mg BID DIURETICS PO Last administered on 11/06/18 05:58; Admin Dose 2 MG; Start 11/01/18 at 18:00 Dextrose/Sodium Chloride 1,000 ml @ 20 mls/hr Q24H IV Last administered on 11/06/18at 10:04; Admin Dose 20 MLS/HR; Start 11/06/18 at 10:00 VEGA TEIXEIRA NP Nov 06, 2018 15:30
--- NOTE | 2018-11-06 16:11 | PREAC ---
Date/Time of Note Date/Time of Note DATE: 11/06/18 TIME: 16:10 Anesthesia Eval and Record Evaluation Time Pre-Procedure Interview DATE: 11/06/18 TIME: 16:10 Age 38 Sex female NPO: 8 hrs Preoperative diagnosis pleural effusion on the right side Planned procedure RIGHT VATS TALC PLEURODESIS Past Medical History Past Medical History: Includes Cardio: HTN, Dyslipidemia, CHF (right sided heart failure) Pulm: Other (Pulm HTN / pleural effusion on the right side) GI: Obesity Recreational drugs: Other (meth use) Surgery & Anesthesia Issues No known issue Meds Anticoagulation: No Beta Santos within 24 hr: No Reason Beta Santos not given: Pt. not on B-Santos Active Scripts Furosemide* (Lasix*) 40 Mg Tablet, 40 MG PO BID for 30 Days, #60 TAB 1 Refill Prov:DARINEL TURNER MD 08/20/18 Lisinopril* (Lisinopril*) 2.5 Mg Tablet, 2.5 MG PO DAILY for 30 Days, #30 TAB 1 Refill Prov:DARINEL TURNER MD 08/20/18 Carvedilol* (Carvedilol*) 3.125 Mg Tablet, 3.125 MG PO BID for 30 Days, #60 TAB 1 Refill Prov:DARINEL TURNER MD 08/20/18 Current Medications Carvedilol (Coreg) 3.125 mg BID PO Last administered on 11/06/18at 08:51; Admin Dose 3.125 MG; Start 10/29/18 at 09:00 Lisinopril (Zestril) 2.5 mg DAILY PO Last administered on 11/06/18at 08:50; Admin Dose 2.5 MG; Start 10/29/18 at 09:00 Pantoprazole (Protonix Tab) 40 mg DAILY@06 PO Last administered on 11/06/18at 05:58; Admin Dose 40 MG; Start 10/29/18 at 06:00 Enoxaparin Sodium (Lovenox) 40 mg DAILY SC Last administered on 11/06/18at 09:53; Admin Dose 40 MG; Start 10/29/18 at 09:00 Acetaminophen (Tylenol Tab) 650 mg Q6H PRN PO MILD PAIN(1-3)OR ELEVATED TEMP L ast administered on 11/06/18at 08:49; Admin Dose 650 MG; Start 10/28/18 at 22:30 Ondansetron HCl (Zofran Inj) 4 mg Q6H PRN IV NAUSEA AND/OR VOMITING Last administered on 11/05/18at 03:41; Admin Dose 4 MG; Start 10/28/18 at 22:30 Albuterol/ Ipratropium (Duoneb) 3 ml Q6H RESP THERAPY PRN HHN SHORTNESS OF BREATH Last administered on 10/31/18at 15:51; Admin Dose 3 ML; Start 10/28/18 at 22:30 Potassium Chloride (Klor-Con 20) 20 meq DAILY PO Last administered on 11/06/18 08:49; Admin Dose 20 MEQ; Start 10/30/18 at 09:00 Midodrine (Proamatine) 2.5 mg BID@09,17 PRN PO SBP<85 Last administered on 11/05/18at 03:41; Admin Dose 2.5 MG; Start 10/31/18 at 17:00 Gabapentin (Neurontin) 100 mg TID PO Last administered on 11/06/18at 13:22; Admin Dose 100 MG; Start 11/01/18 at 21:00 Bumetanide (Bumex) 2 mg BID DIURETICS PO Last administered on 11/06/18 05:58; Admin Dose 2 MG; Start 11/01/18 at 18:00 Dextrose/Sodium Chloride 1,000 ml @ 20 mls/hr Q24H IV Last administered on 11/06/18at 10:04; Admin Dose 20 MLS/HR; Start 11/06/18 at 10:00 Meds reviewed: Yes Allergies Coded Allergies: No Known Drug Allergies (Unverified Allergy, Unknown, 10/05/18) Allergies Reviewed: Yes Labs/Studies Labs Reviewed: Reviewed by anesthesiologist Result Diagram: 11/06/18 0516 11/06/18 0516 Laboratory Tests 11/06/18 05:16 test: Negative Studies: ECG (SR - RBBB), CXR (Large right pleural effusion with associated compressive atelectasis of the right lower lung is seen unchanged. . The left lung is clear.. Cardiomediastinal silhouette is stable.. The osseous structures are intact. ), 2D Echo (EF 55%) Pre-procedure Exam Last vitals Vital Signs Date Temp Pulse Resp B/P (MAP) Pulse Ox O2 O2 Flow FiO2 Time Delivery Rate 11/06/18 97.4 71 18 91/50 (64) 100 Nasal 11:05 Cannula 11/06/18 3.0 04:02 Airway: Adequate mouth opening Mallampati: Mallampati II Teeth: Normal Lung: Normal Heart: Normal ASA Physical Status ASA physical status: 3 Emergency: None Planned Anesthetic General/MAC: ETT Pre-operative Attestations Prior to commencing anesthesia and surgery, the patient was re-evaluated, there was verification of: *The patient's identity *The results of appropriate recent lab work and preoperative vital signs *The above evaluation not changing prior to induction *Anesthetic plan, risk benefits, alternative and complications discussed with patient/family; questions answered; patient/family understands, accepts and wishes to proceed. HERBERTH DONIS Nov 06, 2018 16:11
[2018-11-06] MEDS ORDERED: MIDAZOLAM 1 MG/ML 2 ML INJ ONE (16:50)
--- NOTE | 2018-11-06 16:58 | HPN ---
Date/Time of Note Date/Time of Note DATE: 11/06/18 TIME: 16:58 Interval H&P Admission Note Pt. seen H&P reviewed: No system changes JESSICA BELLO MD Nov 06, 2018 16:58
[2018-11-06] MEDS ORDERED: METOCLOPRAMIDE 10 MG INJ ONE (17:04)
[2018-11-06] MEDS ORDERED: ONDANSETRON 4 MG INJ ONE (17:04)
[2018-11-06] MEDS ORDERED: ROCURONIUM 50 MG INJ ONE (17:04)
[2018-11-06] MEDS ORDERED: ETOMIDATE 20 MG INJ ONE (17:04)
[2018-11-06] MEDS ORDERED: CEFAZOLIN 1 GM INJ ONE (17:04)
[2018-11-06] MEDS ORDERED: MINERAL OIL LIGHT 10 ML VIAL ONE (17:05)
[2018-11-06] MEDS ORDERED: FENTAnyl 50 MCG/ML VIAL ONE (17:22)
[2018-11-06] MEDS ORDERED: LIDOCAINE 1% (MPF) 30 ML INJ ONE (17:24)
[2018-11-06] MEDS ORDERED: PHENYLephrine (100 MCG/ML) 10ML SYG ONE (17:26)
[2018-11-06] MEDS ORDERED: EPHEDrine 25 MG/5 ML SYG ONE (17:26)
--- NOTE | 2018-11-06 17:45 | SIPON ---
Date/Time of Note Date/Time of Note DATE: 11/06/18 TIME: 17:44 Operative Report Preoperative Diagnosis recurrent right effusion Postoperative Diagnosis same Operation/Procedure Performed insertion of 28fr chest tube and talc pleurodesis Surgeon see signature line assistant research scientist none Anesthesia: MAC Estimated blood loss: minimal Transfusion Required none Specimen none Grafts/Implants none Complications none JESSICA BELLO MD Nov 06, 2018 17:45
[2018-11-06] MEDS ORDERED: ALBUMIN HUMAN 5% 250 ML ONE (18:14)
[2018-11-06] MEDS ORDERED: FENTAnyl 50 MCG/ML VIAL IV PRN ×2 (18:30)
[2018-11-06] MEDS ORDERED: DIPHENHYDRAMINE 50 MG INJ IV PRN (18:30)
[2018-11-06] MEDS ORDERED: ALBUMIN HUMAN 5% 250 ML IV PRN ×2 (18:30)
[2018-11-06] MEDS ORDERED: ONDANSETRON 4 MG INJ IV PRN (18:30)
[2018-11-06] MEDS ORDERED: ALBUTEROL 0.083% (NEB) 2.5 MG/3 ML AMP HHN PRN (18:30)
[2018-11-06] MEDS: EPHEDrine 25 MG/5 ML SYG IV PRN ×2 (18:38→18:58)
[2018-11-06] MEDS ORDERED: SOD CHLORIDE 0.9% 1,000 ML IV ONE (19:00)
--- NOTE | 2018-11-06 20:01 | PAC ---
Date/Time of Note Date/Time of Note DATE: 11/06/18 TIME: 20:00 Post-Anesthesia Notes Post-Anesthesia Note Last documented vital signs Vital Signs Date Temp Pulse Resp B/P (MAP) Pulse Ox O2 O2 Flow FiO2 Time Delivery Rate 11/06/18 98.2 87 24 92/63 (73) 3 Nasal 19:59 Cannula 11/06/18 84 19:48 11/06/18 3.0 19:38 11/06/18 97.8 17:58 Activity: WNL Respiratory function: WNL Cardiovascular function: WNL Mental status: Baseline Pain reasonably controlled: Yes Hydration appropriate: Yes Nausea/Vomiting absent: No JOEL MELO MD Nov 06, 2018 20:01
[2018-11-06] MEDS ORDERED: HYDROmorphONE 1 MG/ML SYG ONE (20:41)
[2018-11-06] MEDS ORDERED: HYDROmorphONE 1 MG/ML SYG IV ONE (20:42)
[2018-11-06] MEDS: GABAPENTIN 300 MG CAP PO SCH (21:00)
[2018-11-06] MEDS ORDERED: SOD CHLORIDE 0.9% 500 ML IV ONE (21:00)
--- NOTE | 2018-11-06 23:28 | CONS ---
DATE OF ADMISSION: 10/28/2018 DATE OF CONSULTATION: 11/06/2018 PREOPERATIVE DIAGNOSIS: Recurrent right pulmonary effusion, severe tricuspid regurgitation, and natalya re pulmonary hypertension and right-sided heart failure. POSTOPERATIVE DIAGNOSIS: Recurrent right pulmonary effusion, severe tricuspid regurgitation, and se luis pulmonary hypertension and right-sided heart failure. PROCEDURE: Insertion of a 28 [place] right thoracostomy tube and talc pleurodesis. SURGEON: Jessica Arroyo MD. FINDINGS: We did not do a VATS secondary to concerns by anesthesia because the last echo showed RV p ressures of over 100 and there was concern of induction and ventilation of this patient. I agreed th at she would be high risk for any general anesthesia and we would be able to accomplish the same thin g by displacing a chest tube and doing an installation of talc via the chest tube. I explained this to the patient ahead of time, who understood and consented. PROCEDURE: The patient was brought to the operating room. She was placed in supine position. She w as given some IV sedation. A bump was placed underneath the right chest. She was prepped and draped in usual sterile fashion. A 1% lidocaine was injected in the 6th interspace. We then made a small incision and using blunt dissection entered the interspace. We placed a suction catheter in the ches t and drained over 2 liters of serous fluid. At this time, I placed a 28 [place] chest tube and then instilled 4 grams of talc and 50 mL of normal saline and left chest tube clamped. The chest tube was secured using silk suture. Dressings were applied. The patient tolerated the procedure and was bro ught to the recovery room in stable condition. Dictated By: JESSICA HERCULES/FARHAD Conf#: [id number] DID#: [id number] CC: EDDIE KANG MD;*EndCC*
[2018-11-07] VITALS (11 sets, daily range): BP systolic 83–107; BP diastolic 50–83; PULSE 75–91; RESP 18–26
[2018-11-07] MEDS: ACETAMINOPHEN 325 MG TAB PO PRN (01:54)
[2018-11-07] MEDS ORDERED: morphine 4 MG/ML VIAL IV ONE (03:52)
[2018-11-07] MEDS: PANTOPRAZOLE (EC) 40 MG TAB PO SCH (05:32)
[2018-11-07] MEDS: BUMETANIDE 1 MG TAB PO SCH ×2 (05:39→18:05)
[2018-11-07] MEDS ORDERED: KETOROLAC 15 MG INJ IV SCH (08:30)
[2018-11-07] MEDS ORDERED: KETOROLAC 30 MG INJ INJ SCH (08:30)
[2018-11-07] MEDS: POTASSIUM CHLORIDE (SR) 20 MEQ TAB PO SCH (08:41)
[2018-11-07] MEDS: GABAPENTIN 300 MG CAP PO SCH ×3 (08:41→20:56)
[2018-11-07] MEDS: LISINOPRIL 5 MG TAB PO SCH (08:56)
[2018-11-07] MEDS: ENOXAPARIN 40 MG/0.4 ML SYG SC SCH (08:58)
--- NOTE | 2018-11-07 09:33 | CONS ---
Consultation Date/Type/Reason Admit Date/Time Oct 28, 2018 at 19:39 Initial Consult Date 11/03/18 Type of Consult Pulmonary Patient's condition is stable. Denies any shortness of breath at rest. Any coughing chest pain or wheezing. General exam; young female, awake alert, currently no distress. HEENT exam; supple neck, no JVD. No lymphadenopathy. Midline trachea. No thyromegaly. Patient has good dentition. No neck masses. Chest exam; diminished breath sounds right lung. Left lung is clear. S1-S2 audible, no murmurs. Regular rhythm. Abdomen exam; soft, nontender. Bowel sounds audible. No organomegaly. Extremity exam; no peripheral edema clubbing. MATERIAL MANAGER exam; no focal deficit. Assessment and recommendations; 1. patient admitted with a large right pleural effusion which is exudative in character. Etiology is unclear. Possibly related to CHF. Continue current supportive care. Patient scheduled for VATS pleurodesis and possibly pleural biopsy. Requesting Provider: SHIN HAN MD Date/Time of Note DATE: 11/07/18 TIME: 09:31 24 HR Interval Summary Free Text/Dictation Patient's condition is stable. Underwent right chest tube placement yesterday. VATS procedure was not done because of extremely high RV pressure. General exam; young female, currently no distress. H ENT exam; supple neck, positive JVD. No lymphadenopathy. Midline trachea. No thyromegaly. Patient has good dentition. Chest exam; diminished breath sounds like regular. Rest of the lung holder are clear. Right-sided chest tube in place. Abdomen exam; soft, no organomegaly. Bowel sounds audible. Extremity exam; no peripheral edema clubbing. MATERIAL MANAGER exam; no focal deficit. Chest x-ray was reviewed from yesterday after placement of chest tube which is showing decreased right pleural effusion. Significant cardiomegaly is present. Assessment and recommendations; next 1. Patient admitted with shortness of breath due to recurrent right pleural effusion. 2. Extreme elevation in RV pressure due to underlying pulmonary hypertension. Continue current supportive care. Obtain CT chest with contrast as pulmonary embolism protocol to rule out chronic pulmonary thrombo-embolic disease. Exam/Review of Systems Exam Vitals Vital Signs Date Temp Pulse Resp B/P (MAP) Pulse Ox O2 O2 Flow FiO2 Time Delivery Rate 11/07/18 97.8 84 22 85/50 (62) 99 07:38 11/07/18 40 01:40 11/06/18 Mask 23:05 11/06/18 7.0 22:00 Intake and Output 11/06/18 11/06/18 11/07/18 1515:00 23:00 07:00 IntakeIntake Total 410 ml OutputOutput Total 2071 ml 650 ml BalanceBalance -1661 ml -650 ml Results Result Diagram: 11/07/18 0510 11/07/18 0510 Results 24hrs Laboratory Tests Test 11/06/18 21:17 11/07/18 05:10 Blood Gas Specimen Source Blood arterial Arterial Blood Date Drawn 11/06/2018 9:30:21 PM Arterial Blood pH (Temp corrected) 7.285 *L Arterial Blood pCO2 (Temp correct) 56.1 H Arterial Blood pO2 (Temp corrected) 76.8 L Arterial Blood HCO3 26.1 H Arterial Blood Base Excess -1.5 Arterial Blood Oxygen Saturation 91.0 L Luke Test ACCEPTAB Arterial Blood Gas Puncture Site Right Radial Arterial Blood Carboxyhemoglobin 0.9 Arterial Blood Methemoglobin 0.3 Blood Gas A-a O2 Differential 296.6 H Oxyhemoglobin Percent 89.9 L Blood Gas Temperature 37.0 Blood Gas Modality MASK - SIMPLE FiO2 61.0 Blood Gas Critical Value Read Back E ANTONELLA WATERS Blood Gas Notified Whom UP Blood Gas Notified Time 11/06/2018 9:39:57 PM White Blood Count 11.4 #H Red Blood Count 3.81 L Hemoglobin 12.5 Hematocrit 38.5 Mean Corpuscular Volume 101.0 Mean Corpuscular Hemoglobin 32.8 Mean Corpuscular Hemoglobin Concent 32.5 Red Cell Distribution Width 16.0 H Platelet Count 230 Mean Platelet Volume 10.7 H Immature Granulocytes % 0.400 Neutrophils % 80.4 H Lymphocytes % 12.1 L Monocytes % 6.2 Eosinophils % 0.7 Basophils % 0.2 Nucleated Red Blood Cells % 0.0 Immature Granulocytes # 0.040 H Neutrophils # 9.1 H Lymphocytes # 1.4 Monocytes # 0.7 Eosinophils # 0.1 Basophils # 0.0 Nucleated Red Blood Cells # 0.0 Sodium Level 135 Potassium Level 4.5 Chloride Level 98 Carbon Dioxide Level 26 Anion Gap 11 Blood Urea Nitrogen 30 H Creatinine 0.94 Est Glomerular Filtrat Rate mL/min > 60 Glucose Level 151 Calcium Level 8.7 Medications Medication Current Medications Carvedilol (Coreg) 3.125 mg BID PO Last administered on 11/06/18 08:51; Admin Dose 3.125 MG; Start 10/29/18 at 09:00 Lisinopril (Zestril) 2.5 mg DAILY PO Last administered on 11/06/18 08:50; Admin Dose 2.5 MG; Start 10/29/18 at 09:00 Pantoprazole (Protonix Tab) 40 mg DAILY@06 PO Last administered on 11/07/18 05:32; Admin Dose 40 MG; Start 10/29/18 at 06:00 Enoxaparin Sodium (Lovenox) 40 mg DAILY SC Last administered on 11/07/18 08:58; Admin Dose 40 MG; Start 10/29/18 at 09:00 Acetaminophen (Tylenol Tab) 650 mg Q6H PRN PO MILD PAIN(1-3)OR ELEVATED TEMP Last administered on 11/07/18 01:54; Admin Dose 650 MG; Start 10/28/18 at 22:30 Ondansetron HCl (Zofran Inj) 4 mg Q6H PRN IV NAUSEA AND/OR VOMITING Last administered on 11/05/18 03:41; Admin Dose 4 MG; Start 10/28/18 at 22:30 Albuterol/ Ipratropium (Duoneb) 3 ml Q6H RESP THERAPY PRN HHN SHORTNESS OF BREATH Last administered on 10/31/18 15:51; Admin Dose 3 ML; Start 10/28/18 at 22:30 Potassium Chloride (Klor-Con 20) 20 meq DAILY PO Last administered on 11/07/18 08:41; Admin Dose 20 MEQ; Start 10/30/18 at 09:00 Midodrine (Proamatine) 2.5 mg BID@09,17 PRN PO SBP<85 Last administered on 11/05/18 03:41; Admin Dose 2.5 MG; Start 10/31/18 at 17:00 Bumetanide (Bumex) 2 mg BID DIURETICS PO Last administered on 11/06/18 05:58; Admin Dose 2 MG; Start 11/01/18 at 18:00 Dextrose/Sodium Chloride 1,000 ml @ 20 mls/hr Q24H IV Last administered on 8/2/19at 10:04; Admin Dose 20 MLS/HR; Start 11/06/18 at 10:00 Gabapentin (Neurontin) 300 mg TID PO Last administered on 11/07/18at 08:41; Admin Dose 300 MG; Start 11/06/18 at 21:00 Ketorolac Tromethamine (Toradol) 15 mg Q6H IV Last administered on 11/07/18at 08:56; Admin Dose 15 MG; Start 11/07/18 at 08:30; Stop 11/10/18 at 08:29 NEAL ANGUIANO Nov 07, 2018 09:33
--- NOTE | 2018-11-07 09:39 | PN ---
Date/Time of Note Date/Time of Note DATE: 11/07/18 TIME: 09:36 Assessment/Plan Lines/Catheters IV Catheter Type (from Nrs): Peripheral IV Callahan in Place (from Nrs): No Assessment/Plan Assessment/Plan patient too high risk for general anesthesia with PA pressure over 100. she underwent chest tube insertion and talc pleurodesis. she drained 2700cc since placement. I talked to her about placement of pleurx catheter because I doubt the talc will work. cxr shows RLL infiltrate but no effusion. Exam/Review of Systems Vital Signs Vitals Vital Signs Date Temp Pulse Resp B/P (MAP) Pulse Ox O2 O2 Flow FiO2 Time Delivery Rate 11/07/18 97.8 84 22 85/50 (62) 99 07:38 11/07/18 40 01:40 11/06/18 Mask 23:05 11/06/18 7.0 22:00 Intake and Output 11/06/18 11/06/18 11/07/18 1515:00 23:00 07:00 IntakeIntake Total 410 ml OutputOutput Total 2071 ml 650 ml BalanceBalance -1661 ml -650 ml Results Result Diagram: 11/07/18 0510 11/07/18 0510 JESSICA BELLO MD Nov 07, 2018 09:38
[2018-11-07] MEDS: DEXTROSE 5%-0.45% NACL 1,000 ML IV SCH (10:00)
[2018-11-07] MEDS: ALBUTEROL/IPRATROPIUM (NEB) 3 ML AMP HHN PRN (11:13)
[2018-11-07] MEDS: KETOROLAC 30 MG INJ IV PRN ×2 (12:39→19:39)
--- NOTE | 2018-11-07 14:35 | CONS ---
Assessment/Plan Assessment/Plan Hospital Course (Demo Recall) Subjective c/o some mild RLQ abdominal pain, no CV complaints Gen: Denies fever, chills CV: Denies chest pain, palpitations, SOB, PADILLA, orthopnea, PNA, edema, claudication Resp: Denies SOB or cough GI: Denies nausea, vomiting, diarrhea, constipation, + RLQ abdominal pain Neuro: Denies lightheadedness, dizziness, presyncope/syncope Unable to obtain HPI or ROS due to altered mental status Medications and allergies reviewed Past medical, surgical, family and social history reviewed. Objective General: WD/WN, NAD HEENT: NC/AT, PERRLA, dry mucus membranes CV: RRR, grade 1/6 systolic murmur, S1/S2, no S3/S4, + JVD 9cm, no carotid bruits Respiratory: decreased BS bilat, no W/C/R, non-labored breathing GI: abdomen soft, NT/ND, normoactive bowel sounds Vascular: extremities are warm, 2+ radial/DT/PT pulses bilaterally, no edema Neuro: A/O x3, no focal deficits Assessment & Plan IMPRESSION: 1. Congestive heart failure exacerbation. Patient with both left and right- sided findings with the left having at least by previous echo, preserved EF and the right having significant RV dysfunction.-again by repeat echo with severely elevated RVSP>100 2. Tricuspid regurgitation, severe. 3. Hypotension, borderline. 4. Shortness of breath secondary to #1. 5. Pleural effusion, right side large, status post thoracentesis, s/p chest tube and talc pleurodesis 11/06 6. Polysubstance abuse, most notably with methamphetamines. Recc: -Tele -Continue coreg/ACEI as tolerated only -Continue bumex diuresis now PO and follow volume status - on Midodrine prn -monitor CT output -would consider initiation treatment for elevated PAP's Consultation Date/Type/Reason Admit Date/Time Oct 28, 2018 at 19:39 Initial Consult Date 11/03/18 Type of Consult Cardiology Requesting Provider: SHIN HAN MD Date/Time of Note DATE: 11/07/18 TIME: 14:27 24 HR Interval Summary Constitutional: no complaints Exam/Review of Systems Vital Signs Vitals Vital Signs Date Temp Pulse Resp B/P (MAP) Pulse Ox O2 O2 Flow FiO2 Time Delivery Rate 11/07/18 97.8 87 22 83/51 (62) 98 12:04 11/07/18 Nasal 4.0 11:17 Cannula 11/07/18 40 10:35 Intake and Output 11/06/18 11/06/18 11/07/18 1515:00 23:00 07:00 IntakeIntake Total 410 ml OutputOutput Total 2071 ml 650 ml BalanceBalance -1661 ml -650 ml Labs Result Diagram: 11/07/18 0510 11/07/18 0510 Results 24hrs Laboratory Tests Test 11/06/18 21:17 11/07/18 05:10 Blood Gas Specimen Source Blood arterial Arterial Blood Date Drawn 11/06/2018 9:30:21 PM Arterial Blood pH (Temp corrected) 7.285 *L Arterial Blood pCO2 (Temp correct) 56.1 H Arterial Blood pO2 (Temp corrected) 76.8 L Arterial Blood HCO3 26.1 H Arterial Blood Base Excess -1.5 Arterial Blood Oxygen Saturation 91.0 L Luke Test ACCEPTAB Arterial Blood Gas Puncture Site Right Radial Arterial Blood Carboxyhemoglobin 0.9 Arterial Blood Methemoglobin 0.3 Blood Gas A-a O2 Differential 296.6 H Oxyhemoglobin Percent 89.9 L Blood Gas Temperature 37.0 Blood Gas Modality MASK - SIMPLE FiO2 61.0 Blood Gas Critical Value Read Back E ANTONELLA WATERS Blood Gas Notified Whom UP Blood Gas Notified Time 11/06/2018 9:39:57 PM White Blood Count 11.4 #H Red Blood Count 3.81 L Hemoglobin 12.5 Hematocrit 38.5 Mean Corpuscular Volume 101.0 Mean Corpuscular Hemoglobin 32.8 Mean Corpuscular Hemoglobin Concent 32.5 Red Cell Distribution Width 16.0 H Platelet Count 230 Mean Platelet Volume 10.7 H Immature Granulocytes % 0.400 Neutrophils % 80.4 H Lymphocytes % 12.1 L Monocytes % 6.2 Eosinophils % 0.7 Basophils % 0.2 Nucleated Red Blood Cells % 0.0 Immature Granulocytes # 0.040 H Neutrophils # 9.1 H Lymphocytes # 1.4 Monocytes # 0.7 Eosinophils # 0.1 Basophils # 0.0 Nucleated Red Blood Cells # 0.0 Sodium Level 135 Potassium Level 4.5 Chloride Level 98 Carbon Dioxide Level 26 Anion Gap 11 Blood Urea Nitrogen 30 H Creatinine 0.94 Est Glomerular Filtrat Rate mL/min > 60 Glucose Level 151 Calcium Level 8.7 Medications Medications Current Medications Carvedilol (Coreg) 3.125 mg BID PO Last administered on 11/06/18 08:51; Admin Dose 3.125 MG; Start 10/29/18 at 09:00 Lisinopril (Zestril) 2.5 mg DAILY PO Last administered on 11/06/18 08:50; Admin Dose 2.5 MG; Start 10/29/18 at 09:00 Pantoprazole (Protonix Tab) 40 mg DAILY@06 PO Last administered on 11/07/18 05 :32; Admin Dose 40 MG; Start 10/29/18 at 06:00 Enoxaparin Sodium (Lovenox) 40 mg DAILY SC Last administered on 11/07/18 08:58; Admin Dose 40 MG; Start 10/29/18 at 09:00 Acetaminophen (Tylenol Tab) 650 mg Q6H PRN PO MILD PAIN(1-3)OR ELEVATED TEMP Last administered on 11/07/18 01:54; Admin Dose 650 MG; Start 10/28/18 at 22:30 Ondansetron HCl (Zofran Inj) 4 mg Q6H PRN IV NAUSEA AND/OR VOMITING Last administered on 11/05/18 03:41; Admin Dose 4 MG; Start 10/28/18 at 22:30 Albuterol/ Ipratropium (Duoneb) 3 ml Q6H RESP THERAPY PRN HHN SHORTNESS OF BREATH Last administered on 11/07/18 11:13; Admin Dose 3 ML; Start 10/28/18 at 22:30 Potassium Chloride (Klor-Con 20) 20 meq DAILY PO Last administered on 11/07/18 08:41; Admin Dose 20 MEQ; Start 10/30/18 at 09:00 Midodrine (Proamatine) 2.5 mg BID@09,17 PRN PO SBP<85 Last administered on 11/05/18 03:41; Admin Dose 2.5 MG; Start 10/31/18 at 17:00 Bumetanide (Bumex) 2 mg BID DIURETICS PO Last administered on 11/06/18 05:58; Admin Dose 2 MG; Start 11/01/18 at 18:00 Dextrose/Sodium Chloride 1,000 ml @ 20 mls/hr Q24H IV Last administered on at 10:04; Admin Dose 20 MLS/HR; Start 11/06/18 at 10:00 Gabapentin (Neurontin) 300 mg TID PO Last administered on 11/07/18at 12:34; Admin Dose 300 MG; Start 11/06/18 at 21:00 Ketorolac Tromethamine (Toradol) 15 mg Q6H IV Last administered on 11/07/18at 08:56; Admin Dose 15 MG; Start 11/07/18 at 08:30; Stop 11/10/18 at 08:29; Status Hold Ketorolac Tromethamine (Toradol) 30 mg Q6H PRN IV PAIN LEVEL 1-3 Last administered on 11/07/18at 12:39; Admin Dose 30 MG; Start 11/07/18 at 10:00; Stop 11/10/18 at 09:59 SHIREEN MEDINA DO Nov 07, 2018 14:35
--- NOTE | 2018-11-07 16:34 | PN ---
Date/Time of Note Date/Time of Note DATE: 11/07/18 TIME: 16:28 Assessment/Plan VTE Prophylaxis Risk score (from Ns)>0 risk: 4 SCD applied (from [facility]): Yes SCD contraindicated: other Pharmacological prophylaxis: LMWH Lines/Catheters IV Catheter Type (from [facility]): Peripheral IV Urinary Cath still in place: No Assessment/Plan Hospital Course 1. Acute on chronic systolic heart failure-- ECHO reviewed with EF 60% and severe right atrial enlargement, right ventricle dilation with reduced systolic function, severe TR. s/p VATS 11/06/2018 2. Severe pulmonary HTN 3. Large right pleural effusion s/p thoracentesis 07/30/2018. Pathology: Left thoracentesis fluid for cytology: -- Negative for malignant cells.. Pt might need pleurodesis. 4. h/o Meth use 5. Overweight 6. hyperlipidemia 7. Hypotension, 8. S.p appendectomy 9. Back pain 10. dyslipidemia 11. SIRS postprocedure Assessment/Plan -behavioral health case manager to evaluate for home oxygen refills, pt has home oxygen, compressor -c/w Gabapentin 300 -c/w Bumex p.o. 2 mg p.o. twice daily -cw with Coreg stop lisinopril -cw with Midodrin per cards prn - still on 5 l oxygen Result Diagram: 11/07/18 0510 11/07/1810 Results 24hrs Laboratory Tests Test 11/06/18 21:17 11/07/18 05:10 11/07/18 07:30 Blood Gas Specimen Blood arterial Blood arterial Source Arterial Blood Date 11/06/2018 9:30:21 PM 11/07/2018 2:30:03 PM Drawn Arterial Blood pH 7.285 *L 7.380 (Temp corrected) Arterial Blood pCO2 56.1 H 42.1 (Temp correct) Arterial Blood pO2 76.8 L 112.2 H (Temp corrected) Arterial Blood HCO3 26.1 H 24.3 Arterial Blood Base -1.5 -0.8 Excess Arterial Blood 91.0 L 98.1 H Oxygen Saturation Luke Test ACCEPTAB ACCEPTAB Arterial Blood Gas Right Radial Right Radial Puncture Site Arterial 0.9 0.9 Blood Carboxyhemoglobin Arterial Blood 0.3 0.4 Methemoglobin Blood Gas A-a O2 296.6 H 73.9 H Differential Oxyhemoglobin Percent 89.9 L 96.8 Blood Gas Temperature 37.0 37.0 Blood Gas Modality MASK - SIMPLE NASAL CANNULA FiO2 61.0 33.0 Blood Gas Critical Value Carlos Alberto Bill RN Read Back Blood Gas Notified Whom ALANA Richard HEALTH SAFETY MANAGER Blood Gas Notified Time 11/06/2018 9:39:57 PM 11/07/2018 2:47:32 PM White Blood Count 11.4 #H Red Blood Count 3.81 L Hemoglobin 12.5 Hematocrit 38.5 Mean Corpuscular Volume 101.0 Mean Corpuscular 32.8 Hemoglobin Mean Corpuscular 32.5 Hemoglobin Concent Red Cell Distribution 16.0 H Width Platelet Count 230 Mean Platelet Volume 10.7 H Immature Granulocytes % 0.400 Neutrophils % 80.4 H Lymphocytes % 12.1 L Monocytes % 6.2 Eosinophils % 0.7 Basophils % 0.2 Nucleated Red Blood 0.0 Cells % Immature Granulocytes # 0.040 H Neutrophils # 9.1 H Lymphocytes # 1.4 Monocytes # 0.7 Eosinophils # 0.1 Basophils # 0.0 Nucleated Red Blood 0.0 Cells # Sodium Level 135 Potassium Level 4.5 Chloride Level 98 Carbon Dioxide Level 26 Anion Gap 11 Blood Urea Nitrogen 30 H Creatinine 0.94 Est Glomerular Filtrat > 60 Rate mL/min Glucose Level 151 Calcium Level 8.7 Subjective 24 Hr Interval Summary Respiratory: cough, shortness of breath Musculoskeletal: back pain, bone/joint pain Exam/Review of Systems Exam Vitals Vital Signs Date Temp Pulse Resp B/P (MAP) Pulse Ox O2 O2 Flow FiO2 Time Delivery Rate 11/07/18 97.8 90 22 90/50 (63) 93 15:34 11/07/18 Nasal 4.0 11:17 Cannula 11/07/18 40 10:35 Intake and Output 11/06/18 11/06/18 11/07/18 1515:00 23:00 07:00 IntakeIntake Total 410 ml OutputOutput Total 2071 ml 650 ml BalanceBalance -1661 ml -650 ml Constitutional: alert, oriented Psych: no complaints Head: normocephalic, atraumatic Eyes: nl conjunctiva, EOMI, PERRL Respiratory: diminished breath sounds, other (chesst tube) Gastrointestinal: soft Genitourinary - Female: CVA tenderness; No nl adnexae, No nl external genitalia, No CMT, No uterus, No other Musculoskeletal: joint tenderness (LE) Results Results 24hrs Laboratory Tests Test 11/06/18 21:17 11/07/18 05:10 11/07/18 07:30 Blood Gas Specimen Blood arterial Blood arterial Source Arterial Blood Date 11/06/2018 9:30:21 PM 11/07/2018 2:30:03 PM Drawn Arterial Blood pH 7.285 *L 7.380 (Temp corrected) Arterial Blood pCO2 56.1 H 42.1 (Temp correct) Arterial Blood pO2 76.8 L 112.2 H (Temp corrected) Arterial Blood HCO3 26.1 H 24.3 Arterial Blood Base -1.5 -0.8 Excess Arterial Blood 91.0 L 98.1 H Oxygen Saturation Luke Test ACCEPTAB ACCEPTAB Arterial Blood Gas Right Radial Right Radial Puncture Site Arterial 0.9 0.9 Blood Carboxyhemoglobin Arterial Blood 0.3 0.4 Methemoglobin Blood Gas A-a O2 296.6 H 73.9 H Differential Oxyhemoglobin Percent 89.9 L 96.8 Blood Gas Temperature 37.0 37.0 Blood Gas Modality MASK - SIMPLE NASAL CANNULA FiO2 61.0 33.0 Blood Gas Critical Value Carlos Alberto BERMAN RN Fly RN Read Back Blood Gas Notified Whom UP [facility] Blood Gas Notified Time 11/06/2018 9:39:57 PM 11/07/2018 2:47:32 PM White Blood Count 11.4 #H Red Blood Count 3.81 L Hemoglobin 12.5 Hematocrit 38.5 Mean Corpuscular Volume 101.0 Mean Corpuscular 32.8 Hemoglobin Mean Corpuscular 32.5 Hemoglobin Concent Red Cell Distribution 16.0 H Width Platelet Count 230 Mean Platelet Volume 10.7 H Immature Granulocytes % 0.400 Neutrophils % 80.4 H Lymphocytes % 12.1 L Monocytes % 6.2 Eosinophils % 0.7 Basophils % 0.2 Nucleated Red Blood 0.0 Cells % Immature Granulocytes # 0.040 H Neutrophils # 9.1 H Lymphocytes # 1.4 Monocytes # 0.7 Eosinophils # 0.1 Basophils # 0.0 Nucleated Red Blood 0.0 Cells # Sodium Level 135 Potassium Level 4.5 Chloride Level 98 Carbon Dioxide Level 26 Anion Gap 11 Blood Urea Nitrogen 30 H Creatinine 0.94 Est Glomerular Filtrat > 60 Rate mL/min Glucose Level 151 Calcium Level 8.7 Medications Medication Current Medications Carvedilol (Coreg) 3.125 mg BID PO Last administered on 11/06/18 08:51; Admin Dose 3.125 MG; Start 10/29/18 at 09:00 Lisinopril (Zestril) 2.5 mg DAILY PO Last administered on 11/06/18 08:50; Admin Dose 2.5 MG; Start 10/29/18 at 09:00 Pantoprazole (Protonix Tab) 40 mg DAILY@06 PO Last administered on 11/07/18 05:32; Admin Dose 40 MG; Start 10/29/18 at 06:00 Enoxaparin Sodium (Lovenox) 40 mg DAILY SC Last administered on 11/07/18 08:58; Admin Dose 40 MG; Start 10/29/18 at 09:00 Acetaminophen (Tylenol Tab) 650 mg Q6H PRN PO MILD PAIN(1-3)OR ELEVATED TEMP Last administered on 11/07/18 01:54; Admin Dose 650 MG; Start 10/28/18 at 22:30 Ondansetron HCl (Zofran Inj) 4 mg Q6H PRN IV NAUSEA AND/OR VOMITING Last administered on 11/05/18 03:41; Admin Dose 4 MG; Start 10/28/18 at 22:30 Albuterol/ Ipratropium (Duoneb) 3 ml Q6H RESP THERAPY PRN HHN SHORTNESS OF BREATH Last administered on 11/07/18 11:13; Admin Dose 3 ML; Start 10/28/18 at 22:30 Potassium Chloride (Klor-Con 20) 20 meq DAILY PO Last administered on 11/07/18 08:41; Admin Dose 20 MEQ; Start 10/30/18 at 09:00 Midodrine (Proamatine) 2.5 mg BID@09,17 PRN PO SBP<85 Last administered on 11/05/18 03:41; Admin Dose 2.5 MG; Start 10/31/18 at 17:00 Bumetanide (Bumex) 2 mg BID DIURETICS PO Last administered on 11/06/18 05:58; Admin Dose 2 MG; Start 11/01/18 at 18:00 Dextrose/Sodium Chloride 1,000 ml @ 20 mls/hr Q24H IV Last administered on 11/06/18 10:04; Admin Dose 20 MLS/HR; Start 11/06/18 at 10:00 Gabapentin (Neurontin) 300 mg TID PO Last administered on 11/07/18at 12:34; Admin Dose 300 MG; Start 11/06/18 at 21:00 Ketorolac Tromethamine (Toradol) 15 mg Q6H IV Last administered on 11/07/18at 08:56; Admin Dose 15 MG; Start 11/07/18 at 08:30; Stop 11/10/18 at 08:29; Status Hold Ketorolac Tromethamine (Toradol) 30 mg Q6H PRN IV PAIN LEVEL 1-3 Last administered on 11/07/18at 12:39; Admin Dose 30 MG; Start 11/07/18 at 10:00; Stop 11/10/18 at 09:59 VEGA TEIXEIRA NP Nov 07, 2018 16:34
[2018-11-08] VITALS (7 sets, daily range): BP systolic 91–131; BP diastolic 51–98; PULSE 54–115; RESP 17–34
[2018-11-08] MEDS: KETOROLAC 30 MG INJ IV PRN ×4 (01:42→21:31)
[2018-11-08] MEDS: PANTOPRAZOLE (EC) 40 MG TAB PO SCH (06:11)
[2018-11-08] MEDS: BUMETANIDE 1 MG TAB PO SCH ×2 (06:11→18:09)
[2018-11-08] MEDS: ACETAMINOPHEN 325 MG TAB PO PRN (06:11)
[2018-11-08] MEDS: GABAPENTIN 300 MG CAP PO SCH ×3 (09:04→20:21)
[2018-11-08] MEDS: POTASSIUM CHLORIDE (SR) 20 MEQ TAB PO SCH (09:04)
[2018-11-08] MEDS: ENOXAPARIN 40 MG/0.4 ML SYG SC SCH (09:09)
--- NOTE | 2018-11-08 13:29 | CONS ---
Assessment/Plan Assessment/Plan Hospital Course (Demo Recall) Subjective She says that her abdominal pain has improved. No CV complaints Gen: Denies fever, chills CV: Denies chest pain, palpitations, SOB, PADILLA, orthopnea, PNA, edema, claudication Resp: Denies SOB or cough GI: Denies nausea, vomiting, diarrhea, constipation, or abdominal pain Neuro: Denies lightheadedness, dizziness, presyncope/syncope Medications and allergies reviewed Past medical, surgical, family and social history reviewed. Objective General: WD/WN, NAD HEENT: NC/AT, PERRLA, dry mucus membranes CV: RRR, grade 1/6 systolic murmur, S1/S2, no S3/S4, no JVD, no carotid bruits Respiratory: decreased BS bilat, no W/C/R, non-labored breathing, chest tube in place GI: abdomen soft, NT/ND, normoactive bowel sounds Vascular: extremities are warm, 2+ radial/DT/PT pulses bilaterally, no edema Neuro: A/O x3, no focal deficits Assessment & Plan IMPRESSION: 1. Congestive heart failure exacerbation. Patient with both left and right- sided findings with the left having at least by previous echo, preserved EF and the right having significant RV dysfunction.-again by repeat echo with severely elevated RVSP>100 2. Tricuspid regurgitation, severe. 3. Hypotension, borderline. 4. Shortness of breath secondary to #1. - improved 5. Pleural effusion, right side large, status post thoracentesis, s/p chest tube and talc pleurodesis 11/06 6. Polysubstance abuse, most notably with methamphetamines. Recc: - continue to monitor on tele - ACEI was dc'd by primary yesterday due to low BP - continue Coreg as tolerated, hold for BP<90/60 or HR<50 -Continue bumex diuresis now PO and follow volume status -on Midodrine prn -monitor CT output -would consider initiation treatment for elevated PAP's Consultation Date/Type/Reason Admit Date/Time Oct 28, 2018 at 19:39 Initial Consult Date 11/03/18 Type of Consult Cardiology Requesting Provider: SHIN HAN MD Date/Time of Note DATE: 11/08/18 TIME: 13:25 Exam/Review of Systems Vital Signs Vitals Vital Signs Date Temp Pulse Resp B/P (MAP) Pulse Ox O2 O2 Flow FiO2 Time Delivery Rate 11/08/18 98.4 54 20 95/52 (66) 97 11:55 11/08/18 Nasal 2.0 08:00 Cannula 11/07/18 40 20:44 Intake and Output 11/07/18 11/07/18 11/08/18 1515:00 23:00 07:00 IntakeIntake Total 200 ml 900 ml OutputOutput Total 375 ml 100 ml BalanceBalance 200 ml -375 ml 800 ml Labs Result Diagram: 11/08/18 0453 11/08/18 0453 Results 24hrs Laboratory Tests Test 11/08/18 04:53 White Blood Count 10.5 Red Blood Count 3.54 L Hemoglobin 11.6 L Hematocrit 34.2 L Mean Corpuscular Volume 96.6 Mean Corpuscular Hemoglobin 32.8 Mean Corpuscular Hemoglobin Concent 33.9 Red Cell Distribution Width 15.4 H Platelet Count 185 Mean Platelet Volume 11.4 H Immature Granulocytes % 0.500 H Neutrophils % 75.6 Lymphocytes % 12.0 L Monocytes % 8.0 Eosinophils % 3.7 Basophils % 0.2 Nucleated Red Blood Cells % 0.0 Immature Granulocytes # 0.050 H Neutrophils # 7.9 H Lymphocytes # 1.3 Monocytes # 0.8 Eosinophils # 0.4 Basophils # 0.0 Nucleated Red Blood Cells # 0.0 Sodium Level 133 L Potassium Level 4.3 Chloride Level 97 Carbon Dioxide Level 26 Anion Gap 10 Blood Urea Nitrogen 46 #H Creatinine 1.17 H Est Glomerular Filtrat Rate mL/min > 60 Glucose Level 84 # Calcium Level 8.9 Medications Medications Current Medications Carvedilol (Coreg) 3.125 mg BID PO Last administered on 11/08/18at 09:04; Admin Dose 3.125 MG; Start 10/29/18 at 09:00 Pantoprazole (Protonix Tab) 40 mg DAILY@06 PO Last administered on 11/08/18at 06:11; Admin Dose 40 MG; Start 10/29/18 at 06:00 Enoxaparin Sodium (Lovenox) 40 mg DAILY SC Last administered on 11/08/18at 09:09; Admin Dose 40 MG; Start 10/29/18 at 09:00 Acetaminophen (Tylenol Tab) 650 mg Q6H PRN PO MILD PAIN(1-3)OR ELEVATED TEMP Last administered on 11/08/18 06:11; Admin Dose 650 MG; Start 10/28/18 at 22:30 Ondansetron HCl (Zofran Inj) 4 mg Q6H PRN IV NAUSEA AND/OR VOMITING Last administered on 11/05/18 03:41; Admin Dose 4 MG; Start 10/28/18 at 22:30 Albuterol/ Ipratropium (Duoneb) 3 ml Q6H RESP THERAPY PRN HHN SHORTNESS OF BREATH Last administered on 11/07/18 11:13; Admin Dose 3 ML; Start 10/28/18 at 22:30 Potassium Chloride (Klor-Con 20) 20 meq DAILY PO Last administered on 11/08/18 09:04; Admin Dose 20 MEQ; Start 10/30/18 at 09:00 Midodrine (Proamatine) 2.5 mg BID@09,17 PRN PO SBP<85 Last administered on 11/05/18 03:41; Admin Dose 2.5 MG; Start 10/31/18 at 17:00 Bumetanide (Bumex) 2 mg BID DIURETICS PO Last administered on 11/08/18 06:11; Admin Dose 2 MG; Start 11/01/18 at 18:00 Gabapentin (Neurontin) 300 mg TID PO Last administered on 11/08/18 12:31; Admin Dose 300 MG; Start 11/06/18 at 21:00 Ketorolac Tromethamine (Toradol) 15 mg Q6H IV Last administered on 11/07/18 08:56; Admin Dose 15 MG; Start 11/07/18 at 08:30; Stop 11/10/18 at 08:29; Status Hold Ketorolac Tromethamine (Toradol) 30 mg Q6H PRN IV PAIN LEVEL 1-3 Last administe red on 11/08/18 09:11; Admin Dose 30 MG; Start 11/07/18 at 10:00; Stop 11/10/18 at 09:59 SHIREEN MEDINA DO Nov 08, 2018 13:29
--- NOTE | 2018-11-08 14:24 | CONS ---
Consult Date/Type/Reason Admit Date/Time Oct 28, 2018 at 19:39 Initial Consult Date Type of Consultation: Pulm Requesting Provider: SHIN HAN MD Date/Time of Note DATE: 11/08/18 TIME: 14:[address] output remains high. On BiPAP overnight. Objective Vitals Vital Signs Date Temp Pulse Resp B/P (MAP) Pulse Ox O2 O2 Flow FiO2 Time Delivery Rate 11/08/18 98.4 54 20 95/52 (66) 97 11:55 11/08/18 Nasal 2.0 08:00 Cannula 11/07/18 40 20:44 Intake and Output 11/07/18 11/07/18 11/08/18 1515:00 23:00 07:00 IntakeIntake Total 200 ml 900 ml OutputOutput Total 375 ml 100 ml BalanceBalance 200 ml -375 ml 800 ml Exam HEENT: Neck supple; no JVD; no LAD CVS: RRR, S1 and S2, loud P2 CHEST: Decreased BS left base ABD: Soft, NT, + BS EXT: No c/c; + edema Results/Medications Result Diagram: 11/08/18 0453 11/08/18 0453 Results 24 hrs Laboratory Tests Test 11/08/18 04:53 White Blood Count 10.5 Red Blood Count 3.54 L Hemoglobin 11.6 L Hematocrit 34.2 L Mean Corpuscular Volume 96.6 Mean Corpuscular Hemoglobin 32.8 Mean Corpuscular Hemoglobin Concent 33.9 Red Cell Distribution Width 15.4 H Platelet Count 185 Mean Platelet Volume 11.4 H Immature Granulocytes % 0.500 H Neutrophils % 75.6 Lymphocytes % 12.0 L Monocytes % 8.0 Eosinophils % 3.7 Basophils % 0.2 Nucleated Red Blood Cells % 0.0 Immature Granulocytes # 0.050 H Neutrophils # 7.9 H Lymphocytes # 1.3 Monocytes # 0.8 Eosinophils # 0.4 Basophils # 0.0 Nucleated Red Blood Cells # 0.0 Sodium Level 133 L Potassium Level 4.3 Chloride Level 97 Carbon Dioxide Level 26 Anion Gap 10 Blood Urea Nitrogen 46 #H Creatinine 1.17 H Est Glomerular Filtrat Rate mL/min > 60 Glucose Level 84 # Calcium Level 8.9 Home Meds Active Scripts Furosemide* (Lasix*) 40 Mg Tablet, 40 MG PO BID for 30 Days, #60 TAB 1 Refill Prov:DARINEL TURNER MD 08/20/18 Lisinopril* (Lisinopril*) 2.5 Mg Tablet, 2.5 MG PO DAILY for 30 Days, #30 TAB 1 Refill Prov:DARINEL TURNER MD 08/20/18 Carvedilol* (Carvedilol*) 3.125 Mg Tablet, 3.125 MG PO BID for 30 Days, #60 TAB 1 Refill Prov:DARINEL TURNER MD 08/20/18 Medications Current Medications Carvedilol (Coreg) 3.125 mg BID PO Last administered on 11/08/18 09:04; Admin Dose 3.125 MG; Start 10/29/18 at 09:00 Pantoprazole (Protonix Tab) 40 mg DAILY@06 PO Last administered on 11/08/18 06:11; Admin Dose 40 MG; Start 10/29/18 at 06:00 Enoxaparin Sodium (Lovenox) 40 mg DAILY SC Last administered on 11/08/18 09:09; Admin Dose 40 MG; Start 10/29/18 at 09:00 Acetaminophen (Tylenol Tab) 650 mg Q6H PRN PO MILD PAIN(1-3)OR ELEVATED TEMP Last administered on 11/08/18 06:11; Admin Dose 650 MG; Start 10/28/18 at 22:30 Ondansetron HCl (Zofran Inj) 4 mg Q6H PRN IV NAUSEA AND/OR VOMITING Last administered on 11/05/18 03:41; Admin Dose 4 MG; Start 10/28/18 at 22:30 Albuterol/ Ipratropium (Duoneb) 3 ml Q6H RESP THERAPY PRN HHN SHORTNESS OF BREATH Last administered on 11/07/18 11:13; Admin Dose 3 ML; Start 10/28/18 at 22:30 Potassium Chloride (Klor-Con 20) 20 meq DAILY PO Last administered on 11/08/18 09:04; Admin Dose 20 MEQ; Start 10/30/18 at 09:00 Midodrine (Proamatine) 2.5 mg BID@09,17 PRN PO SBP<85 Last administered on 11/05/18 03:41; Admin Dose 2.5 MG; Start 10/31/18 at 17:00 Bumetanide (Bumex) 2 mg BID DIURETICS PO Last administered on 11/08/18 06:11; Admin Dose 2 MG; Start 11/01/18 at 18:00 Gabapentin (Neurontin) 300 mg TID PO Last administered on 11/08/18 12:31; Admin Dose 300 MG; Start 11/06/18 at 21:00 Ketorolac Tromethamine (Toradol) 15 mg Q6H IV Last administered on 11/07/18 08:56; Admin Dose 15 MG; Start 11/07/18 at 08:30; Stop 11/10/18 at 08:29; Status Hold Ketorolac Tromethamine (Toradol) 30 mg Q6H PRN IV PAIN LEVEL 1-3 Last administered on 11/08/18 09:11; Admin Dose 30 MG; Start 11/07/18 at 10:00; Stop 11/10/18 at 09:59 Assessment/Plan Assessment/Plan (Daily) IMP: 1. Recurrent large left-sided lymphocytic predominant exudative pleural effusion--etiology remains unclear. Can represent multifactorial processes though malignancy cannot be excluded. s/p unsuccessful chest tube pleurodesis 2. ADHF 3. 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 Continue monitor chest tube output. 2. Resend cytology and obtain triglyceride from pleural fluid 3. May need a pleurX 4. Would perform RHC prior to initiation of vascular-targeted therapy DONALDO MIXON MD Nov 08, 2018 14:24
--- NOTE | 2018-11-08 14:29 | PN ---
Date/Time of Note Date/Time of Note DATE: 11/08/18 TIME: 14:27 Assessment/Plan VTE Prophylaxis Risk score (from N[facility])>0 risk: 4 [place]CD applied (from [facility] [place] Yes SCD contraindicated: bilateral LE trauma Pharmacological prophylaxis: LMWH Lines/Catheters IV [facility] Type [facility]from [facility] Peripheral IV Urinary Cath still in place: No Assessment/Plan Hospital Course 1. Acute on chronic systolic heart failure-- ECHO reviewed with EF 60% and severe right atrial enlargement, right ventricle dilation with reduced systolic function, severe TR. s/p VATS 11/06/2018 2. Severe pulmonary HTN 3. Large right pleural effusion s/p thoracentesis 07/30/2018. Pathology: Left thoracentesis fluid for cytology: -- Negative for malignant cells.. Pt might need pleurodesis. 4. h/o Meth use 5. Overweight 6. hyperlipidemia 7. Hypotension, 8. S.p appendectomy 9. Back pain 10. dyslipidemia 11. SIRS postprocedure Assessment/Plan -c/w BUmex -has chest tube with output -telemetry service -remain oxygen 5 l/min -ambulating with diff. -cr is increased -hyponatremia -need oxygen at home Result Diagram: 11/08/18 0453 11/08/18 0453 Results 24hrs Laboratory Tests Test 11/08/18 04:53 White Blood Count 10.5 Red Blood Count 3.54 L Hemoglobin 11.6 L Hematocrit 34.2 L Mean Corpuscular Volume 96.6 Mean Corpuscular Hemoglobin 32.8 Mean Corpuscular Hemoglobin Concent 33.9 Red Cell Distribution Width 15.4 H Platelet Count 185 Mean Platelet Volume 11.4 H Immature Granulocytes % 0.500 H Neutrophils % 75.6 Lymphocytes % 12.0 L Monocytes % 8.0 Eosinophils % 3.7 Basophils % 0.2 Nucleated Red Blood Cells % 0.0 Immature Granulocytes # 0.050 H Neutrophils # 7.9 H Lymphocytes # 1.3 Monocytes # 0.8 Eosinophils # 0.4 Basophils # 0.0 Nucleated Red Blood Cells # 0.0 Sodium Level 133 L Potassium Level 4.3 Chloride Level 97 Carbon Dioxide Level 26 Anion Gap 10 Blood Urea Nitrogen 46 #H Creatinine 1.17 H Est Glomerular Filtrat Rate mL/min > 60 Glucose Level 84 # Calcium Level 8.9 Subjective 24 Hr Interval Summary Free Text/Dictation pain is controlled, not SOB, was at BIPAP at night Exam/Review of Systems Exam Vitals Vital Signs Date Temp Pulse Resp B/P (MAP) Pulse Ox O2 O2 Flow FiO2 Time Delivery Rate 11/08/18 98.4 54 20 95/52 (66) 97 11:55 11/08/18 Nasal 2.0 08:00 Cannula 11/07/18 40 20:44 Intake and Output 11/07/18 11/07/18 11/08/18 1515:00 23:00 07:00 IntakeIntake Total 200 ml 900 ml OutputOutput Total 375 ml 100 ml BalanceBalance 200 ml -375 ml 800 ml Constitutional: alert, oriented ENMT: nl external ears & nose Neck: supple, non-tender Respiratory: diminished breath sounds, other (right side chest tube) Cardiovascular: regular rate and rhythm Gastrointestinal: soft Extremities: edema (trac) Results Results 24hrs Laboratory Tests Test 11/08/18 04:53 White Blood Count 10.5 Red Blood Count 3.54 L Hemoglobin 11.6 L Hematocrit 34.2 L Mean Corpuscular Volume 96.6 Mean Corpuscular Hemoglobin 32.8 Mean Corpuscular Hemoglobin Concent 33.9 Red Cell Distribution Width 15.4 H Platelet Count 185 Mean Platelet Volume 11.4 H Immature Granulocytes % 0.500 H Neutrophils % 75.6 Lymphocytes % 12.0 L Monocytes % 8.0 Eosinophils % 3.7 Basophils % 0.2 Nucleated Red Blood Cells % 0.0 Immature Granulocytes # 0.050 H Neutrophils # 7.9 H Lymphocytes # 1.3 Monocytes # 0.8 Eosinophils # 0.4 Basophils # 0.0 Nucleated Red Blood Cells # 0.0 Sodium Level 133 L Potassium Level 4.3 Chloride Level 97 Carbon Dioxide Level 26 Anion Gap 10 Blood Urea Nitrogen 46 #H Creatinine 1.17 H Est Glomerular Filtrat Rate mL/min > 60 Glucose Level 84 # Calcium Level 8.9 Medications Medication Current Medications Carvedilol (Coreg) 3.125 mg BID PO Last administered on 11/08/18at 09:04; Admin Dose 3.125 MG; Start 10/29/18 at 09:00 Pantoprazole (Protonix Tab) 40 mg DAILY@06 PO Last administered on 11/08/18at 06:11; Admin Dose 40 MG; Start 10/29/18 at 06:00 Enoxaparin Sodium (Lovenox) 40 mg DAILY SC Last administered on 11/08/18 09:09; Admin Dose 40 MG; Start 10/29/18 at 09:00 Acetaminophen (Tylenol Tab) 650 mg Q6H PRN PO MILD PAIN(1-3)OR ELEVATED TEMP Last administered on 11/08/18 06:11; Admin Dose 650 MG; Start 10/28/18 at 22:30 Ondansetron HCl (Zofran Inj) 4 mg Q6H PRN IV NAUSEA AND/OR VOMITING Last administered on 11/05/18 03:41; Admin Dose 4 MG; Start 10/28/18 at 22:30 Albuterol/ Ipratropium (Duoneb) 3 ml Q6H RESP THERAPY PRN HHN SHORTNESS OF BREATH Last administered on 11/07/18 11:13; Admin Dose 3 ML; Start 10/28/18 at 22:30 Potassium Chloride (Klor-Con 20) 20 meq DAILY PO Last administered on 11/08/18 09:04; Admin Dose 20 MEQ; Start 10/30/18 at 09:00 Midodrine (Proamatine) 2.5 mg BID@09,17 PRN PO SBP<85 Last administered on 11/05/18 03:41; Admin Dose 2.5 MG; Start 10/31/18 at 17:00 Bumetanide (Bumex) 2 mg BID DIURETICS PO Last administered on 11/08/18 06:11; Admin Dose 2 MG; Start 11/01/18 at 18:00 Gabapentin (Neurontin) 300 mg TID PO Last administered on 11/08/18 12:31; Admin Dose 300 MG; Start 11/06/18 at 21:00 Ketorolac Tromethamine (Toradol) 15 mg Q6H IV Last administered on 11/07/18 08:56; Admin Dose 15 MG; Start 11/07/18 at 08:30; Stop 11/10/18 at 08:29; Status Hold Ketorolac Tromethamine (Toradol) 30 mg Q6H PRN IV PAIN LEVEL 1-3 Last administered on 11/08/18 09:11; Admin Dose 30 MG; Start 11/07/18 at 10:00; Stop 11/10/18 at 09:59 VEGA TEIXEIRA NP Nov 08, 2018 14:29
[2018-11-09 03:36] VITALS: BP 91/46; PULSE 85; RESP 21
[2018-11-09] MEDS: KETOROLAC 30 MG INJ IV PRN (03:46)
[2018-11-09] MEDS: BUMETANIDE 1 MG TAB PO SCH (06:08)
[2018-11-09] MEDS: PANTOPRAZOLE (EC) 40 MG TAB PO SCH (06:08)
[2018-11-09 07:48] VITALS: BP 99/57; PULSE 96
[2018-11-09] MEDS: POTASSIUM CHLORIDE (SR) 20 MEQ TAB PO SCH (08:38)
[2018-11-09] MEDS: GABAPENTIN 300 MG CAP PO SCH (08:38)
[2018-11-09] MEDS: ENOXAPARIN 40 MG/0.4 ML SYG SC SCH (08:46)
[2018-11-09] MEDS: ACETAMINOPHEN 325 MG TAB PO PRN (10:02)
--- NOTE | 2018-11-09 11:15 | CONS ---
Consultation Date/Type/Reason Admit Date/Time Oct 28, 2018 at 19:39 Initial Consult Date 11/03/18 Type of Consult Pulmonary Patient's condition is stable. Denies any shortness of breath at rest. Any coughing chest pain or wheezing. General exam; young female, awake alert, currently no distress. HEENT exam; supple neck, no JVD. No lymphadenopathy. Midline trachea. No thyromegaly. Patient has good dentition. No neck masses. Chest exam; diminished breath sounds right lung. Left lung is clear. S1-S2 audible, no murmurs. Regular rhythm. Abdomen exam; soft, nontender. Bowel sounds audible. No organomegaly. Extremity exam; no peripheral edema clubbing. [employer] exam; no focal deficit. Assessment and recommendations; 1. patient admitted with a large right pleural effusion which is exudative in character. Etiology is unclear. Possibly related to CHF. Continue current supportive care. Patient scheduled for VATS pleurodesis and possibly pleural biopsy. Requesting Provider: SHIN HAN MD Date/Time of Note DATE: 11/09/18 TIME: 11:13 24 HR Interval Summary Free Text/Dictation Patient's condition is stable. Remains awake and alert. Denies any shortness of breath. General exam; young female, awake alert, currently in no distress. HEENT exam; supple neck, positive JVD. No lymphadenopathy. Midline trachea. No thyromegaly. Pharynx is clear. Patient has fair dentition. No neck masses. Chest exam; diminished breath sounds right lower lobe. Right side chest tube in place. Left lung is clear. S1-S2 audible, no murmurs. Regular rhythm. Abdomen exam; soft, no organomegaly. Bowel sounds audible. Nontender. Extremity exam; no peripheral edema clubbing. [employer] exam; no focal deficit. Assessment and recommendations; 1. Patient admitted with hypoxemia due to large right pleural effusion status post chest tube placement. Because of underlying severe pulmonary hypertension VATS procedure was not done. Patient still having significant output from chest tube. 2. History of hypertension. 3. Underlying pulmonary hypertension. Continue current supportive care. Patient to consider CT chest with contrast to rule out chronic thromboembolic disease. Exam/Review of Systems Exam Vitals Vital Signs Date Temp Pulse Resp B/P (MAP) Pulse Ox O2 O2 Flow FiO2 Time Delivery Rate 11/09/18 Nasal 07:57 Cannula 11/09/18 97.4 96 99/57 (71) 97 07:48 11/09/18 21 03:36 11/08/18 4.0 21:04 11/07/18 40 20:44 Intake and Output 11/08/18 11/08/18 11/09/18 1515:00 23:00 07:00 IntakeIntake Total 1040 ml 700 ml OutputOutput Total 100 ml 180 ml 550 ml BalanceBalance -100 ml 860 ml 150 ml Results Result Diagram: 11/09/18 0457 11/09/18 0457 Results 24hrs Laboratory Tests Test 11/09/18 04:57 White Blood Count 9.3 Red Blood Count 3.34 L Hemoglobin 11.0 L Hematocrit 32.9 L Mean Corpuscular Volume 98.5 Mean Corpuscular Hemoglobin 32.9 Mean Corpuscular Hemoglobin Concent 33.4 Red Cell Distribution Width 15.7 H Platelet Count 173 Mean Platelet Volume 11.1 H Immature Granulocytes % 0.500 H Neutrophils % 74.6 Lymphocytes % 12.5 L Monocytes % 7.9 Eosinophils % 4.3 Basophils % 0.2 Nucleated Red Blood Cells % 0.0 Immature Granulocytes # 0.050 H Neutrophils # 6.9 Lymphocytes # 1.2 Monocytes # 0.7 Eosinophils # 0.4 Basophils # 0.0 Nucleated Red Blood Cells # 0.0 Sodium Level 137 Potassium Level 4.4 Chloride Level 99 Carbon Dioxide Level 28 Anion Gap 10 Blood Urea Nitrogen 63 H Creatinine 1.46 H Est Glomerular Filtrat Rate mL/min 49 L Glucose Level 91 Calcium Level 8.7 Total Bilirubin 1.2 Direct Bilirubin 0.30 H Indirect Bilirubin 0.9 Aspartate Amino Transf (AST/SGOT) 37 Alanine Aminotransferase (ALT/SGPT) 34 Alkaline Phosphatase 139 H Total Protein 6.2 Albumin 3.2 L Globulin 3.00 Albumin/Globulin Ratio 1.06 Medications Medication Current Medications Carvedilol (Coreg) 3.125 mg BID PO Last administered on 11/09/18at 08:39; Admin Dose 3.125 MG; Start 10/29/18 at 09:00 Pantoprazole (Protonix Tab) 40 mg DAILY@06 PO Last administered on 11/09/18at 06:08; Admin Dose 40 MG; Start 10/29/18 at 06:00 Enoxaparin Sodium (Lovenox) 40 mg DAILY SC Last administered on 11/09/18 08:46; Admin Dose 40 MG; Start 10/29/18 at 09:00 Acetaminophen (Tylenol Tab) 650 mg Q6H PRN PO MILD PAIN(1-3)OR ELEVATED TEMP Last administered on 11/09/18 10:02; Admin Dose 650 MG; Start 10/28/18 at 22:30 Ondansetron HCl (Zofran Inj) 4 mg Q6H PRN IV NAUSEA AND/OR VOMITING Last administered on 11/05/18 03:41; Admin Dose 4 MG; Start 10/28/18 at 22:30 Albuterol/ Ipratropium (Duoneb) 3 ml Q6H RESP THERAPY PRN HHN SHORTNESS OF BREATH Last administered on 11/07/18 11:13; Admin Dose 3 ML; Start 10/28/18 at 22:30 Potassium Chloride (Klor-Con 20) 20 meq DAILY PO Last administered on 11/09/18 08:38; Admin Dose 20 MEQ; Start 10/30/18 at 09:00 Midodrine (Proamatine) 2.5 mg BID@09,17 PRN PO SBP<85 Last administered on 11/05/18 03:41; Admin Dose 2.5 MG; Start 10/31/18 at 17:00 Bumetanide (Bumex) 2 mg BID DIURETICS PO Last administered on 11/09/18 06:08; Admin Dose 2 MG; Start 11/01/18 at 18:00 Gabapentin (Neurontin) 300 mg TID PO Last administered on 11/09/18 08:38; Admin Dose 300 MG; Start 11/06/18 at 21:00 NEAL ANGUIANO Nov 09, 2018 11:15
[2018-11-09 11:51] VITALS: BP 99/58; PULSE 87; RESP 20
--- NOTE | 2018-11-09 11:53 | PN ---
Date/Time of Note Date/Time of Note DATE: 11/09/18 TIME: 11:46 Assessment/Plan VTE Prophylaxis Risk score (from [facility])>0 risk: 4 SCD applied (from [facility]): Yes Pharmacological prophylaxis: NA/contraindicated Pharm contraindication: low risk/ambulating Lines/Catheters IV Catheter Type (from [facility]): Peripheral IV Urinary Cath still in place: No Assessment/Plan Hospital Course .1 Acute on chronic systolic heart failure-- ECHO reviewed with EF 60% and natalya re right atrial enlargement, right ventricle dilation with reduced systolic function, severe TR. s/p chest tube placement with talc pleurodesis 11/06/18 2. Severe pulmonary HTN 3. Large right pleural effusion s/p thoracentesis 07/30/2018. Pathology: Left thoracentesis fluid for cytology: -- Negative for malignant cells.. Pt might need pleurodesis. 4. h/o Meth use 5. Overweight 6. hyperlipidemia 7. Hypotension, 8. S.p appendectomy 9. Back pain 10. dyslipidemia 11. SIRS postprocedure 12 AZIZA ? NSAID/diueresis Assessment/Plan -hold Bumex and toradol due to AZIZA - UA - Dec gabapentin - renally dose all meds -has chest tube with output 550 ml - fu CTS and pul recs Result Diagram: 11/09/1845611/09/18456 Results 24hrs Laboratory Tests Test 11/09/18 04:57 White Blood Count 9.3 Red Blood Count 3.34 L Hemoglobin 11.0 L Hematocrit 32.9 L Mean Corpuscular Volume 98.5 Mean Corpuscular Hemoglobin 32.9 Mean Corpuscular Hemoglobin Concent 33.4 Red Cell Distribution Width 15.7 H Platelet Count 173 Mean Platelet Volume 11.1 H Immature Granulocytes % 0.500 H Neutrophils % 74.6 Lymphocytes % 12.5 L Monocytes % 7.9 Eosinophils % 4.3 Basophils % 0.2 Nucleated Red Blood Cells % 0.0 Immature Granulocytes # 0.050 H Neutrophils # 6.9 Lymphocytes # 1.2 Monocytes # 0.7 Eosinophils # 0.4 Basophils # 0.0 Nucleated Red Blood Cells # 0.0 Sodium Level 137 Potassium Level 4.4 Chloride Level 99 Carbon Dioxide Level 28 Anion Gap 10 Blood Urea Nitrogen 63 H Creatinine 1.46 H Est Glomerular Filtrat Rate mL/min 49 L Glucose Level 91 Calcium Level 8.7 Total Bilirubin 1.2 Direct Bilirubin 0.30 H Indirect Bilirubin 0.9 Aspartate Amino Transf (AST/SGOT) 37 Alanine Aminotransferase (ALT/SGPT) 34 Alkaline Phosphatase 139 H Total Protein 6.2 Albumin 3.2 L Globulin 3.00 Albumin/Globulin Ratio 1.06 Subjective 24 Hr Interval Summary Free Text/Dictation sp chest tube placement and talc pleurodesis drained 550 ml Exam/Review of Systems Exam Vitals Vital Signs Date Temp Pulse Resp B/P (MAP) Pulse Ox O2 O2 Flow FiO2 Time Delivery Rate 11/09/18 Nasal 07:57 Cannula 11/09/18 97.4 96 99/57 (71) 97 07:48 11/09/18 21 03:36 11/08/18 4.0 21:04 11/07/18 40 20:44 Intake and Output 11/08/18 11/08/18 11/09/18 1515:00 23:00 07:00 IntakeIntake Total 1040 ml 700 ml OutputOutput Total 100 ml 180 ml 550 ml BalanceBalance -100 ml 860 ml 150 ml Exam gen: awake,alert neck:supple lungs: dec breath sounds rt base, rt chest tube abdomen:soft, no tender ext 2+edema Results Results 24hrs Laboratory Tests Test 11/09/18 04:57 White Blood Count 9.3 Red Blood Count 3.34 L Hemoglobin 11.0 L Hematocrit 32.9 L Mean Corpuscular Volume 98.5 Mean Corpuscular Hemoglobin 32.9 Mean Corpuscular Hemoglobin Concent 33.4 Red Cell Distribution Width 15.7 H Platelet Count 173 Mean Platelet Volume 11.1 H Immature Granulocytes % 0.500 H Neutrophils % 74.6 Lymphocytes % 12.5 L Monocytes % 7.9 Eosinophils % 4.3 Basophils % 0.2 Nucleated Red Blood Cells % 0.0 Immature Granulocytes # 0.050 H Neutrophils # 6.9 Lymphocytes # 1.2 Monocytes # 0.7 Eosinophils # 0.4 Basophils # 0.0 Nucleated Red Blood Cells # 0.0 Sodium Level 137 Potassium Level 4.4 Chloride Level 99 Carbon Dioxide Level 28 Anion Gap 10 Blood Urea Nitrogen 63 H Creatinine 1.46 H Est Glomerular Filtrat Rate mL/min 49 L Glucose Level 91 Calcium Level 8.7 Total Bilirubin 1.2 Direct Bilirubin 0.30 H Indirect Bilirubin 0.9 Aspartate Amino Transf (AST/SGOT) 37 Alanine Aminotransferase (ALT/SGPT) 34 Alkaline Phosphatase 139 H Total Protein 6.2 Albumin 3.2 L Globulin 3.00 Albumin/Globulin Ratio 1.06 Medications Medication Current Medications Carvedilol (Coreg) 3.125 mg BID PO Last administered on 11/09/18 08:39; Admin Dose 3.125 MG; Start 10/29/18 at 09:00 Pantoprazole (Protonix Tab) 40 mg DAILY@06 PO Last administered on 11/09/18 06:08; Admin Dose 40 MG; Start 10/29/18 at 06:00 Enoxaparin Sodium (Lovenox) 40 mg DAILY SC Last administered on 11/09/18 08:46; Admin Dose 40 MG; Start 10/29/18 at 09:00 Acetaminophen (Tylenol Tab) 650 mg Q6H PRN PO MILD PAIN(1-3)OR ELEVATED TEMP [place] administered on 11/09/18 10:02; Admin Dose 650 MG; Start 10/28/18 at 22:30 Ondansetron HCl (Zofran Inj) 4 mg Q6H PRN IV NAUSEA AND/OR VOMITING Last administered on 11/05/18 03:41; Admin Dose 4 MG; Start 10/28/18 at 22:30 Albuterol/ Ipratropium (Duoneb) 3 ml Q6H RESP THERAPY PRN HHN SHORTNESS OF BREATH Last administered on 11/07/18 11:13; Admin Dose 3 ML; Start 10/28/18 at 22:30 Potassium Chloride (Klor-Con 20) 20 meq DAILY PO Last administered on 11/09/18 08:38; Admin Dose 20 MEQ; Start 10/30/18 at 09:00 Midodrine (Proamatine) 2.5 mg BID@,17 PRN PO SBP<85 Last administered on 11/05/18 03:41; Admin Dose 2.5 MG; Start 10/31/18 at 17:00 Gabapentin (Neurontin) 300 mg DAILY PO ; Start 11/10/18 at 09:00; Status UNV Acetaminophen/ Hydrocodone Bitart ([place] (5/325)) 1 tab Q4H PRN PO MODERATE PAIN LEVEL 4-6; Start 11/09/18 at 12:00; Status UNV SHIN HAN MD Nov 09, 2018 11:53
--- NOTE | 2018-11-09 12:42 | CONS ---
Assessment/Plan Assessment/Plan Hospital Course (Demo Recall) IMPRESSION: 1. Congestive heart failure exacerbation. Patient with both left and right-sided findings with the left having at least by previous echo, preserved EF and the right having significant RV dysfunction.-again by repeat echo with severely elevated RVSP>100 2. Tricuspid regurgitation, severe. 3. Hypotension, borderline. 4. Shortness of breath secondary to #1. 5. Pleural effusion, right side large, status post thoracentesis -1 liter. Now recurrent. now post-op s/p VATS/pleurodesis 6. Polysubstance abuse, most notably with methamphetamines. Recc: -Tele -Continue coreg as tolerated only with ACEI held in the setting of ARF -Follow volume status with bumex held in the setting of ARF -s/p course of abx's, f/u cx data -midodrine PRN only at this time -would consider initiation of treatment for elevated PAP's -possible role for tricuspid valve repair -follow CT output Consultation Date/Type/Reason Admit Date/Time Oct 28, 2018 at 19:39 Initial Consult Date Lauryn Type of Consult Cardiology Reason for Consultation CHF Requesting Provider: SHIN HAN MD Date/Time of Note DATE: 11/09/18 TIME: 12:38 Exam/Review of Systems Vital Signs Vitals Vital Signs Date Temp Pulse Resp B/P (MAP) Pulse Ox O2 O2 Flow FiO2 Time Delivery Rate 11/09/18 98.3 87 20 99/58 (72) 96 Room Air 11:51 11/08/18 4.0 21:04 11/07/18 40 20:44 Intake and Output 11/08/18 11/08/18 11/09/18 1515:00 23:00 07:00 IntakeIntake Total 1040 ml 700 ml OutputOutput Total 100 ml 180 ml 550 ml BalanceBalance -100 ml 860 ml 150 ml Exam Exam Review of Systems: CONSTITUTIONAL: No fevers, chills. PULMONARY: mild sob CARDIOVASCULAR: No chest pain/palpitations GASTROINTESTINAL: No nausea/vomiting. GENITOURINARY: No hematuria/dysuria. MUSCULOSKELETAL: No myagias/arthalgias. PSYCHIATRIC: The patient denies depression. NEUROLOGIC: No weakness Constitutional: alert, oriented Psych: no complaints Head: normocephalic ENMT: mucosa pink and moist Neck: supple, jvd (9 cm water) Respiratory: diminished breath sounds (R side) Cardiovascular: regular rate and rhythm Gastrointestinal: soft, non-tender Musculoskeletal: muscle tone (normal) Extremities: pitting pedal edema (bilateral LE) Neurological: other (No focal deficits) Labs Result Diagram: 11/09/187 11/09/18 0457 Results 24hrs Laboratory Tests Test 11/09/18 04:57 White Blood Count 9.3 Red Blood Count 3.34 L Hemoglobin 11.0 L Hematocrit 32.9 L Mean Corpuscular Volume 98.5 Mean Corpuscular Hemoglobin 32.9 Mean Corpuscular Hemoglobin Concent 33.4 Red Cell Distribution Width 15.7 H Platelet Count 173 Mean Platelet Volume 11.1 H Immature Granulocytes % 0.500 H Neutrophils % 74.6 Lymphocytes % 12.5 L Monocytes % 7.9 Eosinophils % 4.3 Basophils % 0.2 Nucleated Red Blood Cells % 0.0 Immature Granulocytes # 0.050 H Neutrophils # 6.9 Lymphocytes # 1.2 Monocytes # 0.7 Eosinophils # 0.4 Basophils # 0.0 Nucleated Red Blood Cells # 0.0 Sodium Level 137 Potassium Level 4.4 Chloride Level 99 Carbon Dioxide Level 28 Anion Gap 10 Blood Urea Nitrogen 63 H Creatinine 1.46 H Est Glomerular Filtrat Rate mL/min 49 L Glucose Level 91 Calcium Level 8.7 Total Bilirubin 1.2 Direct Bilirubin 0.30 H Indirect Bilirubin 0.9 Aspartate Amino Transf (AST/SGOT) 37 Alanine Aminotransferase (ALT/SGPT) 34 Alkaline Phosphatase 139 H Total Protein 6.2 Albumin 3.2 L Globulin 3.00 Albumin/Globulin Ratio 1.06 Medications Medications Current Medications Carvedilol (Coreg) 3.125 mg BID PO Last administered on 11/09/18at 08:39; Admin Dose 3.125 MG; Start 10/29/18 at 09:00 Pantoprazole (Protonix Tab) 40 mg DAILY@06 PO Last administered on 11/09/18at 06:08; Admin Dose 40 MG; Start 10/29/18 at 06:00 Enoxaparin Sodium (Lovenox) 40 mg DAILY SC Last administered on 11/09/18at 08:46; Admin Dose 40 MG; Start 10/29/18 at 09:00 Acetaminophen (Tylenol Tab) 650 mg Q6H PRN PO MILD PAIN(1-3)OR ELEVATED TEMP Last administered on 11/09/18 10:02; Admin Dose 650 MG; Start 10/28/18 at 22:30 Ondansetron HCl (Zofran Inj) 4 mg Q6H PRN IV NAUSEA AND/OR VOMITING Last administered on 11/05/18 03:41; Admin Dose 4 MG; Start 10/28/18 at 22:30 Albuterol/ Ipratropium (Duoneb) 3 ml Q6H RESP THERAPY PRN HHN SHORTNESS OF BREATH Last administered on 11/07/18 11:13; Admin Dose 3 ML; Start 10/28/18 at 22:30 Potassium Chloride (Klor-Con 20) 20 meq DAILY PO Last administered on 11/09/18 08:38; Admin Dose 20 MEQ; Start 10/30/18 at 09:00 Midodrine (Proamatine) 2.5 mg BID@09,17 PRN PO SBP<85 Last administered on 11/05/18 03:41; Admin Dose 2.5 MG; Start 10/31/18 at 17:00 Gabapentin (Neurontin) 300 mg DAILY PO ; Start 11/10/18 at 09:00 Acetaminophen/ Hydrocodone Bitart ([place] (5/325)) 1 tab Q4H PRN PO MODERATE PAIN LEVEL 4-6; Start 11/09/18 at 12:00 JEFF HARMON Nov 09, 2018 12:42
[2018-11-09] MEDS: HYDROCODONE/APAP (5/325) TAB PO PRN ×3 (13:55→22:08)
[2018-11-09 15:19] VITALS: BP 122/89; PULSE 87; RESP 20
[2018-11-10] VITALS: BP 124/96; PULSE 85; RESP 18
[2018-11-10] MEDS: HYDROCODONE/APAP (5/325) TAB PO PRN ×5 (02:01→21:01)
[2018-11-10 04:00] VITALS: BP 97/55; PULSE 86; RESP 19
--- NOTE | 2018-11-10 06:10 | PN ---
Date/Time of Note Date/Time of Note DATE: 11/10/18 TIME: 06:09 Assessment/Plan Lines/Catheters IV Catheter Type (from Nrs): Peripheral IV [place] in Place (from Nrs): No Assessment/Plan Assessment/Plan patient continues to drain significant amount of fluid. she agrees to pleurx catheter. will schedule this week. Exam/Review of Systems Vital Signs Vitals Vital Signs Date Temp Pulse Resp B/P (MAP) Pulse Ox O2 O2 Flow FiO2 Time Delivery Rate 11/10/18 98.6 86 19 97/55 (69) 95 Nasal 04:00 Cannula 11/10/18 4.0 02:07 11/07/18 40 20:44 Intake and Output 11/09/18 11/09/18 11/10/18 1515:00 23:00 07:00 IntakeIntake Total 120 ml 870 ml 120 ml OutputOutput Total 670 ml BalanceBalance 120 ml 200 ml 120 ml Results Result Diagram: 11/09/18 0457 11/10/18 0459 JESSICA BELLO MD Nov 10, 2018 06:10
[2018-11-10] MEDS: PANTOPRAZOLE (EC) 40 MG TAB PO SCH (06:19)
[2018-11-10 07:19] VITALS: BP 89/55; PULSE 82; RESP 20
--- NOTE | 2018-11-10 07:57 | OPR ---
DATE OF OPERATION: 11/06/2018 PREOPERATIVE DIAGNOSIS: Recurrent right pleural effusion and right-sided heart failure and severe pu lmonary hypertension. POSTOPERATIVE DIAGNOSIS: Recurrent right pleural effusion and right-sided heart failure and severe p ulmonary hypertension. OPERATION: Insertion of a 28-Armenian chest tube and installation of 4 grams of talc. SURGEON: Jessica Arroyo MD FINDINGS: Over 2 liters of serous fluid was drained. The patient preoperatively had severe pulmonar y hypertension with PA pressures of over 100 and her systolic pressure was 90 to 100. It was felt th at she was too unsafe to undergo general anesthesia and therefore she just had a chest tube placed, r ather than a VATS. This was explained to the patient who understood and agreed. PROCEDURE: The patient was brought to the operating room. She was given antibiotics. She had a bum p placed under her right chest. She was prepped and draped and then a small chest tube incision was made in the 6th interspace and we entered the chest using blunt dissection and drained 2 liters of se travis fluid. Once this was done, we inserted the chest tube and then instilled 4 grams of talc, which we left clamped for 2 hours. It was secured using silk suture. Dressings were applied. Patient to lerated procedure and was taken to the recovery room in stable condition. Dictated By: JESSICA HERCULES/FARHAD Conf#: [id number] DID#: [id number] CC: EDDIE KANG MD;*EndCC*
[2018-11-10] MEDS: POTASSIUM CHLORIDE (SR) 20 MEQ TAB PO SCH (08:07)
[2018-11-10] MEDS: GABAPENTIN 300 MG CAP PO SCH (08:07)
[2018-11-10] MEDS: ENOXAPARIN 40 MG/0.4 ML SYG SC SCH (08:10)
--- NOTE | 2018-11-10 11:43 | CONS ---
Consult Date/Type/Reason Admit Date/Time Oct 28, 2018 at 19:39 Initial Consult Date 11/03/18 Type of Consultation: Pulm Requesting Provider: SHIN HAN MD Date/Time of Note DATE: 11/10/18 TIME: 11:39 Subjective NO acute events - pt comfortable - no Cp now - in good fluid status. ROS: No fever, no chills, no nausea, no vomiting, no diarrhea/constipation - mild SOB - chronic Objective Vitals Vital Signs Date Temp Pulse Resp B/P (MAP) Pulse Ox O2 O2 Flow FiO2 Time Delivery Rate 11/10/18 Nasal 2.0 07:54 Cannula 11/10/18 97.5 82 20 89/55 (66) 98 07:19 11/07/18 40 20:44 Intake and Output 11/09/18 11/09/18 11/10/18 1515:00 23:00 07:00 IntakeIntake Total 120 ml 870 ml 120 ml OutputOutput Total 670 ml BalanceBalance 120 ml 200 ml 120 ml Exam General: WN/WD/NAD, AOx 3 ambulatory HEENT: Unicetric/atraumatic/EOMI (follow commands) NECK: JVD elevated, no thyromegaly Lymph: no lymphadenopathy HEART: regular with no S3, II/ systolic murmur at apex, PMI L LUNGS: Coarse sounds ABD: soft, NT, ND, +BS : Intact Neuro: non focal SKIN: chronic changes EXT: trace edema Results/Medications Result Diagram: 11/09/18 0457 11/10/18 0459 Results 24 hrs Laboratory Tests Test 11/09/18 13:00 11/10/18 04:59 Urine Color YELLOW Urine Clarity SLIGHTLY CLOUDY A Urine pH 5.0 Urine Specific [place] 1.009 Urine Ketones NEGATIVE Urine Nitrite NEGATIVE Urine Bilirubin NEGATIVE Urine Urobilinogen 1+ H Urine Leukocyte Esterase 2+ H Urine Microscopic RBC 1 Urine Microscopic WBC 29 H Urine Squamous Epithelial Cells MODERATE Urine Bacteria FEW A Urine Mucus FEW A Urine Hemoglobin NEGATIVE Urine Glucose NEGATIVE Urine Total Protein NEGATIVE Sodium Level 135 Potassium Level 3.9 Chloride Level 99 Carbon Dioxide Level 27 Anion Gap 9 Blood Urea Nitrogen 50 H Creatinine 1.03 H Est Glomerular Filtrat Rate mL/min > 60 Glucose Level 95 Calcium Level 9.2 Phosphorus Level 4.4 Magnesium Level 2.1 Home Meds Active Scripts Furosemide* (Lasix*) 40 Mg Tablet, 40 MG PO BID for 30 Days, #60 TAB 1 Refill Prov:DARINEL TURNER MD 08/20/18 Lisinopril* (Lisinopril*) 2.5 Mg Tablet, 2.5 MG PO DAILY for 30 Days, #30 TAB 1 Refill Prov:DARINEL TURNER MD 08/20/18 Carvedilol* (Carvedilol*) 3.125 Mg Tablet, 3.125 MG PO BID for 30 Days, #60 TAB 1 Refill Prov:DARINEL TURNER MD 08/20/18 Medications Current Medications Carvedilol (Coreg) 3.125 mg BID PO Last administered on 11/09/18 20:51; Admin Dose 3.125 MG; Start 10/29/18 at 09:00 Pantoprazole (Protonix Tab) 40 mg DAILY@06 PO Last administered on 11/10/18 06:19; Admin Dose 40 MG; Start 10/29/18 at 06:00 Enoxaparin Sodium (Lovenox) 40 mg DAILY SC Last administered on 11/10/18 08:10; Admin Dose 40 MG; Start 10/29/18 at 09:00 Acetaminophen (Tylenol Tab) 650 mg Q6H PRN PO MILD PAIN(1-3)OR ELEVATED TEMP Last administered on 11/09/18 10:02; Admin Dose 650 MG; Start 10/28/18 at 22:30 Ondansetron HCl (Zofran Inj) 4 mg Q6H PRN IV NAUSEA AND/OR VOMITING Last administered on 11/05/18 03:41; Admin Dose 4 MG; Start 10/28/18 at 22:30 Albuterol/ Ipratropium (Duoneb) 3 ml Q6H RESP THERAPY PRN HHN SHORTNESS OF BREATH Last administered on 11/07/18 11:13; Admin Dose 3 ML; Start 10/28/18 at 22:30 Potassium Chloride (Klor-Con 20) 20 meq DAILY PO Last administered on 11/10/18 08:07; Admin Dose 20 MEQ; Start 10/30/18 at 09:00 Midodrine (Proamatine) 2.5 mg BID@,17 PRN PO SBP<85 Last administered on 11/05/18 03:41; Admin Dose 2.5 MG; Start 10/31/18 at 17:00 Gabapentin (Neurontin) 300 mg DAILY PO Last administered on 11/10/18at 08:07; Admin Dose 300 MG; Start 11/10/18 at 09:00 Acetaminophen/ Hydrocodone Bitart ([place] (5/325)) 1 tab Q4H PRN PO MODERATE PAIN LEVEL 4-6 Last administered on 11/10/18at 06:19; Admin Dose 1 TAB; Start 11/09/18 at 12:00 Assessment/Plan Hospital Course (Demo Recall) 1. Congestive heart failure exacerbation. Patient with both left and right-sided findings with the left having at least by previous echo, preserved EF and the right having significant RV dysfunction- con't gentle diuresis, on bumex now, better overall - con't gentle diuresis. 2. Tricuspid regurgitation, severe - con't to keep euvolemic. Treated. 3. Hypotension, borderline - not dizzy - able to ambulate. 4. Shortness of breath secondary to #1- treated. 5. Pleural effusion, right side large, status post thoracentesis -1 liter. Now recurrent - better now. Plan for catheter placement later this week. Will follow clinically now. 6. Polysubstance abuse, most notably with methamphetamines. D/C advised. SKYLAR BANUELOS MD Nov 10, 2018 11:43
[2018-11-10 11:44] VITALS: BP 102/58; PULSE 85; RESP 20
--- NOTE | 2018-11-10 11:54 | CONS ---
Consult Date/Type/Reason Admit Date/Time Oct 28, 2018 at 19:39 Initial Consult Date Type of Consult Pulmonary Requesting Provider: SHIN HAN MD Date/Time of Note DATE: 11/10/18 TIME: 11:53 Subjective Patient remained stable after chest tube placement. Still has exertional dyspnea. Objective Vital Signs Date Temp Pulse Resp B/P (MAP) Pulse Ox O2 O2 Flow FiO2 Time Delivery Rate 11/10/18 97.4 85 20 102/58 96 Room Air 11:44 (73) 11/10/18 2.0 07:54 11/07/18 40 20:44 Intake and Output 11/09/18 11/09/18 11/10/18 1515:00 23:00 07:00 IntakeIntake Total 120 ml 870 ml 120 ml OutputOutput Total 670 ml BalanceBalance 120 ml 200 ml 120 ml Exam Well-nourished well-developed lady GENERAL: VITAL SIGNS: per chart NECK: Supple. No JVD or lymphadenopathy. CARDIAC EXAM: S1, S2. No added sounds or murmurs. CHEST: Diminished air entry right base ABDOMEN: Soft, nontender. No guarding or rebound. EXTREMITIES: No cyanosis, clubbing or edema. NEUROLOGIC: Generalized weakness. No focal deficits. Vent Setting Fraction of Inspired Oxygen pe: 33 Results/Medications Result Diagram: 11/09/18 0457 11/10/18 0459 Results 24 hrs Laboratory Tests Test 11/09/18 13:00 11/10/18 04:59 Urine Color YELLOW Urine Clarity SLIGHTLY CLOUDY A Urine pH 5.0 Urine Specific [place] 1.009 Urine Ketones NEGATIVE Urine Nitrite NEGATIVE Urine Bilirubin NEGATIVE Urine Urobilinogen 1+ H Urine Leukocyte Esterase 2+ H Urine Microscopic RBC 1 Urine Microscopic WBC 29 H Urine Squamous Epithelial Cells MODERATE Urine Bacteria FEW A Urine Mucus FEW A Urine Hemoglobin NEGATIVE Urine Glucose NEGATIVE Urine Total Protein NEGATIVE Sodium Level 135 Potassium Level 3.9 Chloride Level 99 Carbon Dioxide Level 27 Anion Gap 9 Blood Urea Nitrogen 50 H Creatinine 1.03 H Est Glomerular Filtrat Rate mL/min > 60 Glucose Level 95 Calcium Level 9.2 Phosphorus Level 4.4 Magnesium Level 2.1 Medications Current Medications Carvedilol (Coreg) 3.125 mg BID PO Last administered on 11/09/18at 20:51; Admin Dose 3.125 MG; Start 10/29/18 at 09:00 Pantoprazole (Protonix Tab) 40 mg DAILY@06 PO Last administered on 11/10/18 06:19; Admin Dose 40 MG; Start 10/29/18 at 06:00 Enoxaparin Sodium (Lovenox) 40 mg DAILY SC Last administered on 11/10/18 08:10; Admin Dose 40 MG; Start 10/29/18 at 09:00 Acetaminophen (Tylenol Tab) 650 mg Q6H PRN PO MILD PAIN(1-3)OR ELEVATED TEMP Last administered on 11/09/18 10:02; Admin Dose 650 MG; Start 10/28/18 at 22:30 Ondansetron HCl (Zofran Inj) 4 mg Q6H PRN IV NAUSEA AND/OR VOMITING Last administered on 11/05/18 03:41; Admin Dose 4 MG; Start 10/28/18 at 22:30 Albuterol/ Ipratropium (Duoneb) 3 ml Q6H RESP THERAPY PRN HHN SHORTNESS OF BREATH Last administered on 11/07/18 11:13; Admin Dose 3 ML; Start 10/28/18 at 22:30 Potassium Chloride (Klor-Con 20) 20 meq DAILY PO Last administered on 11/10/18 08:07; Admin Dose 20 MEQ; Start 10/30/18 at 09:00 Midodrine (Proamatine) 2.5 mg BID@09,17 PRN PO SBP<85 Last administered on 11/05/18 03:41; Admin Dose 2.5 MG; Start 10/31/18 at 17:00 Gabapentin (Neurontin) 300 mg DAILY PO Last administered on 11/10/18 08:07; Admin Dose 300 MG; Start 11/10/18 at 09:00 Acetaminophen/ Hydrocodone Bitart ([place] (5/325)) 1 tab Q4H PRN PO MODERATE PAIN LEVEL 4-6 Last administered on 11/10/18 06:19; Admin Dose 1 TAB; Start 11/09/18 at 12:00 Assessment/Plan Hospital Course (Demo Recall) IMP: 1. Recurrent large left-sided lymphocytic predominant exudative pleural effusion--etiology remains unclear. Can represent multifactorial processes though malignancy cannot be excluded. s/p unsuccessful chest tube pleurodesis 2. ADHF 3. 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 Continue monitor chest tube output. Repeat chest x-ray in a.m. 2. Resend cytology and obtain triglyceride from pleural fluid 3. May need a pleurX 4. Would perform RHC prior to initiation of vascular-targeted therapy RAMIN JIMENEZ MD, [facility] Nov 10, 2018 11:54
[2018-11-10 15:23] VITALS: BP 137/54; PULSE 86; RESP 18
--- NOTE | 2018-11-10 15:26 | PN ---
Date/Time of Note Date/Time of Note DATE: 11/10/18 TIME: 15:24 Assessment/Plan VTE Prophylaxis Risk score (from Ns)>0 risk: 3 SCD applied (from Ns): Yes Pharmacological prophylaxis: NA/contraindicated Pharm contraindication: low risk/ambulating Lines/Catheters [facility] Peripheral IV Urinary Cath still in place: No Assessment/Plan Hospital Course .1 Acute on chronic systolic heart failure-- ECHO reviewed with EF 60% and natalya re right atrial enlargement, right ventricle dilation with reduced systolic function, severe TR. s/p chest tube placement with talc pleurodesis 11/06/18 2. Severe pulmonary HTN 3. Large right pleural effusion s/p thoracentesis 07/30/2018. Pathology: Left thoracentesis fluid for cytology: -- Negative for malignant cells.. Pt might need pleurodesis. 4. h/o Meth use 5. Overweight 6. hyperlipidemia 7. Hypotension, 8. S.p appendectomy 9. Back pain 10. dyslipidemia 11. SIRS postprocedure 12 AZIZA ? NSAID/diueresis now improved Assessment/Plan -restart Bumex - UA with UTI > Rocephin -Significant drainage from the chest tube questionable Pleurx catheter per CT surgery -Repeat chest x-ray in the morning - renally dose all meds -has chest tube with output 550 ml - fu CTS and pul recs Result Diagram: 11/09/18 0457 11/10/18 0459 Results 24hrs Laboratory Tests Test 11/10/18 04:59 Sodium Level 135 Potassium Level 3.9 Chloride Level 99 Carbon Dioxide Level 27 Anion Gap 9 Blood Urea Nitrogen 50 H Creatinine 1.03 H Est Glomerular Filtrat Rate mL/min > 60 Glucose Level 95 Calcium Level 9.2 Phosphorus Level 4.4 Magnesium Level 2.1 Subjective 24 Hr Interval Summary Free Text/Dictation Continues to drain a lot through the chest tube. ? Pleurx Exam/Review of Systems Exam Vitals Vital Signs Date Temp Pulse Resp B/P (MAP) Pulse Ox O2 O2 Flow FiO2 Time Delivery Rate 11/10/18 2.0 14:58 11/10/18 97.4 85 20 102/58 96 Room Air 11:44 (73) 11/07/18 40 20:44 Intake and Output 11/09/18 11/09/18 11/10/18 1515:00 23:00 07:00 IntakeIntake Total 120 ml 870 ml 120 ml OutputOutput Total 670 ml BalanceBalance 120 ml 200 ml 120 ml Exam gen: awake,alert neck:supple lungs: dec breath sounds rt base, rt chest tube abdomen:soft, no tender ext 2+edema Results Results Results 24hrs Laboratory Tests Test 11/10/18 04:59 Sodium Level 135 Potassium Level 3.9 Chloride Level 99 Carbon Dioxide Level 27 Anion Gap 9 Blood Urea Nitrogen 50 H Creatinine 1.03 H Est Glomerular Filtrat Rate mL/min > 60 Glucose Level 95 Calcium Level 9.2 Phosphorus Level 4.4 Magnesium Level 2.1 Medications Medication Current Medications Carvedilol (Coreg) 3.125 mg BID PO Last administered on 11/09/18 20:51; Admin Dose 3.125 MG; Start 10/29/18 at 09:00 Pantoprazole (Protonix Tab) 40 mg DAILY@06 PO Last administered on 11/10/18 06:19; Admin Dose 40 MG; Start 10/29/18 at 06:00 Enoxaparin Sodium (Lovenox) 40 mg DAILY SC Last administered on 11/10/18 08:10; Admin Dose 40 MG; Start 10/29/18 at 09:00 Acetaminophen (Tylenol Tab) 650 mg Q6H PRN PO MILD PAIN(1-3)OR ELEVATED TEMP Last administered on 11/09/18 10:02; Admin Dose 650 MG; Start 10/28/18 at 22:30 Ondansetron HCl (Zofran Inj) 4 mg Q6H PRN IV NAUSEA AND/OR VOMITING Last administered on 11/05/18 03:41; Admin Dose 4 MG; Start 10/28/18 at 22:30 Albuterol/ Ipratropium (Duoneb) 3 ml Q6H RESP THERAPY PRN HHN SHORTNESS OF BREATH Last administered on 11/07/18 11:13; Admin Dose 3 ML; Start 10/28/18 at 22:30 Potassium Chloride (Klor-Con 20) 20 meq DAILY PO Last administered on 11/10/18 08:07; Admin Dose 20 MEQ; Start 10/30/18 at 09:00 Midodrine (Proamatine) 2.5 mg BID@ PRN PO SBP<85 Last administered on 8/1/19at 03:41; Admin Dose 2.5 MG; Start 10/31/18 at 17:00 Gabapentin (Neurontin) 300 mg DAILY PO Last administered on 11/10/18at 08:07; Admin Dose 300 MG; Start 11/10/18 at 09:00 Acetaminophen/ Hydrocodone Bitart ([place] (5/325)) 1 tab Q4H PRN PO MODERATE PAIN LEVEL 4-6 Last administered on 11/10/18at 12:10; Admin Dose 1 TAB; Start 11/09/18 at 12:00 Ceftriaxone Sodium 50 ml @ 100 mls/hr Q24H IVPB ; Start 11/10/18 at 15:30; Sta SHIN Peralta MD Nov 10, 2018 15:26
[2018-11-10] MEDS: CEFTRIAXONE 1 GM/50 ML (PMX) 50 ML IVPB SCH (15:57)
[2018-11-10] MEDS: BUMETANIDE 1 MG TAB PO SCH (17:03)
[2018-11-10 19:48] VITALS: BP 105/55; PULSE 82; RESP 19
[2018-11-11] VITALS (7 sets, daily range): BP systolic 87–147; BP diastolic 51–86; PULSE 70–120; RESP 18–20
[2018-11-11] MEDS: HYDROCODONE/APAP (5/325) TAB PO PRN ×5 (01:35→20:57)
[2018-11-11] MEDS: BUMETANIDE 1 MG TAB PO SCH ×3 (05:15→23:55)
[2018-11-11] MEDS: PANTOPRAZOLE (EC) 40 MG TAB PO SCH (05:15)
[2018-11-11] MEDS: POTASSIUM CHLORIDE (SR) 20 MEQ TAB PO SCH (09:37)
[2018-11-11] MEDS: GABAPENTIN 300 MG CAP PO SCH (09:37)
[2018-11-11] MEDS: ENOXAPARIN 40 MG/0.4 ML SYG SC SCH (09:49)
--- NOTE | 2018-11-11 12:30 | CONS ---
Assessment/Plan Assessment/Plan Hospital Course (Demo Recall) IMPRESSION: 1. Congestive heart failure exacerbation. Patient with both left and right-sided findings with the left having at least by previous echo, preserved EF and the right having significant RV dysfunction.-again by repeat echo with severely elevated RVSP>100 2. Tricuspid regurgitation, severe. 3. Hypotension, borderline. 4. Shortness of breath secondary to #1. 5. Pleural effusion, right side large, status post thoracentesis -1 liter. Now recurrent. now post-op s/p VATS/pleurodesis 6. Polysubstance abuse, most notably with methamphetamines. Recc: -Tele -Continue coreg as tolerated only with ACEI held in the setting of ARF which is improving -Follow volume status with bume now resumed at lower dose -s/p course of abx's, f/u cx data -midodrine PRN only at this time -would consider initiation of treatment for elevated PAP's with pulmonary stating patient should have RHC with directed therapy -possible role for tricuspid valve repair -follow CT output Consultation Date/Type/Reason Admit Date/Time Oct 28, 2018 at 19:39 Initial Consult Date Lauryn Type of Consult Cardiology Reason for Consultation CHF Requesting Provider: SHIN HAN MD Date/Time of Note DATE: 11/11/18 TIME: 12:27 Exam/Review of Systems Vital Signs Vitals Vital Signs Date Temp Pulse Resp B/P (MAP) Pulse Ox O2 O2 Flow FiO2 Time Delivery Rate 11/11/18 99.2 120 20 147/86 95 Nasal 11:26 (106) Cannula 11/11/18 4.0 36 01:29 Intake and Output 11/10/18 11/10/18 11/11/18 1515:00 23:00 07:00 IntakeIntake Total 240 ml 410 ml OutputOutput Total 200 ml 300 ml BalanceBalance 40 ml 110 ml Exam Exam Review of Systems: CONSTITUTIONAL: No fevers, chills. PULMONARY: No sob CARDIOVASCULAR: No chest pain/palpitations GASTROINTESTINAL: No nausea/vomiting. GENITOURINARY: No hematuria/dysuria. MUSCULOSKELETAL: No myagias/arthalgias. PSYCHIATRIC: The patient denies depression. NEUROLOGIC: No weakness Constitutional: alert Psych: no complaints Head: normocephalic ENMT: mucosa pink and moist Neck: supple, jvd (9 cm water) Respiratory: diminished breath sounds (at bases) Cardiovascular: regular rate and rhythm Gastrointestinal: soft, non-tender Musculoskeletal: muscle tone (normal) Extremities: edema (none) Neurological: other (No focal deficits) Labs Result Diagram: 11/09/18 0457 11/11/18 0506 Results 24hrs Laboratory Tests Test 11/11/18 05:06 Sodium Level 138 Potassium Level 4.3 Chloride Level 99 Carbon Dioxide Level 32 H Anion Gap 7 Blood Urea Nitrogen 31 #H Creatinine 0.85 Est Glomerular Filtrat Rate mL/min > 60 Glucose Level 76 Calcium Level 9.3 Medications Medications Current Medications Carvedilol (Coreg) 3.125 mg BID PO Last administered on 11/10/18 21:01; Admin Dose 3.125 MG; Start 10/29/18 at 09:00 Pantoprazole (Protonix Tab) 40 mg DAILY@06 PO Last administered on 11/11/18 05:15; Admin Dose 40 MG; Start 10/29/18 at 06:00 Enoxaparin Sodium (Lovenox) 40 mg DAILY SC Last administered on 11/11/18 09:49; Admin Dose 40 MG; Start 10/29/18 at 09:00 Acetaminophen (Tylenol Tab) 650 mg Q6H PRN PO MILD PAIN(1-3)OR ELEVATED TEMP Last administered on 11/09/18 10:02; Admin Dose 650 MG; Start 10/28/18 at 22:30 Ondansetron HCl (Zofran Inj) 4 mg Q6H PRN IV NAUSEA AND/OR VOMITING Last administered on 11/05/18 03:41; Admin Dose 4 MG; Start 10/28/18 at 22:30 Albuterol/ Ipratropium (Duoneb) 3 ml Q6H RESP THERAPY PRN HHN SHORTNESS OF BREATH Last administered on 11/07/18 11:13; Admin Dose 3 ML; Start 10/28/18 at 22:30 Potassium Chloride (Klor-Con 20) 20 meq DAILY PO Last administered on 11/11/18 09:37; Admin Dose 20 MEQ; Start 10/30/18 at 09:00 Midodrine (Proamatine) 2.5 mg BID@ PRN PO SBP<85 Last administered on 11/05/18 03:41; Admin Dose 2.5 MG; Start 10/31/18 at 17:00 Gabapentin (Neurontin) 300 mg DAILY PO Last administered on 11/11/18at 09:37; Admin Dose 300 MG; Start 11/10/18 at 09:00 Acetaminophen/ Hydrocodone Bitart ([place] (5/325)) 1 tab Q4H PRN PO MODERATE PAIN LEVEL 4-6 Last administered on 11/11/18 09:53; Admin Dose 1 TAB; Start 11/09/18 at 12:00 Ceftriaxone Sodium 50 ml @ 100 mls/hr Q24H IVPB Last administered on 11/10/18at 15:57; Admin Dose 100 MLS/HR; Start 11/10/18 at 15:30 Bumetanide (Bumex) 1 mg BID DIURETICS PO Last administered on 11/11/18at 05:15; Admin Dose 1 MG; Start 11/10/18 at 18:00 JEFF HARMON Nov 11, 2018 12:30
--- NOTE | 2018-11-11 15:15 | CONS ---
Consult Date/Type/Reason Admit Date/Time Oct 28, 2018 at 19:39 Initial Consult Date Type of Consult Pulmonary Requesting Provider: SHIN HAN MD Date/Time of Note DATE: 11/11/18 TIME: 15:14 Subjective Still continues to have moderate chest tube output. With dyspnea. Objective Vital Signs Date Temp Pulse Resp B/P (MAP) Pulse Ox O2 O2 Flow FiO2 Time Delivery Rate 11/11/18 2.0 15:10 11/11/18 99.2 120 20 147/86 95 Nasal 11:26 (106) Cannula 11/11/18 36 01:29 Intake and Output 11/10/18 11/10/18 11/11/18 1515:00 23:00 07:00 IntakeIntake Total 240 ml 410 ml OutputOutput Total 200 ml 300 ml BalanceBalance 40 ml 110 ml Exam GENERAL: VITAL SIGNS: per chart NECK: Supple. No JVD or lymphadenopathy. CARDIAC EXAM: S1, S2. No added sounds or murmurs. CHEST: clear bilaterally, No added sounds, rales or wheezes ABDOMEN: Soft, nontender. No guarding or rebound. EXTREMITIES: No cyanosis, clubbing or edema. NEUROLOGIC: Generalized weakness. No focal deficits. Vent Setting Fraction of Inspired Oxygen pe: 36 Results/Medications Result Diagram: 11/09/18 0457 11/11/18 0506 Results 24 hrs Laboratory Tests Test 11/11/18 05:06 Sodium Level 138 Potassium Level 4.3 Chloride Level 99 Carbon Dioxide Level 32 H Anion Gap 7 Blood Urea Nitrogen 31 #H Creatinine 0.85 Est Glomerular Filtrat Rate mL/min > 60 Glucose Level 76 Calcium Level 9.3 Medications Current Medications Carvedilol (Coreg) 3.125 mg BID PO Last administered on 11/10/18at 21:01; Admin Dose 3.125 MG; Start 10/29/18 at 09:00 Pantoprazole (Protonix Tab) 40 mg DAILY@06 PO Last administered on 11/11/18at 05:15; Admin Dose 40 MG; Start 10/29/18 at 06:00 Enoxaparin Sodium (Lovenox) 40 mg DAILY SC Last administered on 11/11/18at 09:49; Admin Dose 40 MG; Start 10/29/18 at 09:00 Acetaminophen (Tylenol Tab) 650 mg Q6H PRN PO MILD PAIN(1-3)OR ELEVATED TEMP Last administered on 11/09/18 10:02; Admin Dose 650 MG; Start 10/28/18 at 22:30 Ondansetron HCl (Zofran Inj) 4 mg Q6H PRN IV NAUSEA AND/OR VOMITING Last administered on 11/05/18 03:41; Admin Dose 4 MG; Start 10/28/18 at 22:30 Albuterol/ Ipratropium (Duoneb) 3 ml Q6H RESP THERAPY PRN HHN SHORTNESS OF BREATH Last administered on 11/07/18 11:13; Admin Dose 3 ML; Start 10/28/18 at 22:30 Potassium Chloride (Klor-Con 20) 20 meq DAILY PO Last administered on 11/11/18 09:37; Admin Dose 20 MEQ; Start 10/30/18 at 09:00 Midodrine (Proamatine) 2.5 mg BID@09,17 PRN PO SBP<85 Last administered on 11/05/18 03:41; Admin Dose 2.5 MG; Start 10/31/18 at 17:00 Gabapentin (Neurontin) 300 mg DAILY PO Last administered on 11/11/18 09:37; Admin Dose 300 MG; Start 11/10/18 at 09:00 Acetaminophen/ Hydrocodone Bitart ([place] (5/325)) 1 tab Q4H PRN PO MODERATE PAIN LEVEL 4-6 Last administered on 11/11/18 09:53; Admin Dose 1 TAB; Start 11/09/18 at 12:00 Ceftriaxone Sodium 50 ml @ 100 mls/hr Q24H IVPB Last administered on 11/10/18 15:57; Admin Dose 100 MLS/HR; Start 11/10/18 at 15:30 Bumetanide (Bumex) 1 mg BID DIURETICS PO Last administered on 11/11/18 05:15; Admin Dose 1 MG; Start 11/10/18 at 18:00 Assessment/Plan Hospital Course (Demo Recall) iMP: 1. 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 Can represent multifactorial processes though malignancy cannot be excluded. s/p unsuccessful chest tube pleurodesis 2. ADHF 3. 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 Continue monitor chest tube output. Repeat chest x-ray in a.m. 2. Resend cytology and obtain triglyceride from pleural fluid 3. May need a pleurX 4. Would perform RHC prior to initiation of vascular-targeted therapy Discussed with primary team consider transfer to tertiary care center for right heart cath RAM[facility]IMENEZ MD, [facility] Nov 11, 2018 15:15
--- NOTE | 2018-11-11 15:18 | PN ---
Date/Time of Note Date/Time of Note DATE: 11/11/18 TIME: 15:16 Assessment/Plan VTE Prophylaxis Risk score (from Ns)>0 risk: 3 SCD applied (from Ns): Yes Pharmacological prophylaxis: NA/contraindicated Pharm contraindication: low risk/ambulating Lines/Catheters [facility] Peripheral IV Urinary Cath still in place: No Assessment/Plan Hospital Course .1 Acute on chronic systolic heart failure-- ECHO reviewed with EF 60% and [place] re right atrial enlargement, right ventricle dilation with reduced systolic function, severe TR. s/p chest tube placement with talc pleurodesis 11/06/18 2. Severe pulmonary HTN pressures greater than 100 3. Large right pleural effusion s/p thoracentesis 07/30/2018. Pathology: Left thoracentesis fluid for cytology: -- Negative for malignant cells.. Pt might need pleurodesis. 4. h/o Meth use 5. Overweight 6. hyperlipidemia 7. Hypotension, 8. S.p appendectomy 9. Back pain 10. dyslipidemia 11. SIRS postprocedure 12 AZIZA ? NSAID/diueresis now improved Assessment/Plan -cw Bumex - cw> Rocephin -Significant drainage from the chest tube questionable Pleurx catheter per CT surgery, after a message for Dr. Singh patient might need a Pleurx catheter. However spoke to pulmonary who recommended patient to transfer to higher level of care for right heart cath and treatment of pulmonary hypertension, will check with CT surgery ? Pleural biopsy for etiology - Renal function improved - renally dose all meds -has chest tube with output 300 ml - fu CTS and pul recs Result Diagram: 11/09/18 0457 11/11/18 0506 Results 24hrs Laboratory Tests Test 11/11/18 05:06 Sodium Level 138 Potassium Level 4.3 Chloride Level 99 Carbon Dioxide Level 32 H Anion Gap 7 Blood Urea Nitrogen 31 #H Creatinine 0.85 Est Glomerular Filtrat Rate mL/min > 60 Glucose Level 76 Calcium Level 9.3 Subjective 24 Hr Interval Summary Free Text/Dictation Chest tube still draining. Patient is in the shower Exam/Review of Systems Exam Vitals Vital Signs Date Temp Pulse Resp B/P (MAP) Pulse Ox O2 O2 Flow FiO2 Time Delivery Rate 11/11/18 2.0 15:10 11/11/18 99.2 120 20 147/86 95 Nasal 11:26 (106) Cannula 11/11/18 36 01:29 Intake and Output 11/10/18 11/10/18 11/11/18 1515:00 23:00 07:00 IntakeIntake Total 240 ml 410 ml OutputOutput Total 200 ml 300 ml BalanceBalance 40 ml 110 ml Exam gen: awake,alert neck:supple lungs: dec breath sounds rt base, rt chest tube abdomen:soft, no tender ext 2+edema Results Results 24hrs Laboratory Tests Test 11/11/18 05:06 Sodium Level 138 Potassium Level 4.3 Chloride Level 99 Carbon Dioxide Level 32 H Anion Gap 7 Blood Urea Nitrogen 31 #H Creatinine 0.85 Est Glomerular Filtrat Rate mL/min > 60 Glucose Level 76 Calcium Level 9.3 Medications Medication Current Medications Carvedilol (Coreg) 3.125 mg BID PO Last administered on 11/10/18 21:01; Admin Dose 3.125 MG; Start 10/29/18 at 09:00 Pantoprazole (Protonix Tab) 40 mg DAILY@06 PO Last administered on 11/11/18 05:15; Admin Dose 40 MG; Start 10/29/18 at 06:00 Enoxaparin Sodium (Lovenox) 40 mg DAILY SC Last administered on 11/11/18 09:49; Admin Dose 40 MG; Start 10/29/18 at 09:00 Acetaminophen (Tylenol Tab) 650 mg Q6H PRN PO MILD PAIN(1-3)OR ELEVATED TEMP Last administered on 11/09/18 10:02; Admin Dose 650 MG; Start 10/28/18 at 22:30 Ondansetron HCl (Zofran Inj) 4 mg Q6H PRN IV NAUSEA AND/OR VOMITING Last administered on 11/05/18 03:41; Admin Dose 4 MG; Start 10/28/18 at 22:30 Albuterol/ Ipratropium (Duoneb) 3 ml Q6H RESP THERAPY PRN HHN SHORTNESS OF BREATH Last administered on 11/07/18 11:13; Admin Dose 3 ML; Start 10/28/18 at 22:30 Potassium Chloride (Klor-Con 20) 20 meq DAILY PO Last administered on 11/11/18 09:37; Admin Dose 20 MEQ; Start 10/30/18 at 09:00 Midodrine (Proamatine) 2.5 mg BID@09,17 PRN PO SBP<85 Last administered on 11/05/18 03:41; Admin Dose 2.5 MG; Start 10/31/18 at 17:00 Gabapentin (Neurontin) 300 mg DAILY PO Last administered on 11/11/18 09:37; Admin Dose 300 MG; Start 11/10/18 at 09:00 Acetaminophen/ Hydrocodone Bitart ([place] (5/325)) 1 tab Q4H PRN PO MODERATE PAIN LEVEL 4-6 Last administered on 11/11/18 09:53; Admin Dose 1 TAB; Start 11/09/18 at 12:00 Ceftriaxone Sodium 50 ml @ 100 mls/hr Q24H IVPB Last administered on 11/10/18 15:57; Admin Dose 100 MLS/HR; Start 11/10/18 at 15:30 Bumetanide (Bumex) 1 mg BID DIURETICS PO Last administered on 11/11/18 05:15; Admin Dose 1 MG; Start 11/10/18 at 18:00 SHIN HAN MD Nov 11, 2018 15:17
[2018-11-11] MEDS: CEFTRIAXONE 1 GM/50 ML (PMX) 50 ML IVPB SCH (15:47)
[2018-11-12] VITALS: BP 108/57; PULSE 90; RESP 19
[2018-11-12] MEDS: HYDROCODONE/APAP (5/325) TAB PO PRN ×2 (01:57→09:31)
[2018-11-12 04:00] VITALS: BP 93/60; PULSE 80; RESP 19
[2018-11-12] MEDS: PANTOPRAZOLE (EC) 40 MG TAB PO SCH (06:27)
[2018-11-12] MEDS: BUMETANIDE 1 MG TAB PO SCH (06:27)
[2018-11-12 07:45] VITALS: BP 100/58; PULSE 94; RESP 20
[2018-11-12] MEDS: POTASSIUM CHLORIDE (SR) 20 MEQ TAB PO SCH (09:30)
[2018-11-12] MEDS: GABAPENTIN 300 MG CAP PO SCH (09:31)
[2018-11-12] MEDS: ENOXAPARIN 40 MG/0.4 ML SYG SC SCH (09:45)
[2018-11-12] MEDS: ALBUTEROL/IPRATROPIUM (NEB) 3 ML AMP HHN PRN (10:44)
[2018-11-12 11:07] VITALS: BP 104/52; PULSE 84; RESP 18
--- NOTE | 2018-11-12 11:40 | CONS ---
Consult Date/Type/Reason Admit Date/Time Oct 28, 2018 at 19:39 Initial Consult Date Type of Consult Pulmonary Requesting Provider: SHIN HAN MD Date/Time of Note DATE: 11/12/18 TIME: 11:39 Subjective Slowly improving. Less dyspnea. Chest tube still has moderate output. Objective Vital Signs Date Temp Pulse Resp B/P (MAP) Pulse Ox O2 O2 Flow FiO2 Time Delivery Rate 11/12/18 97.6 84 18 104/52 94 11:07 (69) 11/12/18 36 10:47 11/12/18 2.0 10:47 11/12/18 Nasal 07:20 Cannula Intake and Output 11/11/18 11/11/18 11/12/18 1515:00 23:00 07:00 IntakeIntake Total 600 ml 290 ml 500 ml OutputOutput Total 200 ml 640 ml 200 ml BalanceBalance 400 ml -350 ml 300 ml Exam GENERAL: VITAL SIGNS: per chart NECK: Supple. No JVD or lymphadenopathy. CARDIAC EXAM: S1, S2. No added sounds or murmurs. CHEST: clear bilaterally, No added sounds, rales or wheezes ABDOMEN: Soft, nontender. No guarding or rebound. EXTREMITIES: No cyanosis, clubbing or edema. NEUROLOGIC: Generalized weakness. No focal deficits. Vent Setting Fraction of Inspired Oxygen pe: 36 Results/Medications Result Diagram: 11/09/18 0457 11/11/18 0506 Medications Current Medications Carvedilol (Coreg) 3.125 mg BID PO Last administered on 11/11/18at 20:58; Admin Dose 3.125 MG; Start 10/29/18 at 09:00 Pantoprazole (Protonix Tab) 40 mg DAILY@06 PO Last administered on 11/12/18at 06:27; Admin Dose 40 MG; Start 10/29/18 at 06:00 Enoxaparin Sodium (Lovenox) 40 mg DAILY SC Last administered on 11/12/18at 09:45; Admin Dose 40 MG; Start 10/29/18 at 09:00 Acetaminophen (Tylenol Tab) 650 mg Q6H PRN PO MILD PAIN(1-3)OR ELEVATED TEMP Last administered on 11/09/18at 10:02; Admin Dose 650 MG; Start 10/28/18 at 22:30 Ondansetron HCl (Zofran Inj) 4 mg Q6H PRN IV NAUSEA AND/OR VOMITING Last a dministered on 11/05/18 03:41; Admin Dose 4 MG; Start 10/28/18 at 22:30 Albuterol/ Ipratropium (Duoneb) 3 ml Q6H RESP THERAPY PRN HHN SHORTNESS OF BREATH Last administered on 11/12/18 10:44; Admin Dose 3 ML; Start 10/28/18 at 22:30 Potassium Chloride (Klor-Con 20) 20 meq DAILY PO Last administered on 11/12/18 09:30; Admin Dose 20 MEQ; Start 10/30/18 at 09:00 Midodrine (Proamatine) 2.5 mg BID@09,17 PRN PO SBP<85 Last administered on 11/05/18 03:41; Admin Dose 2.5 MG; Start 10/31/18 at 17:00 Gabapentin (Neurontin) 300 mg DAILY PO Last administered on 11/12/18 09:31; Admin Dose 300 MG; Start 11/10/18 at 09:00 Acetaminophen/ Hydrocodone Bitart ([place] (5/325)) 1 tab Q4H PRN PO MODERATE PAIN LEVEL 4-6 Last administered on 11/12/18 09:31; Admin Dose 1 TAB; Start 11/09/18 at 12:00 Ceftriaxone Sodium 50 ml @ 100 mls/hr Q24H IVPB Last administered on 11/11/18 15:47; Admin Dose 100 MLS/HR; Start 11/10/18 at 15:30 Bumetanide (Bumex) 1 mg BID DIURETICS PO Last administered on 11/12/18 06:27; Admin Dose 1 MG; Start 11/11/18 at 23:19 Assessment/Plan Hospital Course (Demo Recall) iMP: 1. Recurrent large left-sided lymphocytic predominant exudative pleural eff usion--etiology remains unclear. Can represent multifactorial processes though malignancy cannot be excluded. s/p unsuccessful chest tube pleurodesis 2. ADHF 3. 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 Continue monitor chest tube output. 2. Resend cytology and obtain triglyceride from pleural fluid 3. May need a pleurX 4. Would perform RHC prior to initiation of vascular-targeted therapy Discussed with primary team consider transfer to tertiary care center for right heart cath We will discuss with thoracic surgery regarding pleurodesis. Repeat chest x-ray in RAMIN Torre MD, [facility] Nov 12, 2018 11:40
--- NOTE | 2018-11-12 12:54 | PN ---
Date/Time of Note Date/Time of Note DATE: 11/12/18 TIME: 12:51 Assessment/Plan VTE Prophylaxis Risk score (from Ns)>0 risk: 3 SCD applied (from Ns): Yes Pharmacological prophylaxis: NA/contraindicated Pharm contraindication: low risk/ambulating Lines/Catheters IV Catheter Type (from [facility]): Peripheral IV Urinary Cath still in place: No Assessment/Plan Hospital Course .1 Acute on chronic systolic heart failure-- ECHO reviewed with EF 60% and natalya re right atrial enlargement, right ventricle dilation with reduced systolic function, severe TR. s/p chest tube placement with talc pleurodesis 11/06/18 2. Severe pulmonary HTN pressures greater than 100 3. Large right pleural effusion s/p thoracentesis 07/30/2018. Pathology: Left thoracentesis fluid for cytology: -- Negative for malignant cells.. Pt might need pleurodesis. 4. h/o Meth use 5. Overweight 6. hyperlipidemia 7. Hypotension, 8. S.p appendectomy 9. Back pain 10. dyslipidemia 11. SIRS postprocedure 12 AZIZA ? NSAID/diueresis now improved Assessment/Plan -cw Bumex> now IV - cw> Rocephin -Significant drainage from the chest tube questionable Pleurx catheter per CT surgery, after a message for Dr. Singh patient might need a Pleurx catheter. However spoke to pulmonary who recommended patient to transfer to higher level of care for right heart cath and treatment of pulmonary hypertension, SPOKE TO Dr Celeste who will talk to Dr Arroyo for further interventions ? Pleural biopsy for etiology - Renal function improved - renally dose all meds -has chest tube with output 300 ml - change norco - fu CTS and pul recs and cardiac recs Result Diagram: 11/09/18 0457 11/11/18 0506 Subjective 24 Hr Interval Summary Free Text/Dictation Patient is still complaining of shortness of breath. chest tube is draining quite a lot Exam/Review of Systems Exam Vitals Vital Signs Date Temp Pulse Resp B/P (MAP) Pulse Ox O2 O2 Flow FiO2 Time Delivery Rate 11/12/18 97.6 84 18 104/52 94 11:07 (69) 11/12/18 36 10:47 11/12/18 2.0 10:47 11/12/18 Nasal 07:20 Cannula Intake and Output 11/11/18 11/11/18 11/12/18 1515:00 23:00 07:00 IntakeIntake Total 600 ml 290 ml 500 ml OutputOutput Total 200 ml 640 ml 200 ml BalanceBalance 400 ml -350 ml 300 ml Exam Exam gen: awake,alert neck:supple lungs: dec breath sounds rt base, rt chest tube abdomen:soft, no tender ext 2+edema Medications Medication Current Medications Carvedilol (Coreg) 3.125 mg BID PO Last administered on 11/11/18 20:58; Admin Dose 3.125 MG; Start 10/29/18 at 09:00 Pantoprazole (Protonix Tab) 40 mg DAILY@06 PO Last administered on 11/12/18 06:27; Admin Dose 40 MG; Start 10/29/18 at 06:00 Enoxaparin Sodium (Lovenox) 40 mg DAILY SC Last administered on 11/12/18 09:45; Admin Dose 40 MG; Start 10/29/18 at 09:00 Acetaminophen (Tylenol Tab) 650 mg Q6H PRN PO MILD PAIN(1-3)OR ELEVATED TEMP Last administered on 11/09/18 10:02; Admin Dose 650 MG; Start 10/28/18 at 22:30 Ondansetron HCl (Zofran Inj) 4 mg Q6H PRN IV NAUSEA AND/OR VOMITING Last administered on 11/05/18 03:41; Admin Dose 4 MG; Start 10/28/18 at 22:30 Albuterol/ Ipratropium (Duoneb) 3 ml Q6H RESP THERAPY PRN HHN SHORTNESS OF BREATH Last administered on 11/12/18 10:44; Admin Dose 3 ML; Start 10/28/18 at 22:30 Potassium Chloride (Klor-Con 20) 20 meq DAILY PO Last administered on 11/12/18 09:30; Admin Dose 20 MEQ; Start 10/30/18 at 09:00 Midodrine (Proamatine) 2.5 mg BID@09,17 PRN PO SBP<85 Last administered on 03:41; Admin Dose 2.5 MG; Start 10/31/18 at 17:00 Gabapentin (Neurontin) 300 mg DAILY PO Last administered on 11/12/18 09:31; Admin Dose 300 MG; Start 11/10/18 at 09:00 Ceftriaxone Sodium 50 ml @ 100 mls/hr Q24H IVPB Last administered on 11/11/18at 15:47; Admin Dose 100 MLS/HR; Start 11/10/18 at 15:30 Bumetanide (Bumex) 1 mg BID DIURETICS PO Last administered on 11/12/18at 06:27; Admin Dose 1 MG; Start 11/11/18 at 23:19 Acetaminophen/ Hydrocodone Bitart ([place] ()) 1 tab Q4H PRN PO MODERATE PAIN LEVEL 4-6; Start 11/12/18 at 13:00; Status UNV SHIN HAN MD Nov 12, 2018 12:54
--- NOTE | 2018-11-12 13:04 | CONS ---
Assessment/Plan Assessment/Plan Hospital Course (Demo Recall) IMPRESSION: 1. Congestive heart failure exacerbation. Patient with both left and right-sided findings with the left having at least by previous echo, preserved EF and the right having significant RV dysfunction.-again by repeat echo with severely elevated RVSP>100 2. Tricuspid regurgitation, severe. 3. Hypotension, borderline. 4. Shortness of breath secondary to #1. 5. Pleural effusion, right side large, status post thoracentesis -1 liter. Now recurrent. now post-op s/p VATS/pleurodesis 6. Polysubstance abuse, most notably with methamphetamines. Recc: -Tele -Continue coreg as tolerated only with ACEI held in the setting of ARF which is now improved but patient still with marginal BP and more Right heart failure and thus would continue to hold -Follow volume status with ongoing bumex diuresis -s/p course of abx's, f/u cx data -midodrine PRN only at this time -POssible transfer to tertiary care center for PHTN eval and treatment -possible role for tricuspid valve repair -follow CT output Consultation Date/Type/Reason Admit Date/Time Oct 28, 2018 at 19:39 Initial Consult Date Lauryn Type of Consult Cardiology Reason for Consultation CHF Requesting Provider: SHIN HAN MD Date/Time of Note DATE: 11/12/18 TIME: 13:01 Exam/Review of Systems Vital Signs Vitals Vital Signs Date Temp Pulse Resp B/P (MAP) Pulse Ox O2 O2 Flow FiO2 Time Delivery Rate 11/12/18 97.6 84 18 104/52 94 11:07 (69) 11/12/18 36 10:47 11/12/18 2.0 10:47 11/12/18 Nasal 07:20 Cannula Intake and Output 11/11/18 11/11/18 11/12/18 1515:00 23:00 07:00 IntakeIntake Total 600 ml 290 ml 500 ml OutputOutput Total 200 ml 640 ml 200 ml BalanceBalance 400 ml -350 ml 300 ml Exam Exam Review of Systems: CONSTITUTIONAL: No fevers, chills. PULMONARY: No sob CARDIOVASCULAR: No chest pain/palpitations GASTROINTESTINAL: No nausea/vomiting. GENITOURINARY: No hematuria/dysuria. MUSCULOSKELETAL: No myagias/arthalgias. PSYCHIATRIC: The patient denies depression. NEUROLOGIC: No weakness Constitutional: alert Psych: no complaints Head: normocephalic ENMT: mucosa pink and moist Neck: supple, jvd (9 cm water) Respiratory: diminished breath sounds (at bases/B) Cardiovascular: regular rate and rhythm Gastrointestinal: soft, non-tender Musculoskeletal: muscle tone (normal) Extremities: pitting pedal edema (bilateral LE) Neurological: other (No focal deficits) Labs Result Diagram: 11/09/18 0457 11/11/18 0506 Medications Medications Current Medications Carvedilol (Coreg) 3.125 mg BID PO Last administered on 11/11/18 20:58; Admin Dose 3.125 MG; Start 10/29/18 at 09:00 Pantoprazole (Protonix Tab) 40 mg DAILY@06 PO Last administered on 11/12/18 06:27; Admin Dose 40 MG; Start 10/29/18 at 06:00 Enoxaparin Sodium (Lovenox) 40 mg DAILY SC Last administered on 11/12/18 09:45; Admin Dose 40 MG; Start 10/29/18 at 09:00 Acetaminophen (Tylenol Tab) 650 mg Q6H PRN PO MILD PAIN(1-3)OR ELEVATED TEMP Last administered on 11/09/18 10:02; Admin Dose 650 MG; Start 10/28/18 at 22:30 Ondansetron HCl (Zofran Inj) 4 mg Q6H PRN IV NAUSEA AND/OR VOMITING Last administered on 11/05/18 03:41; Admin Dose 4 MG; Start 10/28/18 at 22:30 Albuterol/ Ipratropium (Duoneb) 3 ml Q6H RESP THERAPY PRN HHN SHORTNESS OF BREATH Last administered on 11/12/18 10:44; Admin Dose 3 ML; Start 10/28/18 at 22:30 Potassium Chloride (Klor-Con 20) 20 meq DAILY PO Last administered on 11/12/18 09:30; Admin Dose 20 MEQ; Start 10/30/18 at 09:00 Midodrine (Proamatine) 2.5 mg BID@,17 PRN PO SBP<85 Last administered on 11/05/18 03:41; Admin Dose 2.5 MG; Start 10/31/18 at 17:00 Gabapentin (Neurontin) 300 mg DAILY PO Last administered on 11/12/18at 09:31; Admin Dose 300 MG; Start 11/10/18 at 09:00 Ceftriaxone Sodium 50 ml @ 100 mls/hr Q24H IVPB Last administered on 11/11/18at 15:47; Admin Dose 100 MLS/HR; Start 11/10/18 at 15:30 Acetaminophen/ Hydrocodone Bitart ([place] (10/)) 1 tab Q4H PRN PO MODERATE PAIN LEVEL 4-6; Start 11/12/18 at 13:00 Bumetanide (Bumex) 1 mg BID DIURETICS IV ; Start 11/12/18 at 18:00 JEFF HARMON Nov 12, 2018 13:03
[2018-11-12] MEDS: HYDROCODONE/APAP (10/325) TAB PO PRN ×3 (13:21→22:38)
[2018-11-12 16:03] VITALS: BP 101/52; PULSE 80; RESP 20
--- NOTE | 2018-11-12 16:22 | PREAC ---
Date/Time of Note Date/Time of Note DATE: 11/12/18 TIME: 16:21 Anesthesia Eval and Record Evaluation Time Pre-Procedure Interview DATE: 11/12/18 TIME: 16:21 Age 38 Sex female NPO: 8 hrs Preoperative diagnosis Significant drainage from the chest tube Planned procedure INSERTION OF PLEURX CATHETER Past Medical History Past Medical History: Includes Cardio: HTN, Dyslipidemia, CHF (right sided heart failure) Pulm: Other (Pulm HTN / pleural effusion on the right side) GI: Obesity Recreational drugs: Other (meth use) Surgery & Anesthesia Issues No known issue Meds Anticoagulation: No Beta Santos within 24 hr: No Reason Beta Santos not given: Pt. not on B-Santos Active Scripts Furosemide* (Lasix*) 40 Mg Tablet, 40 MG PO BID for 30 Days, #60 TAB 1 Refill Prov:DARINEL TURNER MD 08/20/18 Lisinopril* (Lisinopril*) 2.5 Mg Tablet, 2.5 MG PO DAILY for 30 Days, #30 TAB 1 Refill Prov:DARINEL TURNER MD 08/20/18 Carvedilol* (Carvedilol*) 3.125 Mg Tablet, 3.125 MG PO BID for 30 Days, #60 TAB 1 Refill Prov:DARINEL TURNER MD 08/20/18 Current Medications Carvedilol (Coreg) 3.125 mg BID PO Last administered on 11/11/18at 20:58; Admin Dose 3.125 MG; Start 10/29/18 at 09:00 Pantoprazole (Protonix Tab) 40 mg DAILY@06 PO Last administered on 11/12/18at 06:27; Admin Dose 40 MG; Start 10/29/18 at 06:00 Enoxaparin Sodium (Lovenox) 40 mg DAILY SC Last administered on 11/12/18at 09:45; Admin Dose 40 MG; Start 10/29/18 at 09:00 Acetaminophen (Tylenol Tab) 650 mg Q6H PRN PO MILD PAIN(1-3)OR ELEVATED TEMP Last administered on 11/09/18at 10:02; Admin Dose 650 MG; Start 10/28/18 at 22:30 Ondansetron HCl (Zofran Inj) 4 mg Q6H PRN IV NAUSEA AND/OR VOMITING Last administered on 11/05/18at 03:41; Admin Dose 4 MG; Start 10/28/18 at 22:30 Albuterol/ Ipratropium (Duoneb) 3 ml Q6H RESP THERAPY PRN HHN SHORTNESS OF BREATH Last administered on 11/12/18at 10:44; Admin Dose 3 ML; Start 10/28/18 at 22:30 Potassium Chloride (Klor-Con 20) 20 meq DAILY PO Last administered on 11/12/18 09:30; Admin Dose 20 MEQ; Start 10/30/18 at 09:00 Midodrine (Proamatine) 2.5 mg BID@09,17 PRN PO SBP<85 Last administered on 11/05/18 03:41; Admin Dose 2.5 MG; Start 10/31/18 at 17:00 Gabapentin (Neurontin) 300 mg DAILY PO Last administered on 11/12/18 09:31; Admin Dose 300 MG; Start 11/10/18 at 09:00 Ceftriaxone Sodium 50 ml @ 100 mls/hr Q24H IVPB Last administered on 11/11/18at 15:47; Admin Dose 100 MLS/HR; Start 11/10/18 at 15:30 Acetaminophen/ Hydrocodone Bitart ([place] (10/325)) 1 tab Q4H PRN PO MODERATE PAIN LEVEL 4-6 Last administered on 11/12/18 13:21; Admin Dose 1 TAB; Start 11/12/18 at 13:00 Bumetanide (Bumex) 1 mg BID DIURETICS IV ; Start 11/12/18 at 18:00 Meds reviewed: Yes Allergies Coded Allergies: No Known Drug Allergies (Unverified Allergy, Unknown, 10/05/18) Allergies Reviewed: Yes Labs/Studies Labs Reviewed: Reviewed by anesthesiologist Result Diagram: 11/09/18 1355 11/11/18 6274 test: Negative Studies: ECG (SR - RBBB), CXR, 2D Echo (EF 55%) Pre-procedure Exam Last vitals Vital Signs Date Temp Pulse Resp B/P (MAP) Pulse Ox O2 O2 Flow FiO2 Time Delivery Rate 11/12/18 97.4 80 20 101/52 99 16:03 (68) 11/12/18 36 10:47 11/12/18 2.0 10:47 11/12/18 Nasal 07:20 Cannula Airway: Adequate mouth opening Mallampati: Mallampati II Teeth: Normal Lung: Normal Heart: Normal ASA Physical Status ASA physical status: 3 Emergency: None Planned Anesthetic General/MAC: ETT Pre-operative Attestations Prior to commencing anesthesia and surgery, the patient was re-evaluated, there was verification of: *The patient's identity *The results of appropriate recent lab work and preoperative vital signs *The above evaluation not changing prior to induction *Anesthetic plan, risk benefits, alternative and complications discussed with patient/family; questions answered; patient/family understands, accepts and wishes to proceed. HERBERTH DONIS Nov 12, 2018 16:22
[2018-11-12] MEDS: CEFTRIAXONE 1 GM/50 ML (PMX) 50 ML IVPB SCH (17:32)
[2018-11-12] MEDS: BUMETANIDE 1 MG INJ IV SCH (17:32)
[2018-11-12 20:03] VITALS: BP 111/54; PULSE 90; RESP 18
[2018-11-13] VITALS (22 sets, daily range): BP systolic 85–107; BP diastolic 52–71; PULSE 79–92; RESP 14–19
[2018-11-13] MEDS: BUMETANIDE 1 MG INJ IV SCH (05:30)
[2018-11-13] MEDS: PANTOPRAZOLE (EC) 40 MG TAB PO SCH (05:34)
[2018-11-13] MEDS ORDERED: LIDOCAINE 1%/EPI 30 ML INJ ONE (07:54)
[2018-11-13] MEDS ORDERED: HEPARIN 1000 UNITS/ML 10 ML INJ ONE (07:54)
[2018-11-13] MEDS ORDERED: PROPOFOL 20 ML ONE (08:07)
[2018-11-13] MEDS ORDERED: CEFAZOLIN 1 GM INJ ONE (08:07)
[2018-11-13] MEDS ORDERED: FENTAnyl 50 MCG/ML VIAL ONE (08:11)
[2018-11-13] MEDS ORDERED: MIDAZOLAM 1 MG/ML 2 ML INJ ONE ×2 (08:11→08:12)
--- NOTE | 2018-11-13 08:33 | SIPON ---
Date/Time of Note Date/Time of Note DATE: 11/13/18 TIME: 08:32 Operative Report Preoperative Diagnosis recurrent right pleural effusion Postoperative Diagnosis same Operation/Procedure Performed removal of chest tube and insertion of right pleurx catheter Surgeon see signature line mri assistant none Anesthesia: MAC Estimated blood loss: none Transfusion Required none Specimen none Grafts/Implants none Complications none JESSICA BELLO MD Nov 13, 2018 08:33
[2018-11-13] MEDS ORDERED: ONDANSETRON 4 MG INJ IV PRN (09:00)
[2018-11-13] MEDS ORDERED: MEPERIDINE 25 MG INJ IV PRN (09:00)
[2018-11-13] MEDS ORDERED: EPHEDrine 25 MG/5 ML SYG IV PRN (09:00)
[2018-11-13] MEDS ORDERED: OXYCODONE/ACETAMINOPHEN (5/325) TAB PO PRN ×2 (09:00)
[2018-11-13] MEDS ORDERED: LABETALOL HCL 20MG INJ IV PRN (09:00)
[2018-11-13] MEDS ORDERED: hydrALAzine 20 MG INJ IV PRN (09:00)
[2018-11-13] MEDS ORDERED: FENTAnyl 50 MCG/ML VIAL IV PRN ×3 (09:00)
[2018-11-13] MEDS ORDERED: DIPHENHYDRAMINE 50 MG INJ IV PRN (09:00)
[2018-11-13] MEDS ORDERED: MIDAZOLAM 1 MG/ML 2 ML INJ IV PRN (09:00)
[2018-11-13] MEDS ORDERED: METOCLOPRAMIDE 10 MG INJ IV PRN (09:00)
--- NOTE | 2018-11-13 10:03 | OPR ---
DATE OF OPERATION: 11/13/2018 PREOPERATIVE DIAGNOSIS: Recurrent right pleural effusion. POSTOPERATIVE DIAGNOSIS: Recurrent right pleural effusion. PROCEDURE: Removal of chest tube insertion of a right PleurX catheter. SURGEON: Norm Arroyo MD. ANESTHESIOLOGIST: Dr. Girard. ANESTHESIA: Lidocaine 1% with IV sedation. INDICATION: The patient is a 38-year-old female who has right-sided heart failure, recurrent right pleural effusion. She had a chest tube placed about a week ago with talc pleurodesis. The chest tub e continues to drain over a liter a day and she is now referred for a PleurX catheter insertion. Ris ks, benefits and alternatives were explained to the patient who understood and consented. PROCEDURE IN DETAILS: The patient was brought to the operating room. She was placed in supine posit ion. A bump was placed on her right chest. She was given some IV sedation, IV antibiotics. She was then prepped and draped in the usual sterile fashion. Her old chest tube was removed. A counter in cision was made about 4 cm away. The PleurX catheter was tunneled to where the old chest tube site w as/ We inserted a dilator and sheath through the old hole and pulled out the dilator and placed the PleurX catheter through the sheath. The sheath was peeled away. We then connected it to suction and drained 700 mL of fluid. We secured the PleurX catheter using silk suture and closed the chest tube incision using 3-0 Vicryl in subcuticular fashion. Dressings were applied. The patient tolerated p rocedure and was brought to the recovery room in stable condition. Dictated By: NORM ARROYO MD AA/NTS Conf#: [id number] DID#: [id number] CC: EDDIE KANG MD;*EndCC*
--- NOTE | 2018-11-13 10:45 | PAC ---
Date/Time of Note Date/Time of Note DATE: 11/13/18 TIME: 10:45 Post-Anesthesia Notes Post-Anesthesia Note Last documented vital signs Vital Signs Date Temp Pulse Resp B/P (MAP) Pulse Ox O2 O2 Flow FiO2 Time Delivery Rate 11/13/18 98.6 84 18 99/59 (72) 99 10:24 11/13/18 Nasal 1.0 10:02 Cannula 11/12/18 36 10:47 Activity: WNL Respiratory function: WNL Cardiovascular function: WNL Mental status: Baseline Pain reasonably controlled: Yes Hydration appropriate: Yes Nausea/Vomiting absent: Yes ARGENIS ROSALES MD Nov 13, 2018 10:45
[2018-11-13] MEDS: ENOXAPARIN 40 MG/0.4 ML SYG SC SCH (10:56)
[2018-11-13] MEDS: HYDROCODONE/APAP (10/325) TAB PO PRN ×3 (11:16→20:34)
--- NOTE | 2018-11-13 12:14 | CONS ---
Consult Date/Type/Reason Admit Date/Time Oct 28, 2018 at 19:39 Initial Consult Date Type of Consult Pulmonary Requesting Provider: SHIN HAN MD Date/Time of Note DATE: 11/13/18 TIME: 12:13 Subjective Patient doing okay following exchange of chest tube for Pleurx catheter. Objective Vital Signs Date Temp Pulse Resp B/P (MAP) Pulse Ox O2 O2 Flow FiO2 Time Delivery Rate 11/13/18 97.8 84 18 98/58 (71) 97 11:09 11/13/18 Nasal 1.0 10:02 Cannula 11/12/18 36 10:47 Intake and Output 11/12/18 11/12/18 11/13/18 1515:00 23:00 07:00 IntakeIntake Total 50 ml 450 ml OutputOutput Total 20 ml BalanceBalance 50 ml 430 ml Exam GENERAL: VITAL SIGNS: per chart NECK: Supple. No JVD or lymphadenopathy. CARDIAC EXAM: S1, S2. No added sounds or murmurs. CHEST: clear bilaterally, No added sounds, rales or wheezes ABDOMEN: Soft, nontender. No guarding or rebound. EXTREMITIES: No cyanosis, clubbing or edema. NEUROLOGIC: Generalized weakness. No focal deficits. Vent Setting Fraction of Inspired Oxygen pe: 36 Results/Medications Result Diagram: 11/13/188 11/13/18 0458 Results 24 hrs Laboratory Tests Test 11/13/18 04:58 White Blood Count 6.7 # Red Blood Count 3.39 L Hemoglobin 11.0 L Hematocrit 33.4 L Mean Corpuscular Volume 98.5 Mean Corpuscular Hemoglobin 32.4 Mean Corpuscular Hemoglobin Concent 32.9 Red Cell Distribution Width 15.6 H Platelet Count 234 # Mean Platelet Volume 10.6 H Immature Granulocytes % 0.300 Neutrophils % 48.4 Lymphocytes % 26.8 Monocytes % 15.0 H Eosinophils % 9.1 H Basophils % 0.4 Nucleated Red Blood Cells % 0.0 Immature Granulocytes # 0.020 Neutrophils # 3.2 Lymphocytes # 1.8 Monocytes # 1.0 H Eosinophils # 0.6 H Basophils # 0.0 Nucleated Red Blood Cells # 0.0 Sodium Level 137 Potassium Level 3.8 Chloride Level 99 Carbon Dioxide Level 34 H Anion Gap 4 L Blood Urea Nitrogen 21 H Creatinine 0.76 Est Glomerular Filtrat Rate mL/min > 60 Glucose Level 95 Calcium Level 9.1 Phosphorus Level 4.7 Magnesium Level 1.8 Medications Current Medications Carvedilol (Coreg) 3.125 mg BID PO Last administered on 11/12/18 21:05; Admin Dose 3.125 MG; Start 10/29/18 at 09:00 Pantoprazole (Protonix Tab) 40 mg DAILY@06 PO Last administered on 11/12/18 06:27; Admin Dose 40 MG; Start 10/29/18 at 06:00 Enoxaparin Sodium (Lovenox) 40 mg DAILY SC Last administered on 11/13/18 10:56; Admin Dose 40 MG; Start 10/29/18 at 09:00 Acetaminophen (Tylenol Tab) 650 mg Q6H PRN PO MILD PAIN(1-3)OR ELEVATED TEMP Last administered on 11/09/18 10:02; Admin Dose 650 MG; Start 10/28/18 at 22:30 Ondansetron HCl (Zofran Inj) 4 mg Q6H PRN IV NAUSEA AND/OR VOMITING Last administered on 11/05/18 03:41; Admin Dose 4 MG; Start 10/28/18 at 22:30 Albuterol/ Ipratropium (Duoneb) 3 ml Q6H RESP THERAPY PRN HHN SHORTNESS OF BREATH Last administered on 11/12/18 10:44; Admin Dose 3 ML; Start 10/28/18 at 22:30 Potassium Chloride (Klor-Con 20) 20 meq DAILY PO Last administered on 11/12/18 09:30; Admin Dose 20 MEQ; Start 10/30/18 at 09:00 Midodrine (Proamatine) 2.5 mg BID@09,17 PRN PO SBP<85 Last administered on 11/05/18 03:41; Admin Dose 2.5 MG; Start 10/31/18 at 17:00 Gabapentin (Neurontin) 300 mg DAILY PO Last administered on 11/12/18 09:31; Admin Dose 300 MG; Start 11/10/18 at 09:00 Ceftriaxone Sodium 50 ml @ 100 mls/hr Q24H IVPB Last administered on 11/12/18 17:32; Admin Dose 100 MLS/HR; Start 11/10/18 at 15:30 Acetaminophen/ Hydrocodone Bitart ([place] (10325)) 1 tab Q4H PRN PO MODERATE PAIN LEVEL 4-6 Last administered on 11/13/18at 11:16; Admin Dose 1 TAB; Start 11/12/18 at 13:00 Bumetanide (Bumex) 1 mg BID DIURETICS IV Last administered on 11/13/18at 05:30; Admin Dose 1 MG; Start 11/12/18 at 18:00 Fentanyl (Sublimaze) 25 mcg PACU ORDER PRN IV MILD PAIN 1-3; Start 11/13/18 at 09:00; Stop 11/13/18 at 13:00 Fentanyl (Sublimaze) 50 mcg PACU ORDER PRN IV MOD PAIN 4-6; Start 11/13/18 at 09:00; Stop 11/13/18 at 13:00 Fentanyl (Sublimaze) 75 mcg PACU ORDER PRN IV SEVERE PAIN 7-10; Start 11/13/18 at 09:00; Stop 11/13/18 at 13:00 Oxycodone/ Acetaminophen (Percocet (5/ 325)) 1 tab PACU ORDER PRN PO .PAIN 1-5; Start 11/13/18 at 09:00; Stop 11/13/18 at 13:00 Oxycodone/ Acetaminophen (Percocet (5/ 325)) 2 tab PACU ORDER PRN PO .PAIN 6-10 Last administered on 11/13/18at 09:13; Admin Dose 2 TAB; Start 11/13/18 at 09:00; Stop 11/13/18 at 13:00 Ondansetron HCl (Zofran Inj) 4 mg PACU ORDER PRN IV NAUSEA/VOMITING Last administered on 11/13/18at 09:13; Admin Dose 4 MG; Start 11/13/18 at 09:00; Stop 11/13/18 at 13:00 Metoclopramide HCl (Reglan) 10 mg PACU ORDER PRN IV NAUSEA/VOMITING; Start 11/13/18 at 09:00; Stop 11/13/18 at 13:00 Labetalol HCl (Labetalol) 5 mg PACU ORDER PRN IV HIGH BLOOD PRESSURE; Start 11/13/18 at 09:00; Stop 11/13/18 at 13:00 Hydralazine HCl (Apresoline) 5 mg PACU ORDER PRN IV HIGH BLOOD PRESSURE; Start 11/13/18 at 09:00; Stop 11/13/18 at 13:00 Ephedrine Sulfate 5 mg PACU ORDER PRN IV BLOOD PRESSURE SUPPORT; Start 11/13/18 at 09:00; Stop 11/13/18 at 13:00 Meperidine HCl (Demerol) 25 mg PACU ORDER PRN IV .RIGORS Last administered on 11/13/18at 09:13; Admin Dose 25 MG; Start 11/13/18 at 09:00; Stop 11/13/18 at 13:00 Diphenhydramine HCl (Benadryl) 25 mg PACU ORDER PRN IV .PRURITUS Last administered on 11/13/18at 11:16; Admin Dose 25 MG; Start 11/13/18 at 09:00; Stop 11/13/18 at 13:00 Midazolam HCl (Versed) 0.5 mg PACU ORDER PRN IV .ANXIETY; Start 11/13/18 at 09:00; Stop 11/13/18 at 13:00 Assessment/Plan Hospital Course (Demo Recall) iMP: 1. Recurrent large left-sided lymphocytic predominant exudative pleural effusio n--etiology remains unclear. Pleurx catheter placed today. 2. ADHF 3. 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 Continue Pleurx drainage 2. Anticipate discharge soon 3. Outpatient follow-up at [facility] for pulmonary hypertension RAMIN JIMENEZ MD, [facility] Nov 13, 2018 12:14
--- NOTE | 2018-11-13 14:08 | CONS ---
Assessment/Plan Assessment/Plan Hospital Course (Demo Recall) IMPRESSION: 1. Congestive heart failure exacerbation. Patient with both left and right-sided findings with the left having at least by previous echo, preserved EF and the right having significant RV dysfunction.-again by repeat echo with severely elevated RVSP>100 2. Tricuspid regurgitation, severe. 3. Hypotension, borderline. 4. Shortness of breath secondary to #1. 5. Pleural effusion, right side large, status post thoracentesis -1 liter. Now recurrent. now post-op s/p VATS/pleurodesis. Now s/p placement of pleur-x catheter 6. Polysubstance abuse, most notably with methamphetamines. Recc: -Tele -Continue coreg as tolerated only with ACEI held in the setting of ARF which is now improved but patient still with marginal BP and more Right heart failure and thus would continue to hold -Follow volume status with ongoing bumex diuresis -s/p course of abx's, f/u cx data -midodrine PRN only at this time -POssible transfer to tertiary care center for PHTN eval and treatment -possible role for tricuspid valve repair -CT exchanged for pleur-x catheter Consultation Date/Type/Reason Admit Date/Time Oct 28, 2018 at 19:39 Initial Consult Date Lauryn Type of Consult Cardiology Reason for Consultation CHF Requesting Provider: SHIN HAN MD Date/Time of Note DATE: 11/13/18 TIME: 14:07 Exam/Review of Systems Vital Signs Vitals Vital Signs Date Temp Pulse Resp B/P (MAP) Pulse Ox O2 O2 Flow FiO2 Time Delivery Rate 11/13/18 97.8 84 18 98/58 (71) 97 11:09 11/13/18 Nasal 1.0 10:02 Cannula 11/12/18 36 10:47 Intake and Output 11/12/18 11/12/18 11/13/18 1515:00 23:00 07:00 IntakeIntake Total 50 ml 450 ml OutputOutput Total 20 ml BalanceBalance 50 ml 430 ml Exam Exam Review of Systems: CONSTITUTIONAL: No fevers, chills. PULMONARY: No sob CARDIOVASCULAR: No chest pain/palpitations GASTROINTESTINAL: No nausea/vomiting. GENITOURINARY: No hematuria/dysuria. MUSCULOSKELETAL: No myagias/arthalgias. PSYCHIATRIC: The patient denies depression. NEUROLOGIC: No weakness Constitutional: alert Psych: no complaints Head: normocephalic ENMT: mucosa pink and moist Neck: supple, jvd (9 cm water) Respiratory: diminished breath sounds (R>L sided) Cardiovascular: regular rate and rhythm Gastrointestinal: soft, non-tender Musculoskeletal: muscle tone (normal) Extremities: edema (trace@ankles/B) Labs Result Diagram: 11/13/18 0458 11/13/18 0458 Results 24hrs Laboratory Tests Test 11/13/18 04:58 White Blood Count 6.7 # Red Blood Count 3.39 L Hemoglobin 11.0 L Hematocrit 33.4 L Mean Corpuscular Volume 98.5 Mean Corpuscular Hemoglobin 32.4 Mean Corpuscular Hemoglobin Concent 32.9 Red Cell Distribution Width 15.6 H Platelet Count 234 # Mean Platelet Volume 10.6 H Immature Granulocytes % 0.300 Neutrophils % 48.4 Lymphocytes % 26.8 Monocytes % 15.0 H Eosinophils % 9.1 H Basophils % 0.4 Nucleated Red Blood Cells % 0.0 Immature Granulocytes # 0.020 Neutrophils # 3.2 Lymphocytes # 1.8 Monocytes # 1.0 H Eosinophils # 0.6 H Basophils # 0.0 Nucleated Red Blood Cells # 0.0 Sodium Level 137 Potassium Level 3.8 Chloride Level 99 Carbon Dioxide Level 34 H Anion Gap 4 L Blood Urea Nitrogen 21 H Creatinine 0.76 Est Glomerular Filtrat Rate mL/min > 60 Glucose Level 95 Calcium Level 9.1 Phosphorus Level 4.7 Magnesium Level 1.8 Medications Medications Current Medications Carvedilol (Coreg) 3.125 mg BID PO Last administered on 11/12/18at 21:05; Admin Dose 3.125 MG; Start 10/29/18 at 09:00 Pantoprazole (Protonix Tab) 40 mg DAILY@06 PO Last administered on 11/12/18 06:27; Admin Dose 40 MG; Start 10/29/18 at 06:00 Enoxaparin Sodium (Lovenox) 40 mg DAILY SC Last administered on 11/13/18at 10:56; Admin Dose 40 MG; Start 10/29/18 at 09:00 Acetaminophen (Tylenol Tab) 650 mg Q6H PRN PO MILD PAIN(1-3)OR ELEVATED TEMP Last administered on 11/09/18at 10:02; Admin Dose 650 MG; Start 10/28/18 at 22:30 Ondansetron HCl (Zofran Inj) 4 mg Q6H PRN IV NAUSEA AND/OR VOMITING Last administered on 11/05/18 03:41; Admin Dose 4 MG; Start 10/28/18 at 22:30 Albuterol/ Ipratropium (Duoneb) 3 ml Q6H RESP THERAPY PRN HHN SHORTNESS OF BREATH Last administered on 11/12/18 10:44; Admin Dose 3 ML; Start 10/28/18 at 22:30 Potassium Chloride (Klor-Con 20) 20 meq DAILY PO Last administered on 11/12/18 09:30; Admin Dose 20 MEQ; Start 10/30/18 at 09:00 Midodrine (Proamatine) 2.5 mg BID@09,17 PRN PO SBP<85 Last administered on 11/05/18 03:41; Admin Dose 2.5 MG; Start 10/31/18 at 17:00 Gabapentin (Neurontin) 300 mg DAILY PO Last administered on 11/12/18 09:31; Admin Dose 300 MG; Start 11/10/18 at 09:00 Ceftriaxone Sodium 50 ml @ 100 mls/hr Q24H IVPB Last administered on 11/12/18 17:32; Admin Dose 100 MLS/HR; Start 11/10/18 at 15:30 Acetaminophen/ Hydrocodone Bitart ([place] (10/325)) 1 tab Q4H PRN PO MODERATE PAIN LEVEL 4-6 Last administered on 11/13/18 11:16; Admin Dose 1 TAB; Start 11/12/18 at 13:00 Bumetanide (Bumex) 1 mg BID DIURETICS IV Last administered on 11/13/18 05:30; Admin Dose 1 MG; Start 11/12/18 at 18:00 JEFF HARMON Nov 13, 2018 14:08
[2018-11-13] MEDS: GABAPENTIN 300 MG CAP PO SCH (14:26)
[2018-11-13] MEDS: POTASSIUM CHLORIDE (SR) 20 MEQ TAB PO SCH (14:26)
--- NOTE | 2018-11-13 14:48 | PN ---
Date/Time of Note Date/Time of Note DATE: 11/13/18 TIME: 14:41 Assessment/Plan VTE Prophylaxis Risk score (from Ns)>0 risk: 2 SCD applied (from Ns): No SCD contraindicated: low risk/ambulating Pharmacological prophylaxis: LMWH Lines/Catheters IV [facility]ter [facility]from [facility] [place] Urinary Cath still in place: No Assessment/Plan Hospital Course 1. Acute on chronic systolic heart failure-- ECHO reviewed with EF 60% and severe right atrial enlargement, right ventricle dilation with reduced systolic function, severe TR. s/p VATS 11/06/2018 2. Severe pulmonary HTN 3. Large right pleural effusion s/p thoracentesis 07/30/2018. Pathology: Left thoracentesis fluid for cytology: -- Negative for malignant cells.. Pt might need pleurodesis. Now has Pleurx on the right side of the chest. 4. h/o Meth use 5. Overweight 6. hyperlipidemia 7. Hypotension, 8. S.p appendectomy 9. Back pain 10. dyslipidemia 11. SIRS postprocedure, resolved Assessment/Plan -find an address for [facility] for pulmonary hypertension -Oxygen at home is arranged per case management -wrapper caser to find a home health Charge planning tomorrow -cw Bumex twice daily Collect UA today -Has Pleurx now -Cytology pending - cw> Rocephin ? Pleural biopsy for etiology - Renal function improved - renally dose all meds -Decreased pain control Ambulate - fu CTS and pul recs and cardiac recs Result Diagram: 11/13/18 0458 11/13/18 0458 Results 24hrs Laboratory Tests Test 11/13/18 04:58 White Blood Count 6.7 # Red Blood Count 3.39 L Hemoglobin 11.0 L Hematocrit 33.4 L Mean Corpuscular Volume 98.5 Mean Corpuscular Hemoglobin 32.4 Mean Corpuscular Hemoglobin Concent 32.9 Red Cell Distribution Width 15.6 H Platelet Count 234 # Mean Platelet Volume 10.6 H Immature Granulocytes % 0.300 Neutrophils % 48.4 Lymphocytes % 26.8 Monocytes % 15.0 H Eosinophils % 9.1 H Basophils % 0.4 Nucleated Red Blood Cells % 0.0 Immature Granulocytes # 0.020 Neutrophils # 3.2 Lymphocytes # 1.8 Monocytes # 1.0 H Eosinophils # 0.6 H Basophils # 0.0 Nucleated Red Blood Cells # 0.0 Sodium Level 137 Potassium Level 3.8 Chloride Level 99 Carbon Dioxide Level 34 H Anion Gap 4 L Blood Urea Nitrogen 21 H Creatinine 0.76 Est Glomerular Filtrat Rate mL/min > 60 Glucose Level 95 Calcium Level 9.1 Phosphorus Level 4.7 Magnesium Level 1.8 Subjective 24 Hr Interval Summary Free Text/Dictation able to ambulate Constitutional: improved, chills; No no complaints, No diaphoresis, No disoriented, No febrile, No poor po, No requiring IVF, No requiring O2, No other Exam/Review of Systems Exam Vitals Vital Signs Date Temp Pulse Resp B/P (MAP) Pulse Ox O2 O2 Flow FiO2 Time Delivery Rate 11/13/18 2.0 14:18 11/13/18 97.8 84 18 98/58 (71) 97 11:09 11/13/18 Nasal 10:02 Cannula 11/12/18 36 10:47 Intake and Output 11/12/18 11/12/18 11/13/18 1515:00 23:00 07:00 IntakeIntake Total 50 ml 450 ml OutputOutput Total 20 ml BalanceBalance 50 ml 430 ml Exam No acute distress, no events overnight. Eyes: anicteric, EOM's intact, no pallor Nose: no rhinorrhea Neck: supple, no thyromegaly, no carotid bruits Lungs: bilaterally decreased. Pleural wax on the right side covered with a dressing CVS: regular rate and rhythm, no murmurs Abdomen: soft, bowel sounds present, no hepatosplenomegally, no masses, no rebound or guarding. Rectal: differed. External genitalia: no lesions. Extremities: no edema, DP pulses are palpable Neuro: alert and oriented x 3 Gait: normal short distance Motor strength: 5+/5+ Sensory exam: Left leg decreased sensitivity, neuropathy Deep tendon reflexes: normal, [place]y reflexes are absent bilaterally Skin: right side of the chest surgical wound Results Results 24hrs Laboratory Tests Test 11/13/18 04:58 White Blood Count 6.7 # Red Blood Count 3.39 L Hemoglobin 11.0 L Hematocrit 33.4 L Mean Corpuscular Volume 98.5 Mean Corpuscular Hemoglobin 32.4 Mean Corpuscular Hemoglobin Concent 32.9 Red Cell Distribution Width 15.6 H Platelet Count 234 # Mean Platelet Volume 10.6 H Immature Granulocytes % 0.300 Neutrophils % 48.4 Lymphocytes % 26.8 Monocytes % 15.0 H Eosinophils % 9.1 H Basophils % 0.4 Nucleated Red Blood Cells % 0.0 Immature Granulocytes # 0.020 Neutrophils # 3.2 Lymphocytes # 1.8 Monocytes # 1.0 H Eosinophils # 0.6 H Basophils # 0.0 Nucleated Red Blood Cells # 0.0 Sodium Level 137 Potassium Level 3.8 Chloride Level 99 Carbon Dioxide Level 34 H Anion Gap 4 L Blood Urea Nitrogen 21 H Creatinine 0.76 Est Glomerular Filtrat Rate mL/min > 60 Glucose Level 95 Calcium Level 9.1 Phosphorus Level 4.7 Magnesium Level 1.8 Medications Medication Current Medications Carvedilol (Coreg) 3.125 mg BID PO Last administered on 11/12/18 21:05; Admin Dose 3.125 MG; Start 10/29/18 at 09:00 Pantoprazole (Protonix Tab) 40 mg DAILY@06 PO Last administered on 11/12/18 06:27; Admin Dose 40 MG; Start 10/29/18 at 06:00 Enoxaparin Sodium (Lovenox) 40 mg DAILY SC Last administered on 11/13/18 10:56; Admin Dose 40 MG; Start 10/29/18 at 09:00 Acetaminophen (Tylenol Tab) 650 mg Q6H PRN PO MILD PAIN(1-3)OR ELEVATED TEMP Last administered on 11/09/18 10:02; Admin Dose 650 MG; Start 10/28/18 at 22:30 Ondansetron HCl (Zofran Inj) 4 mg Q6H PRN IV NAUSEA AND/OR VOMITING Last administered on 11/05/18 03:41; Admin Dose 4 MG; Start 10/28/18 at 22:30 Albuterol/ Ipratropium (Duoneb) 3 ml Q6H RESP THERAPY PRN HHN SHORTNESS OF BREATH Last administered on 11/12/18 10:44; Admin Dose 3 ML; Start 10/28/18 at 22:30 Potassium Chloride (Klor-Con 20) 20 meq DAILY PO Last administered on 11/13/18 14:26; Admin Dose 20 MEQ; Start 10/30/18 at 09:00 Midodrine (Proamatine) 2.5 mg BID@,17 PRN PO SBP<85 Last administered on 11/05/18 03:41; Admin Dose 2.5 MG; Start 10/31/18 at 17:00 Gabapentin (Neurontin) 300 mg DAILY PO Last administered on 11/13/18 14:26; Admin Dose 300 MG; Start 11/10/18 at 09:00 Ceftriaxone Sodium 50 ml @ 100 mls/hr Q24H IVPB Last administered on 11/12/18 17:32; Admin Dose 100 MLS/HR; Start 11/10/18 at 15:30 Acetaminophen/ Hydrocodone Bitart ([place] (10/325)) 1 tab Q4H PRN PO MODERATE PAIN LEVEL 4-6 Last administered on 11/13/18 11:16; Admin Dose 1 TAB; Start 11/12/18 at 13:00 Bumetanide (Bumex) 1 mg BID DIURETICS PO ; Start 11/13/18 at 18:00; Status VEGA GILBERT NP Nov 13, 2018 14:48
[2018-11-13] MEDS: CEFTRIAXONE 1 GM/50 ML (PMX) 50 ML IVPB SCH (16:45)
[2018-11-13] MEDS: BUMETANIDE 1 MG TAB PO SCH (18:20)
[2018-11-13] MEDS: DIPHENHYDRAMINE 50 MG INJ IV PRN (20:34)
[2018-11-14] VITALS: BP 99/60; PULSE 95; RESP 19
[2018-11-14] MEDS: HYDROCODONE/APAP (10/325) TAB PO PRN ×3 (00:25→08:48)
[2018-11-14 04:00] VITALS: BP 103/60; PULSE 85; RESP 18
[2018-11-14] MEDS: PANTOPRAZOLE (EC) 40 MG TAB PO SCH (05:27)
[2018-11-14] MEDS: BUMETANIDE 1 MG TAB PO SCH (05:27)
[2018-11-14 08:07] VITALS: BP 98/53; PULSE 94; RESP 18
[2018-11-14] MEDS: GABAPENTIN 300 MG CAP PO SCH (08:49)
[2018-11-14] MEDS: POTASSIUM CHLORIDE (SR) 20 MEQ TAB PO SCH (08:49)
[2018-11-14] MEDS: ENOXAPARIN 40 MG/0.4 ML SYG SC SCH (09:01)
[2018-11-14] MEDS: DIPHENHYDRAMINE 50 MG INJ IV PRN (09:17)
--- NOTE | 2018-11-14 11:10 | CONS ---
Consult Date/Type/Reason Admit Date/Time Oct 28, 2018 at 19:39 Initial Consult Date Type of Consult Pulmonary Requesting Provider: SHIN HAN MD Date/Time of Note DATE: 11/14/18 TIME: 11:08 Subjective Patient stable this morning no new events. Chest x-ray shows almost complete resolution of pleural effusion. Objective Vital Signs Date Temp Pulse Resp B/P (MAP) Pulse Ox O2 O2 Flow FiO2 Time Delivery Rate 11/14/18 98.7 94 18 98/53 (68) 98 Room Air 08:07 11/14/18 2.0 05:25 11/12/18 36 10:47 Intake and Output 11/13/18 11/13/18 11/14/18 1515:00 23:00 07:00 IntakeIntake Total 100 ml 1250 ml 520 ml OutputOutput Total 222 ml BalanceBalance -122 ml 1250 ml 520 ml Exam GENERAL: VITAL SIGNS: per chart NECK: Supple. No JVD or lymphadenopathy. CARDIAC EXAM: S1, S2. No added sounds or murmurs. CHEST: clear bilaterally, No added sounds, rales or wheezes ABDOMEN: Soft, nontender. No guarding or rebound. EXTREMITIES: No cyanosis, clubbing or edema. NEUROLOGIC: Generalized weakness. No focal deficits. Vent Setting Fraction of Inspired Oxygen pe: 36 Results/Medications Result Diagram: 11/14/18 0539 11/14/18 0539 Results 24 hrs Laboratory Tests Test 11/13/18 19:35 11/14/18 05:39 Urine Color YELLOW Urine Clarity SLIGHTLY CLOUDY A Urine pH 5.0 Urine Specific [place] 1.015 Urine Ketones NEGATIVE Urine Nitrite NEGATIVE Urine Bilirubin NEGATIVE Urine Urobilinogen NEGATIVE Urine Leukocyte Esterase TRACE A Urine Microscopic RBC 1 Urine Microscopic WBC 10 H Urine Squamous Epithelial Cells FEW Urine Hemoglobin NEGATIVE Urine Glucose NEGATIVE Urine Total Protein NEGATIVE White Blood Count 7.5 Red Blood Count 3.44 L Hemoglobin 11.2 L Hematocrit 33.9 L Mean Corpuscular Volume 98.5 Mean Corpuscular Hemoglobin 32.6 Mean Corpuscular Hemoglobin Concent 33.0 Red Cell Distribution Width 15.4 H Platelet Count 238 Mean Platelet Volume 10.7 H Immature Granulocytes % 0.400 Neutrophils % 53.6 Lymphocytes % 26.6 Monocytes % 11.1 H Eosinophils % 7.9 H Basophils % 0.4 Nucleated Red Blood Cells % 0.0 Immature Granulocytes # 0.030 Neutrophils # 4.0 Lymphocytes # 2.0 Monocytes # 0.8 Eosinophils # 0.6 H Basophils # 0.0 Nucleated Red Blood Cells # 0.0 Sodium Level 134 L Potassium Level 3.8 Chloride Level 96 L Carbon Dioxide Level 33 H Anion Gap 5 Blood Urea Nitrogen 22 H Creatinine 0.78 Est Glomerular Filtrat Rate mL/min > 60 Glucose Level 88 Calcium Level 8.9 Iron Level 45 Total Iron Binding Capacity 301 Percent Iron Saturation 15 L Medications Current Medications Carvedilol (Coreg) 3.125 mg BID PO Last administered on 11/14/18 08:49; Admin Dose 3.125 MG; Start 10/29/18 at 09:00 Pantoprazole (Protonix Tab) 40 mg DAILY@06 PO Last administered on 11/14/18 05:27; Admin Dose 40 MG; Start 10/29/18 at 06:00 Enoxaparin Sodium (Lovenox) 40 mg DAILY SC Last administered on 11/14/18 09:01; Admin Dose 40 MG; Start 10/29/18 at 09:00 Acetaminophen (Tylenol Tab) 650 mg Q6H PRN PO MILD PAIN(1-3)OR ELEVATED TEMP Last administered on 11/09/18 10:02; Admin Dose 650 MG; Start 10/28/18 at 22:30 Ondansetron HCl (Zofran Inj) 4 mg Q6H PRN IV NAUSEA AND/OR VOMITING Last administered on 11/05/18 03:41; Admin Dose 4 MG; Start 10/28/18 at 22:30 Albuterol/ Ipratropium (Duoneb) 3 ml Q6H RESP THERAPY PRN HHN SHORTNESS OF BREATH Last administered on 11/12/18 10:44; Admin Dose 3 ML; Start 10/28/18 at 22:30 Potassium Chloride (Klor-Con 20) 20 meq DAILY PO Last administered on 11/14/18 08:49; Admin Dose 20 MEQ; Start 10/30/18 at 09:00 Midodrine (Proamatine) 2.5 mg BID@09,17 PRN PO SBP<85 Last administered on 11/05/18 03:41; Admin Dose 2.5 MG; Start 10/31/18 at 17:00 Gabapentin (Neurontin) 300 mg DAILY PO Last administered on 11/14/18 08:49; Admin Dose 300 MG; Start 11/10/18 at 09:00 Ceftriaxone Sodium 50 ml @ 100 mls/hr Q24H IVPB Last administered on 11/13/18 16:45; Admin Dose 100 MLS/HR; Start 11/10/18 at 15:30 Acetaminophen/ Hydrocodone Bitart ([place] (10/325)) 1 tab Q4H PRN PO MODERATE PAIN LEVEL 4-6 Last administered on 11/14/18 08:48; Admin Dose 1 TAB; Start 11/12/18 at 13:00 Bumetanide (Bumex) 1 mg BID DIURETICS PO Last administered on 11/14/18 05:27; Admin Dose 1 MG; Start 11/13/18 at 18:00 Diphenhydramine HCl (Benadryl) 25 mg BID PRN IV ITCHING Last administered on 11/14/18 09:17; Admin Dose 25 MG; Start 11/13/18 at 20:23 Assessment/Plan Hospital Course (Demo Recall) iMP: 1. Recurrent large left-sided lymphocytic predominant exudative pleural effusion--etiology remains unclear. Pleurx catheter placed today. 2. ADHF 3. 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 Continue Pleurx drainage, recommend drainage every other day home health for the first week 2. Anticipate discharge soon 3. Outpatient follow-up at [facility] for pulmonary hypertension RAMIN JIMENEZ MD, FCCP Nov 14, 2018 11:09
--- NOTE | 2018-11-14 11:14 | PDOCDIS ---
Discharge Instructions DIAGNOSIS Discharge Diagnosis CHF CONDITION [id number] Patient Condition: [id number] Stable HOME CARE INSTRUCTIONS: [id number] Diet Instructions: [id number] Regular ACTIVITY: [id number] Activity Restrictions: [id number] Slowly Increase Activity Rest between Activity Avoid heavy lifting FOLLOW UP/APPOINTMENTS Follow-up Plan for weekly PleurX drain, they will give supplies, bottle and dressing PCP 1 week F/up at [facility] with pulmonology for pulmonary hypertension VEGA TEIXEIRA NP Nov 14, 2018 11:14
[2018-11-14 11:20] VITALS: BP 98/63; PULSE 83; RESP 18
--- NOTE | 2018-11-14 11:20 | DS ---
Date/Time of Note Date/Time of Note DATE: 11/14/18 TIME: 11:19 Discharge Summary Admission/Discharge Info Admit Date/Time Oct 28, 2018 at 19:39 Discharge Date/Time Discharge Diagnosis CHF, recurrent pulmonary effusion Patient Condition: Stable Consults Dr Godfrey, surgeon, Dr Celeste, pulmonology, dr Alba, cardiology Procedures OPERATION: Insertion of a 28-Cam[place]onian chest tube and installation of 4 grams of talc., 11/06/[address] Godfrey, Removal of chest tube insertion of a right PleurX catheter 11/13/2018 Hospital Course HISTORY OF PRESENT ILLNESS: The patient, Pierre Zuniga is a 38-year-old female who was recently admitted. The patient has history of acute and chronic right-sided heart failure, severe pulmonary hypertension, history of large right pleural effusion, history of thoracentesis, substance abuse. The patient presented again with recurrent pleural effusion and is being admitted for further management. The patient is denying any chest pain or palpitation at this point. PAST MEDICAL HISTORY: As mentioned above. Positive for acute and chronic right heart failure, pul hypertension, pleurocentesis, substance abuse history. ALLERGIES: NEGATIVE. FAMILY HISTORY: Negative. SOCIAL HISTORY: Positive for drug abuse per patient Impressions 1. Acute on chronic systolic heart failure. s/p VATS 11/06/2018 2. Severe pulmonary HTN 3. Large right pleural effusion s/p thoracentesis 07/30/2018. Pathology: Left thoracentesis fluid for cytology: -- Negative for malignant cells.. Pt might need pleurodesis. Now has Pleurx on the right side of the chest. 4. h/o Meth use 5. Overweight 6. hyperlipidemia 7. Hypotension, 8. S.p appendectomy 9. Back pain 10. dyslipidemia 11. SIRS postprocedure, resolved Higg. 1. At this time, we would maintain the patient on telemetry monitoring to follow rhythm and rate control closely. 2. We would continue the patient's Bumex diuresis, following strict I's and O's to grade diuresis closely and for now, will continue the patient's low dose carvedilol and lisinopril and will write for hold parameters. They have been held today and patient with actually reasonable blood pressures should tolerate them. 3. Continue patient's antibiotics and follow up all culture data. 4. Will consider a repeat echo to reassess patient's left ventricular ejection fraction and reassess the pulmonary pressures. 5. After significant diuresis when patient's volume status is near euvolemia would reassess patient's right ventricular systolic pressure and if found to be elevated and more consistent with true primary pulmonary hypertension then will treat the patient for pulmonary hypertension and to possibly improve her right- sided failure. During hospitalization patient was seen by numerous specialists. Dr. Alba was cardiology consult. We followed his recommendations. Patient was on telemetry service all the time. Dr Alba ordered Echocardiogram, it reveals EF 60% , severe right atrial enlargement, right ventricle dilation with reduced systolic function, severe TR.Pt was placed on beta tommy and Bumex BID IV. She was ordered strict I and O and fluid restrictions 1.2 L. We checked her blood and replenish electrolyte as needed. Her pain was controlled. Pulmonology group dr Celeste was called to help manage recurrent right pleural effusion. Patient was offered PleurX, she refused it. Dr Godfrey performed insertion of a 28-Cam[place]onian chest tube and installation of 4 grams of talc in right pleural cavity on . daily we check chest output and it was significant, on the fifth day after chest tube installation it was clear that pt need a Pleur X. dr Godfrey performed removal of chest tube insertion of a right PleurX catheter on 11/13/2018. Pt was taught how to take care for it. Home health was requested. Patient is clinically improved. Patient had minimal pain, was able to ambulate, and only required 1-2 l/min an additional oxygenation. Thi sis her base line. Pt had oxygen at home, we contacted supplier to refill it. Plan of care was discussed with Dr. Kurtz/Dr. Combs. In stable condition patient was discharged. Patient was instructed to continue designated medications and stay away from drugs. Patient was instructed to see primary care provider in 1 week and see [facility] specialist for her pulmonary hypertension, contact was provided for her. All questions were answered and all problems were addressed. Home Meds Active Scripts Potassium Chloride* (K-Dur*) 20 Meq Tab.prt.sr, 20 MEQ PO DAILY for 30 Days Prov:VEGA TEIXEIRA ASSOCIATE PROFESSOR OF MUSIC 11/14/18 Gabapentin* (Gabapentin*) 300 Mg Capsule, 300 MG PO DAILY for 30 Days, CAP Prov:MEZENTSEVA,VEGA ASSOCIATE PROFESSOR OF MUSIC 11/14/18 Bumetanide* (Bumetanide*) 1 Mg Tablet, 1 MG PO BID DIURETICS for 30 Days, TAB Prov:VEGA TEIXEIRA NP 11/14/18 Cephalexin* (Cephalexin*) 500 Mg Capsule, 500 MG PO Q8 for 5 Days, #21 CAP Prov:VEGA TEIXEIRA NP 11/14/18 Carvedilol* (Carvedilol*) 3.125 Mg Tablet, 3.125 MG PO BID for 30 Days, #60 TAB 1 Refill Prov:DARINEL TURNER MD 08/20/18 Discontinued Scripts Furosemide* (Lasix*) 40 Mg Tablet, 40 MG PO BID for 30 Days, #60 TAB 1 Refill Prov:DARINEL TURNER MD 08/20/18 Lisinopril* (Lisinopril*) 2.5 Mg Tablet, 2.5 MG PO DAILY for 30 Days, #30 TAB 1 Refill Prov:DARINEL TURNER MD 08/20/18 Follow-up Plan for weekly PleurX drain, they will give supplies, bottle and dressing PCP 1 week F/up at [facility] with pulmonology for pulmonary hypertension Primary Care Provider Kyle Arteaga MD Time spent on discharge: < 30 minutes Pending Labs Laboratory Tests Test 11/13/18 19:35 11/14/18 05:39 Urine Color YELLOW (YELLOW) Urine Clarity SLIGHTLY CLOUDY (CLEAR) Urine pH 5.0 (5.0-9.0) Urine Specific [place] 1.015 (1.003-1.030) Urine Ketones NEGATIVE mg/dL (NEGATIVE) Urine Nitrite NEGATIVE mg/dL (NEGATIVE) Urine Bilirubin NEGATIVE mg/dL (NEGATIVE) Urine Urobilinogen NEGATIVE mg/dL (NEGATIVE) Urine Leukocyte Esterase TRACE Itmmy/ul (NEGATIVE) Urine Microscopic RBC 1 /HPF (0-5) Urine Microscopic WBC 10 /HPF (0-5) Urine Squamous FEW /HPF (FEW) Epithelial Cells Urine Hemoglobin NEGATIVE mg/dL (NEGATIVE) Urine Glucose NEGATIVE mg/dL (NEGATIVE) Urine Total Protein NEGATIVE mg/dl (NEGATIVE) White Blood Count 7.5 10^3/ul (4.8-10.8) Red Blood Count 3.44 10^6/ul (4.20-5.40) Hemoglobin 11.2 g/dl (12.0-16.0) Hematocrit 33.9 % (37.0-47.0) Mean Corpuscular Volume 98.5 fl (82.0-101.0) Mean Corpuscular 32.6 pg (29.0-33.0) Hemoglobin Mean Corpuscular 33.0 g/dl (32.0-37.0) Hemoglobin Concent Red Cell Distribution 15.4 % (11.5-14.5) Width Platelet Count 238 10^3/UL (140-415) Mean Platelet Volume 10.7 fl (7.4-10.4) Immature Granulocytes % 0.400 % (0.001-0.429) Neutrophils % 53.6 % (39.0-77.0) Lymphocytes % 26.6 % (15.0-51.0) Monocytes % 11.1 % (0.0-11.0) Eosinophils % 7.9 % (0.0-7.0) Basophils % 0.4 % (0.0-2.0) Nucleated Red Blood Cells 0.0 /100WBC (0.0-0.0) % Immature Granulocytes # 0.030 10^3/ul (0.0-0.031) Neutrophils # 4.0 10^3/ul (1.6-7.5) Lymphocytes # 2.0 10^3/ul (0.8-2.9) Monocytes # 0.8 10^3/ul (0.3-0.9) Eosinophils # 0.6 10^3/ul (0.0-0.5) Basophils # 0.0 10^3/ul (0.0-0.1) Nucleated Red Blood Cells 0.0 10^3/ul (0.0-0.0) # Sodium Level 134 mmol/L (135-144) Potassium Level 3.8 mmol/L (3.5-5.1) Chloride Level 96 mmol/L (97-110) Carbon Dioxide Level 33 mmol/L (21-31) Anion Gap 5 (5-13) Blood Urea Nitrogen 22 mg/dl (7-20) Creatinine 0.78 mg/dl (0.44-1.00) Est Glomerular Filtrat > 60 mL/min (>60) Rate mL/min Glucose Level 88 mg/dl (70-220) Calcium Level 8.9 mg/dl (8.4-10.2) Iron Level 45 ug/dl (35-150) Total Iron Binding 301 ug/dl (241-421) Capacity Percent Iron Saturation 15 % SAT (22-52) VEGA TEIXEIRA NP Nov 14, 2018 11:20
--- NOTE | 2018-11-14 12:16 | PN ---
Date/Time of Note Date/Time of Note DATE: 11/14/18 TIME: 12:14 Assessment/Plan VTE Prophylaxis Risk score (from [facility] [place])>0 risk: 2 SCD applied (from [facility] [place]): No SCD contraindicated: low risk/ambulating Pharmacological prophylaxis: NA/contraindicated Pharm contraindication: anticoag not tolerated Lines/Catheters IV Catheter Type (from [facility] [place] Urinary Cath still in place: No Assessment/Plan Hospital Course 1. Acute on chronic systolic heart failure-- ECHO reviewed with EF 60% and severe right atrial enlargement, right ventricle dilation with reduced systolic function, severe TR. s/p VATS 11/06/2018 2. Severe pulmonary HTN 3. Large right pleural effusion s/p thoracentesis 07/30/2018. Pathology: Left thoracentesis fluid for cytology: -- Negative for malignant cells.. Pt might need pleurodesis. Now has Pleurx on the right side of the chest. 4. h/o Meth use 5. Overweight 6. hyperlipidemia 7. Hypotension, 8. S.p appendectomy 9. Back pain 10. dyslipidemia 11. SIRS postprocedure, resolved Assessment/Plan -dc planning -per nurse HH is arranged -cleared by consultants -pt requested pain medications Result Diagram: 11/14/18 0539 11/14/18 0539 Results 24hrs Laboratory Tests Test 11/13/18 19:35 11/14/18 05:39 Urine Color YELLOW Urine Clarity SLIGHTLY CLOUDY A Urine pH 5.0 Urine Specific [place] 1.015 Urine Ketones NEGATIVE Urine Nitrite NEGATIVE Urine Bilirubin NEGATIVE Urine Urobilinogen NEGATIVE Urine Leukocyte Esterase TRACE A Urine Microscopic RBC 1 Urine Microscopic WBC 10 H Urine Squamous Epithelial Cells FEW Urine Hemoglobin NEGATIVE Urine Glucose NEGATIVE Urine Total Protein NEGATIVE White Blood Count 7.5 Red Blood Count 3.44 L Hemoglobin 11.2 L Hematocrit 33.9 L Mean Corpuscular Volume 98.5 Mean Corpuscular Hemoglobin 32.6 Mean Corpuscular Hemoglobin Concent 33.0 Red Cell Distribution Width 15.4 H Platelet Count 238 Mean Platelet Volume 10.7 H Immature Granulocytes % 0.400 Neutrophils % 53.6 Lymphocytes % 26.6 Monocytes % 11.1 H Eosinophils % 7.9 H Basophils % 0.4 Nucleated Red Blood Cells % 0.0 Immature Granulocytes # 0.030 Neutrophils # 4.0 Lymphocytes # 2.0 Monocytes # 0.8 Eosinophils # 0.6 H Basophils # 0.0 Nucleated Red Blood Cells # 0.0 Sodium Level 134 L Potassium Level 3.8 Chloride Level 96 L Carbon Dioxide Level 33 H Anion Gap 5 Blood Urea Nitrogen 22 H Creatinine 0.78 Est Glomerular Filtrat Rate mL/min > 60 Glucose Level 88 Calcium Level 8.9 Iron Level 45 Total Iron Binding Capacity 301 Percent Iron Saturation 15 L Subjective 24 Hr Interval Summary Constitutional: improved Musculoskeletal: bone/joint pain Exam/Review of Systems Exam Vitals Vital Signs Date Temp Pulse Resp B/P (MAP) Pulse Ox O2 O2 Flow FiO2 Time Delivery Rate 11/14/18 98.7 83 18 98/63 (75) 98 Room Air 11:20 11/14/18 2.0 05:25 11/12/18 36 10:47 Intake and Output 11/13/18 11/13/18 11/14/18 1515:00 23:00 07:00 IntakeIntake Total 100 ml 1250 ml 520 ml OutputOutput Total 222 ml BalanceBalance -122 ml 1250 ml 520 ml Constitutional: alert, oriented Respiratory: other (pleurx cath) Cardiovascular: regular rate and rhythm Gastrointestinal: soft Neurological: RECREATION SUPERVISOR II-XII intact Results Results 24hrs Laboratory Tests Test 11/13/18 19:35 11/14/18 05:39 Urine Color YELLOW Urine Clarity SLIGHTLY CLOUDY A Urine pH 5.0 Urine Specific [place] 1.015 Urine Ketones NEGATIVE Urine Nitrite NEGATIVE Urine Bilirubin NEGATIVE Urine Urobilinogen NEGATIVE Urine Leukocyte Esterase TRACE A Urine Microscopic RBC 1 Urine Microscopic WBC 10 H Urine Squamous Epithelial Cells FEW Urine Hemoglobin NEGATIVE Urine Glucose NEGATIVE Urine Total Protein NEGATIVE White Blood Count 7.5 Red Blood Count 3.44 L Hemoglobin 11.2 L Hematocrit 33.9 L Mean Corpuscular Volume 98.5 Mean Corpuscular Hemoglobin 32.6 Mean Corpuscular Hemoglobin Concent 33.0 Red Cell Distribution Width 15.4 H Platelet Count 238 Mean Platelet Volume 10.7 H Immature Granulocytes % 0.400 Neutrophils % 53.6 Lymphocytes % 26.6 Monocytes % 11.1 H Eosinophils % 7.9 H Basophils % 0.4 Nucleated Red Blood Cells % 0.0 Immature Granulocytes # 0.030 Neutrophils # 4.0 Lymphocytes # 2.0 Monocytes # 0.8 Eosinophils # 0.6 H Basophils # 0.0 Nucleated Red Blood Cells # 0.0 Sodium Level 134 L Potassium Level 3.8 Chloride Level 96 L Carbon Dioxide Level 33 H Anion Gap 5 Blood Urea Nitrogen 22 H Creatinine 0.78 Est Glomerular Filtrat Rate mL/min > 60 Glucose Level 88 Calcium Level 8.9 Iron Level 45 Total Iron Binding Capacity 301 Percent Iron Saturation 15 L Medications Medication Current Medications Carvedilol (Coreg) 3.125 mg BID PO Last administered on 11/14/18 08:49; Admin Dose 3.125 MG; Start 10/29/18 at 09:00 Pantoprazole (Protonix Tab) 40 mg DAILY@06 PO Last administered on 11/14/18 05:27; Admin Dose 40 MG; Start 10/29/18 at 06:00 Enoxaparin Sodium (Lovenox) 40 mg DAILY SC Last administered on 11/14/18 09:01; Admin Dose 40 MG; Start 10/29/18 at 09:00 Acetaminophen (Tylenol Tab) 650 mg Q6H PRN PO MILD PAIN(1-3)OR ELEVATED TEMP Last administered on 11/09/18 10:02; Admin Dose 650 MG; Start 10/28/18 at 22:30 Ondansetron HCl (Zofran Inj) 4 mg Q6H PRN IV NAUSEA AND/OR VOMITING Last a dministered on 11/05/18 03:41; Admin Dose 4 MG; Start 10/28/18 at 22:30 Albuterol/ Ipratropium (Duoneb) 3 ml Q6H RESP THERAPY PRN HHN SHORTNESS OF BREATH Last administered on 11/12/18 10:44; Admin Dose 3 ML; Start 10/28/18 at 22:30 Potassium Chloride (Klor-Con 20) 20 meq DAILY PO Last administered on 11/14/18 08:49; Admin Dose 20 MEQ; Start 10/30/18 at 09:00 Midodrine (Proamatine) 2.5 mg BID@09,17 PRN PO SBP<85 Last administered on 11/05/18 03:41; Admin Dose 2.5 MG; Start 10/31/18 at 17:00 Gabapentin (Neurontin) 300 mg DAILY PO Last administered on 11/14/18 08:49; Admin Dose 300 MG; Start 11/10/18 at 09:00 Ceftriaxone Sodium 50 ml @ 100 mls/hr Q24H IVPB Last administered on 11/13/18 16:45; Admin Dose 100 MLS/HR; Start 11/10/18 at 15:30 Acetaminophen/ Hydrocodone Bitart ([place] (10/325)) 1 tab Q4H PRN PO MODERATE PAIN LEVEL 4-6 Last administered on 11/14/18 08:48; Admin Dose 1 TAB; Start 11/12/18 at 13:00 Bumetanide (Bumex) 1 mg BID DIURETICS PO Last administered on 11/14/18 05:27; Admin Dose 1 MG; Start 11/13/18 at 18:00 Diphenhydramine HCl (Benadryl) 25 mg BID PRN IV ITCHING Last administered on 11/14/18 09:17; Admin Dose 25 MG; Start 11/13/18 at 20:23 VEGA TEIXEIRA NP Nov 14, 2018 12:16
--- NOTE | 2018-11-14 12:19 | CONS ---
Assessment/Plan Assessment/Plan Hospital Course (Demo Recall) Subjective No acute events. No CV complaints. Going home today, Gen: Denies fever, chills CV: Denies chest pain, palpitations, SOB, PADILLA, orthopnea, PNA, edema, claudication Resp: Denies SOB or cough GI: Denies nausea, vomiting, diarrhea, constipation, or abdominal pain Neuro: Denies lightheadedness, dizziness, presyncope/syncope Medications and allergies reviewed Past medical, surgical, family and social history reviewed. Objective General: WD/WN, NAD HEENT: NC/AT, PERRLA, dry mucus membranes CV: RRR, grade 1/6 systolic murmur, S1/S2, no S3/S4, no JVD, no carotid bruits Respiratory: CTAB, no W/C/R, non-labored breathing GI: abdomen soft, NT/ND, normoactive bowel sounds Vascular: extremities are warm, 2+ radial/DT/PT pulses bilaterally, no edema Neuro: A/O x3, no focal deficits Assessment & Plan IMPRESSION: 1. Congestive heart failure exacerbation. Patient with both left and right- sided findings with the left having at least by previous echo, preserved EF and the right having significant RV dysfunction.-again by repeat echo with severely elevated RVSP>100 2. Tricuspid regurgitation, severe. 3. Hypotension, borderline. 4. Shortness of breath secondary to #1. 5. Pleural effusion, right side large, status post thoracentesis -1 liter. Now recurrent. now post-op s/p VATS/pleurodesis. Now s/p placement of pleur-x catheter 6. Polysubstance abuse, most notably with methamphetamines. Recc: - home today, f/u in clinic with Dr. Alba in 1-2 weeks Consultation Date/Type/Reason Admit Date/Time Oct 28, 2018 at 19:39 Initial Consult Date 11/03/18 Type of Consult Cardiology Requesting Provider: SHIN HAN MD Date/Time of Note DATE: 11/14/18 TIME: 12:17 Exam/Review of Systems Vital Signs Vitals Vital Signs Date Temp Pulse Resp B/P (MAP) Pulse Ox O2 O2 Flow FiO2 Time Delivery Rate 11/14/18 98.7 83 18 98/63 (75) 98 Room Air 11:20 11/14/18 2.0 05:25 8/8/19 36 10:47 Intake and Output 11/13/18 11/13/18 11/14/18 1515:00 23:00 07:00 IntakeIntake Total 100 ml 1250 ml 520 ml OutputOutput Total 222 ml BalanceBalance -122 ml 1250 ml 520 ml Labs Result Diagram: 11/14/18 0539 11/14/18 0539 Results 24hrs Laboratory Tests Test 11/13/18 19:35 11/14/18 05:39 Urine Color YELLOW Urine Clarity SLIGHTLY CLOUDY A Urine pH 5.0 Urine Specific [place] 1.015 Urine Ketones NEGATIVE Urine Nitrite NEGATIVE Urine Bilirubin NEGATIVE Urine Urobilinogen NEGATIVE Urine Leukocyte Esterase TRACE A Urine Microscopic RBC 1 Urine Microscopic WBC 10 H Urine Squamous Epithelial Cells FEW Urine Hemoglobin NEGATIVE Urine Glucose NEGATIVE Urine Total Protein NEGATIVE White Blood Count 7.5 Red Blood Count 3.44 L Hemoglobin 11.2 L Hematocrit 33.9 L Mean Corpuscular Volume 98.5 Mean Corpuscular Hemoglobin 32.6 Mean Corpuscular Hemoglobin Concent 33.0 Red Cell Distribution Width 15.4 H Platelet Count 238 Mean Platelet Volume 10.7 H Immature Granulocytes % 0.400 Neutrophils % 53.6 Lymphocytes % 26.6 Monocytes % 11.1 H Eosinophils % 7.9 H Basophils % 0.4 Nucleated Red Blood Cells % 0.0 Immature Granulocytes # 0.030 Neutrophils # 4.0 Lymphocytes # 2.0 Monocytes # 0.8 Eosinophils # 0.6 H Basophils # 0.0 Nucleated Red Blood Cells # 0.0 Sodium Level 134 L Potassium Level 3.8 Chloride Level 96 L Carbon Dioxide Level 33 H Anion Gap 5 Blood Urea Nitrogen 22 H Creatinine 0.78 Est Glomerular Filtrat Rate mL/min > 60 Glucose Level 88 Calcium Level 8.9 Iron Level 45 Total Iron Binding Capacity 301 Percent Iron Saturation 15 L Medications Medications Current Medications Carvedilol (Coreg) 3.125 mg BID PO Last administered on 11/14/18at 08:49; Admin Dose 3.125 MG; Start 10/29/18 at 09:00 Pantoprazole (Protonix Tab) 40 mg DAILY@06 PO Last administered on 11/14/18at 05:27; Admin Dose 40 MG; Start 10/29/18 at 06:00 Enoxaparin Sodium (Lovenox) 40 mg DAILY SC Last administered on 11/14/18at 09:01; Admin Dose 40 MG; Start 10/29/18 at 09:00 Acetaminophen (Tylenol Tab) 650 mg Q6H PRN PO MILD PAIN(1-3)OR ELEVATED TEMP Last administered on 11/09/18 10:02; Admin Dose 650 MG; Start 10/28/18 at 22:30 Ondansetron HCl (Zofran Inj) 4 mg Q6H PRN IV NAUSEA AND/OR VOMITING Last admi nistered on 11/05/18 03:41; Admin Dose 4 MG; Start 10/28/18 at 22:30 Albuterol/ Ipratropium (Duoneb) 3 ml Q6H RESP THERAPY PRN HHN SHORTNESS OF BREATH Last administered on 11/12/18 10:44; Admin Dose 3 ML; Start 10/28/18 at 22:30 Potassium Chloride (Klor-Con 20) 20 meq DAILY PO Last administered on 11/14/18 08:49; Admin Dose 20 MEQ; Start 10/30/18 at 09:00 Midodrine (Proamatine) 2.5 mg BID@09,17 PRN PO SBP<85 Last administered on 11/05/18 03:41; Admin Dose 2.5 MG; Start 10/31/18 at 17:00 Gabapentin (Neurontin) 300 mg DAILY PO Last administered on 11/14/18 08:49; Admin Dose 300 MG; Start 11/10/18 at 09:00 Ceftriaxone Sodium 50 ml @ 100 mls/hr Q24H IVPB Last administered on 11/13/18 16:45; Admin Dose 100 MLS/HR; Start 11/10/18 at 15:30 Acetaminophen/ Hydrocodone Bitart ([place] (10/325)) 1 tab Q4H PRN PO MODERATE PAIN LEVEL 4-6 Last administered on 11/14/18 08:48; Admin Dose 1 TAB; Start 11/12/18 at 13:00 Bumetanide (Bumex) 1 mg BID DIURETICS PO Last administered on 11/14/18 05:27; Admin Dose 1 MG; Start 11/13/18 at 18:00 Diphenhydramine HCl (Benadryl) 25 mg BID PRN IV ITCHING Last administered on 11/14/18 09:17; Admin Dose 25 MG; Start 11/13/18 at 20:23 SHIREEN MEDINA DO Nov 14, 2018 12:19
== END 2018-11-14 13:00 | disposition home health service (06) | DRG 292 ==
LOC: E/R 18:04 → 6WM 19:39
PROVIDERS: ADMIT Internal Medicine Nephrology; ATTEND Internal Medicine Nephrology
PROC: 0W993ZX Drainage of Right Pleural Cavity, Percutaneous Approach, Diagnostic (ICD-10-PCS; 2018-10-29)
PROC: 0W9900Z Drainage of Right Pleural Cavity with Drainage Device, Open Approach (ICD-10-PCS; 2018-11-06)
PROC: 3E0L3GC Introduction of Other Therapeutic Substance into Pleural Cavity, Percutaneous Approach (ICD-10-PCS; 2018-11-06)
PROC: 0BPQX0Z Removal of Drainage Device from Pleura, External Approach (ICD-10-PCS; 2018-11-13)
PROC: 0B9N00Z Drainage of Right Pleura with Drainage Device, Open Approach (ICD-10-PCS; principal; 2018-11-13 08:00)
DX: I50.23 Acute on chronic systolic (congestive) heart failure (principal); I27.0 Primary pulmonary hypertension; R65.10 Systemic inflammatory response syndrome (SIRS) of non-infectious origin without acute organ dysfunction; J90 Pleural effusion, not elsewhere classified; N17.9 Acute kidney failure, unspecified; E66.3 Overweight; E78.5 Hyperlipidemia, unspecified; I07.1 Rheumatic tricuspid insufficiency; I50.810 Right heart failure, unspecified; Z68.29 Body mass index [BMI] 29.0-29.9, adult
CPT/HCPCS: 36415; 36600; 71045; 71250; 76705; 76942; 80048; 80053; 80061; 81001; 81003; 82803; 82945; 83540; 83615; 83735; 84100; 84157; 84484; 84703; 85025; 85610; 85730; 86480; 87070; 87086; 87102; 87116; 88104; 88305; 89051; 93005; 93308; 93970; 94640; 94660; 94664; 96374; J0690; J0696; J1170; J1200; J1644; J1650; J1885; J1940; J2175; J2250; J2270; J2370; J2405; J2765; J3010; J3475; J7030; J7040; J7042; P9045; P9047

== ENCOUNTER 2018-11-17 22:14 | Inpatient (IN) | payer OTHER ==
[~2018-11-17] VITALS: Ht 170.2 cm; Wt 84.0 kg
[~2018-11-17 22:14] MED LIST changes: -FURO-109 PO; -LISI2.5T59 PO
[2018-11-17 22:16] VITALS: Ht 170.2 cm; Wt 84.0 kg
[2018-11-17] MEDS ORDERED: SOD CHLORIDE 0.9% 1,000 ML IV STA (22:40)
[2018-11-17] MEDS ORDERED: IOHEXOL 300MG/ML 150 ML BTL ONE (23:05)
[2018-11-17] MEDS ORDERED: SOD CHLORIDE 0.9% 100 ML ONE (23:05)
[2018-11-18] MEDS ORDERED: ONDANSETRON 4 MG INJ IV PRN ×2 (03:30→11:30)
[2018-11-18] MEDS ORDERED: ACETAMINOPHEN 325 MG TAB PO PRN ×2 (03:30→11:30)
[2018-11-18] MEDS ORDERED: BUMETANIDE 1 MG INJ IV ONE (11:30)
[2018-11-18] MEDS ORDERED: DOCUSATE SODIUM 100 MG CAP PO PRN (11:30)
[2018-11-18] MEDS ORDERED: NACL 0.9% 3 ML SYG IV SCH (11:30)
[2018-11-18] MEDS: HYDROCODONE/APAP (5/325) TAB PO PRN ×2 (15:33→20:22)
[2018-11-18] MEDS: BUMETANIDE 1 MG INJ IV SCH ×2 (16:36→20:21)
[2018-11-18 18:24] VITALS: BP 109/70; PULSE 88; RESP 18
[2018-11-18 20:00] VITALS: BP 111/76; PULSE 76; RESP 18
[2018-11-19] VITALS: BP 115/79; PULSE 80; RESP 19
[2018-11-19] MEDS: HYDROCODONE/APAP (5/325) TAB PO PRN ×3 (03:39→20:57)
[2018-11-19 03:53] VITALS: BP 95/54; PULSE 20; RESP 20
[2018-11-19] MEDS: PANTOPRAZOLE (EC) 40 MG TAB PO SCH (06:18)
[2018-11-19 08:13] VITALS: BP 101/55; PULSE 89; RESP 20
[2018-11-19] MEDS: BUMETANIDE 1 MG INJ IV SCH ×3 (08:34→20:55)
[2018-11-19 13:11] VITALS: BP 99/59; PULSE 87; RESP 20
[2018-11-19 15:09] VITALS: BP 99/51; PULSE 91; RESP 20
[2018-11-19 20:00] VITALS: BP 108/51; PULSE 86; RESP 18
[2018-11-19] MEDS ORDERED: MAGNESIUM SULFATE 2 GM/50 ML 50 ML IVPB ONE (22:30)
[2018-11-20] VITALS: BP 111/63; PULSE 83; RESP 19
[2018-11-20] MEDS: HYDROCODONE/APAP (5/325) TAB PO PRN ×3 (03:24→17:26)
[2018-11-20 04:00] VITALS: BP 98/56; PULSE 81; RESP 20
[2018-11-20] MEDS: PANTOPRAZOLE (EC) 40 MG TAB PO SCH (06:48)
[2018-11-20 07:36] VITALS: BP 97/54; PULSE 71; RESP 17
[2018-11-20] MEDS: BUMETANIDE 1 MG INJ IV SCH (08:55)
[2018-11-20] MEDS ORDERED: MAGNESIUM SULFATE 2 GM/50 ML 50 ML IVPB ONE (10:00)
[2018-11-20 12:11] VITALS: BP 94/52; PULSE 83; RESP 16
[2018-11-20 15:29] VITALS: BP 96/53; PULSE 89; RESP 17
[2018-11-20] MEDS ORDERED: MAGNESIUM CHLORIDE (SR) 64 MG TAB PO ONE (17:00)
== END 2018-11-20 20:10 | disposition short-term general hospital (02) | DRG 293 ==
LOC: E/R 22:14 → 6WM 11-18 03:27
PROVIDERS: ADMIT Internal Medicine; ATTEND Internal Medicine
DX: I11.0 Hypertensive heart disease with heart failure (principal); I50.813 Acute on chronic right heart failure; F15.10 Other stimulant abuse, uncomplicated; Z91.14 Patient's other noncompliance with medication regimen; I07.1 Rheumatic tricuspid insufficiency; I95.9 Hypotension, unspecified; D64.9 Anemia, unspecified; E66.3 Overweight; Z68.29 Body mass index [BMI] 29.0-29.9, adult; I27.29 Other secondary pulmonary hypertension
CPT/HCPCS: 36415; 71045; 71275; 80053; 82550; 82553; 83735; 83880; 84100; 84484; 84703; 85025; 85378; 85610; 85730; 93005; 93970; J3475; J7030; Q9967